=== PATIENT | female | born 1950 | race African-American/Black ===

== ENCOUNTER 2019-01-11 17:30 | Emergency (ER) | payer MEDICARE, OTHER ==
[~2019-01-11] VITALS: Ht 162.6 cm; Wt 136.1 kg
[2019-01-11] MEDS ORDERED: BENZTROPINE 2 MG/2 ML INJ (COGENTIN) AMP IM ONE (18:30)
--- NOTE | 2019-01-11 19:00 | ED General ---
General Chief Complaint: General Problems/Pain Stated Complaint: RT SIDE OF FACE SWOLLEN Nursing Triage Note: Was seen last week for R sided facial swelling and placed on antibiotic. Was changed to clindamycin two days ago. Patient states that she is agitated and anxious. These symptoms have been getting worse for the past couple of days. Patient is unable to sit still on bed and keeps wringing hands. Has xanax at home that she has been taking. Nursing Sepsis Screen: Possible Sepsis Risk Source of Information: Patient History of Present Illness Date Seen by Provider: Jan 11, 2019 Time Seen by Provider: 18:00 Initial Comments 68 yo F presenting with complaints of not being able to sit still. She states this is been going on and getting worse since Saturday when she started a new antibiotic. She has not had problems like this before. She has been having an abscess in her mouth. She was on Bactrim but it was not helping so on Saturday urgent care and switch her to clindamycin. Since change antibiotics she has been having these symptoms. She cannot rest because she cannot sit still. The pain and swelling in her mouth has been getting better. Allergies and Home Medications Allergies Coded Allergies: Penicillins (Verified Allergy, Unknown, 01/11/19) Home Medications Benztropine Mesylate 1 Mg Tablet, 1 MG PO BID Prescribed by: KAUSHAL VANCE on 01/11/192040 Cephalexin 500 Mg Tablet, 500 MG PO QID Prescribed by: KAUSHAL VANCE on 01/11/192040 Patient Home Medication List Home Medication List Reviewed: Yes Review of Systems Review of Systems Constitutional: No chills, No fever EENTM: see HPI Respiratory: cough Cardiovascular: no symptoms reported Gastrointestinal: no symptoms reported Genitourinary: no symptoms reported Musculoskeletal: see HPI Skin: no symptoms reported Psychiatric/Neurological: See HPI, Anxiety Past Mecxdth-Kizhgv-Cndylr Hx Past Med/Social Hx: Reviewed Nursing Past Med/Soc Hx Patient Social History Recent Foreign Travel: No Contact w/Someone Who Travel: No Recent Infectious Disease Expo: No Physical Exam Vital Signs Vital Signs - First Documented 01/11/19 01/11/19 17:40 20:18 Temp 100.0 Pulse 112 Resp 24 B/P (MAP) 141/106 (118) Pulse Ox 94 O2 Delivery Room Air Capillary Refill : Less Than 3 Seconds Height, Weight, BMI Height: 5'4.00" Weight: 300lbs. oz. 136.377528iy; BMI Method:Stated General Appearance: WD/WN, Moderate Distress, Obese HEENT: Moist Mucous Membranes, Other (swelling to the gums along the mandible on the right side. Patient is edentulous) Neck: Full Range of Motion, Non Tender, Supple Respiratory: Chest Non Tender, Lungs Clear, Normal Breath Sounds Cardiovascular: Regular Rate, Rhythm, Normal Peripheral Pulses Extremity: Normal Capillary Refill, Normal Range of Motion, Non Tender Neurologic/Psychiatric: Alert, Oriented x3, No Motor/Sensory Deficits, Normal Mood/Affect, hand glass cutter II-XII Norm as Tested, Other (patient was having repetitive and random movements of her body. Appears to be consistent with a dystonic type reaction) Skin: Normal Color, Warm/Dry Progress/Results/Core Measures Suspected Sepsis Recent Fever Within 48 Hours: Yes Infection Criteria Present: Documented Infection New/Unexplained Altered Menta: No Sepsis Screen: Possible Sepsis Risk SIRS Temperature:100.0 Pulse: 112 Respiratory Rate: 24 Blood Pressure 141 /106 Mean: 118 Results/Orders My Orders Orders - KAUSHAL VANCE MD Benztropine Injection (Cogentin Injectio (01/11/19 18:30) Medications Given in ED Current Medications Medications Dose Ordered Sig/[place] Route Start Time Stop Time Status Last Admin Dose Admin Benztropine Mesylate 2 mg ONCE ONCE IM 01/11/19 18:30 01/11/19 18:31 DC 01/11/19 18:59 2 MG Vital Signs/I&O 01/11/19 01/11/19 17:40 20:18 Temp 100.0 Pulse 112 94 Resp 24 22 B/P (MAP) 141/106 (118) 133/114 (120) Pulse Ox 94 98 O2 Delivery Room Air Capillary Refill : Less Than 3 Seconds Blood Pressure Mean: 118 Progress Note #1: Progress Note Her symptoms fit more with extraparametal symptoms or akathisia. Considering that she is on a couple of antidepressants and older antiseizure to medications she does have potential for this to develop. Especially considering that she was started on clindamycin and that's when the symptoms started this is a possibility. The clindamycin can potentiate the CYP 34A receptors and pathway causing possible buildup of medicine. Citalopram and Gabapentin could result in EPS and akathisia symptoms like pt is experiencing. Will try a dose of Cogentin 2 mg IM and see how she responds to that. Progress Note #2: Progress Note On recheck of the patient she is having improved symptoms after the Cogentin injection. Will have her stop the clindamycin and will prescribe Keflex. She states that she has taken that before and done okay with that. Will have her try Benadryl for tonight to help her sleep and prescribed 2-3 days of Cogentin to help get her over the side effects of the medication. Counseled on follow-up and return precautions. Departure Impression Primary Impression: Acute medication-induced akathisia Disposition: HOME, SELF-CARE Condition: Improved Departure-Patient Inst. Decision time for Depature: 20:38 Referrals: MAHNAZ KAYE DO (PCP/Family) Primary Care Physician Patient Instructions: Adverse Drug Reactions, Adult (DC) Add. Discharge Instructions: Stop the Clindamycin antibiotic and start Cephalexin (Keflex) instead. You may continue Benadryl for side effects of the medicine. You could fill script for Cogentin in the morning to help with the symptoms you are having for the next few days if needed. Check back with your regular provider All discharge instructions reviewed with patient and/or family. Voiced understanding. Scripts Cephalexin (Cephalexin) 500 Mg Tablet 500 MG PO QID for dental infection for 10 Days, #40 TAB 0 Refills Prov: KAUSHAL VANCE MD 01/11/19 Benztropine Mesylate (Benztropine Mesylate) 1 Mg Tablet 1 MG PO BID for 3 Days, #6 TAB 0 Refills Prov: KAUSHAL VANCE MD 01/11/19 KAUSHAL VANCE MD Jan 11, 2019 19:00
[2019-01-11 20:18] VITALS: BP 133/114
[2019-01-11] MEDS ORDERED: CEPH500T PO (20:41)
[2019-01-11] MEDS ORDERED: BENZ1TAB6 PO (20:41)
== END 2019-01-11 20:52 | disposition home or self-care (01) ==
LOC: EDUNIT# 17:30 → ER FS 17:32
DX: G25.71 Drug induced akathisia (principal); T36.8X5A Adverse effect of other systemic antibiotics, initial encounter; Z88.0 Allergy status to penicillin
CPT/HCPCS: 96372; 99284

== ENCOUNTER 2020-03-06 11:31 | Inpatient (IN) | payer MEDICARE, OTHER ==
[~2020-03-06] VITALS: Ht 167.7 cm; Wt 101.0 kg
[~2020-03-06 11:31] MED LIST: BENZ1TAB6 PO; CEPH500T PO
--- NOTE | 2020-03-06 11:36 | ED General ---
General Chief Complaint: Trauma-Non Activation Stated Complaint: FALL Source of Information: Patient, EMS History of Present Illness Date Seen by Provider: Mar 06, 2020 Time Seen by Provider: 11:28 Initial Comments Patient is a 69-year-old female who is brought to the emergency department today by ambulance for evaluation of falls. The patient states she has had multiple falls over the last 24 hours. She reports 3 fall yesterday. Earlier today, she fell again landing on the right hip. She was stuck on the floor for about 15 minutes until a friend of hers came to check on her and called EMS. The patient relates that she has been having severe lightheadedness and dizzy episodes which are solely associated with position changes. These have been only over the last couple of days. No nausea or vomiting. She reports normal by mouth intake. No chest pain, palpitations, shortness of breath. No changes in bowel or bladder patterns. At baseline, the patient lives at home and manages to take care of herself O she has several friends who check on her regularly. On arrival to the ER, the patient is mildly sedated but arouses easily. She answers questions appropriately and she has no immediate focal neuro deficits on exam. She complains only of right sided hip pain. She relates that she did strike her head during one of the falls yesterday. She is on Coumadin secondary to history of recurrent pulmonary emboli. Allergies and Home Medications Allergies Coded Allergies: Penicillins (Verified Allergy, Unknown, 01/11/19) Home Medications Benztropine Mesylate 1 Mg Tablet, 1 MG PO BID Prescribed by: KAUSHAL VANCE on 01/11/192040 Cephalexin 500 Mg Tablet, 500 MG PO QID Prescribed by: KAUSHAL VANCE on 01/11/192040 Patient Home Medication List Home Medication List Reviewed: Yes Review of Systems Review of Systems Constitutional: weakness EENTM: no symptoms reported Respiratory: no symptoms reported Cardiovascular: no symptoms reported Gastrointestinal: no symptoms reported Musculoskeletal: see HPI Skin: no symptoms reported Hematologic/Lymphatic: See HPI All Other Systems Reviewed Negative Unless Noted: Yes Past Lzvatjv-Yrnjdx-Yprjgb Hx Patient Social History 2nd Hand Smoke Exposure: No Recent Hopitalizations: No Seasonal Allergies Seasonal Allergies: No Past Medical History Surgeries: No Respiratory: No Cardiac: No Neurological: Yes (fibromyalgia; ) Headaches /Migraines Genitourinary: No Gastrointestinal: No Musculoskeletal: Yes Arthritis Endocrine: No HEENT: No Psychosocial: Yes Anxiety Integumentary: No Physical Exam Vital Signs Vital Signs - First Documented 03/06/20 11:32 Temp 36.0 Pulse 78 Resp 18 B/P (MAP) 76/50 (59) Pulse Ox 94 O2 Delivery Room Air Capillary Refill : Height, Weight, BMI Height: 5'4.00" Weight: 300lbs. oz. 136.755766pj; BMI Method:Stated General Appearance: No Apparent Distress, WD/WN, Other (sleepy but arouses easily) HEENT: PERRL/EOMI, TMs Normal Neck: Non Tender Respiratory: Chest Non Tender, Lungs Clear Cardiovascular: Regular Rate, Rhythm, No Edema, No Murmur Extremity: Normal Capillary Refill, No Pedal Edema Neurologic/Psychiatric: Alert, Oriented x3, No Motor/Sensory Deficits, Normal Mood/Affect, ring striker II-XII Norm as Tested Skin: Normal Color, Warm/Dry Focused Exam Lactate Level 03/06/20 11:42: Lactic Acid Level 1.83 Lactic Acid Level Laboratory Tests Test 03/06/20 11:42 Lactic Acid Level 1.83 MMOL/L (0.50-2.00) Progress/Results/Core Measures Suspected Sepsis SIRS Temperature: Pulse: Respiratory Rate: Laboratory Tests 03/06/20 11:42: White Blood Count 6.4 Blood Pressure / Mean: 03/06/20 11:42: Lactic Acid Level 1.83 Laboratory Tests 03/06/20 11:42: Creatinine 3.27H, INR Comment 1.8H, Platelet Count 223, Total Bilirubin 0.2 Results/Orders Lab Results Laboratory Tests Test 03/06/20 11:42 03/06/20 12:08 Range/Units White Blood Count 6.4 4.3-11.0 10^3/uL Red Blood Count 4.12 L 4.35-5.85 10^6/uL Hemoglobin 11.2 L 11.5-16.0 G/DL Hematocrit 34 L 35-52 % Mean Corpuscular Volume 83 80-99 FL Mean Corpuscular Hemoglobin 27 25-34 PG Mean Corpuscular Hemoglobin Concent 33 32-36 G/DL Red Cell Distribution Width 15.3 H 10.0-14.5 % Platelet Count 223 130-400 10^3/uL Mean Platelet Volume 10.1 7.4-10.4 FL Neutrophils (%) (Auto) 53 42-75 % Lymphocytes (%) (Auto) 34 12-44 % Monocytes (%) (Auto) 6 0-12 % Eosinophils (%) (Auto) 6 0-10 % Basophils (%) (Auto) 1 0-10 % Neutrophils # (Auto) 3.4 1.8-7.8 X 10^3 Lymphocytes # (Auto) 2.2 1.0-4.0 X 10^3 Monocytes # (Auto) 0.4 0.0-1.0 X 10^3 Eosinophils # (Auto) 0.4 H 0.0-0.3 10^3/uL Basophils # (Auto) 0.0 0.0-0.1 10^3/uL Prothrombin Time 20.7 H 12.2-14.7 SEC INR Comment 1.8 H 0.8-1.4 Activated Partial Thromboplast Time 28 24-35 SEC Sodium Level 140 135-145 MMOL/L Potassium Level 4.5 3.6-5.0 MMOL/L Chloride Level 107 98-107 MMOL/L Carbon Dioxide Level 21 21-32 MMOL/L Anion Gap 12 5-14 MMOL/L Blood Urea Nitrogen 54 H 7-18 MG/DL Creatinine 3.27 H 0.60-1.30 MG/DL Estimat Glomerular Filtration Rate 17 BUN/Creatinine Ratio 17 Glucose Level 132 H 70-105 MG/DL Lactic Acid Level 1.83 0.50-2.00 MMOL/L Calcium Level 9.2 8.5-10.1 MG/DL Corrected Calcium 9.6 8.5-10.1 MG/DL Total Bilirubin 0.2 0.1-1.0 MG/DL Aspartate Amino Transf (AST/SGOT) 23 5-34 U/L Alanine Aminotransferase (ALT/SGPT) 13 0-55 U/L Alkaline Phosphatase 81 40-136 U/L Troponin I < 0.30 <0.30 NG/ML Pro-B-Type Natriuretic Peptide 15.4 <75.0 PG/ML Total Protein 6.7 6.4-8.2 GM/DL Albumin 3.5 3.2-4.5 GM/DL Serum Alcohol < 10 <10 MG/DL Urine Color YELLOW Urine Clarity CLEAR Urine pH 5.5 5-9 Urine Specific [place] 1.020 1.016-1.022 Urine Protein NEGATIVE NEGATIVE Urine Glucose (UA) NEGATIVE NEGATIVE Urine Ketones NEGATIVE NEGATIVE Urine Nitrite NEGATIVE NEGATIVE Urine Bilirubin NEGATIVE NEGATIVE Urine Urobilinogen 0.2 < = 1.0 MG/DL Urine Leukocyte Esterase NEGATIVE NEGATIVE Urine RBC (Auto) NEGATIVE NEGATIVE Urine RBC NONE /HPF Urine WBC 0-2 /HPF Urine Squamous Epithelial Cells 0-2 /HPF Urine Crystals NONE /LPF Urine Bacteria NEGATIVE /HPF Urine Casts PRESENT /LPF Urine Hyaline Casts 2-5 H /LPF Urine Mucus NEGATIVE /LPF Urine Culture Indicated NO Urine Opiates Screen NEGATIVE NEGATIVE Urine Oxycodone Screen NEGATIVE NEGATIVE Urine Methadone Screen NEGATIVE NEGATIVE Urine Propoxyphene Screen NEGATIVE NEGATIVE Urine Barbiturates Screen NEGATIVE NEGATIVE Ur Tricyclic Antidepressants Screen POSITIVE H NEGATIVE Urine Phencyclidine Screen NEGATIVE NEGATIVE Urine Amphetamines Screen NEGATIVE NEGATIVE Urine Methamphetamines Screen NEGATIVE NEGATIVE Urine Benzodiazepines Screen POSITIVE H NEGATIVE Urine Cocaine Screen NEGATIVE NEGATIVE Urine Cannabinoids Screen NEGATIVE NEGATIVE My Orders Orders - ARLENE FERNANDEZ DO Ed Iv/Invasive Line Start (03/06/20 11:36) Ekg Tracing (03/06/20 11:36) Cbc With Automated Diff (03/06/20 11:36) Comprehensive Metabolic Panel (03/06/20 11:36) Probnp Fs (03/06/20 11:36) Creatine Kinase (03/06/20 11:36) Troponin I Fs (03/06/20 11:36) Lactic Acid Analyzer (03/06/20 11:36) Urinalysis (03/06/20 11:36) Drug Screen Stat (Urine) (03/06/20 11:36) Ns Iv 1000 Ml (Sodium Chloride 0.9%) (03/06/20 11:45) Pelvis With Right Hip 2-3 View (03/06/20 11:38) Protime With Inr (03/06/20 11:38) Partial Thromboplastin Time (03/06/20 11:38) Ct Head/Cervical Spine Wo (03/06/20 11:38) Chest 1 View Ap/Pa Only (03/06/20 11:39) Ns Iv 1000 Ml (Sodium Chloride 0.9%) (03/06/20 12:30) Blood Culture (03/06/20 12:22) Blood Culture (03/06/20 12:00) Alcohol (03/06/20 12:53) Vital Signs/I&O 03/06/20 11:32 Temp 36.0 Pulse 78 Resp 18 B/P (MAP) 76/50 (59) Pulse Ox 94 O2 Delivery Room Air Capillary Refill : Progress Note : Time: 11:35 Progress Note Patient is examined on arrival to her room. Overall, she is sleepy and speaking somewhat with mildly slurred speech but she has an nonfocal neurologic exam. Her presentation seems more consistent with intoxication or drug side effect than for acute neurologic incident. The patient does endorse using tramadol. She uses this medication 3 times daily which she has been decreasing under the direction of her physician. She had recently used 5 tablets daily. She is noted to have systolic blood pressure of 78 on arrival and no clear etiology for this. Heart rate is normal. Differential diagnosis included medication side effect, dehydration, electrolyte disturbance, sepsis, intracranial hemorrhage, ACS. Broad workup is ordered and IV fluid hydration. 13:10: Most results are returned although imaging is pending. X-ray right hip does not reveal acute findings. Chest x-ray also does not reveal acute infectio n. Lactate is not elevated and no leukocytosis. No evidence for sepsis. Patient is noted to have elevated creatinine and there is no prior available in the computer system for comparison. She also has uremia with UN of 53. This can explain some of her somnolent symptoms. Also continued concern over medication side effect as her baseline medications include tramadol, mirtazapine, al prazolam, and Elavil. Patient is clinically improving. Blood pressure is now 105 systolic. She continues to arouse easily to verbal stimuli and answers questions appropriately. I explained all of the results to the patient and recommended she be admitted for IV hydration and trending of her creatinine and BUN. Patient is agreeable to the plan of care including admission to [facility]. I spoke to Dr. Miller who is agreeable to accept the patient for admission. 14:00: EMS present to transport patient. SBP currently 90. Liter #3 NS started. Patient awake, alert. Improved from admission. ECG Initial ECG Impression Date: Mar 06, 2020 Initial ECG Impression Time: 11:50 Initial ECG Rate: 74 Departure Communication (Admissions) Time/Spoke to Admitting Phy: 13:10 Dr. Miller Impression Primary Impression: Acute kidney injury Disposition: ADMITTED INPATIENT Condition: Improved Admissions Decision to Admit Reason: Admit from ER (General) Decision to Admit/Date: Mar 06, 2020 Time/Decision to Admit Time: 13:05 Departure-Patient Inst. Referrals: CELIA SEWELL MD (PCP/Family) Primary Care Physician ARLENE FERNANDEZ DO Mar 06, 2020 11:36
[2020-03-06] MEDS ORDERED: NS IV 1000 ML 1,000 ML IV SCH ×2 (11:45→12:30)
[2020-03-06 12:07] LABS: BASOPHILS % (AUTO) 1 % (0-10); EOSINOPHILS # (AUTO) 0.4 10^3/uL (0.0-0.3); EOSINOPHILS % (AUTO) 6 % (0-10); HEMATOCRIT 34 % (35-52); HEMOGLOBIN 11.2 G/DL (11.5-16.0); LYMPHOCYTES # (AUTO) 2.2 X 10^3 (1.0-4.0); LYMPHOCYTES % (AUTO) 34 % (12-44); MEAN CORPUSCULAR HEMOGLOBIN 27 PG (25-34); MEAN CORPUSCULAR HGB CONC 33 G/DL (32-36); MEAN CORPUSCULAR VOLUME 83 FL (80-99); MEAN PLATELET VOLUME 10.1 FL (7.4-10.4); MONOCYTES # (AUTO) 0.4 X 10^3 (0.0-1.0); MONOCYTES % (AUTO) 6 % (0-12); NEUTROPHILS # (AUTO) 3.4 X 10^3 (1.8-7.8); NEUTROPHILS % (AUTO) 53 % (42-75); PLATELET COUNT 223 10^3/uL (130-400); RED CELL DISTRIBUTION WIDTH 15.3 % (10.0-14.5); WHITE BLOOD COUNT 6.4 10^3/uL (4.3-11.0)
[2020-03-06 12:09] LABS: INR 1.8 (0.8-1.4); PROTHROMBIN TIME PATIENT 20.7 SEC (12.2-14.7)
[2020-03-06 12:27] LABS: BACTERIA,URINE NEGATIVE /HPF; BILIRUBIN,URINE NEGATIVE (NEGATIVE); CLARITY,URINE CLEAR; COLOR,URINE YELLOW; GLUCOSE, URINE (UA) NEGATIVE (NEGATIVE); KETONES,URINE NEGATIVE (NEGATIVE); LEUKOCYTE ESTERASE ,URINE NEGATIVE (NEGATIVE); NITRITE,URINE NEGATIVE (NEGATIVE); PH,URINE 5.5 (5-9); PROTEIN,URINE NEGATIVE (NEGATIVE); WBC,URINE 0-2 /HPF
[2020-03-06 12:28] LABS: SQUAMOUS EPITHELIAL CELL,UR 0-2 /HPF
[2020-03-06 12:30] LABS: AMPHETAMINE SCREEN, URINE NEGATIVE (NEGATIVE); BARBITURATE SCREEN URINE NEGATIVE (NEGATIVE); BENZODIAZEPINES SCREEN URINE POSITIVE (NEGATIVE); CANNABINOID SCREEN, URINE NEGATIVE (NEGATIVE); COCAINE SCREEN URINE NEGATIVE (NEGATIVE); METHADONE STAT NEGATIVE (NEGATIVE); METHAMPHETAMINE SCREEN URINE S NEGATIVE (NEGATIVE); OPIATE SCREEN URINE NEGATIVE (NEGATIVE); OXYCODONE STAT NEGATIVE (NEGATIVE); PROPOXYPHENE STAT NEGATIVE (NEGATIVE); TRICYCLIC ANTIDEPRESSANTS SCRE POSITIVE (NEGATIVE)
[2020-03-06 12:42] LABS: CARBON DIOXIDE 21 MMOL/L (21-32); CHLORIDE 107 MMOL/L (98-107); POTASSIUM 4.5 MMOL/L (3.6-5.0); SODIUM 140 MMOL/L (135-145)
[2020-03-06 12:43] LABS: ALANINE AMINOTRANSFERASE 13 U/L (0-55); ALBUMIN 3.5 GM/DL (3.2-4.5); ALKALINE PHOSPHATASE 81 U/L (40-136); BILIRUBIN,TOTAL 0.2 MG/DL (0.1-1.0); BUN/CREATININE RATIO 17; CALCIUM 9.2 MG/DL (8.5-10.1); CREATININE SERUM 3.27 MG/DL (0.60-1.30); GFR ESTIMATED 17; GLUCOSE 132 MG/DL (70-105); TOTAL PROTEIN 6.7 GM/DL (6.4-8.2)
--- NOTE | 2020-03-06 13:08 | Diagnostic Imaging Report ---
INDICATION: Fall, pain COMPARISON: None available TECHNIQUE: 3 radiographs of the pelvis and right hip dated 03/06/2020. FINDINGS: Inferior vena cava filter is partially visualized overlying the abdomen, just to the right of midline. Degenerative changes within the partially visualized lower lumbar spine. Sacroiliac joints are intact. Chondrocalcinosis of the pubic symphysis, though the pubic symphysis appears intact. Small well-corticated ossific density is noted immediately superior to the right greater trochanter. No acute fracture or dislocation. Mild degenerative changes within the bilateral hips. The right femoral head maintains its normal shape and contour. Advanced background vascular calcifications. IMPRESSION: No acute osseous abnormality with low-grade scattered osseous degenerative changes. Minimal chronic fracturing versus enthesophyte formation associated with the right greater trochanter. Advanced vascular calcifications. Chondrocalcinosis of the pubic symphysis. Dictated by: Dictated on workstation # [id number]
--- NOTE | 2020-03-06 13:09 | Diagnostic Imaging Report ---
INDICATION: Patient fell. EXAMINATION: Chest 03/06/2020 FINDINGS: The heart is prominent. Pulmonary vasculature is mildly congested. There is linear atelectasis or scarring in the right midlung. The remaining lung is clear. No effusions. No pneumothorax. IMPRESSION: 1. Right midlung atelectasis. 2. Pulmonary vascular congestion. Dictated by: Dictated on workstation # [id number]
--- OUTSIDE RECORDS SUMMARY | 2020-03-06 13:12 | XMS REPORT ---
Author Author Lexi SEWELL Organization [facility] Address [address] [place] [address] Care Team Providers Care Sap Senior Developer Name Role Phone CELIA SEWELL Unavailable PROBLEMS Type Condition ICD9-CM Code [id number] Code Onset Dates Condition S tatus SNOMED Code Problem Shortness of breath R06.02 17 Jan, 2015 Active 948730756 Problem Transient alteration of awareness R40.4 Jul Active 1375851 Problem Type 2 diabetes, uncontrolled, with renal manifestatio n E11.29 Mar, Active 653693922 Problem Morbid obesity with BMI of 45.0-49.9, adult E66 .01 Mar, Active 569392727 Problem Osteoarthritis of right knee M17.11 02 Oct, 2 Active 231079286 Problem Pulmonary embolism and infarction I26.99 17 Aug Active 5478547673151 Problem Halliday adverse reaction T43.595A Jul, Ac tive 902876789 Problem Osteoarthritis of left knee M17.12 27 Sep, 2011 Active 294743226 Problem History of pulmonary embolism Z86.711 10 Aug, 18 Active 261321973 Problem Tremor R25.1 11 Apr, 2015 Active 4678550 4 Problem correction current use of anticoagulant therapy Z79 .01 Active 513553377 Problem Primary osteoarthritis of right knee M17.11 Active 167554466122567 Problem Syncope R55 11 Apr, 2015 Active 5303528 07 Problem Chronic kidney disease, stage 3 (moderate) N18.3 Active 225547529 Problem Non-pressure chronic ulcer of right thig h, limited to breakdown of skin L97.111 14 Mar, 2017 Active 615984717 Problem Asthma J45.909 10 Aug, 2017 Active 0604987 01 Problem Benign essential hypertension I10 Active 3185782 Problem Flexural eczema L20.82 Active 5709 2006 Problem Primary insomnia F51.01 Active 397 2004 Problem Moderate episode of recurrent major depressive disorder F33.1 Active 783166606 ALLERGIES No Information ENCOUNTERS Encounter Location Date Diagnosis [facility] [address] [id number] [place] [address] Jan, correction current use of ant icoagulant therapy Z79.01 [facility] [address] [id number] [place] [address] December, [address] [id number] [place] [address] December, [address] 340B [id number] [place] [address] December, roasterman current use of ant icoagulant therapy Z79.01 [facility] [place] [address] [id number] [place] [address] December, [address] [id number] [place] [address] December, [address] 340[address] [id number] [place] [address] Nov, Type 2 diabetes, uncontrolle d, with renal manifestation E11.29 and roasterman current use of anticoagulant therapy Z79.01 [facility] [place] [address] 340[address] [id number] [place] [address] Nov, Type 2 diabetes, uncontrolle d, with renal manifestation E11.29 ; Pulmonary embolism and infarction I26.99 ; Chronic kidney disease, stage 3 (moderate) N18.3 and roasterman current use of anticoagulant therapy Z79.[address] [id number] [place] [address] Nov, Moderate episode of recurren t major depressive disorder F33.[address] [id number] [place] [address] Nov, Moderate episode of recurren t major depressive disorder F33.[address] 340[address] [id number] [place] [address] Oct, [facility] [address] [id number] [place] [address] 13 Oct, 2019 correction current use of ant icoagulant therapy Z79.01 [facility] [place] [address] [id number] [place] [address] 12 Oct, 2019 [facility] TAN Sorensen[address] [facility] [id number] [place] [address] Oct, [facility] [address] [id number] [place] [address] Sep, [facility] [address] [id number] [place] [address] Sep, [facility] [address] [id number] [place] [address] Sep, [facility] [place] [address] [id number] [place] [address] Sep, correction current use of ant icoagulant therapy Z79.01 [facility] [place] [address] [id number] [place] [address] Sep, [facility] [place] [address] [id number] [place] [address] Sep, [facility] [address] [id number] [place] [address] Aug, [facility] [place] [address] [id number] [place] [address] Aug, Pain of right lower extremit y M79.604 ; Primary osteoarthritis of right knee M17.11 ; Chronic kidney disease, stage 3 (moderate) N18.3 and correction current use of anticoagulant therapy Z79.01 [facility] [address] [id number] [place] [address] Aug, roasterman current use of ant icoagulant therapy Z79.01 [facility] [place] [address] [id number] [place] [address] Aug, [facility] [place] [address] 340[address] [id number] [place] [address] 14 Aug, 2019 Need for shingles vaccine Z2 3 [facility] [place] [address] 340[address] [id number] [place] [address] 09 Aug, 2019 [facility] [place] [address] 340[address] [id number] [place] [address] 08 Aug, [address] 340B [id number] [place] [address] Jul, [facility] [place] [address] 340B [id number] [place] [address] Jul, [facility] [place] [address] 340B [id number] [place] [address] Jul, Flexural eczema L20.82 ; Mike ign essential hypertension I10 ; Type 2 diabetes, uncontrolled, with renal manifestation E11.29 and Morbid obesity with BMI of 45.0-49.9, adult E66.01 [facility] [place] [address] 340B [id number] [place] [address] Jul, Type 2 diabetes, uncontrolle d, with renal manifestation E11.29 and correction current use of anticoagulant therapy Z79.01 [facility] [place] [address] 340B [id number] [place] [address] Jul, Flexural eczema L20.82 [facility] [place] [address] 340B [id number] [place] [address] Jul, roasterman current use of ant icoagulant therapy Z79.01 ; Type 2 diabetes, uncontrolled, with renal manifestation E11.29 ; Benign essential hypertension I10 and Moderate episode of recurrent major depressive disorder F33.1 [facility] [place] [address] 340B [id number] [place] [address] Jul, [facility] [place] [address] 340B [id number] [place] [address] Jul, Moderate episode of recurren t major depressive disorder F33.1 [facility] [place] [address] 340B [id number] [place] [address] Jul, Moderate episode of recurren t major depressive disorder F33.[address] 340B [id number] [place] [address] Jul, Benign essential hypertensio n I10 ; Flexural eczema L20.82 and Moderate episode of recurrent major depressive disorder F33.1 [facility] [place] [address] 340B [id number] [place] [address] Jul, correction current use of ant icoagulant therapy Z79.01 [facility] [address] [id number] [place] [address] Jun, Headache above the eye regio n R51 [facility] [address] 340B [id number] [place] [address] Jun, [address] 340B [id number] [place] [address] Jun, Type 2 diabetes, uncontrolle d, with renal manifestation E11.29 [facility] [address] [facility] [id number] [address] [place] [address] Jun, Breast cancer screening Z12. 39 ; Encounter for screening for malignant neoplasm of colon Z12.11 and Encounter for screening for malignant neoplasm of rectum Z12.12 [facility] [address] 340B [id number] [place] [address] May, [address] 340B [id number] [place] [address] May, correction current use of ant icoagulant therapy Z79.01 [facility] [place] [address] 340B [id number] [place] [address] May, Moderate episode of recurren t major depressive disorder F33.1 [facility] [place] [address] 340B [id number] [place] [address] May, correction current use of ant icoagulant therapy Z79.01 [facility] [place] [address] [id number] [place] [address] Apr, [facility] [place] [address] [id number] [place] [address] Apr, [facility] [place] [address] [id number] [place] [address] Apr, correction current use of ant icoagulant therapy Z79.01 [facility] [place] [address] [id number] [place] [address] Apr, correction current use of ant icoagulant therapy Z79.01 [facility] [place] [address] [id number] [place] [address] Mar, [facility] [place] [address] [id number] [place] [address] Mar, [facility] [place] [address] [id number] [place] [address] Mar, roasterman current use of ant icoagulant therapy Z79.01 [facility] [place] [address] [id number] [place] [address] Mar, [facility] [place] [address] [id number] [place] [address] Mar, Type 2 diabetes, uncontrolle d, with renal manifestation E11.29 ; correction current use of anticoagulant therapy Z79.01 ; Malaise R53.81 and Morbid obesity E66.01 [facility] [place] [address] [id number] [place] [address] Mar, [facility] [place] [address] [id number] [place] [address] Mar, roasterman current use of ant icoagulant therapy Z79.01 [facility] [address] [id number] [place] [address] Mar, [facility] [address] 340[address] [id number] [place] [address] Mar, [facility] [address] 340B [id number] [place] [address] Mar, Tinea corporis B35.4 [facility] [place] [address] 340B [id number] [place] [address] Feb, Moderate episode of recurren t major depressive disorder F33.1 [facility] [address] [facility] [id number] [address] [place] [address] Feb, Tinea corporis B35.4 [facility] [place] [address] 340B [id number] [place] [address] Feb, Tinea corporis B35.4 [facility] [place] [address] 340B [id number] [place] [address] Feb, roasterman current use of ant icoagulant therapy Z79.01 [facility] [place] [address] 340B [id number] [place] [address] Jan, [facility] [address] [id number] [place] [address] Jan, roasterman current use of ant icoagulant therapy Z79.01 [facility] [place] [address] [id number] [place] [address] Jan, [facility] [place] [address] [id number] [place] [address] Jan, [facility] [place] [address] [id number] [place] [address] Jan, [facility] [place] [address] [id number] [place] [address] Jan, roasterman current use of ant icoagulant therapy Z79.01 [facility] [place] [address] 340B [id number] [place] [address] Jan, roasterman current use of ant icoagulant therapy Z79.01 [facility] [place] [address] 340B [id number] [place] [address] Jan, [facility] [place] [address] 340B [id number] [place] [address] Jan, [facility] [address] [id number] [place] [address] December, Oral pain K13.79 [facility] [place] [address] 340B [id number] [place] [address] December, roasterman current use of ant icoagulant therapy Z79.01 [facility] [place] [address] 340B [id number] [place] [address] December, [facility] [place] [address] 340B [id number] [place] [address] December, [facility] [address] [facility] [id number] [address] [place] [address] December, UTI symptoms R39.9 [facility] [address] 340B [id number] [place] [address] December, correction current use of ant icoagulant therapy Z79.01 and Chronic pulmonary embolism without acute cor pulmonale, unspecified pulmonary embolism type I27.82 [facility] [place] [address] 340B [id number] [place] [address] December, UTI symptoms R39.9 [facility] [place] [address] 340B [id number] [place] [address] December, correction current use of ant icoagulant therapy Z79.01 ; Morbid obesity with BMI of 45.0-49.9, adult E66.01 ; Tinea corporis B35.4 and Increased frequency of urination R35.0 [facility] [place] [address] 340B [id number] [place] [address] December, correction current use of ant icoagulant therapy Z79.01 [facility] [place] [address] [id number] [place] [address] December, [facility] [address] [id number] [place] [address] December, [facility] [address] [id number] [place] [address] Nov, Flexural eczema L20.82 [facility] [place] [address] 340B [id number] [place] [address] Nov, Moderate episode of recurren t major depressive disorder F33.1 [facility] [place] [address] [id number] [place] [address] Nov, roasterman current use of ant icoagulant therapy Z79.01 [facility] [place] [address] [id number] [place] [address] Nov, [facility] [place] [address] [id number] [place] [address] Nov, [facility] [address] [id number] [place] [address] Nov, [facility] [address] [id number] [place] [address] Nov, [facility] [address] [id number] [place] [address] Nov, Type 2 diabetes mellitus wit hout complication, without long-term current use of insulin E11.9 ; Moderate episode of recurrent major depressive disorder F33.1 ; correction current use of anticoagulant therapy Z79.01 and Benign essential hypertension I10 [facility] [place] [address] [id number] [place] [address] Nov, roasterman current use of ant icoagulant therapy Z79.01 and Benign essential hypertension I10 [facility] [place] [address] 340[address] [id number] [place] [address] Oct, Benign essential hypertensio n I10 ; roasterman current use of anticoagulant therapy Z79.01 and Moderate episode of recurrent major depressive disorder F33.1 [facility] [place] [address] 340B [id number] [place] [address] Oct, roasterman current use of ant icoagulant therapy Z79.[address] 340[address] [id number] [place] [address] Oct, roasterman current use of ant icoagulant therapy Z79.[address] 340B [id number] [place] [address] Oct, [facility] [address] [facility] [id number] [address] [address] Oct, correction current use of ant icoagulant therapy Z79.01 [facility] [address] [id number] [address] [place] [address] Oct, correction current use of ant icoagulant therapy Z79.01 [facility] [place] [address] 340B [id number] [place] [address] Oct, correction current use of ant icoagulant therapy Z79.[address] 340B [id number] [place] [address] Oct, [facility] [place] [address] 340B [id number] [place] [address] Oct, roasterman current use of ant icoagulant therapy Z79.01 [facility] [place] [address] 340B [id number] [place] [address] Sep, [address] 340B [id number] [place] [address] Sep, Benign essential hypertensio n I10 ; Moderate episode of recurrent major depressive disorder F33.1 ; Primary insomnia F51.01 ; Chronic pulmonary embolism without acute cor pulmonale, unspecified pulmonary embolism type I27.82 and Flexural eczema L20.[address] 340B [id number] [place] [address] Sep, correction current use of ant icoagulant therapy Z79.01 [facility] [address] [facility] [id number] [address] [place] [address] Sep, correction current use of ant icoagulant therapy Z79.[address] 340B [id number] [place] [address] Sep, [address] 340B [id number] [place] [address] Sep, [address] 340B [id number] [place] [address] Sep, [facility] [address] [facility] [id number] [address] [place] [address] Aug, [facility] [address] [facility] [id number] [address] [place] [address] Jul, [facility] [address] [facility] [id number] [address] [place] [address] Jul, [facility] [address] [facility] [id number] [address] [place] [address] December, [facility] [address] [facility] [id number] [address] [place] [address] Aug, IMMUNIZATIONS No Known Immunizations SOCIAL HISTORY Never Assessed REASON FOR VISIT Lab (walk-in) PLAN OF CARE VITAL SIGNS MEDICATIONS Unknown Medications RESULTS No Results PROCEDURES Procedure Date Ordered Result Body Site VENIPUNCT, ROUTINE* November 12, 2018 Hemoglobin Test Send Out 0 dollar November 12, 2018 ASSAY THYROID STIM HORMONE November 12, 2018 COMPLETE CBC W/AUTO DIFF WBC November 12, 2018 COMPREHEN METABOLIC PANEL November 12, 2018 LIPID PANEL November 12, 2018 PROTHROMBIN TIME November 12, 2018 INSTRUCTIONS MEDICATIONS ADMINISTERED No Known Medications MEDICAL (GENERAL) HISTORY Type Description Date Medical History Pulmonary embolism Medical History Type 2 diabetes mellitus Medical History Osteoarthritis Medical History Chronic kidney disease Medical History Asthma Surgical History Knee Replacement Hospitalization History confusion Hospitalization History Kidney Disease Hospitalization History Pulmonary Embolism
--- OUTSIDE RECORDS SUMMARY | 2020-03-06 13:12 | XMS REPORT ---
Author Author Lexi SEWELL Organization [facility] Address [address] [place] [address] Care Team Providers Care Drosser Name Role Phone CELIA SEWELL Unavailable PROBLEMS Type Condition ICD9-CM Code [id number] Code Onset Dates Condition S tatus SNOMED Code Problem Shortness of breath R06.02 17 Jan, 2015 Active 378506507 Problem Transient alteration of awareness R40.4 Jul Active 4561498 Problem Type 2 diabetes, uncontrolled, with renal manifestatio n E11.29 Mar, Active 362502852 Problem Morbid obesity with BMI of 45.0-49.9, adult E66 .01 Mar, Active 482719885 Problem Osteoarthritis of right knee M17.11 02 Oct, 2 Active 674487075 Problem Pulmonary embolism and infarction I26.99 17 Aug Active 2348966774649 Problem [place] adverse reaction T43.595A Jul, Ac tive 334802301 Problem Osteoarthritis of left knee M17.12 27 Sep, 2011 Active 526705789 Problem History of pulmonary embolism Z86.711 10 Aug, 18 Active 391818886 Problem Tremor R25.1 11 Apr, 2015 Active 9751330 4 Problem 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 Active 652999355 Problem Primary osteoarthritis of right knee M17.11 Active 548094650903003 Problem Syncope R55 11 Apr, 2015 Active 5741999 07 Problem Chronic kidney disease, stage 3 (moderate) N18.3 Active 458148555 Problem Non-pressure chronic ulcer of right thig h, limited to breakdown of skin L97.111 14 Mar, 2017 Active 998128074 Problem Asthma J45.909 10 Aug, 2017 Active 8132500 01 Problem Benign essential hypertension I10 Active 1829579 Problem Flexural eczema L20.82 Active 5709 2006 Problem Primary insomnia F51.01 Active 397 2004 Problem Moderate episode of recurrent major depressive disorder F33.1 Active [id number] ALLERGIES No Information ENCOUNTERS Encounter Location Date Diagnosis [facility] [address] [place] [address] Nov, [address] [place] [address] Sep, [address] [address] [place] [address] Sep, [address] [place] [address] Aug, [address] [address] [place] [address] Aug, Pain of right lower extremit y M79.604 ; Primary osteoarthritis of right knee M17.11 ; Chronic kidney disease, stage 3 (moderate) N18.3 and 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 [facility] [place] [address] [place] [address] Aug, senior care current use of ant icoagulant therapy Z79.01 [facility] [place] [address] [place] [address] Aug, [address] [place] [address] Aug, Need for shingles vaccine Z2 3 [facility] [place] [address] [place] [address] Aug, [address] [place] [address] Aug, [facility] [address] [place] [address] Jul, [address] [place] [address] Jul, [address] [address] [place] [address] Jul, Flexural eczema L20.82 ; Mike ign essential hypertension I10 ; Type 2 diabetes, uncontrolled, with renal manifestation E11.29 and Morbid obesity with BMI of 45.0-49.9, adult E66.01 [address] [place] [address] 24 Jul, 2019 Type 2 diabetes, uncontrolle d, with renal manifestation E11.29 and senior care current use of anticoagulant therapy Z79.01 [address] [place] [address] Jul, Flexural eczema L20.82 [address] [place] [address] Jul, 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 ; Type 2 diabetes, uncontrolled, with renal manifestation E11.29 ; Benign essential hypertension I10 and Moderate episode of recurrent major depressive disorder F33.1 [address] [place] [address] Jul, [address] [place] [address] Jul, Moderate episode of recurren t major depressive disorder F33.1 [address] [place] [address] Jul, Moderate episode of recurren t major depressive disorder F33.1 [address] [place] [address] Jul, Benign essential hypertensio n I10 ; Flexural eczema L20.82 and Moderate episode of recurrent major depressive disorder F33.1 [address] [place] [address] Jul, senior care current use of ant icoagulant therapy Z79.01 [facility] [address] [place] [address] Jun, Headache above the eye regio n R51 [address] [place] [address] Jun, [facility] [place] [address] [place] [address] Jun, Type 2 diabetes, uncontrolle d, with renal manifestation E11.29 [facility] [address] [facility] [place] [address] 07 Jun, 2019 Breast cancer screening Z12.39 ; Encount er for screening for malignant neoplasm of colon Z12.11 and Encounter for screening for malignant neoplasm of rectum Z12.12 [facility] [place] [address] [place] [address] May, [facility] [address] [place] [address] May, 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 [facility] [address] [place] [address] May, Moderate episode of recurren t major depressive disorder F33.1 [facility] [address] [place] [address] May, 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 [facility] [place] [address] [place] [address] Apr, [facility] [address] [place] [address] Apr, [facility] [place] [address] [place] [address] Apr, 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 [facility] [place] [address] [place] [address] Apr, senior care current use of ant icoagulant therapy Z79.01 [facility] [address] [place] [address] Mar, [facility] [place] [address] [place] [address] Mar, [facility] [address] [place] [address] Mar, senior care current use of ant icoagulant therapy Z79.01 [facility] [address] [place] [address] Mar, [address] [place] [address] Mar, Type 2 diabetes, uncontrolle d, with renal manifestation E11.29 ; 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 ; Malaise R53.81 and Morbid obesity E66.01 [facility] [address] [place] [address] Mar, [address] [place] [address] Mar, 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 [facility] [address] [place] [address] Mar, [address] [place] [address] Mar, [address] [place] [address] Mar, Tinea corporis B35.4 [facility] [address] [place] [address] Feb, Moderate episode of recurren t major depressive disorder F33.1 [facility] [address] [facility] [place] [address] Feb, Tinea corporis B35.[address] [place] [address] Feb, Tinea corporis B35.4 [address] [place] [address] Feb, senior care current use of ant icoagulant therapy Z79.01 [facility] [address] [place] [address] Jan, [facility] [address] [place] [address] Jan, senior care current use of ant icoagulant therapy Z79.01 [facility] [address] [place] [address] Jan, [facility] [address] [place] [address] Jan, [facility] [address] [place] [address] Jan, [facility] [address] [place] [address] Jan, senior care current use of ant icoagulant therapy Z79.01 [facility] [address] [place] [address] Jan, senior care current use of ant icoagulant therapy Z79.01 [facility] [address] [place] [address] Jan, [facility] [address] [place] [address] Jan, [facility] [address] [place] [address] December, Oral pain K13.79 [facility] [address] [place] [address] December, senior care current use of ant icoagulant therapy Z79.01 [facility] [address] [place] [address] December, [facility] [address] [place] [address] December, [facility] [address] [facility] [place] [address] December, UTI symptoms R39.9 [address] [place] [address] December, 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 and Chronic pulmonary embolism without acute cor pulmonale, unspecified pulmonary embolism type I27.82 [address] [place] [address] December, UTI symptoms R39.9 [address] [place] [address] December, senior care current use of ant icoagulant therapy Z79.01 ; Morbid obesity with BMI of 45.0-49.9, adult E66.01 ; Tinea corporis B35.4 and Increased frequency of urination R35.0 [address] [place] [address] December, 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 [address] [place] [address] December, [address] [place] [address] December, [address] [place] [address] Nov, Flexural eczema L20.82 [address] [place] [address] Nov, Moderate episode of recurren t major depressive disorder F33.1 [address] [place] [address] Nov, 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 [address] [place] [address] Nov, [address] [place] [address] Nov, [facility] [address] [place] [address] Nov, [facility] [address] [place] [address] Nov, [facility] [place] [address] [place] [address] Nov, Type 2 diabetes mellitus wit hout complication, without long-term current use of insulin E11.9 ; Moderate episode of recurrent major depressive disorder F33.1 ; 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 and Benign essential hypertension I10 [facility] [address] [place] [address] Nov, senior care current use of ant icoagulant therapy Z79.01 and Benign essential hypertension I10 [facility] [address] [place] [address] Oct, Benign essential hypertensio n I10 ; senior care current use of anticoagulant therapy Z79.01 and Moderate episode of recurrent major depressive disorder F33.1 [facility] [address] [place] [address] Oct, senior care current use of ant icoagulant therapy Z79.01 [address] [place] [address] Oct, 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 [place] [address] Oct, [facility] [address] [facility] [place] [address] Oct, senior care current use of anticoagulant t herapy Z79.01 [place] [address] [facility] [place] [address] Oct, senior care current use of anticoagulant t herapy Z79.01 [address] [place] [address] Oct, 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 [facility] [address] [place] [address] Oct, [address] [place] [address] Oct, senior care current use of ant icoagulant therapy Z79.01 [facility] [place] [address] [place] [address] Sep, [facility] [place] [address] [place] [address] Sep, Benign essential hypertensio n I10 ; Moderate episode of recurrent major depressive disorder F33.1 ; Primary insomnia F51.01 ; Chronic pulmonary embolism without acute cor pulmonale, unspecified pulmonary embolism type I27.82 and Flexural eczema L20.82 [facility] [place] [address] [place] [address] Sep, 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 [facility] [address] [facility] [place] [address] Sep, 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 [id number] [place] [address] December, [facility] [address] [facility] [id number] [place] [address] Aug, IMMUNIZATIONS No Known Immunizations SOCIAL HISTORY Never Assessed REASON FOR VISIT Requests return call PLAN OF CARE VITAL SIGNS MEDICATIONS Unknown Medications RESULTS No Results PROCEDURES No Known procedures INSTRUCTIONS MEDICATIONS ADMINISTERED No Known Medications MEDICAL (GENERAL) HISTORY Type Description Date Medical History Pulmonary embolism Medical History Type 2 diabetes mellitus Medical History Osteoarthritis Medical History Chronic kidney disease Medical History Asthma Surgical History Knee Replacement Hospitalization History confusion Hospitalization History Kidney Disease Hospitalization History Pulmonary Embolism
--- OUTSIDE RECORDS SUMMARY | 2020-03-06 13:13 | XMS REPORT ---
Author Author Lexi SEWELL Organization [facility] Address [address] [place] [address] Care Team Providers Care Correspondence Transcriber Name Role Phone CELIA SEWELL Unavailable PROBLEMS Type Condition ICD9-CM Code [id number] Code Onset Dates Condition S tatus SNOMED Code Problem Asthma J45.909 10 Aug, 2017 Active 7492110 01 Problem Tremor R25.1 11 Apr, 2015 Active 2813530 4 Problem Shortness of breath R06.02 Jan, Active 377808231 Problem Transient alteration of awareness R40.4 Jul Active 3123923 Problem Non-pressure chronic ulcer of right thig h, limited to breakdown of skin L97.111 14 Mar, 2017 Active 852981494 Problem Morbid obesity with BMI of 45.0-49.9, adult E66 .01 Mar, Active 904981674 Problem Pulmonary embolism and infarction I26.99 17 Aug Active 2579396503299 Problem Type 2 diabetes mellitus without complication 250.00 May, Active 021070817 Problem Type 2 diabetes, uncontrolled, with renal manifestatio n E11.29 Mar, Active 901871914 Problem CKD (chronic kidney disease) stage 3, GFR 30-59 ml/min N18.3 Mar, Active 945134558 Problem [place] adverse reaction T43.595A Jul, Ac tive 306113614 Problem Subtherapeutic international normalized ratio (INR) R79.1 Jan, Active 493039379 Problem 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 Active 442213118 Problem Primary insomnia F51.01 Active 397 2004 Problem Osteoarthritis of left knee M17.12 27 Sep, 2011 Active 511579267 Problem Type 2 diabetes mellitus without complication E 11.9 03 May, 2011 Active 625123178 Problem Morbid obesity E66.01 Active 07136 6002 Problem Osteoarthritis of right knee M17.11 02 Oct, 201 2 Active 566356265 Problem Syncope R55 11 Apr, 2015 Active 0389855 07 Problem History of pulmonary embolism Z86.711 10 Aug, 18 Active 639476678 Problem Type 2 diabetes mellitus wit hout complication, without long-term current use of insulin E11.9 Active 431843873 Problem Moderate episode of recurrent major depressive disorder F33.1 Active 443821544 Problem Benign essential hypertension I10 Active 9639073 Problem Flexural eczema L20.82 Active 5709 2006 ALLERGIES No Information ENCOUNTERS Encounter Location Date [facility] [address] [address] Feb, prison current use of anticoagulant t herapy Z79.[address] [address] Jan, [address] [address] Jan, 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 [address] Jan, [address] [address] Jan, [address] [address] Jan, [address] [address] Jan, 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 [address] Jan, prison current use of anticoagulant t herapy Z79.[address] [address] Jan, [address] [address] Jan, [facility] [address] [facility] [place] [address] December, Oral pain K13.[address] [address] December, 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 [address] December, [address] [address] December, [facility] [address] [facility] [id number] [place] [address] December, UTI symptoms R39.[address] [address] December, 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 and Chronic pulmonary embolism without acute cor pulmonale, unspecified pulmonary embolism type I27.[address] [address] December, UTI symptoms R39.[address] [address] December, prison current use of anticoagulant t herapy Z79.01 ; Morbid obesity with BMI of 45.0-49.9, adult E66.01 ; Tinea corporis B35.4 and Increased frequency of urination R35.[address] [address] December, 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 [address] December, [address] [address] December, [address] [address] Nov, Flexural eczema L20.[address] [address] Nov, Moderate episode of recurrent major depr essive disorder F33.[address] [address] Nov, 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 [address] Nov, [address] [address] Nov, [address] [address] Nov, [address] [address] Nov, [address] [address] Nov, Type 2 diabetes mellitus without complic ation, without long-term current use of insulin E11.9 ; Moderate episode of recurrent major depressive disorder F33.1 ; 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 and Benign essential hypertension I10 [address] [address] Nov, prison current use of anticoagulant t herapy Z79.01 and Benign essential hypertension I10 [address] [address] Oct, Benign essential hypertension I10 ; 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 and Moderate episode of recurrent major depressive disorder F33.[address] [address] Oct, 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 [address] Oct, prison current use of anticoagulant t herapy Z79.[address] [address] Oct, [place] [address] [facility] [id number] [address] [place] [address] Oct, 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.01 [facility] [address] [id number] [address] [place] [address] Oct, prison current use of ant icoagulant therapy Z79.[address] [address] Oct, prison current use of anticoagulant t herapy Z79.[address] [address] Oct, [address] [address] Oct, 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 [address] Sep, [address] [address] Sep, Benign essential hypertension I10 ; Mode rate episode of recurrent major depressive disorder F33.1 ; Primary insomnia F51.01 ; Chronic pulmonary embolism without acute cor pulmonale, unspecified pulmonary embolism type I27.82 and Flexural eczema L20.[address] [address] Sep, 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 [facility] [address] [id number] [address] [place] [address] Sep, prison current use of ant icoagulant therapy Z79.[address] [address] Sep, [address] [address] Sep, [address] [address] Sep, [facility] [address] [id number] [address] [place] [address] Aug, [facility] [address] [id number] [address] [place] [address] Jul, [facility] [address] [id number] [address] [place] [address] Jul, [facility] [address] [id number] [address] [place] [address] December, [facility] [address] [id number] [address] [place] [address] Aug, IMMUNIZATIONS No Known Immunizations SOCIAL HISTORY Never Assessed REASON FOR VISIT Lab (walk-in) PLAN OF CARE VITAL SIGNS MEDICATIONS Unknown Medications RESULTS Name Result Date Reference Range INR (IN HOUSE) INR 2.1 1.10 - 3.30 PREVIOUS INR 5.1 CURRENT COUMADIN DOSE NEW COUMADIN DOSE Lot # [id number] Exp date 12/2019 PROCEDURES Procedure Date Ordered Result Body Site PROTHROMBIN TIME October 27, 2018 INSTRUCTIONS MEDICATIONS ADMINISTERED No Known Medications MEDICAL (GENERAL) HISTORY Type Description Date Medical History Pulmonary embolism Medical History Type 2 diabetes mellitus Medical History Osteoarthritis Medical History Chronic kidney disease Medical History Asthma Hospitalization History confusion Hospitalization History Kidney Disease Hospitalization History Pulmonary Embolism
--- OUTSIDE RECORDS SUMMARY | 2020-03-06 13:13 | XMS REPORT ---
Author Author Lexi SEWELL Organization [facility] Address [address] [place] [address] Care Team Providers Care Hot Top Liner Helper Name Role Phone CELIA SEWELL Unavailable PROBLEMS Type Condition ICD9-CM Code IEN49-UX Code Onset Dates Condition S tatus SNOMED Code Problem Asthma J45.909 10 Aug, 2017 Active 8700403 01 Problem Tremor R25.1 11 Apr, 2015 Active 4458752 4 Problem Shortness of breath R06.02 Jan, Active 010308458 Problem Transient alteration of awareness R40.4 Jul Active 9591826 Problem Non-pressure chronic ulcer of right thig h, limited to breakdown of skin L97.111 14 Mar, 2017 Active 317407830 Problem Morbid obesity with BMI of 45.0-49.9, adult E66 .01 Mar, Active 478195844 Problem Pulmonary embolism and infarction I26.99 17 Aug Active 7423328167824 Problem Type 2 diabetes mellitus without complication 250.00 May, Active 045431920 Problem Type 2 diabetes, uncontrolled, with renal manifestatio n E11.29 Mar, Active 369584529 Problem CKD (chronic kidney disease) stage 3, GFR 30-59 ml/min N18.3 Mar, Active 979648754 Problem [place] adverse reaction T43.595A Jul, Ac tive 832109111 Problem Subtherapeutic international normalized ratio (INR) R79.1 Jan, Active 537086862 Problem 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 Active 912023110 Problem Primary insomnia F51.01 Active 397 2004 Problem Osteoarthritis of left knee M17.12 27 Sep, 2011 Active 488370999 Problem Type 2 diabetes mellitus without complication E 11.9 03 May, 2011 Active 091260042 Problem Morbid obesity E66.01 Active 52105 6002 Problem Osteoarthritis of right knee M17.11 02 Oct, 201 2 Active 563000005 Problem Syncope R55 11 Apr, 2015 Active 0197711 07 Problem History of pulmonary embolism Z86.711 10 Aug, 18 Active 226154109 Problem Type 2 diabetes mellitus wit hout complication, without long-term current use of insulin E11.9 Active 899513068 Problem Moderate episode of recurrent major depressive disorder F33.1 Active 772895352 Problem Benign essential hypertension I10 Active 9875297 Problem Flexural eczema L20.82 Active 5709 2006 ALLERGIES No Information ENCOUNTERS Encounter Location Date [facility] [address] [address] Feb, retirement current use of anticoagulant t herapy Z79.[address] [address] Jan, [address] [address] Jan, 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 [address] Jan, [address] [address] Jan, [address] [address] Jan, [address] [address] Jan, 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 [address] Jan, retirement current use of anticoagulant t herapy Z79.[address] [address] Jan, [address] [address] Jan, [facility] [address] [place] [facility] [address] December, Oral pain K13.[address] [address] December, 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 [address] December, [address] [address] December, [facility] [address] [facility] [id number] [address] [place] [address] December, UTI symptoms R39.[address] [address] December, 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 and Chronic pulmonary embolism without acute cor pulmonale, unspecified pulmonary embolism type I27.[address] [address] December, UTI symptoms R39.[address] [address] December, retirement current use of anticoagulant t herapy Z79.01 ; Morbid obesity with BMI of 45.0-49.9, adult E66.01 ; Tinea corporis B35.4 and Increased frequency of urination R35.[address] [address] December, 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 [address] December, [address] [address] December, [address] [address] Nov, Flexural eczema L20.[address] [address] Nov, Moderate episode of recurrent major depr essive disorder F33.[address] [address] Nov, 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 [address] Nov, [address] [address] Nov, [address] [address] Nov, [address] [address] Nov, [address] [address] Nov, Type 2 diabetes mellitus without complic ation, without long-term current use of insulin E11.9 ; Moderate episode of recurrent major depressive disorder F33.1 ; 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 and Benign essential hypertension I10 [address] [address] Nov, retirement current use of anticoagulant t herapy Z79.01 and Benign essential hypertension I10 [address] [address] Oct, Benign essential hypertension I10 ; 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 and Moderate episode of recurrent major depressive disorder F33.[address] [address] Oct, 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 [address] Oct, retirement current use of anticoagulant t herapy Z79.[address] [address] Oct, [place] [id number] [facility] [id number] [address] [place] [address] Oct, 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 icoagulant therapy Z79.01 [facility] [address] [id number] [address] [place] [phone] Oct, retirement current use of ant icoagulant therapy Z79.[address] [address] Oct, retirement current use of anticoagulant t herapy Z79.[address] [address] Oct, [facility] [address] [address] Oct, 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 [address] Sep, [address] [address] Sep, Benign essential hypertension I10 ; Mode rate episode of recurrent major depressive disorder F33.1 ; Primary insomnia F51.01 ; Chronic pulmonary embolism without acute cor pulmonale, unspecified pulmonary embolism type I27.82 and Flexural eczema L20.[address] [address] Sep, 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 [place] [address] [id number] [address] [place] [phone] Sep, retirement current use of ant icoagulant therapy Z79.[address] [address] Sep, [address] [address] Sep, [address] [address] Sep, [facility] [address] [id number] [address] [place] [address] Aug, [facility] [address] [id number] [address] [place] [phone] Jul, [facility] [address] [id number] [address] [place] [phone] Jul, [facility] [address] [id number] [address] [place] [address] December, [facility] [address] [id number] [address] [place] [phone] Aug, IMMUNIZATIONS No Known Immunizations SOCIAL HISTORY Never Assessed REASON FOR VISIT lab orders PLAN OF CARE VITAL SIGNS MEDICATIONS Unknown [...]
--- OUTSIDE RECORDS SUMMARY | 2020-03-06 13:13 | XMS REPORT | Continuity of Care Document ---
Author Organization Unknown Address Unknown Phone Unavailable Allergies Active Description Code Type Severity Reaction Onset Reported/Identified Relationship to Patient Clinical Status Yes Penicillins [id number] Drug Aller gy Unknown N/A 01/11/2019 Medications There is no data. Problems Date Dx Coded Attending Type Code Diagnosis Diagnosed By 01/11/2019 KAUSHAL VANCE MD, Ot G25.7 1 DRUG INDUCED AKATHISIA 01/11/2019 KAUSHAL VANCE MD, Ot R22.0 LOCALIZED SWELLING, MASS AND LUMP, HEAD 01/11/2019 KAUSHAL VANCE MD, Ot T36.8X5A ADVERSE EFFECT OF OTHER SYSTEMIC ANTIBIO 01/11/2019 KAUSHAL VANCE MD, Ot Z88.0 ALLERGY STATUS TO PENICILLIN Procedures There is no data. Results Test Result Range TSH - 11/12/18 10:35 TSH 0.62 mIU/L 0.40-4.50 A1C - 11/12/18 10:35 HEMOGLOBIN A1c 6.8 % of total Hgb <5.7 CULTURE, URINE - 01/07/19 09:41 CULTURE, URINE, ROUTINE SEE NOTE NRG PT/INR - 03/30/19 14:50 INR 14.8 NRG PT 130.9 sec 9.0-11.5 PT/INR - 03/31/19 14:47 INR 15.3 NRG PT 135.1 sec 9.0-11.5 TSH - 03/31/19 14:47 TSH 0.94 mIU/L 0.40-4.50 PT/INR - 04/06/19 09:48 INR 1.7 NRG PT 17.3 sec 9.0-11.5 PT/INR - 04/15/19 10:22 INR 1.3 NRG PT 13.5 sec 9.0-11.5 MICROALBUMIN/CREATININE RATIO, URINE - 1 10/05/18 09:37 CREATININE, RANDOM URINE TNP mg/dL NRG MICROALBUMIN TNP mg/dL NRG CMP - 08/04/19 09:37 GLUCOSE 96 mg/dL 65-99 UREA NITROGEN (BUN) 31 mg/dL 7-25 CREATININE 1.53 mg/dL 0.50-0.99 eGFR NON-AFR. [place] 35 mL/min/1.73m2 > OR = 60 eGFR 41 mL/min/1.73m2 > OR = 60 BUN/CREATININE RATIO 20 (calc) 6-22 SODIUM 139 mmol/L 135-146 POTASSIUM 4.4 mmol/L 3.5-5.3 CHLORIDE 104 mmol/L 98-110 CARBON DIOXIDE 27 mmol/L 20-32 CALCIUM 9.2 mg/dL 8.6-10.4 PROTEIN, TOTAL 7.0 g/dL 6.1-8.1 ALBUMIN 3.6 g/dL 3.6-5.1 GLOBULIN 3.4 g/dL (calc) 1.9-3.7 ALBUMIN/GLOBULIN RATIO 1.1 (calc) 1.0-2. 5 BILIRUBIN, TOTAL 0.4 mg/dL 0.2-1.2 ALKALINE PHOSPHATASE 78 U/L 33-130 AST 13 U/L 10-35 ALT 8 U/L 6-29 CBC w/MANUAL DIFF - 08/04/19 09:37 WHITE BLOOD CELL COUNT 6.5 Thousand/uL 3 .8-10.8 RED BLOOD CELL COUNT 4.54 Million/uL 3.8 0-5.10 HEMOGLOBIN 12.2 g/dL 11.7-15.5 HEMATOCRIT 37.6 % 35.0-45.0 MCV 82.8 fL 80.0-100.0 MCH 26.9 pg 27.0-33.0 MCHC 32.4 g/dL 32.0-36.0 RDW 13.9 % 11.0-15.0 PLATELET COUNT 254 Thousand/uL 140-400 MPV 10.8 fL 7.5-12.5 ABSOLUTE NEUTROPHILS 3380 cells/uL 1500- 7800 ABSOLUTE MONOCYTES 260 cells/uL 200-950 ABSOLUTE EOSINOPHILS 455 cells/uL 15-500 ABSOLUTE BASOPHILS 0 cells/uL 0-200 NEUTROPHILS 52.0 % NRG LYMPHOCYTES 37.0 % NRG MONOCYTES 4.0 % NRG EOSINOPHILS 7.0 % NRG BASOPHILS 0 % NRG ABSOLUTE LYMPHOCYTES 2405 cells/uL 850-3 900 PLATELET ESTIMATION ADEQUATE ADEQUATE COMMENT(S) NRG PT/INR - 08/04/19 09:37 INR 1.3 NRG PT 13.2 sec 9.0-11.5 A1C - 08/04/19 09:37 HEMOGLOBIN A1c 6.5 % of total Hgb <5.7 MICROALBUMIN/CREATININE RATIO, URINE - 1 10/05/18 11:04 CREATININE, RANDOM URINE 74 mg/dL 20-27 5 MICROALBUMIN 0.3 mg/dL See Note: MICROALBUMIN/CREATININE RATIO, RANDOM URINE 4 mcg/ mg creat <30 BMP - 09/08/19 15:18 GLUCOSE 82 mg/dL 65-99 UREA NITROGEN (BUN) 32 mg/dL 7-25 CREATININE 1.61 mg/dL 0.50-0.99 eGFR NON-AFR. [place] 33 mL/min/1.73m2 > OR = 60 eGFR 38 mL/min/1.73m2 > OR = 60 BUN/CREATININE RATIO 20 (calc) 6-22 SODIUM 141 mmol/L 135-146 POTASSIUM 4.7 mmol/L 3.5-5.3 CHLORIDE 108 mmol/L 98-110 CARBON DIOXIDE 25 mmol/L 20-32 CALCIUM 9.2 mg/dL 8.6-10.4 PT/INR - 09/08/19 15:18 INR 1.5 NRG PT 14.7 sec 9.0-11.5 MICROALBUMIN/CREATININE RATIO, URINE - 0 12/01/19 11:44 CREATININE, RANDOM URINE 72 mg/dL 20-27 5 MICROALBUMIN 0.2 mg/dL See Note: MICROALBUMIN/CREATININE RATIO, RANDOM URINE 3 mcg/ mg creat <30 Complete blood count (CBC) with automate d white blood cell (WBC) differential - 03/06/20 11:42 Blood leukocytes automated count (number/volume) 6.4 10*3/uL 4.3-11.0 Blood erythrocytes automated count (number/volume) 4.12 10*6/uL 4.35-5.85 Venous blood hemoglobin measurement (mass/volume) 11.2 g/dL 11.5-16.0 Blood hematocrit (volume fraction) 34 % 35-52 Automated erythrocyte mean corpuscular volume 83 [ foz_us] 80-99 Automated erythrocyte mean corpuscular h emoglobin (mass per erythrocyte) 27 pg 25-34 Automated erythrocyte mean corpuscular h emoglobin concentration measurement (mass/volume) 33 g/dL 32-36 Automated erythrocyte distribution width ratio 15. 3 % 10.0- 14.5 Automated blood platelet count (count/volume) 223 10*3/uL 130-400 Automated blood platelet mean volume measurement 10.1 [foz_us] 7.4-10.4 Automated blood neutrophils/100 leukocytes 53 % 42-75 Automated blood lymphocytes/100 leukocytes 34 % 12-44 Blood monocytes/100 leukocytes 6 % 0-12 Automated blood eosinophils/100 leukocytes 6 % 0-10 Automated blood basophils/100 leukocytes 1 % 0-10 Blood neutrophils automated count (number/volume) 3.4 10*3 1.8-7.8 Blood lymphocytes automated count (number/volume) 2.2 10*3 1.0-4.0 Blood monocytes automated count (number/volume) 0. 4 10*3 0.0-1.0 Automated eosinophil count 0.4 10*3/uL 0 .0-0.3 Automated blood basophil count (count/volume) 0.0 10*3/uL 0.0-0.1 PT panel in platelet poor plasma by coag ulation assay - 03/06/20 11:42 Prothrombin time (PT) in platelet poor plasma by coagu lation assay 20.7 s 12.2-14.7 INR in platelet poor plasma or blood by coagulation as say 1.8 0.8-1.4 Activated partial thromboplastin time (a PTT) in platelet poor plasma bycoagulation assay - 03/06/20 11:42 Activated partial thromboplastin time (a PTT) in platelet poor plasma bycoagulation assay 28 s 24-35 Blood lactic acid measurement (moles/vol ume) - 03/06/20 11:42 Blood lactic acid measurement (moles/volume) 1.83 mmol/L 0.50-2.00 Complete urinalysis with reflex to cultu re - 03/06/20 12:08 Urine color determination YELLOW NRG Urine clarity determination CLEAR NR G Urine pH measurement by test strip 5.5 5-9 Specific gravity of urine by test strip 1.020 1.016-1.022 Urine protein assay by test strip, semi-quantitative NEGATIVE NEGATIVE Urine glucose detection by automated test strip NE GATIVE NEGATIVE Erythrocytes detection in urine sediment by light micr oscopy NEGATIVE NEGATIVE Urine ketones detection by automated test strip NE GATIVE NEGATIVE Urine nitrite detection by test strip NEGATIVE NEGATIVE Urine total bilirubin detection by test strip NEGA TIVE NEGATIVE Urine urobilinogen measurement by automated test strip (mass/volume) 0.2 mg/dL < = 1.0 Urine leukocyte esterase detection by dipstick NEG ATIVE NEGATIVE Automated urine sediment erythrocyte cou nt by microscopy (number/high power field) NONE NRG Automated urine sediment leukocyte count by microscopy (number/high power field) [HPF] NRG Bacteria detection in urine sediment by light microsco py NEGATIVE NRG Squamous epithelial cells detection in u rine sediment by light microscopy 0-2 NRG Crystals detection in urine sediment by light microsco py NONE NRG Casts detection in urine sediment by light microscopy PRESENT NRG Mucus detection in urine sediment by light microscopy NEGATIVE NRG Complete urinalysis with reflex to culture NO NRG Hyaline casts detection in urine sediment by light perry roscopy 2-5 NRG Urine drug screening test - 03/06/20 12: 08 Urine phencyclidine detection by screening method NEGATIVE NEGATIVE Urine benzodiazepines detection by screening method POSITIVE NEGATIVE Urine cocaine detection NEGATIVE NEGATI VE Urine amphetamines detection by screening method N EGATIVE NEGATIVE Urine methamphetamine detection by screening method NEGATIVE NEGATIVE Urine cannabinoids detection by screening method N EGATIVE NEGATIVE Urine opiates detection by screening method NEGATI VE NEGATIVE Urine barbiturates detection NEGATIVE N EGATIVE Screening urine tricyclic antidepressants detection POSITIVE NEGATIVE Urine methadone detection by screening method NEGA TIVE NEGATIVE Urine oxycodone detection NEGATIVE NEGA TIVE Urine propoxyphene detection NEGATIVE N EGATIVE Encounters ACCT No. Visit Date/Time Discharge Status Pt. Type Provider Facility Loc./Unit Complaint [id number] 02/18/2020 09:45:00 02/18/2020 23:59:5 9 [facility] Out[facility]WE[facility] [id number] 12/01/2019 10:40:00 Document Registration [id number] 09/08/2019 14:30:00 Document Registration [id number] 08/04/2019 10:15:00 Document Registration [id number] 08/04/2019 09:30:00 Document Registration [id number] 04/15/2019 10:15:00 Document Registration [id number] 04/06/2019 09:45:00 Document Registration [id number] 03/31/2019 14:15:00 Document Registration [id number] 03/30/2019 14:15:00 Document Registration [id number] 01/07/2019 09:15:00 Document Registration [id number] 11/12/2018 11:00:00 Document Registration [id number] 01/11/2019 17:32:00 019 20:52:00 DIS Emergency PINKY BARNEY, KAUSHAL Sparks [facility] ER FS RT SIDE OF FACE SWOLLEN [id number] 03/06/2020 12:07:00 Document Registration
--- OUTSIDE RECORDS SUMMARY | 2020-03-06 13:13 | XMS REPORT ---
Author Author Lexi SEWELL Organization [facility] Address [address] [place] [address] Care Team Providers Care Advertising Clerk Name Role Phone CELIA SEWELL Unavailable PROBLEMS Type Condition ICD9-CM Code AXN31-RS Code Onset Dates Condition S tatus SNOMED Code Problem Pulmonary embolism and infarction I26.99 17 Aug Active [id number] Problem Type 2 diabetes, uncontrolled, with renal manifestatio n E11.29 Mar, Active 825291547 Problem Osteoarthritis of left knee M17.12 27 Sep, 2011 Active 347976580 Problem Osteoarthritis of right knee M17.11 Oct, 2 Active 614192676 Problem Non-pressure chronic ulcer of right thig h, limited to breakdown of skin L97.111 Mar, Active 646837546 Problem [place] adverse reaction T43.595A Jul, Ac tive 599932945 Problem Asthma J45.909 10 Aug, 2017 Active 5166541 01 Problem Morbid obesity with BMI of 45.0-49.9, adult E66 .01 Mar, Active 667167199 Problem CKD (chronic kidney disease) stage 3, GFR 30-59 ml/min N18.3 Mar, Active 424127002 Problem Syncope R55 Apr, Active 8661704 07 Problem History of pulmonary embolism Z86.711 10 Aug, Active 221687264 Problem Flexural eczema L20.82 Active 5709 2006 Problem Shortness of breath R06.02 17 Jan, 2015 Active 204574937 Problem Primary insomnia F51.01 Active 397 2004 Problem Transient alteration of awareness R40.4 Jul Active 5065718 Problem Tremor R25.1 11 Apr, 2015 Active 4175750 4 Problem half-way current use of anticoagulant therapy Z79 .01 Active 553477654 Problem Benign essential hypertension I10 Active 9070996 Problem Moderate episode of recurrent major depressive disorder F33.1 Active 394702703 ALLERGIES No Information ENCOUNTERS Encounter Location Date Diagnosis [address] [address] Apr, [address] [address] Apr, 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 [address] Apr, half-way current use of anticoagulant t herapy Z79.[address] [address] Mar, [address] [address] Mar, [address] [address] Mar, 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 [address] Mar, [address] [address] Mar, Type 2 diabetes, uncontrolled, with hosea l manifestation E11.29 ; half-way current use of anticoagulant therapy Z79.01 ; Malaise R53.81 and Morbid obesity E66.[address] [address] Mar, [address] [address] Mar, half-way current use of anticoagulant t herapy Z79.[address] [address] Mar, [address] [address] Mar, [address] [address] Mar, Tinea corporis B35.[address] [address] Feb, Moderate episode of recurrent major depr essive disorder F33.1 [facility] [address] [place] [address] Feb, Tinea corporis B35.4 [facility] [address] [place] [address] Feb, Tinea corporis B35.4 [facility] [address] [place] [address] Feb, 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 [facility] [address] [place] [address] Jan, [facility] [address] [place] [address] Jan, 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 [facility] [address] [place] [address] Jan, [facility] [address] [address] Jan, [facility] [address] [address] Jan, [facility] [address] [place] [address] Jan, half-way current use of anticoagulant t herapy Z79.01 [facility] [address] [place] [address] Jan, half-way current use of anticoagulant t herapy Z79.01 [facility] [address] [address] Jan, [facility] [address] [place] [address] Jan, [facility] [address] [place] [address] December, Oral pain K13.79 [facility] [address] [place] [address] December, half-way current use of anticoagulant t herapy Z79.01 [facility] [address] [place] [address] December, [facility] [address] [place] [address] December, [facility] [address] [facility] [id number] [address] [place] [address] December, UTI symptoms R39.[address] [address] December, 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 and Chronic pulmonary embolism without acute cor pulmonale, unspecified pulmonary embolism type I27.[address] [address] December, UTI symptoms R39.[address] [address] December, 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 ; Morbid obesity with BMI of 45.0-49.9, adult E66.01 ; Tinea corporis B35.4 and Increased frequency of urination R35.[address] [address] December, half-way current use of anticoagulant t herapy Z79.[address] [address] December, [address] [address] December, [address] [address] Nov, Flexural eczema L20.[address] [address] Nov, Moderate episode of recurrent major depr essive disorder F33.[address] [address] Nov, 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 [address] Nov, [address] [address] Nov, [address] [address] Nov, [address] [place] [address] Nov, [address] [address] Nov, Type 2 diabetes mellitus without complic ation, without long-term current use of insulin E11.9 ; Moderate episode of recurrent major depressive disorder F33.1 ; 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 and Benign essential hypertension I10 [address] [address] Nov, half-way current use of anticoagulant t herapy Z79.01 and Benign essential hypertension I10 [address] [address] Oct, Benign essential hypertension I10 ; 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 and Moderate episode of recurrent major depressive disorder F33.[address] [address] Oct, half-way current use of anticoagulant t herapy Z79.[address] [address] Oct, 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 [address] Oct, [place] [address] [facility] [id number] [address] [place] [address] Oct, half-way current use of ant icoagulant therapy Z79.01 [place] [address] [facility] [id number] [address] [place] [address] Oct, 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 of ant icoagulant therapy Z79.[address] [address] Oct, 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 [address] Oct, [address] [address] Oct, 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 [address] Sep, [address] [address] Sep, Benign essential hypertension I10 ; Mode rate episode of recurrent major depressive disorder F33.1 ; Primary insomnia F51.01 ; Chronic pulmonary embolism without acute cor pulmonale, unspecified pulmonary embolism type I27.82 and Flexural eczema L20.[address] [address] Sep, 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 [facility] [address] [id number] [address] [place] [address] Sep, 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 of ant icoagulant therapy Z79.[address] [address] Sep, [address] [address] Sep, [address] [address] Sep, [facility] [address] [facility] [id number] [address] [place] [address] Aug, [facility] [address] [id number] [address] [place] [address] Jul, [facility] [address] [facility] [id number] [address] [place] [address] Jul, [facility] [address] [id number] [address] [place] [address] December, [facility] [address] [id number] [address] [place] [address] Aug, IMMUNIZATIONS No Known Immunizations SOCIAL HISTORY Never Assessed REASON FOR VISIT labs PLAN OF CARE VITAL SIGNS MEDICATIONS Unknown [...]
--- OUTSIDE RECORDS SUMMARY | 2020-03-06 13:13 | XMS REPORT ---
Author Author Lexi SEWELL Organization [facility] Address [address] [place] [address] Care Team Providers Care Online Community Manager Name Role Phone CELIA SEWELL Unavailable PROBLEMS Type Condition ICD9-CM Code TYH45-CH Code Onset Dates Condition S tatus SNOMED Code Problem Pulmonary embolism and infarction I26.99 17 Aug Active 7665205643988 Problem Type 2 diabetes, uncontrolled, with renal manifestatio n E11.29 Mar, Active 357121778 Problem Osteoarthritis of left knee M17.12 27 Sep, 2011 Active 848452866 Problem Osteoarthritis of right knee M17.11 Oct, 2 Active 967636721 Problem Non-pressure chronic ulcer of right thig h, limited to breakdown of skin L97.111 Mar, Active 910787642 Problem [place] adverse reaction T43.595A Jul, Ac tive 118697405 Problem Asthma J45.909 10 Aug, 2017 Active 6288563 01 Problem Morbid obesity with BMI of 45.0-49.9, adult E66 .01 Mar, Active 013373903 Problem CKD (chronic kidney disease) stage 3, GFR 30-59 ml/min N18.3 Mar, Active 639208054 Problem Syncope R55 Apr, Active 8689011 07 Problem History of pulmonary embolism Z86.711 10 Aug, Active 830318232 Problem Flexural eczema L20.82 Active 5709 2006 Problem Shortness of breath R06.02 17 Jan, 2015 Active 197676403 Problem Primary insomnia F51.01 Active 397 2004 Problem Transient alteration of awareness R40.4 Jul Active 3695076 Problem Tremor R25.1 11 Apr, 2015 Active 6901058 4 Problem senior care current use of anticoagulant therapy Z79 .01 Active 397126609 Problem Benign essential hypertension I10 Active 5141136 Problem Moderate episode of recurrent major depressive disorder F33.1 Active 282054576 ALLERGIES No Information ENCOUNTERS Encounter Location Date Diagnosis [facility] [place] [address] [place] [address] Nov, [facility] [place] [address] [place] [address] 14 Aug, 2019 Need for shingles vaccine Z2 3 [facility] [place] [address] [place] [address] 09 Aug, 2019 [facility] [place] [address] [place] [address] 08 Aug, 2019 [facility] [place] [address] [place] [address] Jul, [facility] [place] [address] [place] [address] Jul, [facility] [place] [address] [place] [address] Jul, Flexural eczema L20.82 ; Mike ign essential hypertension I10 ; Type 2 diabetes, uncontrolled, with renal manifestation E11.29 and Morbid obesity with BMI of 45.0-49.9, adult E66.01 [facility] [address] [place] [address] Jul, Type 2 diabetes, uncontrolle d, with renal manifestation E11.29 and senior care current use of anticoagulant therapy Z79.01 [facility] [address] [place] [address] Jul, Flexural eczema L20.82 [facility] [address] [place] [address] Jul, intermediate card tender current use of ant icoagulant therapy Z79.01 ; Type 2 diabetes, uncontrolled, with renal manifestation E11.29 ; Benign essential hypertension I10 and Moderate episode of recurrent major depressive disorder F33.1 [facility] [address] [place] [address] Jul, [facility] [place] [address] [address] [place] [address] Jul, Moderate episode of recurren t major depressive disorder F33.[address] [place] [address] Jul, Moderate episode of recurren t major depressive disorder F33.[address] [place] [address] Jul, Benign essential hypertensio n I10 ; Flexural eczema L20.82 and Moderate episode of recurrent major depressive disorder F33.[address] [place] [address] Jul, senior care current use of ant icoagulant therapy Z79.01 [facility] [address] [place] [address] Jun, Headache above the eye regio n R51 [address] [place] [address] Jun, [address] [place] [address] Jun, Type 2 diabetes, uncontrolle d, with renal manifestation E11.29 [facility] [address] [facility] [place] [address] Jun, Breast cancer screening Z12.39 ; Encount er for screening for malignant neoplasm of colon Z12.11 and Encounter for screening for malignant neoplasm of rectum Z12.[address] [place] [address] May, [address] [place] [address] May, intermediate card tender current use of ant icoagulant therapy Z79.[address] [place] [address] May, Moderate episode of recurren t major depressive disorder F33.[address] [place] [address] May, intermediate card tender current use of ant icoagulant therapy Z79.01 [facility] [address] [place] [address] Apr, [facility] [address] [place] [address] Apr, [facility] [place] [address] [place] [address] Apr, intermediate card tender current use of ant icoagulant therapy Z79.01 [facility] [address] [place] [address] Apr, senior care current use of ant icoagulant therapy Z79.01 [facility] [address] [place] [address] Mar, [facility] [address] [place] [address] Mar, [facility] [address] [place] [address] Mar, senior care current use of ant icoagulant therapy Z79.01 [facility] [address] [place] [address] Mar, [facility] [address] [place] [address] Mar, Type 2 diabetes, uncontrolle d, with renal manifestation E11.29 ; senior care current use of anticoagulant therapy Z79.01 ; Malaise R53.81 and Morbid obesity E66.01 [facility] [address] [place] [address] Mar, [facility] [address] [place] [address] Mar, senior care current use of ant icoagulant therapy Z79.01 [facility] [address] [place] [address] Mar, [facility] [address] [place] [address] Mar, [facility] A[place] [address] [place] [address] Mar, Tinea corporis B35.4 [facility] S[place] [address] [place] [address] Feb, Moderate episode of recurren t major depressive disorder F33.1 [facility] [address] [facility] [place] [address] Feb, Tinea corporis B35.4 [facility] S[place]IA [address] [place] [address] Feb, Tinea corporis B35.4 [facility] [address] [place] [address] Feb, senior care current use of ant icoagulant therapy Z79.01 [facility] [address] [place] [address] Jan, [facility] [address] [place] [address] Jan, senior care current use of ant icoagulant therapy Z79.01 [facility] [address] [place] [address] Jan, [facility] [address] [place] [address] Jan, [facility] [address] [place] [address] Jan, [facility] [address] [place] [address] Jan, intermediate card tender current use of ant icoagulant therapy Z79.01 [facility] [address] [place] [address] Jan, senior care current use of ant icoagulant therapy Z79.01 [facility] [place] [address] [place] [address] Jan, [facility] S[place]IA [address] [place] [address] Jan, [facility] [address] [place] [address] December, Oral pain K13.79 [facility] S[place] [address] [place] [address] December, senior care current use of ant icoagulant therapy Z79.01 [facility] S[facility] [address] [place] [address] December, [facility] [address] [place] [address] December, [facility] [address] [facility] [place] [address] December, UTI symptoms R39.[address] [place] [address] December, intermediate card tender current use of ant icoagulant therapy Z79.01 and Chronic pulmonary embolism without acute cor pulmonale, unspecified pulmonary embolism type I27.82 [facility] [address] [place] [address] December, UTI symptoms R39.9 [facility] [address] [place] [address] December, intermediate card tender current use of ant icoagulant therapy Z79.01 ; Morbid obesity with BMI of 45.0-49.9, adult E66.01 ; Tinea corporis B35.4 and Increased frequency of urination R35.0 [facility] [address] [place] [address] December, senior care current use of ant icoagulant therapy Z79.01 [facility] [address] [place] [address] December, [facility] [place] [address] [place] [address] December, [facility] [address] [place] [address] Nov, Flexural eczema L20.82 [facility] [address] [place] [address] Nov, Moderate episode of recurren t major depressive disorder F33.1 [facility] [address] [place] [address] Nov, intermediate card tender current use of ant icoagulant therapy Z79.01 [facility] [address] [place] [address] Nov, [facility] [address] [place] [address] Nov, [facility] [address] [place] [address] Nov, [facility] S[place] [address] [place] [address] Nov, [facility] [address] [place] [address] Nov, Type 2 diabetes mellitus wit hout complication, without long-term current use of insulin E11.9 ; Moderate episode of recurrent major depressive disorder F33.1 ; senior care current use of anticoagulant therapy Z79.01 and Benign essential hypertension I10 [facility] [address] [place] [address] Nov, intermediate card tender current use of ant icoagulant therapy Z79.01 and Benign essential hypertension I10 [facility] S[place] [address] [place] [address] Oct, Benign essential hypertensio n I10 ; intermediate card tender current use of anticoagulant therapy Z79.01 and Moderate episode of recurrent major depressive disorder F33.1 [address] [place] [address] Oct, intermediate card tender current use of ant icoagulant therapy Z79.[address] [place] [address] Oct, senior care current use of ant icoagulant therapy Z79.[address] [place] [address] Oct, [place] [address] [facility] [place] [address] Oct, intermediate card tender current use of anticoagulant t herapy Z79.01 [place] [address] [facility] [place] [address] Oct, intermediate card tender current use of anticoagulant t herapy Z79.01 [address] [place] [address] Oct, intermediate card tender current use of ant icoagulant therapy Z79.01 [address] [place] [address] Oct, [address] [place] [address] Oct, intermediate card tender current use of ant icoagulant therapy Z79.01 [address] [place] [address] Sep, [address] [place] [address] Sep, Benign essential hypertensio n I10 ; Moderate episode of recurrent major depressive disorder F33.1 ; Primary insomnia F51.01 ; Chronic pulmonary embolism without acute cor pulmonale, unspecified pulmonary embolism type I27.82 and Flexural eczema L20.[address] [place] [address] Sep, intermediate card tender current use of ant icoagulant therapy Z79.01 [facility] [address] [facility] [place] [address] Sep, intermediate card tender current use of anticoagulant t herapy Z79.01 [facility] [address] [place] [address] Sep, [address] [place] [address] Sep, [address] [place] [address] Sep, [place] [address] [id number] [place] [address] Aug, [place] [address] [facility] [place] [address] Jul, [place] [address] [place] [id number] [place] [address] Jul, [place] [address] [facility] [place] [address] December, [place] [address] [place] [address] [id number] [place] [address] Aug, IMMUNIZATIONS No Known Immunizations SOCIAL HISTORY Never Assessed REASON FOR VISIT Lab (walk-in) PLAN OF CARE VITAL SIGNS MEDICATIONS Unknown Medications RESULTS Name Result Date Reference Range INR (IN HOUSE) INR 1.4 1.10 - 3.30 PREVIOUS INR 2.1 CURRENT COUMADIN DOSE NEW COUMADIN DOSE Lot # [id number] Exp date 12/2019 PROCEDURES Procedure Date Ordered Result Body Site PROTHROMBIN TIME November 05, 2018 INSTRUCTIONS MEDICATIONS ADMINISTERED No Known Medications MEDICAL (GENERAL) HISTORY Type Description Date Medical History Pulmonary embolism Medical History Type 2 diabetes mellitus Medical History Osteoarthritis Medical History Chronic kidney disease Medical History Asthma Surgical History Knee Replacement Hospitalization History confusion Hospitalization History Kidney Disease Hospitalization History Pulmonary Embolism
--- OUTSIDE RECORDS SUMMARY | 2020-03-06 13:13 | XMS REPORT ---
Author Author Lexi SEWELL Organization [facility] Address [address] [place] [address] Care Team Providers Care Newspaper Journalist Name Role Phone CELIA SEWELL Unavailable PROBLEMS Type Condition ICD9-CM Code OIJ42-HP Code Onset Dates Condition S tatus SNOMED Code Problem Pulmonary embolism and infarction I26.99 17 Aug Active 0699734159313 Problem Type 2 diabetes, uncontrolled, with renal manifestatio n E11.29 Mar, Active 202348549 Problem Osteoarthritis of left knee M17.12 27 Sep, 2011 Active 920429222 Problem Osteoarthritis of right knee M17.11 Oct, 2 Active 386724347 Problem Non-pressure chronic ulcer of right thig h, limited to breakdown of skin L97.111 Mar, Active 373829609 Problem [place] adverse reaction T43.595A Jul, Ac tive 011847357 Problem Asthma J45.909 10 Aug, 2017 Active 6189681 01 Problem Morbid obesity with BMI of 45.0-49.9, adult E66 .01 Mar, Active 140331398 Problem CKD (chronic kidney disease) stage 3, GFR 30-59 ml/min N18.3 Mar, Active 983310613 Problem Syncope R55 Apr, Active 7051848 07 Problem History of pulmonary embolism Z86.711 10 Aug, Active 560019672 Problem Flexural eczema L20.82 Active 5709 2006 Problem Shortness of breath R06.02 17 Jan, 2015 Active 915435742 Problem Primary insomnia F51.01 Active 397 2004 Problem Transient alteration of awareness R40.4 Jul Active 7290832 Problem Tremor R25.1 11 Apr, 2015 Active 0685979 4 Problem penitentiary current use of anticoagulant therapy Z79 .01 Active 121438102 Problem Benign essential hypertension I10 Active 2672776 Problem Moderate episode of recurrent major depressive disorder F33.1 Active 337183839 ALLERGIES No Information ENCOUNTERS Encounter Location Date Diagnosis [address] [address] Apr, [address] [address] Apr, long term current use of anticoagulant t herapy Z79.[address] [address] Apr, penitentiary current use of anticoagulant t herapy Z79.[address] [address] Mar, [address] [address] Mar, [address] [address] Mar, long term current use of anticoagulant t herapy Z79.[address] [address] Mar, [address] [address] Mar, Type 2 diabetes, uncontrolled, with hosea l manifestation E11.29 ; penitentiary current use of anticoagulant therapy Z79.01 ; Malaise R53.81 and Morbid obesity E66.[address] [address] Mar, [address] [address] Mar, penitentiary current use of anticoagulant t herapy Z79.[address] [address] Mar, [address] [address] Mar, [address] [address] Mar, Tinea corporis B35.[address] [address] Feb, Moderate episode of recurrent major depr essive disorder F33.1 [facility] [address] [place] [address] Feb, Tinea corporis B35.4 [facility] [address] [place] [address] Feb, Tinea corporis B35.4 [facility] [address] [place] [address] Feb, long term current use of anticoagulant t herapy Z79.01 [facility] [address] [place] [address] Jan, [facility] [address] [place] [address] Jan, long term current use of anticoagulant t herapy Z79.01 [facility] [address] [place] [address] Jan, [facility] [address] [address] Jan, [facility] [address] [address] Jan, [facility] [address] [place] [address] Jan, penitentiary current use of anticoagulant t herapy Z79.01 [facility] [address] [place] [address] Jan, penitentiary current use of anticoagulant t herapy Z79.01 [facility] [address] [address] Jan, [facility] [address] [place] [address] Jan, [facility] [address] [facility] [place] [address] December, Oral pain K13.79 [facility] [address] [place] [address] December, penitentiary current use of anticoagulant t herapy Z79.01 [facility] [address] [place] [address] December, [facility] [address] [place] [address] December, [facility] [address] [facility] [id number] [address] [place] [address] December, UTI symptoms R39.[address] [address] December, long term current use of anticoagulant t herapy Z79.01 and Chronic pulmonary embolism without acute cor pulmonale, unspecified pulmonary embolism type I27.[address] [address] December, UTI symptoms R39.[address] [address] December, long term current use of anticoagulant t herapy Z79.01 ; Morbid obesity with BMI of 45.0-49.9, adult E66.01 ; Tinea corporis B35.4 and Increased frequency of urination R35.[address] [address] December, penitentiary current use of anticoagulant t herapy Z79.[address] [address] December, [address] [address] December, [address] [address] Nov, Flexural eczema L20.[address] [address] Nov, Moderate episode of recurrent major depr essive disorder F33.[address] [address] Nov, long term current use of anticoagulant t herapy Z79.[address] [address] Nov, [address] [address] Nov, [address] [address] Nov, [address] [place] [address] Nov, [address] [address] Nov, Type 2 diabetes mellitus without complic ation, without long-term current use of insulin E11.9 ; Moderate episode of recurrent major depressive disorder F33.1 ; long term current use of anticoagulant therapy Z79.01 and Benign essential hypertension I10 [address] [address] Nov, penitentiary current use of anticoagulant t herapy Z79.01 and Benign essential hypertension I10 [address] [address] Oct, Benign essential hypertension I10 ; long term current use of anticoagulant therapy Z79.01 and Moderate episode of recurrent major depressive disorder F33.[address] [address] Oct, penitentiary current use of anticoagulant t herapy Z79.[address] [address] Oct, long term current use of anticoagulant t herapy Z79.[address] [address] Oct, [place] [address] [facility] [id number] [address] [place] [address] Oct, penitentiary current use of ant icoagulant therapy Z79.01 [place] [address] [facility] [id number] [address] [place] [address] Oct, long term current use of ant icoagulant therapy Z79.[address] [address] Oct, long term current use of anticoagulant t herapy Z79.[address] [address] Oct, [address] [address] Oct, long term current use of anticoagulant t herapy Z79.[address] [address] Sep, [address] [address] Sep, Benign essential hypertension I10 ; Mode rate episode of recurrent major depressive disorder F33.1 ; Primary insomnia F51.01 ; Chronic pulmonary embolism without acute cor pulmonale, unspecified pulmonary embolism type I27.82 and Flexural eczema L20.[address] [address] Sep, long term current use of anticoagulant t herapy Z79.01 [facility] [address] [id number] [address] [place] [address] Sep, long term current use of ant icoagulant therapy Z79.[address] [address] Sep, [address] [address] Sep, [address] [address] Sep, [facility] [address] [id number] [address] [place] [address] Aug, [facility] [address] [id number] [address] [place] [address] Jul, [facility] [address] [facility] [id number] [address] [place] [address] Jul, [facility] [address] [id number] [address] [place] [address] December, [facility] [address] [id number] [address] [place] [address] Aug, IMMUNIZATIONS No Known Immunizations SOCIAL HISTORY [...]
--- OUTSIDE RECORDS SUMMARY | 2020-03-06 13:13 | XMS REPORT ---
Author Author Lexi SEWELL Organization [facility] Address [address] [place] [address] Care Team Providers Care Bilingual Operator Name Role Phone CELIA SEWELL Unavailable PROBLEMS Type Condition ICD9-CM Code [id number] Code Onset Dates Condition S tatus SNOMED Code Problem Asthma J45.909 10 Aug, 2017 Active 5687534 01 Problem Tremor R25.1 11 Apr, 2015 Active 1442330 4 Problem Shortness of breath R06.02 Jan, Active 003323042 Problem Transient alteration of awareness R40.4 Jul Active 0315817 Problem Non-pressure chronic ulcer of right thig h, limited to breakdown of skin L97.111 14 Mar, 2017 Active 491329388 Problem Morbid obesity with BMI of 45.0-49.9, adult E66 .01 Mar, Active 648273680 Problem Pulmonary embolism and infarction I26.99 17 Aug Active 4608122123714 Problem Type 2 diabetes mellitus without complication 250.00 May, Active 891458352 Problem Type 2 diabetes, uncontrolled, with renal manifestatio n E11.29 Mar, Active 604019880 Problem CKD (chronic kidney disease) stage 3, GFR 30-59 ml/min N18.3 Mar, Active 307873967 Problem [place] adverse reaction T43.595A Jul, Ac tive 790908276 Problem Subtherapeutic international normalized ratio (INR) R79.1 Jan, Active 270272028 Problem 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 Z79 .01 Active 294988312 Problem Primary insomnia F51.01 Active 397 2004 Problem Osteoarthritis of left knee M17.12 27 Sep, 2011 Active 911058563 Problem Type 2 diabetes mellitus without complication E 11.9 03 May, 2011 Active 006629951 Problem Morbid obesity E66.01 Active 93079 6002 Problem Osteoarthritis of right knee M17.11 02 Oct, 201 2 Active 287655772 Problem Syncope R55 11 Apr, 2015 Active 7367651 07 Problem History of pulmonary embolism Z86.711 10 Aug, Active 098545943 Problem Type 2 diabetes mellitus wit hout complication, without long-term current use of insulin E11.9 Active 709457293 Problem Moderate episode of recurrent major depressive disorder F33.1 Active 096856570 Problem Benign essential hypertension I10 Active 0311116 Problem Flexural eczema L20.82 Active 5709 2006 ALLERGIES No Information ENCOUNTERS Encounter Location Date [facility] [address] [address] Jan, [address] [address] Jan, moth exterminator current use of anticoagulant t herapy Z79.01 [facility] [address] [address] Jan, [address] [address] Jan, [address] [address] Jan, [address] [address] Jan, moth exterminator current use of anticoagulant t herapy Z79.[address] [address] Jan, moth exterminator current use of anticoagulant t herapy Z79.[address] [address] Jan, [address] [address] Jan, [facility] [address] [facility] [place] [address] December, Oral pain K13.[address] [address] December, moth exterminator current use of anticoagulant t herapy Z79.[address] [address] December, [address] [address] December, [facility] [address] 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 t herapy Z79.01 and Chronic pulmonary embolism without acute cor pulmonale, unspecified pulmonary embolism type I27.[address] [address] December, UTI symptoms R39.[address] [address] December, senior living current use of anticoagulant t herapy Z79.01 ; Morbid obesity with BMI of 45.0-49.9, adult E66.01 ; Tinea corporis B35.4 and Increased frequency of urination R35.[address] [address] December, senior living current use of anticoagulant t herapy Z79.[address] [address] December, [address] [address] December, [address] [address] Nov, Flexural eczema L20.[address] [address] Nov, Moderate episode of recurrent major depr essive disorder F33.[address] [address] Nov, moth exterminator current use of anticoagulant t herapy Z79.[address] [address] Nov, [address] [address] Nov, [address] [address] Nov, [address] [address] Nov, [address] [address] Nov, Type 2 diabetes mellitus without complic ation, without long-term current use of insulin E11.9 ; Moderate episode of recurrent major depressive disorder F33.1 ; senior living current use of anticoagulant therapy Z79.01 and Benign essential hypertension I10 [address] [address] Nov, 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 [id number] [address] [place] [address] Oct, senior living current use of ant icoagulant therapy Z79.01 [place] [address] 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 of anticoagulant t herapy Z79.[address] [address] Sep, [address] [address] Sep, Benign essential hypertension I10 ; Mode rate episode of recurrent major depressive disorder F33.1 ; Primary insomnia F51.01 ; Chronic pulmonary embolism without acute cor pulmonale, unspecified pulmonary embolism type I27.82 and Flexural eczema L20.[address] [address] Sep, senior living current use of anticoagulant t herapy Z79.01 [facility] [address] [id number] [address] [place] [address] Sep, moth exterminator current use of ant icoagulant therapy Z79.[address] [address] Sep, [address] [address] Sep, [address] [address] Sep, [facility] [address] [id number] [address] [place] [phone] Aug, [facility] [address] [id number] [address] [place] [phone] Jul, [facility] [address] [id number] [address] [place] [phone] Jul, [facility] [address] [id number] [address] [place] [phone] December, [facility] [address] [id number] [address] [place] [phone] Aug, IMMUNIZATIONS No Known Immunizations SOCIAL HISTORY Never Assessed REASON FOR VISIT Medication question PLAN OF CARE VITAL SIGNS MEDICATIONS Unknown [...]
--- NOTE | 2020-03-06 13:32 | Diagnostic Imaging Report ---
PROCEDURE: CT head and CT cervical spine without contrast, 03/06/2020. TECHNIQUE: Multiple contiguous axial images were obtained through the brain and cervical spine without the use of intravenous contrast. Sagittal and coronal reformations through the cervical spine were then performed. Auto Exposure Controls were utilized during the CT exam to meet ALARA standards for radiation dose reduction. INDICATION: Status post fall. On anticoagulants. Facial trauma. FINDINGS: CT BRAIN: There are chronic ischemic changes in a periventricular distribution with no acute hemorrhage or infarct appreciated. No mass, mass effect or midline shift is noted. There is no hydrocephalus. The calvarium is intact. The visualized paranasal sinuses clear. Mastoid air cells unremarkable. IMPRESSION: 1. No acute intracranial process. CT CERVICAL SPINE: Alignment of the spine is preserved with no fractures or subluxations appreciated. Multilevel bilateral facet hypertrophy is noted throughout the cervical spine. Spur disc complexes also seen. No acute fractures or subluxations appreciated. The lung apices are clear. The prevertebral soft tissues unremarkable. IMPRESSION: 1. Multilevel diffuse degenerative disease with no acute osseous abnormalities appreciated. Dictated by: Dictated on workstation # [id number]
[2020-03-06] MEDS: NS IV 1000 ML 1,000 ML IV SCH ×4 (13:58→17:19)
--- NOTE | 2020-03-06 14:45 | NUR ---
KIRSTIE CHAUDHRY admitted to room 405-1, with an admitting diagnosis of DEHYDRATION ACUTE KIDNEY INJURY, on 03/06/20 from [facility] via [facility], accompanied by STAFF.KIRSTIE CHAUDHRY introduced to surroundings, call light, bed controls, phone, TV, temperature control, lights, meal times, smoking policy, visitor policy, side rail policy, bathrooms and showers. Patient Rights given to patient in the handbook.KIRSTIE CHAUDHRY verbalizes understanding that [facility] is not responsible for the loss or damage to any personal effects or valuables that are kept in the patients posession during their hospitalization. The following Patient Care Plans were discussed with the PT: Discharge Planning, PAIN CONTROL,IV MEDS, and TESTS AND PROCEDURES. KIRSTIE CHAUDHRY verbalizes understanding of Interdisciplinary Patient Education. Patient and/or family were informed about the Rapid Response Team and its purpose.
[2020-03-06 14:48] LABS: CREATINE KINASE 335 U/L (29-168)
--- OUTSIDE RECORDS SUMMARY | 2020-03-06 15:23 | XMS REPORT | Continuity of Care Document ---
Author Organization Unknown Address Unknown Phone Unavailable Allergies Active Description Code Type Severity Reaction Onset Reported/Identified Relationship to Patient Clinical Status Yes Penicillins [id number] Drug Aller gy Unknown N/A 01/11/2019 Medications [...] 7-25 CREATININE 1.53 mg/dL 0.50-0.99 eGFR NON-AFR. [place] 35 mL/min/1.73m2 > OR = 60 eGFR [...] 7-25 CREATININE 1.61 mg/dL 0.50-0.99 eGFR NON-AFR. [place] 33 mL/min/1.73m2 > OR = 60 eGFR [...] lactic acid measurement (moles/volume) 1.83 mmol/L 0.50-2.00 Comprehensive metabolic panel - 03/06/20 11:42 Serum or plasma sodium measurement (moles/volume) 140 mmol/L 135-145 Serum or plasma potassium measurement (moles/volume) 4.5 mmol/L 3.6-5.0 Serum or plasma chloride measurement (moles/volume) 107 mmol/L 98-107 Carbon dioxide 21 mmol/L 21-32 Serum or plasma anion gap determination (moles/volume) 12 mmol/L 5-14 Serum or plasma urea nitrogen measurement (mass/volume ) 54 mg/dL 7-18 Serum or plasma creatinine measurement (mass/volume) 3.27 mg/dL 0.60-1.30 Serum or plasma urea nitrogen/creatinine mass ratio 17 NRG Serum or plasma creatinine measurement w ith calculation of estimated glomerular filtration rate 17 NRG Serum or plasma glucose measurement (mass/volume) 132 mg/dL 70-105 Serum or plasma calcium measurement (mass/volume) 9.2 mg/dL 8.5-10.1 Serum or plasma total bilirubin measurement (mass/volu me) 0.2 mg/dL 0.1-1.0 Serum or plasma alkaline phosphatase sierra surement (enzymatic activity/volume) 81 U/L 40-136 Serum or plasma aspartate aminotransfera se measurement (enzymatic activity/volume) 23 U/L 5-34 Serum or plasma alanine aminotransferase measurement (enzymatic activity/volume) 13 U/L 0-55 Serum or plasma protein measurement (mass/volume) 6.7 g/dL 6.4-8.2 Serum or plasma albumin measurement (mass/volume) 3.5 g/dL 3.2-4.5 CALCIUM CORRECTED 9.6 mg/dL 8.5-10.1 Serum or plasma creatine kinase measurem ent (enzymatic activity/volume) - 03/06/20 11:42 Serum or plasma creatine kinase measurem ent (enzymatic activity/volume) 335 U/L 29-168 TROPONIN I FS - 03/06/20 11:42 TROPONIN I FS < 0.30 <0.30 Serum or plasma ethanol measurement (mas s/volume) - 03/06/20 11:42 Serum or plasma ethanol measurement (mass/volume) < mg/dL <10 PROBNP FS - 03/06/20 11:42 PROBNP FS 15.4 pg/mL <75.0 Complete urinalysis with reflex to cultu re [...] Status Pt. Type Provider Facility Loc./Unit Complaint [id number] 02/18/2020 09:45:00 02/18/2020 23:59:5 9 [facility] Outpatient CELIA SEWELL [facility] [id number] 12/01/2019 10:40:00 Document Registration [id number] 09/08/2019 14:30:00 Document Registration [id number] 08/04/2019 10:15:00 Document Registration [id number] 08/04/2019 09:30:00 Document Registration [id number] 04/15/2019 10:15:00 Document Registration [id number] 04/06/2019 09:45:00 Document Registration [id number] 03/31/2019 14:15:00 Document Registration [id number] 03/30/2019 14:15:00 Document Registration [id number] 01/07/2019 09:15:00 Document Registration [id number] 11/12/2018 11:00:00 Document Registration [id number] 01/11/2019 17:32:00 019 20:52:00 DIS Emergency PINKY BARNEY, KAUSHAL [facility] ER FS RT SIDE OF FACE SWOLLEN [id number] 03/06/2020 12:07:00 Document Registration
[2020-03-06] MEDS ORDERED: TRAM50TA3 PO (15:41)
[2020-03-06] MEDS ORDERED: ALPR1TAB7 PO (15:41)
[2020-03-06] MEDS ORDERED: GABA-486 PO (15:46)
[2020-03-06] MEDS ORDERED: MELO15TA39 PO (15:47)
[2020-03-06] MEDS ORDERED: WARF6TAB49 PO (15:48)
[2020-03-06] MEDS ORDERED: AMIT100T2 PO (15:49)
[2020-03-06] MEDS ORDERED: CITA20TA9 PO (15:50)
[2020-03-06] MEDS ORDERED: OLME20TA24 PO (15:51)
[2020-03-06 16:00] VITALS: BP 104/50
[2020-03-06] MEDS ORDERED: ALPRAZolam 1 MG (XANAX) TAB PO SCH (16:43)
[2020-03-06] MEDS: ALPRAZolam 0.5 MG (XANAX) TAB PO SCH ×2 (16:59→21:00)
[2020-03-06] MEDS: CEPHALEXIN 250 MG (KEFLEX) CAP PO SCH ×2 (17:00→20:55)
[2020-03-06] MEDS ORDERED: ONDANSETRON 4 MG/2 ML (SDV) Z0FRAN IV PRN (17:15)
[2020-03-06] MEDS ORDERED: ACETAMINOPHEN 325 MG TABLET PO PRN (17:15)
[2020-03-06] MEDS: LACTATED RINGERS 1,000 ML IV SCH (17:20)
[2020-03-06] MEDS ORDERED: warFARin 3 MG (COUMADIN) TAB PO SCH (18:00)
[2020-03-06 19:58] VITALS: BP 101/58
[2020-03-06] MEDS: GABAPENTIN 100 MG (NEURONTIN) CAP PO SCH (20:53)
[2020-03-06] MEDS: AMITRIPTYLINE 50 MG (ELAVIL) TAB PO SCH (20:54)
[2020-03-06] MEDS: BENZTROPINE MESYLATE 1 MG (COGENTIN) TAB PO SCH (21:00)
[2020-03-07] VITALS (7 sets, daily range): BP systolic 93–142; BP diastolic 50–76
[2020-03-07] MEDS: LACTATED RINGERS 1,000 ML IV SCH ×3 (01:18→18:01)
[2020-03-07 05:55] LABS: BASOPHILS % (AUTO) 0 % (0-10); EOSINOPHILS # (AUTO) 0.3 10^3/uL (0.0-0.3); EOSINOPHILS % (AUTO) 6 % (0-10); HEMATOCRIT 29 % (35-52); HEMOGLOBIN 9.4 G/DL (11.5-16.0); LYMPHOCYTES # (AUTO) 1.5 X 10^3 (1.0-4.0); LYMPHOCYTES % (AUTO) 27 % (12-44); MEAN CORPUSCULAR HEMOGLOBIN 27 PG (25-34); MEAN CORPUSCULAR HGB CONC 33 G/DL (32-36); MEAN CORPUSCULAR VOLUME 82 FL (80-99); MEAN PLATELET VOLUME 9.9 FL (7.4-10.4); MONOCYTES # (AUTO) 0.4 X 10^3 (0.0-1.0); MONOCYTES % (AUTO) 8 % (0-12); NEUTROPHILS # (AUTO) 3.3 X 10^3 (1.8-7.8); NEUTROPHILS % (AUTO) 59 % (42-75); PLATELET COUNT 208 10^3/uL (130-400); RED CELL DISTRIBUTION WIDTH 15.4 % (10.0-14.5); WHITE BLOOD COUNT 5.6 10^3/uL (4.3-11.0)
[2020-03-07 06:08] LABS: ALBUMIN 2.8 GM/DL (3.2-4.5); POTASSIUM 4.7 MMOL/L (3.6-5.0)
[2020-03-07 06:10] LABS: CALCIUM 7.9 MG/DL (8.5-10.1)
[2020-03-07 06:11] LABS: TOTAL PROTEIN 5.3 GM/DL (6.4-8.2)
[2020-03-07 06:13] LABS: BILIRUBIN,TOTAL 0.2 MG/DL (0.1-1.0)
[2020-03-07 06:14] LABS: CREATININE SERUM 2.26 MG/DL (0.60-1.30)
[2020-03-07 06:16] LABS: INR 2.7 (0.8-1.4); PROTHROMBIN TIME PATIENT 28.8 SEC (12.2-14.7)
--- NOTE | 2020-03-07 09:05 | History & Physical-Hospitalist ---
JOE RICE MED STUDENT 03/07/20 0905: History of Present Illness HPI/Chief Complaint Lexi Agarwal is a 69 year old female from [place] who arrived in the ER due to dizziness and falls. She describes having increasing dizziness upon standing for the past several weeks, and had four falls yesterday. She reports feeling as if she fell asleep while walking down her hallway, may have hit head on handrail. She has pain in her R hip and back of her R thigh, as well as R ankle pain that she attributes to her fall. Also has pain in her L calf that was not reproduced on palpation. She has a history of PE, CVA, for which she is on warfarin. CT head/c-spine yesterday showed no acute intracranial process, and multilevel diffuse degenerative disease of c-spine with no acute osseous abnormalities appreciated. Hip xray showed no acute osseous abnormality with low-grade scattered osseous degenerative changes, minimal chronic fracturing versus enthesophyte formation associated with the right greater trochanter, advanced vascular calcifications, and chondrocalcinosis of the pubic symphysis. Chest Xray showed right midlung atelectasis, and pulmonary vascular congestion. She reports being immunocompromised, normally catches the flu every year, but not this year, and reports having mono frequently in the past several years. Reports losing over 200 pounds in the past several years, and reports restricting her caloric in take to 1000 calories in recent years for weight loss. She has constipation frequently. Denies any CP, SOB, palpitations, fever, chills, cough, n/v, or diarrhea recently. Source: patient Exam Limitations: physical impairment Date Seen 03/07/20 Time Seen by a Provider: 08:00 Attending Physician Alexus Miller MD PCP Gilberto Francis MD Referring Physician Date of Admission Mar 06, 2020 at 14:45 Home Medications & Allergies Home Medications Reviewed patient Home Medication Reconciliation performed by pharmacy medication reconciliations commercial hvac service technician and/or nursing. Patients Allergies have been reviewed. 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) Alcohol Use: Denies Use Recreational Drug Use: No Smoking Status: Never a Smoker 2nd Hand Smoke Exposure: No Physical Abuse Screen: No Sexual Abuse: No Recent Foreign Travel: No Contact w/other who traveled: No Recent Hopitalizations: No Recent Infectious Disease Expo: No Immunizations Up To Date Date of Pneumonia Vaccine: May 12, 2018 Seasonal Allergies Seasonal Allergies: No Past Medical History Currently Using CPAP: No Currently Using BIPAP: No Cardiac: Hypertension Neurological: Headaches /Migraines, Stroke : No Sexually Transmitted Disease: No HIV/AIDS: No Genitourinary: Neurogenic Bladder, UTI-Chronic Gastrointestinal: Gastroesophageal Reflux, Chronic Constipation, Hemorrhoids, Gall Bladder Disease Musculoskeletal: Arthritis, Fibromyalgia, Chronic Back Pain HEENT: Cataract, Double Vision Loss of Vision: Bilateral Hearing Impairment: Hard of Hearing Psychosocial: Sleep Difficulties, Anxiety, Depression Skin/Integumentary: Eczema History of Blood Disorders: No Adverse Reaction to Blood Waller: No Family History Diabetes mellitus 19 MOTHER CAD Under 55 Years Old, Diabetes Review of Systems Constitutional: No chills; dizziness; No fever EENTM: double vision; No nose congestion, No throat pain Respiratory: No cough, No dyspnea on exertion, No short of breath Cardiovascular: No chest pain, No edema, No palpitations; syncope Gastrointestinal: No abdominal pain; constipation (chronic); No diarrhea, No nausea, No vomiting Genitourinary: No dysuria, No frequency, No hesitancy Skin: dryness (inner L thigh), pruritus (inner L thigh) Psychiatric/Neurological: Denies Numbness, Denies Paresthesia; Weakness Physical Exam Physical Exam Vital Signs Vital Signs - First Documented 03/06/20 11:32 Temp 36.0 Pulse 78 Resp 18 B/P (MAP) 76/50 (59) Pulse Ox 94 O2 Delivery Room Air Capillary Refill : Less Than 3 SecondsLess Than 3 Seconds Height, Weight, BMI Height: 5'4.00" Weight: 300lbs. oz. 136.947438st; 35.91 BMI Method:Stated General Appearance: No Apparent Distress, Anxious, Obese HEENT: PERRL/EOMI; No Pale Conjunctivae (L), No Pale Conjunctivae (R), No Scleral Icterus (L), No Scleral Icterus (R) Neck: Normal Inspection, Non Tender, Supple Respiratory: Lungs Clear, Normal Breath Sounds, No Accessory Muscle Use, No Respiratory Distress Cardiovascular: Regular Rate, Rhythm, No Murmur, Normal Peripheral Pulses Gastrointestinal: Normal Bowel Sounds, No Organomegaly, Non Tender, Soft Extremity: Normal Capillary Refill, Non Tender, No Calf Tenderness Skin: Normal Color, Warm/Dry Results Results/Procedures Labs Laboratory Tests 03/06/20 11:42 03/07/20 05:28 Patient resulted labs reviewed. Assessment/Plan Admission Diagnosis DEHYDRATION ACUTE KIDNEY INJURY Assessment and Plan A/P: Dehydration, CAR - continue IV fluids, monitor kidney function. BUN and Cr improving Fall, R hip and ankle pain - no acute osseous abnormality on hip CXR, monitor for increasing pain, difficulties with movement - PT/OT to evaluate and exercise Syncope - description suggestive of orthostatic syncope, BP was 76/50 in ER, has been low normal or hypotensive since admission. Continue IV fluids, monitor for improvement in symptoms. Hypotension - Hypotensive this morning, continue IV fluids hx PE, CVA - on warfarin, no abnormalities noted on head CT Suspected Cirrhosis/TAY - evaluate w/ RUQ US, prealbumin Clinical Quality Measures DVT/VTE Risk/Contraindication: Risk Factor Score Per Nursin RFS Level Per Nursing on Admit: 4+=Very High SIGRID GUAMAN DO 03/07/20 1245: History of Present Illness HPI/Chief Complaint CC: Dizzy with falls HPI: This is a 69yoWF clinic patient of Dr Francis who presents to [facility] ER with dizziness and a fall. Required admit for gentle IVF. 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) Alcohol Use: Denies Use Smoking Status: Never a Smoker Past Medical History Cardiac: High Cholesterol, Hypertension Genitourinary: Bladder Infection, Renal Failure Musculoskeletal: Arthritis, Chronic Back Pain Family History Diabetes mellitus 19 MOTHER Review of Systems Constitutional: see HPI, malaise, weight loss Musculoskeletal: other (arthritis) Physical Exam Physical Exam General Appearance: No Apparent Distress, Chronically ill, Obese Eyes: Right Eye Normal Inspection, Right Eye PERRL HEENT: PERRL/EOMI, TMs Normal, Normal ENT Inspection, Pharynx Normal, Moist Mucous Membranes Neck: Full Range of Motion, Normal Inspection, Non Tender Respiratory: Chest Non Tender, Lungs Clear, Normal Breath Sounds, No Accessory Muscle Use, No Respiratory Distress Cardiovascular: Regular Rate, Rhythm, No Edema, No Gallop, No JVD, No Murmur, Normal Peripheral Pulses Gastrointestinal: Normal Bowel Sounds, No Organomegaly, No Pulsatile Mass, Non Tender, Soft Back: Normal Inspection, No CVA Tenderness, No Vertebral Tenderness Extremity: Normal Capillary Refill, Normal Inspection, Normal Range of Motion, Non Tender, No Calf Tenderness, No Pedal Edema Neurologic/Psychiatric: Alert, Oriented x3, No Motor/Sensory Deficits, Normal Mood/Affect Skin: Normal Color, Warm/Dry Lymphatic: No Adenopathy Assessment/Plan Admission Diagnosis Assessment: ARF Dehydration Sycope Wt loss 230# in past 1 yr 8 months Plan: IVF Monitor BP USG liver Admission Status: Inpatient Order (span 2 midnights) Reason for Inpatient Admission: arf Diagnosis/Problems Diagnosis/Problems (1) Dehydration Status: Acute (2) Acute kidney injury Status: Acute (3) Uremia Status: Acute (4) Hypotension Status: Acute Supervisory-Addendum Brief Verification & Attestation Participated in pt care: history, MDM, physical Personally performed: exam, history, MDM, supervision of care Care discussed with: Medical Student Procedures: n/a Results interpretation: Verified all documentation Verification and Attestation of Medical Student E/M Service A medical student performed and documented this service in my presence. I reviewed and verified all information documented by the medical student and made modifications to such information, when appropriate. I personally performed the physical exam and medical decision making. Sigrid Guaman, Mar 07, 2020,20:54 JOE RICE MED STUDENT Mar 07, 2020 09:05 SIGRID GUAMAN DO Mar 07, 2020 12:45
--- NOTE | 2020-03-07 09:54 | NUR ---
CM/SS: Visited with pt as to plan for discharge Plan: Undetermined at this time. Pt lives alone and has numerous friends that help her with shopping etc Summary: This pt is known to this worker due to living in the [facility]. Pt reports having some issues with balance and having some falls. She report some pain on the side that she fell on. Pt does share that she has help in the home and that for the most part she had been doing pretty good with her health. Pt reports some issues with her vision and is trying to reschedule an appointment in [place] related to her vision changes, the appt was for tomorrow. Pt is open to home care and physical therapy if needed upon discharge. This worker will follow up.
[2020-03-07] MEDS: LOSARTAN 100 MG (COZAAR) TABLET PO SCH (09:57)
[2020-03-07] MEDS: BENZTROPINE MESYLATE 1 MG (COGENTIN) TAB PO SCH (09:57)
[2020-03-07] MEDS: ALPRAZolam 0.5 MG (XANAX) TAB PO SCH ×3 (09:57→21:49)
[2020-03-07] MEDS: CEPHALEXIN 250 MG (KEFLEX) CAP PO SCH (10:01)
--- NOTE | 2020-03-07 11:56 | Occupational Therapy Eval ---
OT Evaluation-General/PLF Medical Diagnosis Admission Date Mar 06, 2020 at 14:45 Medical Diagnosis: orthostatic hypotension; s/p falls. Onset Date: Mar 06, 2020 Therapy Diagnosis Therapy Diagnosis: Decreased ADL status Height/Weight Height (Feet): 5 Height (Inches): 4.00 Weight (Pounds): 300 Precautions Precautions/Isolations: Fall Prevention, Standard Precautions Referral Physician: Sigrid Umana DO Referral Reason: Activity Tolerance, Self Care, Evaluation/Treatment, Stre ngthening/ROM Medical History Pertinent Medical History: CVA, HTN Additional Medical History PE, CVA, HTN, UTI chronic, GERD, gallbladder disease, CBP, fibromyalgia, double vision, [place], anx/ depression, eczema Current History Pt admits to ED by EMS with c/o dizzy/ falls. Pt states increased in dizziness/ severe lightheadedness past few weeks, pain in R hip, thigh, and ankle reported. Reviewed History: Yes Social History Home: Single Level Current Living Status: Alone Entry Into Home: Ramp Steps Into Home: 0 ADL-Prior Level of Function SCALE: Activities may be completed with or without assistive devices. 9-Ghblllluul-muaqcvw completes the activity by him/herself with no assistance from a helper. 5-Set-up or Clean-up Assistance-helper sets up or cleans up; patient completes activity. [place] assists only prior to or following the activity. 4-Supervision or Touching Assistance-helper provides verbal cues and/or touching/steadying and/or contact guard assistance as patient completes activity. Assistance may be provided throughout the activity or intermittently. 3-Partial/Moderate Assistance-helper does LESS THAN HALF the effort. [place] lifts, holds or supports trunk or limbs, but provides less than half the effort. 2-Substantial/Maximal Assistance-helper does MORE THAN HALF the effort. [place] lifts or holds trunk or limbs and provides more than half the effort. 0-Rwdgqwrcv-osucne does ALL the effort. Patient does none of the effort to complete the activity. Or, the assistance of 2 or more helpers is required for the patient to complete the activity. If activity was not attempted, code reason: 7-Patient Refused. 9-Not Applicable-not attempted and the patient did not perform the activity before the current illness, exacerbation or injury. 10-Not Attempted due to Environmental Limitations-(lack of equipment, weather restraints, etc.). 88-Not Attempted due to Medical Conditions or Safety Concerns. ADL PLOF Comments Pt states IND with ADL tasks, use of walker at times. 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 Drive Self: No OT Current Status Subjective Pt seen in bed. Pt alert/ oriented. Pt agrees to OT eval/ treat. Pt talkative and pleasant, requires redirection for attention to task. pt states 8/10 pain in rest, ~10/10 in stance/ movement in R knee. Mental Status/Objective Patient Orientation: Person, Place, Situation Attachments: IV Current Glasses/Contacts: Yes Dentures/Partials: Yes Hand Dominance: Right Upper Extremity ROM WFL BUE Upper Extremity Coordination WFL BUE Upper Extremity Sensation WFL BUE Upper Extremity Strength Decreased BUE (WFL, though decreased) ADL-Treatment Eating (QC): 6 On/Off Footwear (QC): 6 (completes with IND while in bed. ) Toileting Hygiene (QC): 4 (SBA during geremias hygiene on BSC.) Other Treatments Pt seen in bed. Pt agrees to OT eval/ treat, educated on OT role. Orthostatic BP assessed (attempted): supine: 88/57, and again attempt with 81/??; sitting upright: 97/64, and standing 72/47. Pt verbalizes pain while in movement. pt c/o minimal dizziness while standing for ~1 min. pt returns to sit. Pt completes BSC transfer with safety and CGA, urination/ hygiene, sit to stand CGA and ambulates to recliner with CGA and sits with min control (c/o R knee pain). Pt educated on controlled sit with use of UE's/ LE's to decrease impact on R knee. Pt agrees. pt's LE's elevated with pillow under knees. Pt agrees to decreased pain. Pt left in recliner with all needs met, call light in reach. Pt agrees to continued OT tx sessions. Education OT Patient Education: Correct positioning, Modified ADL techniques, Progress toward Goal/Update tx plan, Purpose of tx/functional activities, Safety issues, Transfer techniques Teaching Recipient: Patient Teaching Methods: Demonstration, Discussion Response to Teaching: Verbalize Understanding, Return Demonstration, Reinforcement Needed OT Debone Supervisor Goals Debone Supervisor Goals Time Frame: Mar 14, 2020 Eating (QC): 6 Oral Hygiene (QC): 6 Toileting Hygiene (QC): 6 Shower/Bathe Self (QC): 6 Upper Body Dressing (QC): 6 Lower Body Dressing (QC): 6 On/Off Footwear (QC): 6 Additional Goals: 1-Demonstrate ADL Tasks, 2-Verbalize Understanding, 3-Imp roveStrength/Dena 1=Demonstrate adherence to instructed precautions during ADL tasks. 2=Patient will verbalize/demonstrate understanding of assistive devices/modifications for ADL. 3=Patient will improve strength/tolerance for activity to enable patient to perform ADL's. OT Education/Plan Problem List/Assessment Assessment: Decreased Activ Tolerance, Decreased UE Strength, Dependent Transfers, Impaired Funct Balance, Impaired I ADL's, Impaired Self-Care Skills Discharge Recommendations Plan/Recommendations: Continue POC Therapy Discharge Recommendati: Scheduled Assistance, Post Acute OT Treatment Plan/Plan of Care Treatment,Training & Education: Yes Patient would benefit from OT for education, treatment and training to promote independence in ADL's, mobility, safety and/or upper extremity function for ADL's. Plan of Care: ADL Retraining, Functional Mobility, UE Funct Exercise/Act Treatment Duration: Mar 14, 2020 Frequency: 5 times per week Estimated Hrs Per Day: .25 hour per day Agreement: Yes Rehab Potential: Fair Time/GCodes Start Time: 10:45 Stop Time: 11:10 Total Time Billed (hr/min): 25 Billed Treatment Time 1, EVM (10), ADL (15)= 25 CRIS WALSH OTR Mar 07, 2020 11:56
[2020-03-07] MEDS ORDERED: NAPR220C11 PO (12:07)
[2020-03-07] MEDS ORDERED: SENN-145 PO (12:07)
[2020-03-07] MEDS ORDERED: DIPH25CA79 PO (12:07)
[2020-03-07] MEDS ORDERED: NAPH30DR5 OU (12:07)
--- NOTE | 2020-03-07 12:20 | NUR ---
SPOKE WITH THE PT AND WENT THRU THE EXT MED HISTORY TO COMPLETE THE MED REC PT WAS ABLE TO NAME HER MEDICATIONS AND WHEN/HOW SHE TAKES EACH- HER INFORMATION MATCHED THE EXT MED HISTORY OTC MEDS: ARYAN ELISE ALENIDHI CLEAR EYES DROPS
--- NOTE | 2020-03-07 13:16 | NUR ---
PHARMACY WANTS TO CONFIRM PER DR. GUAMAN THAT SHE WANTS PT TO HAVE KEFLEX AND BENZTROPINE. PER PT SHE DOESN'T TAKE THESE ANY MORE. DR. GUAMAN WAS CALLED. WAITING FOR A RESPONSE
--- NOTE | 2020-03-07 14:09 | NUR ---
CALLED TO INFORM HIM OF THE CONSULT. HE WILL SEE HER TOMORROW.
--- NOTE | 2020-03-07 14:14 | Physical Therapy Evaluation ---
PT Evaluation-General Medical Diagnosis Admission Date Mar 06, 2020 at 14:45 Medical Diagnosis: orthostatic hypotension; s/p falls. Onset Date: Mar 06, 2020 Therapy Diagnosis Therapy Diagnosis: generalized weakness/debility Height/Weight Height (Feet): 5 Height (Inches): 4.00 Weight (Pounds): 300 Precautions Precautions/Isolations: Fall Prevention, Standard Precautions Referral Physician: Sigrid Umana DO Reason for Referral: Evaluation/Treatment Medical History Pertinent Medical History: CVA, HTN Additional Medical History 230# weight loss Current History EMS secondary to multiple falls secondary to dizziness. Reviewed History: Yes Social History Home: Single Level Current Living Status: Alone Entry Into Home: Ramp PT Steps Into Home: 0 Prior Prior Level of Function SCALE: Activities may be completed with or without assistive devices. 2-Ebgkxeuopv-qniwklq completes the activity by him/herself with no assistance from a helper. 5-Set-up or Clean-up Assistance-helper sets up or cleans up; patient completes activity. [place] assists only prior to or following the activity. 4-Supervision or Touching Assistance-helper provides verbal cues and/or touching/steadying and/or contact guard assistance as patient completes activity. Assistance may be provided throughout the activity or intermittently. 3-Partial/Moderate Assistance-helper does LESS THAN HALF the effort. [place] lifts, holds or supports trunk or limbs, but provides less than half the effort. 2-Substantial/Maximal Assistance-helper does MORE THAN HALF the effort. [place] lifts or holds trunk or limbs and provides more than half the effort. 0-Ntfccjxhj-sltxpp does ALL the effort. Patient does none of the effort to complete the activity. Or, the assistance of 2 or more helpers is required for the patient to complete the activity. If activity was not attempted, code reason: 7-Patient Refused. 9-Not Applicable-not attempted and the patient did not perform the activity before the current illness, exacerbation or injury. 10-Not Attempted due to Environmental Limitations-(lack of equipment, weather restraints, etc.). 88-Not Attempted due to Medical Conditions or Safety Concerns. Bed Mobility: 6 Transfers (B,C,W/C): 6 Gait: 6 Stairs: 9 Indoor Mobility (Ambulation): Independent Stairs: Not Applicalbe Prior Devices Use: Walker, Other-see list below FWW or cane PT Evaluation-Current Subjective Patient reports 8/10 right knee and calf pain. RN notified. Pain Numeric Pain Scale: 8 Location: Right Location Body Site: Knee Pain Description: Acute Objective Patient Orientation: Person, Time, Situation Attachments: IV ROM/Strength ROM Lower Extremities bilateral LE WFL with noted increase c/o pain with right knee flexion Strength Lower Extremities right knee flexion/extension 3-/5 with noted increase c/o pain left LE 3+/5 flexion/extension Integumentary/Posture Integumentary refer to nursing notes Bowel Incontinence: No Bladder Incontinence: No Posture trunk flexed posture in stand Neuromuscular (Tone, Coordination, Reflexes) diminished coordination with ambulation and right LE ROM Sensory Vision: Wears Glasses Hearing: Functional Hand Dominance: Right Sensation Right Lower Extremit: Intact Sensation Left Lower Extremity: Intact Transfers Roll Left to Right (QC): 2 Sit to Lying (QC): 2 Lying to Sitting/Side of Bed(Q: 2 Sit to Stand (QC): 3 Chair/Dpq-zr-Uwmry Xfer(QC): 3 Toilet Transfer (QC): 3 Gait Does the Patient Walk?: Yes Mode of Locomotion: Walk Anticipated Mode of Locomotion: Walk Walk 10 feet (QC): 3 Distance: 30' Gait Assistive Device: FWW Comments/Gait Description antalgic gait sequence (patient ceased ambulation due to right knee pain) Balance Sitting Static: Normal Sitting Dynamic: Normal Standing Static: Fair Standing Dynamic: Fair Treatment Patient is very tender to palpation right knee with patient grabbing PT hand to stop. RN notified of patient increase c/o right knee pain. Assessment/Needs 69 y.o. female, will benefit from skilled PT to address functional strength and mobility to improve current LOF to safely return to home or care facility at maximum LOF. Patient is currently limited due to right LE pain. Rehab Potential: Fair PT Short Term Goals Short Term Goals Time Frame: Mar 17, 2020 Roll Left & Right: 4 Sit to lyin Lying to sitting on side of be: 4 Sit to stand: 4 Chair/lmk-ik-naaxr transfer: 4 Toilet transfer: 4 Walk 10 feet: 4 Walk 50 feet with two turns: 4 PT Mcc Goals Mcc Goals PT Pot Fireman Goals Time Frame: Mar 26, 2020 Roll Left & Right (QC): 5 Sit to Lying (QC): 5 Lying-Sitting on Side/Bed(QC): 5 Sit to Stand (QC): 5 Chair/Ngm-el-Uevfi Xfer(QC): 5 Toilet Transfer (QC): 5 Does the Patient Walk: Yes Walk 10 feet (QC): 5 Walk 50ft with 2 Turns (QC): 5 Walk 150 ft (QC): 5 PT Plan Problem List Problem List: Activity Tolerance, Functional Strength, Balance, Gait, Transfer, Bed Mobility, ROM Treatment/Plan Treatment Plan: Continue Plan of Care Treatment Plan: Bed Mobility, Education, Functional Activity Dena, Functional Strength, Gait, Safety, Therapeutic Exercise, Transfers Treatment Duration: Mar 26, 2020 Frequency: 6 times per week Estimated Hrs Per Day: .25 hour per day Patient and/or Family Agrees t: Yes Safety Risks/Education Patient Education: Gait Training, Safety Issues Teaching Recipient: Patient Teaching Methods: Demonstration, Discussion Response to Teaching: Verbalize Understanding, Return Demonstration Discharge Recommendations Therapy Discharge Recommendati: Other, See Comments (retirement facility) Time/GCodes Time In: 1320 Time Out: 1336 Total Billed Treatment Time: 16 [facility] Mar 07, 2020 14:14
[2020-03-07] MEDS ORDERED: TROUGH ORDER-PHARMACY XX NR (17:00)
--- NOTE | 2020-03-07 17:41 | Diagnostic Imaging Report ---
INDICATION: Right knee pain and swelling. AP and lateral views of the right knee are obtained. There is marked narrowing of the knee joint spaces with subchondral sclerosis and marginal spurring. There is also chondrocalcinosis involving the menisci. Bulky suprapatellar osteophyte is noted. Numerous dystrophic calcifications are seen in the subcutaneous tissues. No definite fracture is seen. There is no significant joint fluid appreciated. IMPRESSION: Marked osteoarthritis of the right knee without definite acute abnormality appreciated. Dictated by: Dictated on workstation # [id number]
[2020-03-07] MEDS: warFARin 3 MG (COUMADIN) TAB PO SCH (18:01)
--- NOTE | 2020-03-07 21:05 | NUR ---
DR GUAMAN CONTACTED REGARDING PT WANTING COLACE AND UNCONTROLLED PAIN. NEW ORDERS RECEIVED FOR COLACE. ORDERED TO KEEP THE TRAMADOL 150MG DAILY PRN ORDER AND ADD 50MG TRAMADOL PO Q6 PRN
[2020-03-07] MEDS: GABAPENTIN 100 MG (NEURONTIN) CAP PO SCH (21:49)
[2020-03-07] MEDS: AMITRIPTYLINE 50 MG (ELAVIL) TAB PO SCH (21:49)
[2020-03-07] MEDS: DOCUSATE SODIUM 100 MG (COLACE) CAP PO SCH (21:49)
[2020-03-08] MEDS: LACTATED RINGERS 1,000 ML IV SCH ×4 (02:53→19:25)
[2020-03-08 04:35] VITALS: BP 149/81
[2020-03-08 05:22] LABS: BASOPHILS % (AUTO) 0 % (0-10); EOSINOPHILS # (AUTO) 0.3 10^3/uL (0.0-0.3); EOSINOPHILS % (AUTO) 4 % (0-10); HEMATOCRIT 28 % (35-52); HEMOGLOBIN 9.3 G/DL (11.5-16.0); LYMPHOCYTES # (AUTO) 1.9 X 10^3 (1.0-4.0); LYMPHOCYTES % (AUTO) 30 % (12-44); MEAN CORPUSCULAR HEMOGLOBIN 27 PG (25-34); MEAN CORPUSCULAR HGB CONC 33 G/DL (32-36); MEAN CORPUSCULAR VOLUME 82 FL (80-99); MEAN PLATELET VOLUME 10.3 FL (7.4-10.4); MONOCYTES # (AUTO) 0.6 X 10^3 (0.0-1.0); MONOCYTES % (AUTO) 10 % (0-12); NEUTROPHILS # (AUTO) 3.5 X 10^3 (1.8-7.8); NEUTROPHILS % (AUTO) 56 % (42-75); PLATELET COUNT 211 10^3/uL (130-400); WHITE BLOOD COUNT 6.2 10^3/uL (4.3-11.0)
[2020-03-08 05:42] LABS: ALBUMIN 2.8 GM/DL (3.2-4.5)
[2020-03-08 05:45] LABS: TOTAL PROTEIN 5.4 GM/DL (6.4-8.2)
[2020-03-08 05:47] LABS: BILIRUBIN,TOTAL 0.3 MG/DL (0.1-1.0)
[2020-03-08 05:49] LABS: CREATININE SERUM 1.47 MG/DL (0.60-1.30)
[2020-03-08 08:00] VITALS: BP 122/60
--- NOTE | 2020-03-08 09:16 | Progress Note - Hospitalist ---
JOE RICE MED STUDENT 03/08/20 0916: Subjective HPI/CC On Admission Date Seen by Provider: Mar 08, 2020 Time Seen by Provider: 08:15 CC: Dizzy with falls HPI: This is a 69yoWF clinic patient of Dr Francis who presents to [facility] ER with dizziness and a fall. Required admit for gentle IVF. Subjective/Events-last exam Since yesterday she reports feeling somewhat better, has stood up to walk without feeling dizzy or light headed. She is concerned about her R leg, as she has pain in her R hip, knee, and ankle. She describes the pain starting in her knee and ending at her ankle. She also has L leg pain that she attributes to her arthritis. Also noted a bump on the R side of her head that is tender, she hadn't noticed it before and does not remember hitting her head. She is concerned about her ability to go home, and reports that she has several friends who have volunteered to stay the night with her the first couple nights back. She feels that she would be unable to wear jeans, has asked for gowns to be brought for her from home. Reports having constipation that makes her feel sick to her stomach and gives her lower abdominal cramps, she has taken colace for it but has not yet had a BM. Reports feeling that her mood was down somewhat last night and had trouble sleeping, causing her to feel fatigued today. She is concerned about gaining back weight she has lost, she has requested to have 1000 calories per day for meals, reports that nutrition will be cutting down on her serving sizes. Denies any fevers, chills, CP, SOB. Review of Systems General: No Chills, No Night Sweats; Fatigue (lack of sleep) HEENT: No Sinus Congestion, No Sore Throat Pulmonary: No Dyspnea, No Cough Cardiovascular: No: Chest Pain, Palpitations, Edema Gastrointestinal: Nausea (attributes to constipation), Abdominal Pain (cramping attributed to constipation), Constipation; No: Vomiting Genitourinary: No Dysuria; Frequency (attributed to IV hydration); No Incontinence Musculoskeletal: leg pain (pain in R hip and b/l knees), foot pain (pain in R ankle) Neurological: No: Weakness, Numbness Focused Exam Lactate Level 03/06/20 11:42: Lactic Acid Level 1.83 Objective Exam Vital Signs Vital Signs Date Time Temp Pulse Resp B/P (MAP) Pulse Ox O2 Delivery O2 Flow Rate FiO2 03/08/20 09:07 Room Air 03/08/20 08:00 36.6 87 20 122/60 (80) 98 Capillary Refill : Less Than 3 SecondsLess Than 3 Seconds General Appearance: No Apparent Distress, Anxious, Obese HEENT: No PERRL/EOMI (R eye amblyopia), No Pale Conjunctivae (L), No Pale Conjunctivae (R), No Scleral Icterus (L), No Scleral Icterus (R) Neck: Normal Inspection, Non Tender, Supple Respiratory: No Accessory Muscle Use, No Respiratory Distress, Crackles (RLL) Cardiovascular: Regular Rate, Rhythm, No Edema, No Murmur, Normal Peripheral Pulses Extremity: No Non Tender; No Pedal Edema, Calf Tenderness (tenderness to calf and can on palpation close to knees bilaterally) Neurologic/Psychiatric: Alert, Oriented x3, Normal Mood/Affect Skin: Normal Color, Warm/Dry, Other (small circular patches on her chest, arms, and legs, that she attributes to eczema, alleviated by isacc butter ) Results/Procedures Lab Laboratory Tests 03/08/20 04:50 Patient resulted labs reviewed. Assessment/Plan Assessment and Plan Assess & Plan/Chief Complaint Dehydration, CAR - BUN and Cr have continued to improve, has not felt dizzy on standing. Continue IV fluids, monitoring kidney function Fall, R hip, knee, and ankle pain - no acute osseous abnormality on hip or knee xray. continue to monitor symptoms, continue pain management - continue PT/OT Syncope - no recurrence. description suggestive of orthostatic syncope, BP was 76/50 in ER, was 149/81 this morning. Continue IV fluids, monitor for recurrence Hypotension - hypertensive today hx PE, CVA - on warfarin Suspected Cirrhosis/TAY - RUQ US pending - prealbumin low at 12.3 - considering low prealbumin and her caloric restriction habits, consider dietary consult Constipation - continue colace, monitor Clinical Quality Measures DVT/VTE Risk/Contraindication: Risk Factor Score Per Nursin RFS Level Per Nursing on Admit: 4+=Very High SIGRID GUAMAN DO 03/08/20 1407: Subjective Subjective/Events-last exam Pt doing much better Appears to be very chronically ill Ultrasound of the abdomen was completed, I did talk to her about that but I do not have results Creatinine much improved at 1.47 Overall feeling a littledepressed No dizziness reported Pre-albuminis 12.3 Overall very poor reserve Review of Systems General: Fatigue (lack of sleep), Malaise Neurological: Weakness Objective Exam General Appearance: No Apparent Distress, WD/WN, Anxious, Chronically ill, Obese HEENT: PERRL/EOMI, TMs Normal, Normal ENT Inspection, Pharynx Normal, Moist Mucous Membranes Neck: Full Range of Motion, Normal Inspection, Non Tender, Supple, Carotid Bruit Respiratory: Chest Non Tender, Lungs Clear, Normal Breath Sounds, No Accessory Muscle Use, No Respiratory Distress Cardiovascular: Regular Rate, Rhythm, No Edema, No Gallop, No JVD, No Murmur, Normal Peripheral Pulses Gastrointestinal: Normal Bowel Sounds, No Organomegaly, No Pulsatile Mass, Non Tender, Soft Back: Normal Inspection, No CVA Tenderness, No Vertebral Tenderness Extremity: Normal Capillary Refill, Normal Inspection, Normal Range of Motion, Non Tender, No Calf Tenderness, No Pedal Edema Neurologic/Psychiatric: Alert, Oriented x3, No Motor/Sensory Deficits, Normal Mood/Affect Skin: Normal Color, Warm/Dry Lymphatic: No Adenopathy Assessment/Plan Assessment and Plan Assess & Plan/Chief Complaint Assessment: ARF Dehydration Syncope Wt loss 230# in past 1 yr 8 months Plan: IVF Monitor BP USG liver Supervisory-Addendum Brief Verification & Attestation Participated in pt care: history, MDM, physical Personally performed: exam, history, MDM, supervision of care Care discussed with: Medical Student Procedures: n/a Results interpretation: Verified all documentation Verification and Attestation of Medical Student E/M Service A medical student performed and documented this service in my presence. I reviewed and verified all information documented by the medical student and made modifications to such information, when appropriate. I personally performed the physical exam and medical decision making. Sigrid Guaman, Mar 08, 2020,14:07 JOE RICE MED STUDENT Mar 08, 2020 09:16 SIGRID GUAMAN DO Mar 08, 2020 14:07
[2020-03-08] MEDS: LOSARTAN 100 MG (COZAAR) TABLET PO SCH (09:30)
[2020-03-08] MEDS: ALPRAZolam 0.5 MG (XANAX) TAB PO SCH ×3 (09:30→20:19)
[2020-03-08] MEDS: DOCUSATE SODIUM 100 MG (COLACE) CAP PO SCH ×2 (09:30→20:18)
--- NOTE | 2020-03-08 11:04 | Physical Therapy Daily Note ---
PT Daily Note-Current Subjective Patient continues to c/o right knee pain. Pain Numeric Pain Scale: 8 Location: Right Location Body Site: Knee Pain Description: Chronic Mental Status Patient Orientation: Normal For Age Attachments: IV Transfers SCALE: Activities may be completed with or without assistive devices. 0-Reffcwfwpu-wlopwnj completes the activity by him/herself with no assistance f rom a helper. 5-Set-up or Clean-up Assistance-helper sets up or cleans up; patient completes activity. [place] assists only prior to or following the activity. 4-Supervision or Touching Assistance-helper provides verbal cues and/or touching/steadying and/or contact guard assistance as patient completes activity. Assistance may be provided throughout the activity or intermittently. 3-Partial/Moderate Assistance-helper does LESS THAN HALF the effort. [place] lifts, holds or supports trunk or limbs, but provides less than half the effort. 2-Substantial/Maximal Assistance-helper does MORE THAN HALF the effort. [place] lifts or holds trunk or limbs and provides more than half the effort. 6-Yjhfvxced-ekbotf does ALL the effort. Patient does none of the effort to complete the activity. Or, the assistance of 2 or more helpers is required for the patient to complete the activity. If activity was not attempted, code reason: 7-Patient Refused. 9-Not Applicable-not attempted and the patient did not perform the activity before the current illness, exacerbation or injury. 10-Not Attempted due to Environmental Limitations-(lack of equipment, weather restraints, etc.). 88-Not Attempted due to Medical Conditions or Safety Concerns. Roll Left & Right (QC): 5 Lying to Sitting/Side of Bed(Q: 5 Sit to Stand (QC): 5 Chair/Wde-nk-Lddrn Xfer(QC): 5 Gait Training Does the Patient Walk?: Yes Distance: 225' Walk 10 feet (QC): 5 Walk 50 ft with 2 Turns(QC): 5 Walk 150 ft (QC): 5 Gait Assistive Device: FWW antalgic gait sequence but improved from yesterday Exercises Supine Ex: Ankle pumps, Quad Set, Heel Slides, Straight leg raise, Hip abd/add Supine Reps: 12 Seated Therapy Exercises: Long arc quads Seated Reps: 15 (x 2 sets) Assessment Patient has improved with gross motor skills, however, continues to c/o increase right knee pain. PT to increase activity as tolerated by patient. PT Short Term Goals Short Term Goals Time Frame: Mar 17, 2020 Roll Left & Right: 4 Sit to lyin Lying to sitting on side of be: 4 Sit to stand: 4 Chair/cvk-tc-kzfqj transfer: 4 Toilet transfer: 4 Walk 10 feet: 4 Walk 50 feet with two turns: 4 PT Cloud Architect Goals Cloud Architect Goals PT Cloud Architect Goals Time Frame: Mar 26, 2020 Roll Left & Right (QC): 5 Sit to Lying (QC): 5 Lying-Sitting on Side/Bed(QC): 5 Sit to Stand (QC): 5 Chair/Nlq-tp-Soudq Xfer(QC): 5 Toilet Transfer (QC): 5 Does the Patient Walk: Yes Walk 10 feet (QC): 5 Walk 50ft with 2 Turns (QC): 5 Walk 150 ft (QC): 5 PT Plan Treatment/Plan Treatment Plan: Continue Plan of Care Treatment Plan: Bed Mobility, Education, Functional Activity Dena, Functional Strength, Gait, Safety, Therapeutic Exercise, Transfers Treatment Duration: Mar 26, 2020 Frequency: 6 times per week Estimated Hrs Per Day: .25 hour per day Patient and/or Family Agrees t: Yes Time/GCodes Time In: 1020 Time Out: 1043 Total Billed Treatment Time: 23 Total Billed Treatment 1 visit EX 13 min GT 10 min RADHA LOREDO PT Mar 08, 2020 11:04
--- NOTE | 2020-03-08 11:19 | NUR ---
CM/SS: Visited with pt as to plan for discharge Plan: Undetermined at this time. Pt was living independently at home prior to hospital stay Summary: Pt reports being a little down today. Her sleep is off, as well as having some leg pain and needing to take a stool softer in order to go. Pt is encouraged to just take things one day at a time. Pt is frustrated about no hospital in [place] and everything needing to be here. She is encouraged that we can do things here and get a good plan for her when returning home. Options are discussed. Inpatient rehab is discussed, as well as home care with physical therapy. Pt reports being unable to walk at all. Note: this worker saw pt walking pt shortly after visits. So pt is able to walk at this time. Pt has a son that has offered to stay with her if needed, as well as pt can have caregivers come and be with her until she is feeling better. Physical therapist is here to see pt. This worker will follow up at a later time.
--- NOTE | 2020-03-08 11:24 | Consultation - Ortho ---
Consult - Ortho Subjective Date of Exam 03/08/20 Chief Complaint Right hip and knee pain HPI/Events since last exam Mrs. Agarwal is a 69-year-old female who has a history of chronic bilateral knee pain. She states she's had arthritis for years. She's been treated in the past with injections by Dr. Murguia in [place]. She has also had injections in the past by Tod Llamas APRN in [place]. Her last injection was last month by Dr. Murguia, both knees. She stated she got very good relief from the last injection. She states as far she knows it was just a cortisone injection. I ask her if she is had any viscose supplementation injections and she stated she did not know the last time she had 1 but it's been some time. She fell several times over the weekend due to dizziness. She did not fall because of her legs giving out. She has had increased right knee pain and hip pain since the falls. She has been up ambulating with a walker putting as much weight as possible on the right leg and in fact she did fairly well today walking in the hallway. She still has quite a bit of pain in the knee. Medical, Surgical History Reviewed and no additions or changes Social History Reviewed and no additions or changes Family History Reviewed and no additions or changes Review of Systems Reviewed and no additions or changes Allergies: Coded Allergies: Penicillins (Verified Allergy, Unknown, 01/11/19) Home Meds Reported Medications Naphazoline HCl/Glycerin (Clear Eyes Max Redness Rlf Drp) 30 Ml Drops, 2 DROPS OU PRN PRN for DRY/RED EYES, DROPS 03/07/20 Naproxen Sodium (Aleve) 220 Mg Capsule, 220 MG PO Q6H PRN for PAIN-MILD (1-4), CAP 03/07/20 Diphenhydramine HCl (Benadryl) 25 Mg Capsule, 50 MG PO HS, CAP 03/07/20 Sennosides/Docusate Sodium (Senna S Tablet) 1 Each Tablet, 1 EACH PO BID, TAB 03/07/20 Olmesartan Medoxomil (Olmesartan Medoxomil) 20 Mg Tablet, 20 MG PO DAILY, TAB 03/06/20 Citalopram Hydrobromide (Citalopram HBr) 20 Mg Tablet, 20 MG PO DAILY, TAB 03/06/20 Amitriptyline HCl (Amitriptyline HCl) 100 Mg Tablet, 100 MG PO HS, TAB 03/06/20 Warfarin Sodium (Warfarin Sodium) 6 Mg Tablet, 6 MG PO DAILY, TAB 03/06/20 Meloxicam (Meloxicam) 15 Mg Tablet, 15 MG PO DAILY 03/06/20 Gabapentin (Gabapentin) 100 Mg Capsule, 200 MG PO HS TAKES 2 (100MG) CAPS 03/06/20 Alprazolam (Alprazolam) 1 Mg Tablet, 1 MG PO TID, TAB 03/06/20 Tramadol HCl (Tramadol HCl) 50 Mg Tablet, 50 MG PO TID PRN for PAIN-MODERATE (5- 7) 03/06/20 Discontinued Scripts Cephalexin (Cephalexin) 500 Mg Tablet, 500 MG PO QID for dental infection for 10 Days, #40 TAB 0 Refills Prov:KAUSHAL VANCE MD 01/11/19 Benztropine Mesylate (Benztropine Mesylate) 1 Mg Tablet, 1 MG PO BID for 3 Days, #6 TAB 0 Refills Prov:KAUSHAL VANCE MD 01/11/19 Objective Exam Constitutional: [] HEENT: [] Neck: [] Cardiovascular: [] Respiratory: [] Gastrointestinal: [] Genitourinary: [] Skin: [] Back/Spine: [] Extremities: [She has pain on palpation over the greater trochanter right hip as well as with range of motion. She has significant pain with range of motion of the right knee lacking 15 of full extension and flexion to about 75-80. She has good tracking the patella and I don't detect any crepitation. She does have pain on compression and loading of the patellofemoral joint as well as joint line pain. I don't palpate any significant effusion. She has no instability on varus or valgus stress and has a negative anterior and posterior drawer. She has no calf tenderness and negative Homans. Good range of motion ankle with minimal pain. No instability.] Neurologic: [] Psychiatric: [] Hematologic/lymphatic/immunologic: [] Vital Signs Vital Signs Date Time Temp Pulse Resp B/P (MAP) Pulse Ox O2 Delivery O2 Flow Rate FiO2 03/08/20 09:07 Room Air 03/08/20 08:00 36.6 87 20 122/60 (80) 98 Room Air 03/08/20 04:35 37.1 92 14 149/81 (103) 98 Room Air 03/07/20 23:35 36.9 92 16 142/76 (98) 95 Room Air 03/07/20 20:50 Room Air 03/07/20 19:28 37.1 77 20 104/60 (75) 94 Room Air 03/07/20 15:57 37.0 83 16 102/58 (73) 94 Room Air 03/07/20 11:55 36.9 65 20 98/62 (74) 95 Room Air I & O 03/08/20 07:00 Intake Total 1450 ml Output Total 2000 ml Balance -550 ml Lab Results Laboratory Tests 03/08/20 04:50: White Blood Count 6.2, Red Blood Count 3.42L, Hemoglobin 9.3L, Hematocrit 28L, Mean Corpuscular Volume 82, Mean Corpuscular Hemoglobin 27, Mean Corpuscular Hemoglobin Concent 33, Red Cell Distribution Width 15.0H, Platelet Count 211, Mean Platelet Volume 10.3, Neutrophils (%) (Auto) 56, Lymphocytes (%) (Auto) 30, Monocytes (%) (Auto) 10, Eosinophils (%) (Auto) 4, Basophils (%) (Auto) 0, Neutrophils # (Auto) 3.5, Lymphocytes # (Auto) 1.9, Monocytes # (Auto) 0.6, Eosinophils # (Auto) 0.3, Basophils # (Auto) 0.0, Sodium Level 140, Potassium Level 5.0, Chloride Level 115H, Carbon Dioxide Level 20L, Anion Gap 5, Blood Urea Nitrogen 32H, Creatinine 1.47H, Estimat Glomerular Filtration Rate 43, BUN/Creatinine Ratio 22, Glucose Level 94, Calcium Level 8.0L, Corrected Calcium 9.0, Total Bilirubin 0.3, Aspartate Amino Transf (AST/SGOT) 17, Alanine Aminotransferase (ALT/SGPT) 10, Alkaline Phosphatase 63, Total Protein 5.4L, Albumin 2.8L Microbiology 03/06/20 Blood Culture - Preliminary, Resulted No growth Imaging X-rays were reviewed of the right hip which showed no evidence of fracture. The right knee x-ray shows significant tricompartment arthritis Assessment and Plan Assessment Severe osteoarthritis right knee pain by recent multiple falls Problem List Unchanged Plan I have discussed the above with Mrs. Agarwal. Since she had an injection a few weeks ago I would not recommend reinjecting the knee at this point. She has taken Aleve in the past but states it really doesn't help. She is now on Coumadin so I would not recommend an anti-inflammatory do the risk involvement. She is a little bit better she states today and has been doing more walking so hopefully is just gradually improve. She may want to check with Dr. Murguia and see if he can reinject her a little bit earlier if she continues with her knee pain. Most injections her every 3 months and sometimes due increased pain after a fall like this we can sometimes shortening time in between injections. But again I would hold off on any injection for now. Again hold off on any anti- inflammatories. Final Diagonsis Severe osteoarthritis right knee Level of the visit: Level 3 DON LONG MD Mar 08, 2020 11:24
--- NOTE | 2020-03-08 11:43 | Occupational Ther Daily Note ---
OT Current Status-Daily Note Subjective Pt agreeable to OT Tx. She reports she doesn't know if staying in the hospital will help with her pain in her legs. Mental Status/Objective Patient Orientation: Normal For Age Attachments: IV ADL-Treatment Therapy Code Descriptions/Definitions Functional [place] Measure: 0=Not Assessed/NA 4=Minimal Assistance 1=Total Assistance 5=Supervision or Setup 2=Maximal Assistance 6=Modified [place] 3=Moderate Assistance 7=Complete IndependenceSCALE: Activities may be completed with or without assistive devices. 7-Jcvzragmur-lcsqwva completes the activity by him/herself with no assistance from a helper. 5-Set-up or Clean-up Assistance-helper sets up or cleans up; patient completes activity. [place] assists only prior to or following the activity. 4-Supervision or Touching Assistance-helper provides verbal cues and/or touching/steadying and/or contact guard assistance as patient completes activ ity. Assistance may be provided throughout the activity or intermittently. 3-Partial/Moderate Assistance-helper does LESS THAN HALF the effort. Plain lifts, holds or supports trunk or limbs, but provides less than half the effort. 2-Substantial/Maximal Assistance-helper does MORE THAN HALF the effort. Plain lifts or holds trunk or limbs and provides more than half the effort. 1-Qhkbbjkku-jkswac does ALL the effort. Patient does none of the effort to complete the activity. Or, the assistance of 2 or more helpers is required for the patient to complete the activity. If activity was not attempted, code reason: 7-Patient Refused. 9-Not Applicable-not attempted and the patient did not perform the activity before the current illness, exacerbation or injury. 10-Not Attempted due to Environmental Limitations-(lack of equipment, weather restraints, etc.). 88-Not Attempted due to Medical Conditions or Safety Concerns. Other Treatment Pt seated in recliner, OT educated pt on purpose and benefits of OT, she verbalized understanding. In order to increase BUE strength and functional endurance with tasks/ADLs, OT educated pt on theraband HEP. OT provided pt with yellow theraband (light resistance) and print out of HEP. OT demo'd exercises, then pt demo'd understanding of HEP by completing x10 reps of each exercise, all planes. Pt took rest breaks as needed. After exercises, OT assisted pt with elevating footrest to comfort. Post OT tx, pt in recliner, call light in reach and all needs met. Education OT Patient Education: Correct positioning, Energy conservation, Exercise program, Home exercise program, Modified ADL techniques, Progress toward Goal/Update tx plan, Purpose of tx/functional activities Teaching Recipient: Patient Teaching Methods: Demonstration, Discussion Response to Teaching: Verbalize Understanding, Return Demonstration OT Synchronous Motor Assembler Goals [facility] Goals Time Frame: Mar 14, 2020 Eating (QC): 6 Oral Hygiene (QC): 6 Toileting Hygiene (QC): 6 Shower/Bathe Self (QC): 6 Upper Body Dressing (QC): 6 Lower Body Dressing (QC): 6 On/Off Footwear (QC): 6 Additional Goals: 1-Demonstrate ADL Tasks, 2-Verbalize Understanding, 3- ImproveStrength/Dena 1=Demonstrate adherence to instructed precautions during ADL tasks. 2=Patient will verbalize/demonstrate understanding of assistive devices/modifications for ADL. 3=Patient will improve strength/tolerance for activity to enable patient to perform ADL's. OT Education/Plan Problem List/Assessment Assessment: Decreased Activ Tolerance, Decreased UE Strength Discharge Recommendations Plan/Recommendations: Continue POC Treatment Plan/Plan of Care Patient would benefit from OT for education, treatment and training to promote independence in ADL's, mobility, safety and/or upper extremity function for ADL's. Plan of Care: ADL Retraining, Functional Mobility, UE Funct Exercise/Act Treatment Duration: Mar 14, 2020 Frequency: 5 times per week Estimated Hrs Per Day: .25 hour per day Agreement: Yes Rehab Potential: Fair Time/GCodes Start Time: 11:12 Stop Time: 11:20 Total Time Billed (hr/min): 8 Billed Treatment Time 1, EX VERONICA ANTHONY OT Mar 08, 2020 11:43
[2020-03-08 12:00] VITALS: BP 168/81
--- NOTE | 2020-03-08 12:27 | Diagnostic Imaging Report ---
EXAMINATION: Abdomen Limited Doppler. INDICATION: Cirrhosis. COMPARISON: There are no prior studies available for comparison. FINDINGS: This study was technically difficult due to the patient's body habitus. The liver is small measuring only 14.6 cm in length. There is no focal mass involving the liver and the biliary tree is not abnormally dilated. Spectral and color-flow imaging of the portal vein was performed. The vein is patent. The velocity within the vein is 16.7 cm/s. The velocity in the right portal vein is 13.8 cm/s and left portal vein 15.8 cm/s. The velocity in the main hepatic pain is 22.9 cm/s. The velocities in the left and right hepatic veins are 29.6 cm/s and 28.2 cm/s, respectively. The velocity in the inferior vena cava is 20.5 cm/s. There is no mass or free fluid collection evident. The gallbladder is not well visualized. IMPRESSION: 1. The small size of the liver may be related to the patient's diagnosis of cirrhosis. There is no hepatic mass identified and the biliary tree does not appear to be dilated. 2. The portal and hepatic veins are patent with velocities as described above. Dictated by: Dictated on workstation # [id number]
--- NOTE | 2020-03-08 13:34 | NUR ---
"RD ASSESSMENT PMHx: HTN; chronic-UTI; GERD; chronic constipation PT INTERACTION: Pt was awake and pleasant during consult for wt loss. Pt states current appetite is fair. Note avg PO intake 50-75% x1d, per chart review. Pt states following a regular diet at home, and has no major issues with chewing/swallowing food. Pt states her current diet consists of consuming no more than 1000 kcal per day, which has lead her to lose 80# in the last 18mon. Note unable to determine recent wt hx, per chart review. Pt states recent issues with nausea, vomiting, and constipation, and she is unsure of her last BM. Note pt currently on bowel regimen of colace BID per chart review. ABNORMAL NUTRITION-RELATED LAB VALUES LOW: Ca 8.0; Pro 5.4; alb 2.8 HIGH: Cl 115; BUN 32; cr 1.47 Est. kcal needs: 1500 kcal | 15 kcal/kg Est. Pro needs: 80 g Pro | 0.8 g Pro/kg PES STATEMENT: Inadequate oral intake (NI-2.1) related to vomiting | constipation | nausea | loss of appetite as evidenced by pt interview | avg PO intake 50-75% x1d INTERVENTION: Continue with current diet order of Regular diet. Discussed with pt appropriate kcal intake and the negative impact consuming 1000 kcal or less per day on weight loss. Pt verbalized understanding of information provided. Encouraged pt to eat when able. Will continue to follow and reassess as pt needs, intake, and status change. MONITOR/EVALUATE: PO Intake; Plan of Care; Hydration Status; Weight Status; Lab Values Esa Strong, MS, RD, LD"
--- NOTE | 2020-03-08 13:35 | NUR ---
IRF Evaluation Determination: Denied Explanation: According to today's PT session, patient is ambulating (225ft, FWW), transferring and completing bed mobility with set-up; therefore, patient does not meet criteria of requiring active and ongoing intervention of multiple (at least two) therapy disciplines, at least one of which being PT or OT. Thank you for this referral.
[2020-03-08 16:23] VITALS: BP 155/80
[2020-03-08] MEDS: warFARin 3 MG (COUMADIN) TAB PO SCH (17:39)
[2020-03-08 19:50] VITALS: BP 162/83
[2020-03-08] MEDS: GABAPENTIN 100 MG (NEURONTIN) CAP PO SCH (20:19)
[2020-03-08] MEDS: AMITRIPTYLINE 50 MG (ELAVIL) TAB PO SCH (20:19)
[2020-03-09 00:12] VITALS: BP 178/97
[2020-03-09] MEDS: LACTATED RINGERS 1,000 ML IV SCH (03:28)
[2020-03-09 04:52] VITALS: BP 155/88
[2020-03-09 05:47] LABS: BASOPHILS % (AUTO) 0 % (0-10); EOSINOPHILS # (AUTO) 0.3 10^3/uL (0.0-0.3); EOSINOPHILS % (AUTO) 5 % (0-10); HEMATOCRIT 29 % (35-52); HEMOGLOBIN 9.6 G/DL (11.5-16.0); LYMPHOCYTES # (AUTO) 2.3 X 10^3 (1.0-4.0); LYMPHOCYTES % (AUTO) 36 % (12-44); MEAN CORPUSCULAR HEMOGLOBIN 27 PG (25-34); MEAN CORPUSCULAR HGB CONC 34 G/DL (32-36); MEAN CORPUSCULAR VOLUME 81 FL (80-99); MEAN PLATELET VOLUME 9.6 FL (7.4-10.4); MONOCYTES # (AUTO) 0.6 X 10^3 (0.0-1.0); MONOCYTES % (AUTO) 9 % (0-12); NEUTROPHILS # (AUTO) 3.2 X 10^3 (1.8-7.8); NEUTROPHILS % (AUTO) 49 % (42-75); PLATELET COUNT 209 10^3/uL (130-400); RED CELL DISTRIBUTION WIDTH 15.1 % (10.0-14.5); WHITE BLOOD COUNT 6.4 10^3/uL (4.3-11.0)
[2020-03-09 05:51] LABS: ALBUMIN 2.9 GM/DL (3.2-4.5)
[2020-03-09 05:52] LABS: POTASSIUM 4.7 MMOL/L (3.6-5.0)
[2020-03-09 05:53] LABS: CALCIUM 8.3 MG/DL (8.5-10.1)
[2020-03-09 05:54] LABS: TOTAL PROTEIN 5.6 GM/DL (6.4-8.2)
[2020-03-09 05:56] LABS: BILIRUBIN,TOTAL 0.4 MG/DL (0.1-1.0)
[2020-03-09 05:58] LABS: CREATININE SERUM 1.15 MG/DL (0.60-1.30)
[2020-03-09 08:00] VITALS: BP 138/73
[2020-03-09] MEDS: LOSARTAN 100 MG (COZAAR) TABLET PO SCH (08:37)
[2020-03-09] MEDS: DOCUSATE SODIUM 100 MG (COLACE) CAP PO SCH (08:37)
[2020-03-09] MEDS: ALPRAZolam 0.5 MG (XANAX) TAB PO SCH (08:37)
--- NOTE | 2020-03-09 08:55 | Physical Therapy Daily Note ---
PT Daily Note-Current Subjective Pt. up in recliner, states she expects to go home today. Agrees to gait and exercise. Says she has FWW at home and her sone will be there to help her for a week or so after DC Pain Numeric Pain Scale: 4 Location: Left Location Body Site: Back Pain Description: Ache Mental Status Patient Orientation: Normal For Age Attachments: IV Transfers SCALE: Activities may be completed with or without assistive devices. 5-Jvjibbtgmg-mgfaxnp completes the activity by him/herself with no assistance from a helper. 5-Set-up or Clean-up Assistance-helper sets up or cleans up; patient completes activity. [place] assists only prior to or following the activity. 4-Supervision or Touching Assistance-helper provides verbal cues and/or touching/steadying and/or contact guard assistance as patient completes activity. Assistance may be provided throughout the activity or intermittently. 3-Partial/Moderate Assistance-helper does LESS THAN HALF the effort. [place] lifts, holds or supports trunk or limbs, but provides less than half the effort. 2-Substantial/Maximal Assistance-helper does MORE THAN HALF the effort. [place] lifts or holds trunk or limbs and provides more than half the effort. 8-Csztkpqnu-bagzay does ALL the effort. Patient does none of the effort to complete the activity. Or, the assistance of 2 or more helpers is required for the patient to complete the activity. If activity was not attempted, code reason: 7-Patient Refused. 9-Not Applicable-not attempted and the patient did not perform the activity before the current illness, exacerbation or injury. 10-Not Attempted due to Environmental Limitations-(lack of equipment, weather restraints, etc.). 88-Not Attempted due to Medical Conditions or Safety Concerns. Sit to Stand (QC): 5 pt. exerted much effort for sit to stand and pushed hard on arms of chair but did stand indep x 2 SBA Gait Training Does the Patient Walk?: Yes Gait Assistive Device: FWW 125ft slow, guarded, antalgic CGA no LOB Exercises Seated Therapy Exercises: Ankle pumps, Long arc quads, Hip flexion, Hip abd/add Seated Reps: 8 Assessment Current Status: Good Progress PT Short Term Goals Short Term Goals Time Frame: Mar 17, 2020 Roll Left & Right: 4 Sit to lyin Lying to sitting on side of be: 4 Sit to stand: 4 Chair/yss-js-rxnrl transfer: 4 Toilet transfer: 4 Walk 10 feet: 4 Walk 50 feet with two turns: 4 PT Long-Term Goals Warehouse Delivery Manager Goals PT Long-Term Goals Time Frame: Mar 26, 2020 Roll Left & Right (QC): 5 Sit to Lying (QC): 5 Lying-Sitting on Side/Bed(QC): 5 Sit to Stand (QC): 5 Chair/Ulv-tv-Mgcwl Xfer(QC): 5 Toilet Transfer (QC): 5 Does the Patient Walk: Yes Walk 10 feet (QC): 5 Walk 50ft with 2 Turns (QC): 5 Walk 150 ft (QC): 5 PT Plan Treatment/Plan Treatment Plan: Continue Plan of Care Treatment Plan: Bed Mobility, Education, Functional Activity Dena, Functional Strength, Gait, Safety, Therapeutic Exercise, Transfers Treatment Duration: Mar 26, 2020 Frequency: 6 times per week Estimated Hrs Per Day: .25 hour per day Patient and/or Family Agrees t: Yes Safety Risks/Education Patient Education: Gait Training, Correct Positioning Teaching Recipient: Patient Teaching Methods: Demonstration, Discussion Response to Teaching: Verbalize Understanding, Return Demonstration, Reinforcement Needed Time/GCodes Time In: 815 Time Out: 830 Total Billed Treatment Time: 15 Total Billed Treatment 1,GT15m BRODIE CYR PROCESS CAMERA OPERATOR Mar 09, 2020 08:55
--- NOTE | 2020-03-09 09:21 | Progress Note - Hospitalist ---
JOE RICE MED STUDENT 03/09/20 0921: Subjective HPI/CC On Admission Date Seen by Provider: Mar 09, 2020 CC: Dizzy with falls HPI: This is a 69yoWF clinic patient of Dr Francis who presents to [facility] ER with dizziness and a fall. Required admit for gentle IVF. Subjective/Events-last exam Lexi Agarwal reports feeling improved today. She has had no dizziness or light headedness and has been able to ambulate with a walker, albeit with pain in her R hip, knee, and ankle. Because of this she feels she will need assistance when she is at home, and has friends and family she knows will help her. She has had several BMs since starting Colace, is interested in continuing this medication at home. She still feels some mild cramping and nausea she attributes to constipation. She saw a dietitian who has told her she ought to eat 1500 calories per day rather than 1000, and she plans on doing so. RUQ ultrasound yesterday showed a small size of the liver which may be related to the patient's diagnosis of cirrhosis. Denies any fevers, chills, CP, SOB. Hospital Course: Lexi Agarwal is a 69 year old female from [place] who arrived in the ER 03/06 due to dizziness and falls. She describes having increasing dizziness upon standing for the past several weeks, and had four falls 03/06. She reports feeli ng as if she fell asleep while walking down her hallway, may have hit head on handrail. She was diagnosed with dehydration and acute renal failure. She reported having R hip, knee, and ankle pain. CT head/c-spine yesterday showed no acute intracranial process, and multilevel diffuse degenerative disease of c- spine with no acute osseous abnormalities appreciated. Hip xray showed no acute osseous abnormality with low-grade scattered osseous degenerative changes, minimal chronic fracturing versus enthesophyte formation associated with the right greater trochanter, advanced vascular calcifications, and chondrocalcinosis of the pubic symphysis. Chest Xray showed right midlung atelectasis, and pulmonary vascular congestion. Her knee xray marked osteoarthritis of the right knee without definite acute abnormality appreciated. She was treated with IV fluids, and during her stay her BP genia back to normal ranges, she reported no recurrence of dizziness with standing or exertion, and her BUN and Cr improved. She reported losing over 200 pounds in the past 20 months, and reports restricting her caloric in take to 1000 calories in for weight loss. Her prealbumin was found to be low at 12.3, and a RUQ US found her liver to be small, suspected due to cirrhosis. Dietitian advised increasing her caloric intake to 1500 calories per day, and she agreed. She will be discharged today with home health, and she reported having multiple friends and family members volunteer to stay with her and help her get adjusted. Review of Systems General: No Chills; Appetite (unused to increased intake) HEENT: No Head Aches, No Sinus Congestion, No Sore Throat Pulmonary: No Dyspnea, No Cough Cardiovascular: No: Chest Pain, Palpitations, Edema, Lt Headedness Gastrointestinal: Nausea (mild, improving, attributes to constipation), Abdominal Pain (mild lower abdominal cramping, improving, attributes to constipation), Diarrhea (since taking laxative), Constipation (still feels constipated, improving); No: Vomiting Genitourinary: No Dysuria; Frequency (while on IV); No Hematuria Focused Exam Lactate Level Objective Exam Vital Signs Vital Signs Date Time Temp Pulse Resp B/P (MAP) Pulse Ox O2 Delivery O2 Flow Rate FiO2 03/09/20 13:00 36.4 81 16 153/83 96 Room Air Capillary Refill : Less Than 3 SecondsLess Than 3 Seconds General Appearance: No Apparent Distress, WD/WN, Obese HEENT: PERRL/EOMI (R amblyopia); No Pale Conjunctivae (L), No Pale Conjunctivae (R), No Scleral Icterus (L), No Scleral Icterus (R) Neck: Normal Inspection, Non Tender, Supple Respiratory: Lungs Clear, Normal Breath Sounds, No Accessory Muscle Use, No Respiratory Distress Cardiovascular: Regular Rate, Rhythm, No Edema, No Murmur, Normal Peripheral Pulses Extremity: Normal Inspection, Non Tender, No Calf Tenderness, No Pedal Edema Neurologic/Psychiatric: Alert, Oriented x3, Normal Mood/Affect Skin: Normal Color, Warm/Dry, Other (small circular patches on her chest, arms, and legs, that she attributes to eczema, alleviated by isacc butter) Results/Procedures Lab Laboratory Tests 03/09/20 05:27 Patient resulted labs reviewed. Assessment/Plan Assessment and Plan Assess & Plan/Chief Complaint Fall, R hip, knee, and ankle pain - no acute osseous abnormality on hip or knee xray. continue pain management with recommendation by ortho - discharge today with home health Dehydration, CAR - BUN and Cr have continued to improve, Cr normal at 1.17 and BUN high as 22. has not felt dizzy on standing. Syncope - no recurrence, denies dizziness with standing Hypotension - resolved hx PE, CVA - on warfarin Suspected Cirrhosis/TAY - RUQ US showed small liver, indicative of cirrhosis, prealbumin low at 12.3 - now planning to eat 1500 calories per day rather than 1000 after dietary consult Constipation - continue colace outpatient prn Clinical Quality Measures DVT/VTE Risk/Contraindication: Risk Factor Score Per Nursin RFS Level Per Nursing on Admit: 4+=Very High SIGRID GUAMAN DO 03/09/20 2011: Subjective HPI/CC On Admission Time Seen by Provider: 10:00 Objective Exam General Appearance: No Apparent Distress, WD/WN, Chronically ill Assessment/Plan Assessment and Plan Assess & Plan/Chief Complaint DC home Supervisory-Addendum Brief Verification & Attestation Participated in pt care: history, MDM, physical Personally performed: exam, history, MDM, supervision of care Care discussed with: Medical Student Procedures: n/a Results interpretation: Verified all documentation Verification and Attestation of Medical Student E/M Service A medical student performed and documented this service in my presence. I reviewed and verified all information documented by the medical student and made modifications to such information, when appropriate. I personally performed the physical exam and medical decision making. Sigrid Guaman Mar 09, 2020,20:11 JOE RICE MED STUDENT Mar 09, 2020 09:21 SIGRID GUAMAN DO Mar 09, 2020 20:11
--- NOTE | 2020-03-09 11:12 | D/C HH Face to Face Order ---
D/C Face to Face Orders Reconcile Patient Problems Problems Reviewed?: Yes Instructions for Patient Integrity Home Health Patient Instructions/FollowUp: Dr Francis in 1 week Physician to follow Patient: Audianastasia Discharge Diet for Home: No Restrictions Patient Problems: Weakness ARF Goals for Patient: [place] Patient Data-Allergies,Ht & Wt Patient Allergies: Coded Allergies: Penicillins (Verified Allergy, Unknown, 01/11/19) Height (Feet): 5 Height (Inches): 4.00 Weight (Pounds): 300 Home Health Need/Face to Face Date of Face to Face: Mar 09, 2020 Clinical Findings: Generalized weakness and fatigue, Instability, Muscle weakness, Unsteady gait I have seen Pt [id number]: Yes Discharged To: Home Diagnosis/Conditions: Weakness ARF Patient is Homebound due to: Justine fall risk due to instabilty, Muscle weakness Homebound Status Due to the above stated illness, injury or surgical procedure (medical condition or diagnosis) and associated clinical findings, the patient is homebound because of his/her inability to leave home except with aid of a supportive device and/or person AND leaving the home requires a considerable and taxing effort or is medically contraindicated. Pt req the following assistanc: Walker Home Health Nursing Orders Home Health Services Order: Nursing Services, Bag Making Machine Operator-Evaluate & Treat, Physical Therapy-Evaluate & Treat Home Health Infusion Therapy Line Start Date: Mar 06, 2020 Certify Stmt I certify that this patient is under my care and that I, a nurse practitioner or a physician; a cafeteria assistant working with me, had a face to face encounter that - meets the physician face to face encounter requirements with this patient as dated. PARISH GUAMAN DO Mar 09, 2020 11:12
--- NOTE | 2020-03-09 11:14 | Discharge Summary ---
Discharge Summary Hospital Course Was the Problem List Reviewed?: Yes Problems/Dx: (1) Dehydration Status: Acute (2) Acute kidney injury Status: Acute (3) Uremia Status: Acute (4) Hypotension Status: Acute Hospital Course Date of Admission: Mar 07, 2020 at 12:45 Admission Diagnosis : Family Physician/Provider: Gilberto Francis MD Date of Discharge: 03/09/20 Discharge Diagnosis: [ ] Hospital Course: Hospital courses: Pt had an uneventful hospital course for three days, she was admitted for acute renal failure, Meloxicam and Naproxen were discontinued and Pt was given aggressive IV fluids, Overall she remains stable although losing 230lbs in the last year and eight months has caused quite a reserve loss and prealbumin is low at 12. Ultrasound showed evidence of a small liver with cirrhosis likely from TAY so she will have follow-up with Dr. Francis, check INR along with BMP to check kidney function in one week, home health was set up. Verification and Attestation of Medical Student E/M Service A medical student performed and documented this service in my presence. I revi ewed and verified all information documented by the medical student and made modifications to such information, when appropriate. I personally performed the physical exam and medical decision making. Sigrid Kaur Dong, Mar 09, 2020,20:12 Labs and Pending Lab Test: Laboratory Tests 03/09/20 05:27: White Blood Count 6.4, Red Blood Count 3.52L, Hemoglobin 9.6L, Hematocrit 29L, Mean Corpuscular Volume 81, Mean Corpuscular Hemoglobin 27, Mean Corpuscular Hemoglobin Concent 34, Red Cell Distribution Width 15.1H, Platelet Count 209, Mean Platelet Volume 9.6, Neutrophils (%) (Auto) 49, Lymphocytes (%) (Auto) 36, Monocytes (%) (Auto) 9, Eosinophils (%) (Auto) 5, Basophils (%) (Auto) 0, Neutrophils # (Auto) 3.2, Lymphocytes # (Auto) 2.3, Monocytes # (Auto) 0.6, Eosinophils # (Auto) 0.3, Basophils # (Auto) 0.0, Sodium Level 140, Potassium Level 4.7, Chloride Level 113H, Carbon Dioxide Level 22, Anion Gap 5, Blood Urea Nitrogen 22H, Creatinine 1.15, Estimat Glomerular Filtration Rate 57, BUN/Creatinine Ratio 19, Glucose Level 84, Calcium Level 8.3L, Corrected Calcium 9.2, Total Bilirubin 0.4, Aspartate Amino Transf (AST/SGOT) 16, Alanine Aminotransferase (ALT/SGPT) 10, Alkaline Phosphatase 58, Total Protein 5.6L, Albumin 2.9L Microbiology 03/06/20 Blood Culture - Preliminary, Resulted No growth Home Meds Active Reported Clear Eyes Max Redness Rlf Drp (Naphazoline HCl/Glycerin) 30 Ml Drops 2 Drops OU PRN PRN Aleve (Naproxen Sodium) 220 Mg Capsule 220 Mg PO Q6H PRN Benadryl (Diphenhydramine HCl) 25 Mg Capsule 50 Mg PO HS Senna S Tablet (Sennosides/Docusate Sodium) 1 Each Tablet 1 Each PO BID Olmesartan Medoxomil 20 Mg Tablet 20 Mg PO DAILY Citalopram HBr (Citalopram Hydrobromide) 20 Mg Tablet 20 Mg PO DAILY Amitriptyline HCl 100 Mg Tablet 100 Mg PO HS Warfarin Sodium 6 Mg Tablet 6 Mg PO DAILY Meloxicam 15 Mg Tablet 15 Mg PO DAILY Gabapentin 100 Mg Capsule 200 Mg PO HS TAKES 2 (100MG) CAPS Alprazolam 1 Mg Tablet 1 Mg PO TID Tramadol HCl 50 Mg Tablet 50 Mg PO TID PRN Assessment/Pt Instructions [facility] 1 week Discharge Planning: <30 minutes discharge planning Discharge Instructions Discharge Diet: No Restrictions Activity as Tolerated: Yes Discharge Physical Examination Vital Signs Vital Signs Date Time Temp Pulse Resp B/P (MAP) Pulse Ox O2 Delivery O2 Flow Rate FiO2 03/09/20 09:00 97 Room Air 03/09/20 08:00 36.4 89 16 138/73 (94) General Appearance: No Apparent Distress, WD/WN, Chronically ill Respiratory: Normal Breath Sounds Neurologic/Psychiatric: Alert, Oriented x3 Allergies: Coded Allergies: Penicillins (Verified Allergy, Unknown, 01/11/19) Discharge Summary Date of Admission Mar 07, 2020 at 12:45 Date of Discharge Discharge Date: Mar 09, 2020 Admission Diagnosis Assessment: ARF Dehydration Sycope Wt loss 230# in past 1 yr 8 months Plan: IVF Monitor BP USG liver Discharge Diagnosis Assessment: ARF Dehydration Syncope Wt loss 230# in past 1 yr 8 months Plan: IVF Monitor BP USG liver (1) Dehydration Status: Acute (2) Acute kidney injury Status: Acute (3) Uremia Status: Acute (4) Hypotension Status: Acute Clinical Quality Measures DVT/VTE Risk/Contraindication: Risk Factor Score Per Nursin RFS Level Per Nursing on Admit: 4+=Very High SIGRID GUAMAN DO Mar 09, 2020 11:14
[2020-03-09 11:55] VITALS: BP 153/83
--- NOTE | 2020-03-09 12:32 | NUR ---
CM/SS: Visited with pt as to plan for discharge Plan: Pt will discharge to home with [facility] Summary: Pt is eager to return home and does have a ride to pick her up when dismissed. She is reminded that [facility] will get in touch with her as to setting up a time to come out and admit her. They plan to see her on 03/10. Pt is fine with that at this time. Pt is wished well. Discharge information is faxed to [facility] [phone].
[2020-03-09 13:00] VITALS: BP 153/83
--- NOTE | 2020-03-09 13:12 | Occupational Ther Daily Note ---
OT Current Status-Daily Note Subjective Pt alert, sitting in recliner. Pt stated that she is going home today. Mental Status/Objective Patient Orientation: Person, Place, Time, Situation ADL-Treatment Therapy Code Descriptions/Definitions Functional [place] Measure: 0=Not Assessed/NA 4=Minimal Assistance 1=Total Assistance 5=Supervision or Setup 2=Maximal Assistance 6=Modified [place] 3=Moderate Assistance 7=Complete IndependenceSCALE: Activities may be completed with or without assistive devices. 0-Rnvlmkmjml-bgsokii completes the activity by him/herself with no assistance from a helper. 5-Set-up or Clean-up Assistance-helper sets up or cleans up; patient completes activity. Rudyard assists only prior to or following the activity. 4-Supervision or Touching Assistance-helper provides verbal cues and/or touching/steadying and/or contact guard assistance as patient completes activity. Assistance may be provided throughout the activity or intermittently. 3-Partial/Moderate Assistance-helper does LESS THAN HALF the effort. Rudyard lifts, holds or supports trunk or limbs, but provides less than half the effort. 2-Substantial/Maximal Assistance-helper does MORE THAN HALF the effort. Rudyard lifts or holds trunk or limbs and provides more than half the effort. 8-Ceeljdhsm-oilbye does ALL the effort. Patient does none of the effort to complete the activity. Or, the assistance of 2 or more helpers is required for the patient to complete the activity. If activity was not attempted, code reason: 7-Patient Refused. 9-Not Applicable-not attempted and the patient did not perform the activity before the current illness, exacerbation or injury. 10-Not Attempted due to Environmental Limitations-(lack of equipment, weather restraints, etc.). 88-Not Attempted due to Medical Conditions or Safety Concerns. Other Treatment Attempted to get pt to complete any ADLs, pt stated that she had everything always packed up. Pt stated that she felt comfortable going home and has AD for safe ambulation. After therapy, pt sitting in recliner with call light/phone in reach. All needs met in room. OT Longterm Goals Tailing Hand Goals Time Frame: Mar 14, 2020 Eating (QC): 6 Oral Hygiene (QC): 6 Toileting Hygiene (QC): 6 Shower/Bathe Self (QC): 6 Upper Body Dressing (QC): 6 Lower Body Dressing (QC): 6 On/Off Footwear (QC): 6 Additional Goals: 1-Demonstrate ADL Tasks, 2-Verbalize Understanding, 3- ImproveStrength/Dena 1=Demonstrate adherence to instructed precautions during ADL tasks. 2=Patient will verbalize/demonstrate understanding of assistive devices/modifications for ADL. 3=Patient will improve strength/tolerance for activity to enable patient to perform ADL's. OT Education/Plan Discharge Recommendations Plan/Recommendations: Discharge/Goals Met (to home 03/09/2020) Treatment Plan/Plan of Care Patient would benefit from OT for education, treatment and training to promote independence in ADL's, mobility, safety and/or upper extremity function for ADL's. Plan of Care: ADL Retraining, Functional Mobility, UE Funct Exercise/Act Treatment Duration: Mar 14, 2020 Frequency: 5 times per week Estimated Hrs Per Day: .25 hour per day Agreement: Yes Rehab Potential: Fair Time/GCodes Start Time: 11:00 Stop Time: 11:10 Total Time Billed (hr/min): 10 Billed Treatment Time 1 visit-FA 1 (10 min) RADHA SOLANO Mar 09, 2020 13:12
== END 2020-03-09 13:00 | disposition home health service (06) | DRG 684 ==
LOC: EDUNIT# 11:31 → ER FS 11:32 → 4TH 14:45 → OBSVTOIN 03-07 12:45
PROVIDERS: ADMIT Internal Medicine; ATTEND Internal Medicine
DX: N17.9 Acute kidney failure, unspecified (principal); E86.0 Dehydration; R55 Syncope and collapse; R63.4 Abnormal weight loss; K59.00 Constipation, unspecified; I95.9 Hypotension, unspecified; M25.551 Pain in right hip; M25.561 Pain in right knee; M25.571 Pain in right ankle and joints of right foot; K74.60 Unspecified cirrhosis of liver; K75.81 Nonalcoholic steatohepatitis (NASH); Z86.73 Personal history of transient ischemic attack (TIA), and cerebral infarction without residual deficits; Z86.711 Personal history of pulmonary embolism; Z68.35 Body mass index [BMI] 35.0-35.9, adult
CPT/HCPCS: 36415; 51702; 70450; 71045; 72125; 73502; 73560; 80053; 80306; 80320; 81000; 82550; 83605; 83880; 84134; 84484; 85025; 85610; 85730; 87040; 93005; 93976; G0378

== ENCOUNTER → 2020-03-14 | Outpatient (CLI) | payer MEDICARE ==
[~2020-03-14] MED LIST changes: +ALPR1TAB7 PO; +AMIT100T2 PO; +CITA20TA9 PO; +DIPH25CA79 PO; +GABA-486 PO; +MELO15TA39 PO; +NAPH30DR5 OU; +NAPR220C11 PO; +OLME20TA24 PO; +SENN-145 PO; +TRAM50TA3 PO; +WARF6TAB49 PO
[2020-03-14 17:25] LABS: CALCIUM 9.2 MG/DL (8.5-10.1); CREATININE SERUM 1.29 MG/DL (0.60-1.30); POTASSIUM 4.7 MMOL/L (3.6-5.0)
== END ==
LOC: LAB FS 16:38
PROVIDERS: ATTEND Internal Medicine
DX: I10 Essential (primary) hypertension (principal)
CPT/HCPCS: 36415; 80048

== ENCOUNTER → 2020-04-01 | Outpatient (CLI) | payer MEDICARE ==
[2020-04-01 12:16] LABS: INR 1.5 (0.8-1.4); PROTHROMBIN TIME PATIENT 18.4 SEC (12.2-14.7)
[2020-04-01 12:17] LABS: BASOPHILS % (AUTO) 0 % (0-10); EOSINOPHILS % (AUTO) 5 % (0-10); HEMATOCRIT 33 % (35-52); HEMOGLOBIN 10.5 G/DL (11.5-16.0); LYMPHOCYTES # (AUTO) 1.8 X 10^3 (1.0-4.0); LYMPHOCYTES % (AUTO) 30 % (12-44); MEAN CORPUSCULAR HEMOGLOBIN 27 PG (25-34); MEAN CORPUSCULAR HGB CONC 32 G/DL (32-36); MEAN CORPUSCULAR VOLUME 84 FL (80-99); MEAN PLATELET VOLUME 9.8 FL (7.4-10.4); MONOCYTES # (AUTO) 0.4 X 10^3 (0.0-1.0); MONOCYTES % (AUTO) 7 % (0-12); NEUTROPHILS # (AUTO) 3.4 X 10^3 (1.8-7.8); NEUTROPHILS % (AUTO) 57 % (42-75); PLATELET COUNT 252 10^3/uL (130-400); RED CELL DISTRIBUTION WIDTH 14.9 % (10.0-14.5)
[2020-04-01 12:18] LABS: EOSINOPHILS # (AUTO) 0.3 10^3/uL (0.0-0.3)
[2020-04-01 13:20] LABS: ALBUMIN 3.6 GM/DL (3.2-4.5); BILIRUBIN,TOTAL 0.2 MG/DL (0.1-1.0); CALCIUM 9.1 MG/DL (8.5-10.1); CREATININE SERUM 1.35 MG/DL (0.60-1.30); POTASSIUM 4.3 MMOL/L (3.6-5.0); TOTAL PROTEIN 6.4 GM/DL (6.4-8.2)
== END ==
LOC: LAB FS 11:54
PROVIDERS: ATTEND Family Medicine
DX: R53.1 Weakness (principal); R53.83 Other fatigue; R42 Dizziness and giddiness; Z79.01 Long term (current) use of anticoagulants
CPT/HCPCS: 36415; 80053; 85025; 85610; 85730

== ENCOUNTER → 2020-10-10 | Outpatient (CLI) | payer MEDICARE ==
[~2020-10-10] MED LIST changes: +AMLO5TAB4 PO; +IBUP-2473 PO; +MELA5TAB14 PO; +SULF1TAB35 PO
== END ==
LOC: IHC 16:27
PROVIDERS: ATTEND Family Medicine
DX: N17.9 Acute kidney failure, unspecified (principal)

== ENCOUNTER → 2020-10-11 | Outpatient (CLI) | payer MEDICARE ==
[2020-10-11 11:50] LABS: INR 4.1 (0.8-1.4); PROTHROMBIN TIME PATIENT 39.9 SEC (12.2-14.7)
== END ==
LOC: LAB FS 11:28
PROVIDERS: ATTEND Family Medicine
DX: Z79.01 Long term (current) use of anticoagulants (principal)
CPT/HCPCS: 36415; 85610

== ENCOUNTER → 2020-11-04 | Outpatient (CLI) | payer MEDICARE ==
[2020-11-04 12:55] LABS: INR 3.4 (0.8-1.4); PROTHROMBIN TIME PATIENT 33.9 SEC (12.2-14.7)
== END ==
LOC: LAB FS 12:03
PROVIDERS: ATTEND Family Medicine
DX: Z79.01 Long term (current) use of anticoagulants (principal)
CPT/HCPCS: 85610

== ENCOUNTER → 2020-11-25 | Outpatient (CLI) | payer MEDICARE | LOC: IHC 09:31 | PROVIDERS: ATTEND Family Medicine | DX: Z01.89 Encounter for other specified special examinations (principal); Z79.01 Long term (current) use of anticoagulants | CPT/HCPCS: 85610 ==

== ENCOUNTER → 2020-12-02 | Outpatient (CLI) | payer MEDICARE ==
[2020-12-02 15:02] LABS: INR 1.4 (0.8-1.4)
== END ==
LOC: IHC 14:08
PROVIDERS: ATTEND Family Medicine
DX: Z79.01 Long term (current) use of anticoagulants (principal)
CPT/HCPCS: 85610

== ENCOUNTER → 2020-12-16 | Outpatient (CLI) | payer MEDICARE ==
[2020-12-16 13:17] LABS: INR 2.7 (0.8-1.4); PROTHROMBIN TIME PATIENT 28.9 SEC (12.2-14.7)
== END ==
LOC: IHC 12:16
PROVIDERS: ATTEND Family Medicine
DX: Z79.01 Long term (current) use of anticoagulants (principal)
CPT/HCPCS: 85610

== ENCOUNTER → 2020-12-27 | Outpatient (CLI) | payer MEDICARE ==
[2020-12-27 12:16] LABS: PROTHROMBIN TIME PATIENT 33.2 SEC (12.2-14.7)
[2020-12-27 12:17] LABS: INR 3.3 (0.8-1.4)
== END ==
LOC: IHC 11:38
PROVIDERS: ATTEND Family Medicine
DX: Z79.01 Long term (current) use of anticoagulants (principal)
CPT/HCPCS: 85610

== ENCOUNTER → 2021-01-11 | Outpatient (CLI) | payer MEDICARE ==
[2021-01-11 09:23] LABS: PROTHROMBIN TIME PATIENT 31.5 SEC (12.2-14.7)
== END ==
LOC: IHC 09:02
PROVIDERS: ATTEND Family Medicine
DX: Z79.01 Long term (current) use of anticoagulants (principal)
CPT/HCPCS: 85610

== ENCOUNTER 2021-03-24 18:30 | Emergency (ER) | payer MEDICARE ==
[~2021-03-24 18:30] MED LIST changes: -SULF1TAB35 PO; +SULF1TAB38 PO
--- NOTE | 2021-03-24 19:08 | Diagnostic Imaging Report ---
Clinical indication: Patient with shortness of breath. Exam: Portable chest x-ray upright view. Comparisons: Chest x-ray dated 09/26/2020. Findings: Stable discoid scarring in right midlung field. Slight low lung volumes are noted. There is minimal left lung base atelectasis or scarring. There is no interval lung infiltrate. There is no pneumothorax or pleural effusion. There is interval development of a slightly rounded opacity overlying the right heart border and upper lung field region. This may be outside of patient. Pulmonary vasculature and cardiac silhouette are within normal limits. Impression: 1: There is no lung infiltrate seen. There is stable right midlung field scarring and mild left basilar atelectasis versus scarring. 2: There is a slightly rounded opacity involving the right medial lower lung field and right upper lung field region which may be outside of patient. Clinical correlation is suggested. Chest x-ray PA and lateral views would also help better evaluate. Dictated by: Dictated on workstation # [id number]
[2021-03-24 19:23] LABS: BASOPHILS % (AUTO) 0 % (0-10); EOSINOPHILS # (AUTO) 0.2 10^3/uL (0.0-0.3); EOSINOPHILS % (AUTO) 2 % (0-10); HEMATOCRIT 36 % (35-52); HEMOGLOBIN 11.9 G/DL (11.5-16.0); LYMPHOCYTES # (AUTO) 2.8 X 10^3 (1.0-4.0); LYMPHOCYTES % (AUTO) 37 % (12-44); MEAN CORPUSCULAR HEMOGLOBIN 27 PG (25-34); MEAN CORPUSCULAR HGB CONC 33 G/DL (32-36); MEAN CORPUSCULAR VOLUME 82 FL (80-99); MEAN PLATELET VOLUME 9.6 FL (7.4-10.4); MONOCYTES # (AUTO) 0.7 X 10^3 (0.0-1.0); MONOCYTES % (AUTO) 9 % (0-12); NEUTROPHILS % (AUTO) 52 % (42-75); PLATELET COUNT 242 10^3/uL (130-400); WHITE BLOOD COUNT 7.6 10^3/uL (4.3-11.0)
[2021-03-24 19:27] LABS: INR 4.8 (0.8-1.4); PROTHROMBIN TIME PATIENT 44.6 SEC (12.2-14.7)
[2021-03-24 19:46] LABS: ALBUMIN 3.5 GM/DL (3.2-4.5); BILIRUBIN,TOTAL 0.2 MG/DL (0.1-1.0); CALCIUM 9.1 MG/DL (8.5-10.1); CREATININE SERUM 1.43 MG/DL (0.60-1.30); POTASSIUM 4.6 MMOL/L (3.6-5.0)
--- NOTE | 2021-03-24 19:55 | ED Respiratory ---
General Chief Complaint: Respiratory Problems Stated Complaint: SOB Nursing Triage Note: Pt complaining of shortness of breath. Pt was diagnosed with pneumonia last week and has been on two different antibiotics. Pt was tested for covid at urgent care and it was negative this week. Source: patient Exam Limitations: no limitations History of Present Illness Date Seen by Provider: Mar 24, 2021 Time Seen by Provider: 18:20 Initial Comments Patient is a 70-year-old female with history of PE who is anticoagulated on Coumadin with currently on antibiotics week #2 for community-acquired pneumonia presents increased fatigue. Patient states she finished steroids 2 days ago while on the steroids patient was up all night and was unable to sleep. She reports fatigue for the past 2 days. She denies worsening shortness of air. She denies fever chills, nausea vomiting sweats. She reports coarse cough with some dyspnea with exertion. This is mild. She was evaluated at [facility] earlier today and had a negative Covid test. There was some discussion her concern about possible PE given the patient's history. Patient denies chest pain palpitations, increased leg pain or swelling. No other acute symptoms or complaints. She is compliant with Coumadin. Timing/Duration: week Severity: mild Prior Episodes/Possible Cause: other Modifying Factors: Improves With Other Associated Symptoms: other Allergies and Home Medications Allergies Coded Allergies: Penicillins (Verified Allergy, Unknown, 01/11/19) Home Medications Alprazolam 1 Mg Tablet, 1 MG PO 0800,1600,2200, (Reported) Amitriptyline HCl 100 Mg Tablet, 100 MG PO HS, (Reported) Amlodipine Besylate 5 Mg Tablet, 5 MG PO DAILY Prescribed by: ADELSO ZIMMERMAN on 09/28/20 1303 Citalopram Hydrobromide 20 Mg Tablet, 20 MG PO DAILY, (Reported) Gabapentin 100 Mg Capsule, 200 MG PO HS, (Reported) TAKES 2 (100MG) CAPS Melatonin 5 Mg Tablet, 5 MG PO HS, (Reported) Tramadol HCl 50 Mg Tablet, 100 MG PO BID PRN for PAIN-MODERATE (5-7), (Reported) TAKES 2 (50MG) TABS Tramadol HCl 50 Mg Tablet, 50 MG PO 1600, (Reported) Warfarin Sodium 6 Mg Tablet, 6 MG PO SUN,TUE,CAR,SAT, (Reported) Warfarin Sodium 6 Mg Tablet, 9 MG PO MON,WE,FR, (Reported) TAKES 1 & (6MG) TABS Patient Home Medication List Home Medication List Reviewed: Yes Review of Systems Review of Systems Constitutional: see HPI EENTM: see HPI Respiratory: see HPI Gastrointestinal: see HPI Genitourinary: see HPI Musculoskeletal: see HPI Skin: see HPI Psychiatric/Neurological: See HPI Hematologic/Lymphatic: See HPI Immunological/Allergic: see HPI Past Xkoifrb-Tqfnxd-Wdrhbj Hx Patient Social History Tobacco Use?: No Use of E-Cig and/or Vaping dev: No Substance use?: No Alcohol Use?: No Pt feels they are or have been: No Immunizations Up To Date First/Initial COVID19 Vaccinat: Pt has had the first shot of Pfizer vaccine and is due for her second 03/27 Seasonal Allergies Seasonal Allergies: No Past Medical History Surgeries: No Respiratory: Yes Pneumonia, Pulmonary Embolism Currently Using CPAP: No Currently Using BIPAP: No Cardiac: Yes High Cholesterol, Hypertension Neurological: Yes (fibromyalgia. CHRONIC FATQUE SYNDRONE) Headaches /Migraines, Stroke Sexually Transmitted Disease: No HIV/AIDS: No Genitourinary: No Bladder Infection, Renal Failure Gastrointestinal: Yes Gastroesophageal Reflux, Chronic Constipation, Hemorrhoids, Gall Bladder Disease Musculoskeletal: Yes Arthritis, Chronic Back Pain Endocrine: No HEENT: Yes (BOTH EARS HURT INSIDE, COCKEYED FROM ) Cataract, Double Vision Loss of Vision: Bilateral Hearing Impairment: Hard of Hearing Cancer: No Psychosocial: Yes Sleep Difficulties, Anxiety, Depression Integumentary: Yes Eczema Blood Disorders: No Adverse Reaction/Blood Tranf: No Family Medical History Diabetes mellitus 19 MOTHER CAD Under 55 Years Old, Diabetes Physical Exam Vital Signs - First Documented 03/24/21 18:33 Temp 36.8 Pulse 92 Resp 20 B/P (MAP) 120/65 (83) Pulse Ox 100 O2 Delivery Room Air Capillary Refill : Less Than 3 Seconds Height: 5'4.00" Weight: 300lbs. oz. 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, alert, oriented x 3 Skin: normal color Lymphatic: no adenopathy Focused Exam Sepsis Stage: Ruled Out Progress/Results/Core Measures Suspected Sepsis SIRS Temperature: Pulse: 92 Respiratory Rate: 20 Laboratory Tests 03/24/21 18:59: White Blood Count 7.6 Blood Pressure 120 /65 Mean: 83 Laboratory Tests 03/24/21 18:59: Creatinine 1.43H, INR Comment 4.8H, Platelet Count 242, Total Bilirubin 0.2 Results/Orders Lab Results Laboratory Tests Test 03/24/21 18:59 Range/Units White Blood Count 7.6 4.3-11.0 10^3/uL Red Blood Count 4.41 4.35-5.85 10^6/uL Hemoglobin 11.9 11.5-16.0 G/DL Hematocrit 36 35-52 % Mean Corpuscular Volume 82 80-99 FL Mean Corpuscular Hemoglobin 27 25-34 PG Mean Corpuscular Hemoglobin Concent 33 32-36 G/DL Red Cell Distribution Width 14.7 H 10.0-14.5 % Platelet Count 242 130-400 10^3/uL Mean Platelet Volume 9.6 7.4-10.4 FL Immature Granulocyte % (Auto) 0 % Neutrophils (%) (Auto) 52 42-75 % Lymphocytes (%) (Auto) 37 12-44 % Monocytes (%) (Auto) 9 0-12 % Eosinophils (%) (Auto) 2 0-10 % Basophils (%) (Auto) 0 0-10 % Neutrophils # (Auto) 4.0 1.8-7.8 X 10^3 Lymphocytes # (Auto) 2.8 1.0-4.0 X 10^3 Monocytes # (Auto) 0.7 0.0-1.0 X 10^3 Eosinophils # (Auto) 0.2 0.0-0.3 10^3/uL Basophils # (Auto) 0.0 0.0-0.1 10^3/uL Immature Granulocyte # (Auto) 0.0 0.0-0.1 10^3/uL Prothrombin Time 44.6 H 12.2-14.7 SEC INR Comment 4.8 H 0.8-1.4 Sodium Level 135 135-145 MMOL/L Potassium Level 4.6 3.6-5.0 MMOL/L Chloride Level 101 98-107 MMOL/L Carbon Dioxide Level 25 21-32 MMOL/L Anion Gap 9 5-14 MMOL/L Blood Urea Nitrogen 34 H 7-18 MG/DL Creatinine 1.43 H 0.60-1.30 MG/DL Estimat Glomerular Filtration Rate 44 BUN/Creatinine Ratio 24 Glucose Level 138 H 70-105 MG/DL Calcium Level 9.1 8.5-10.1 MG/DL Corrected Calcium 9.5 8.5-10.1 MG/DL Total Bilirubin 0.2 0.1-1.0 MG/DL Aspartate Amino Transf (AST/SGOT) 15 5-34 U/L Alanine Aminotransferase (ALT/SGPT) 9 0-55 U/L Alkaline Phosphatase 91 40-136 U/L Troponin I 0.30 <0.30 NG/ML Pro-B-Type Natriuretic Peptide 42.6 <75.0 PG/ML Total Protein 7.0 6.4-8.2 GM/DL Albumin 3.5 3.2-4.5 GM/DL My Orders Orders - MONE KELLEY DO Cbc With Automated Diff (03/24/21 18:49) Comprehensive Metabolic Panel (03/24/21 18:49) Troponin I Fs (03/24/21 18:49) Chest 1 View Ap/Pa Only (03/24/21 18:49) Probnp Fs (03/24/21 18:49) Protime With Inr (03/24/21 18:49) Ed Iv/Invasive Line Start (03/24/21 18:58) Ekg Tracing (03/24/21 19:14) Vital Signs/I&O 03/24/21 18:33 Temp 36.8 Pulse 92 Resp 20 B/P (MAP) 120/65 (83) Pulse Ox 100 O2 Delivery Room Air Capillary Refill : Less Than 3 Seconds Blood Pressure Mean: 83 Departure Communication (Admissions) Chest x-ray: Small infiltrate. Patient with fatigue and headache likely secondary to sleep deprivation after completing course of steroids. She is not in respiratory distress. Respiratory rate is 12-14 and oxygen saturations are 99 to 100%. She denies chest pain palpitations leg pain or swelling or worsening shortness of breath suggestive of pulmonary emboli. She is anticoagulated on Coumadin. INR is 4.8. Patient will be instructed to hold tomorrow's dose of Coumadin to follow-up with her PCP next week in the office. Return precautions reviewed. Patient verbalizes understanding and agreement with discharge instructions prior to departure. Impression Primary Impression: Pneumonia Additional Impression: Elevated INR Disposition: 01 HOME, SELF-CARE Condition: Stable Departure-Patient Inst. Decision time for Depature: 19:57 Referrals: CELIA SEWELL MD (PCP/Family) Primary Care Physician Patient Instructions: Pneumonia, Adult ED Add. Discharge Instructions: You were evaluated in the emergency department for fatigue. Chest x-ray labs and EKG are performed. Your exam is consistent with recovery from pneumonia. An INR was checked and was 4.8. Please hold the next dose of Coumadin and eat increased leg leafy greens. Follow-up with your PCP next week to recheck INR. Return to the ED if new or worsening symptoms. All discharge instructions reviewed with patient and/or family. Voiced understanding. MONE KELLEY DO Mar 24, 2021 19:55
[2021-03-24 20:25] VITALS: BP 144/60
--- OUTSIDE RECORDS SUMMARY | 2021-03-25 04:30 | XMS REPORT | Clinical Summary ---
Author Author [facility] Organization [facility] Address Unknown Phone Unavailable Care Team Providers Care Horologist Apprentice Name Role Phone Bakari Guillory MD Unavailable No Pcp, Na PCP Unavailable Source Comments Some departments are not documenting in the electronic medical record. If you d o not see the information that you expected, contact Release of Information in [facility] [employer] Information Management department at [phone] for further assistan ce in locating additional records.[facility] Allergies Comments Active Allergy Reactions Severity Noted Date Hydrocodone HALLUCINATION High 03/02/2015 S "all medications with -cillins: Unclassified Drug RASH Medium 02/08/2015 Penicillins RASH Medium 02/08/2015 Medications End Date Status Medication Sig Dispensed Refills Start Date Active valsartan (DIOVAN) 80 mg Take 80 mg by 0 tablet mouth daily. Active lithium carbonate 300 mg Take 300 mg 0 capsule by mouth daily. Active ALPRAZolam (XANAX) 1 mg Take 1 mg by 0 tablet mouth three times daily. Active warfarin (COUMADIN) 5 mg Take 5 mg by 0 tablet mouth daily. Active traMADol (ULTRAM) 50 mg Take 50 mg by 0 tablet mouth three times daily. Active amitriptyline (ELAVIL) Take 100 mg 0 100 mg tablet by mouth daily. Active celecoxib (CELEBREX) 200 Take 1 Cap by 90 Cap 0 03/02/201 mg capsule mouth daily. 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) Hypertension 03/02/2015 Tachycardia 03/02/2015 Drug allergy (Penicillin) 03/02/2015 Depression 03/02/2015 Obesity 02/08/2015 DVT, lower extremity, recurrent 02/08/2015 Pulmonary emboli, recurrent 02/08/2015 Fibromyalgia 02/08/2015 Penicillin allergy 02/08/2015 Osteoarthritis 02/08/2015 Surgical History Surgery Date Site/Laterality Comments KNEE SURGERY left orthroscopic Medical History Medical History Date Comments Fibromyalgia Arthritis Hx of blood clots Social History Date Tobacco Use Types Packs/Day Years Used Never Smoker Smokeless Tobacco: Never Used Comments Alcohol Use Standard Drinks/Week No 0 (1 standard drink = 0.6 o z pure alcohol) Sex Assigned at Date Recorded Not on file Last Filed Vital Signs Reading Time Taken Comments Vital Sign 162/96 03/02/2015 3:07 PM CDT Blood Pressure 107 03/02/2015 3:07 PM CDT Pulse 36.5 C (97.7 F) 03/02/2015 3:07 PM CDT Temperature 20 03/02/2015 3:07 PM CDT Respiratory Rate - - Oxygen Saturation - - Inhaled Oxygen Concentration 132.5 kg (292 lb) 03/02/2015 3:07 PM CDT Weight 162.6 cm (5' 4") 03/02/2015 3:07 PM CDT Height 50.12 03/02/2015 3:07 PM CDT Body Mass Index Plan of Treatment Health Maintenance Due Date Last Done Comments DTAP/TDAP VACCINES (1 - 1970 Tdap) HEPATITIS C SCREENING 1970 PHYSICAL (COMPREHENSIVE) 1970 EXAM BREAST CANCER SCREENING 1992 COLORECTAL CANCER 2002 SCREENING SHINGLES RECOMBINANT 2002 VACCINE (1 of 2) OSTEOPOROSIS 2017 SCREENING/MONITORING PNEUMONIA (PPSV23) 2017 VACCINE (1 of 1 - PPSV23) INFLUENZA VACCINE 05/12/2021 Results Not on filefrom Last 3 Months Advance Directives Patient Astrochemist Explanation Type Date Recorded Advance 02/08/2015 3:14 PM Directive/DPOA
== END 2021-03-24 20:25 | disposition home or self-care (01) ==
LOC: EDUNIT# 18:30 → ER FS 18:32
DX: J18.9 Pneumonia, unspecified organism (principal); R79.1 Abnormal coagulation profile; I10 Essential (primary) hypertension; F41.9 Anxiety disorder, unspecified; F32.9 Major depressive disorder, single episode, unspecified; Z86.73 Personal history of transient ischemic attack (TIA), and cerebral infarction without residual deficits; Z73.0 Burn-out; Z86.711 Personal history of pulmonary embolism; Z79.01 Long term (current) use of anticoagulants; Z79.899 Other long term (current) drug therapy
CPT/HCPCS: 36415; 71045; 80053; 83880; 84484; 85025; 85610; 93005

== ENCOUNTER → 2021-06-01 | Outpatient (CLI) | payer MEDICARE ==
[2021-06-01 10:07] LABS: INR 1.4 (0.8-1.4); PROTHROMBIN TIME PATIENT 17.9 SEC (12.2-14.7)
== END ==
LOC: IHC 09:34
PROVIDERS: ATTEND Family Medicine
DX: Z79.01 Long term (current) use of anticoagulants (principal)
CPT/HCPCS: 85610

== ENCOUNTER → 2021-06-15 | Outpatient (CLI) | payer MEDICARE ==
[2021-06-15 12:08] LABS: INR 1.4 (0.8-1.4); PROTHROMBIN TIME PATIENT 17.6 SEC (12.2-14.7)
== END ==
LOC: IHC 11:41
PROVIDERS: ATTEND Family Medicine
DX: Z01.89 Encounter for other specified special examinations (principal); Z79.01 Long term (current) use of anticoagulants
CPT/HCPCS: 85610

== ENCOUNTER → 2021-06-29 | Outpatient (CLI) | payer MEDICARE ==
[2021-06-29 15:48] LABS: PROTHROMBIN TIME PATIENT 22.9 SEC (12.2-14.7)
== END ==
LOC: IHC 14:53
PROVIDERS: ATTEND Family Medicine
DX: Z79.01 Long term (current) use of anticoagulants (principal)
CPT/HCPCS: 85610

== ENCOUNTER → 2021-07-13 | Outpatient (CLI) | payer MEDICARE ==
[2021-07-13 12:09] LABS: INR 1.6 (0.8-1.4); PROTHROMBIN TIME PATIENT 19.9 SEC (12.2-14.7)
== END ==
LOC: IHC 11:17
PROVIDERS: ATTEND Family Medicine
DX: Z79.01 Long term (current) use of anticoagulants (principal)
CPT/HCPCS: 85610

== ENCOUNTER → 2021-07-29 | Outpatient (CLI) | payer MEDICARE ==
[2021-07-29 13:24] LABS: BACTERIA,URINE TRACE /HPF; BILIRUBIN,URINE NEGATIVE (NEGATIVE); CLARITY,URINE CLEAR; COLOR,URINE YELLOW; GLUCOSE, URINE (UA) NEGATIVE (NEGATIVE); KETONES,URINE NEGATIVE (NEGATIVE); LEUKOCYTE ESTERASE ,URINE NEGATIVE (NEGATIVE); NITRITE,URINE NEGATIVE (NEGATIVE); PROTEIN,URINE NEGATIVE (NEGATIVE); RBC,URINE 0-2 /HPF; WBC,URINE 0-2 /HPF
== END ==
LOC: LAB FS 13:17
PROVIDERS: ATTEND Family Medicine
DX: N18.30 Chronic kidney disease, stage 3 unspecified (principal)
CPT/HCPCS: 81000; 87088

== ENCOUNTER → 2021-08-03 | Outpatient (CLI) | payer MEDICARE ==
[2021-08-03 12:35] LABS: INR 2.2 (0.8-1.4); PROTHROMBIN TIME PATIENT 25.2 SEC (12.2-14.7)
== END ==
LOC: IHC 11:53
PROVIDERS: ATTEND Family Medicine
DX: Z79.01 Long term (current) use of anticoagulants (principal)
CPT/HCPCS: 85610

== ENCOUNTER → 2021-08-15 | Outpatient (CLI) | payer MEDICARE ==
[2021-08-15 11:33] LABS: INR 2.3 (0.8-1.4); PROTHROMBIN TIME PATIENT 25.5 SEC (12.2-14.7)
== END ==
LOC: IHC 10:37
PROVIDERS: ATTEND Family Medicine
DX: Z79.01 Long term (current) use of anticoagulants (principal)
CPT/HCPCS: 85610

== ENCOUNTER → 2021-08-31 | Outpatient (CLI) | payer MEDICARE ==
[2021-08-31 17:42] LABS: INR 1.5 (0.8-1.4); PROTHROMBIN TIME PATIENT 18.3 SEC (12.2-14.7)
== END ==
LOC: IHC 17:18
PROVIDERS: ATTEND Family Medicine
DX: U07.1 COVID-19 (principal); Z79.01 Long term (current) use of anticoagulants
CPT/HCPCS: 85610; 87635

== ENCOUNTER → 2021-09-14 | Outpatient (CLI) | payer MEDICARE ==
[2021-09-14 13:04] LABS: INR 2.7 (0.8-1.4)
== END ==
LOC: IHC 11:47
PROVIDERS: ATTEND Family Medicine
DX: Z79.01 Long term (current) use of anticoagulants (principal)
CPT/HCPCS: 85610

== ENCOUNTER → 2021-09-25 | Outpatient (CLI) | payer MEDICARE ==
[2021-09-25 16:22] LABS: INR 3.6 (0.8-1.4); PROTHROMBIN TIME PATIENT 36.3 SEC (12.2-14.7)
== END ==
LOC: IHC 14:53
PROVIDERS: ATTEND Internal Medicine Hematology & Oncology
DX: Z79.01 Long term (current) use of anticoagulants (principal)
CPT/HCPCS: 85610

== ENCOUNTER → 2021-10-18 | Outpatient (CLI) | payer MEDICARE ==
[2021-10-18 09:11] LABS: PROTHROMBIN TIME PATIENT 39.8 SEC (12.2-14.7)
== END ==
LOC: IHC 08:49
PROVIDERS: ATTEND Family Medicine
DX: Z79.01 Long term (current) use of anticoagulants (principal)
CPT/HCPCS: 85610

== ENCOUNTER 2021-12-06 07:38 | Emergency (ER) | payer MEDICARE ==
[~2021-12-06] VITALS: Ht 162 cm; Wt 120.0 kg
[2021-12-06 07:55] LABS: BASOPHILS % (AUTO) 0 % (0-10); EOSINOPHILS # (AUTO) 0.2 10^3/uL (0.0-0.3); EOSINOPHILS % (AUTO) 3 % (0-10); HEMATOCRIT 34 % (35-52); HEMOGLOBIN 11.2 g/dL (11.5-16.0); LYMPHOCYTES # (AUTO) 1.5 10^3/uL (1.0-4.0); LYMPHOCYTES % (AUTO) 22 % (12-44); MEAN CORPUSCULAR HEMOGLOBIN 27 pg (25-34); MEAN CORPUSCULAR HGB CONC 33 g/dL (32-36); MEAN CORPUSCULAR VOLUME 80 fL (80-99); MEAN PLATELET VOLUME 9.1 fL (9.0-12.2); MONOCYTES # (AUTO) 0.5 10^3/uL (0.0-1.0); MONOCYTES % (AUTO) 7 % (0-12); NEUTROPHILS # (AUTO) 4.7 10^3/uL (1.8-7.8); NEUTROPHILS % (AUTO) 68 % (42-75); PLATELET COUNT 223 10^3/uL (130-400)
--- NOTE | 2021-12-06 07:59 | ED Cough/URI ---
General Chief Complaint: Cough/Cold/Flu Symptoms Stated Complaint: SOB Source: patient, EMS, old records Exam Limitations: no limitations History of Present Illness Date Seen by Provider: Dec 06, 2021 Time Seen by Provider: 07:38 Initial Comments 71-year-old female presenting from home by EMS with complaints of having a cough for several days and concerned that she may have pneumonia. She states that she is prone to developing pneumonia very easily and was concerned about it. She lives at home by herself and was having home health until just the end of last week. She does have some people that come in to clean her house for and they recently had fever and cough. She has not been able to cough up any phlegm or congestion as she states he gets to her throat and then gets stuck. She denies fever or chills. She has chronic body pain and arthritis and feels that it has been worse in the last 4 or 5 days. She follows with Dr. Sewell but states she was having too much pain to get into her car to drive to see him so she called EMS to bring her here to the ED. Timing/Duration: constant (for 4 or 5 days) Severity/Quality: dry cough Prior Episodes/Possible Cause: occasional episodes Modifying Factors: Worse With Activity Associated Symptoms: cough, muscle aches, shortness of breath Allergies and Home Medications Allergies Coded Allergies: Penicillins (Verified Allergy, Unknown, 01/11/19) Patient Home Medication List Home Medication List Reviewed: Yes Alprazolam (Alprazolam) 1 Mg Tablet, 1 MG PO 0800,1600,2200, (Reported) Entered as Reported by: SOLANGE MARQUES on 03/06/20 1541 Amitriptyline HCl (Amitriptyline HCl) 100 Mg Tablet, 100 MG PO HS, (Reported) Entered as Reported by: SOLANGE MARQUES on 03/06/20 1549 Amlodipine Besylate (Norvasc) 5 Mg Tablet, 5 MG PO DAILY Prescribed by: ADELSO ZIMMERMAN on 09/28/20 1303 Citalopram Hydrobromide (Citalopram HBr) 20 Mg Tablet, 20 MG PO DAILY, (Reported) Entered as Reported by: SOLANGE MARQUES on 03/06/20 1550 Gabapentin (Gabapentin) 100 Mg Capsule, 200 MG PO HS, (Reported) Entered as Reported by: SOLANGE MARQUES on 03/06/20 1546 Guaifenesin (Mucinex) 600 Mg Tab.er.12h, 600 MG PO Q12H Prescribed by: KAUSHAL VANCE on 12/06/21 0934 Melatonin (Melatonin) 5 Mg Tablet, 5 MG PO HS, (Reported) Entered as Reported by: LACHO CRUZ on 09/27/20 1222 Prednisone (Prednisone) 20 Mg Tab, 40 MG PO DAILY Prescribed by: KAUSHAL VANCE on 12/06/21 0934 Tramadol HCl (Tramadol HCl) 50 Mg Tablet, 100 MG PO BID PRN for PAIN-MODERATE (5-7), (Reported) Entered as Reported by: SOLANGE MARQUES on 03/06/20 1541 Tramadol HCl (Tramadol HCl) 50 Mg Tablet, 50 MG PO 1600, (Reported) Entered as Reported by: LACHO CRUZ on 09/27/20 1220 Warfarin Sodium (Warfarin Sodium) 6 Mg Tablet, 6 MG PO SUN,TUE,CAR,SAT, (Reported) Entered as Reported by: SOLANGE MARQUES on 03/06/20 1548 Warfarin Sodium (Warfarin Sodium) 6 Mg Tablet, 9 MG PO MON,WE,FR, (Reported) Entered as Reported by: LACHO CRUZ on 09/27/20 1220 Review of Systems Review of Systems Constitutional: No chills, No fever EENTM: No ear pain, No nose congestion Respiratory: cough, short of breath; No stridor, No wheezing Cardiovascular: No chest pain Gastrointestinal: No nausea, No vomiting Genitourinary: No dysuria Musculoskeletal: see HPI Skin: No rash Psychiatric/Neurological: Weakness (general weakness) Hematologic/Lymphatic: Easy Bleeding (taking warfarin), Easy Bruising (taking warfarin) Past Btdapfs-Wplpoz-Qupgyg Hx Patient Social History Tobacco Use?: No Use of E-Cig and/or Vaping dev: No Alcohol Use?: No Seasonal Allergies Seasonal Allergies: No Past Medical History Surgery/Hospitalization HX: Fibromyalgia, Pulmonary Embolus, Hypertension, Chronic Kidney Disease, Migraines, Hypercholesterolemia, GERD, Anxiety, Depression, Insomnia Surgeries: No Respiratory: Yes Pneumonia, Pulmonary Embolism Currently Using CPAP: No Currently Using BIPAP: No Cardiac: Yes High Cholesterol, Hypertension Neurological: Yes (fibromyalgia. CHRONIC FATQUE SYNDRONE) Headaches /Migraines, Stroke Sexually Transmitted Disease: No HIV/AIDS: No Genitourinary: No Bladder Infection, Renal Failure Gastrointestinal: Yes Gastroesophageal Reflux, Chronic Constipation, Hemorrhoids, Gall Bladder Disease Musculoskeletal: Yes Arthritis, Chronic Back Pain Endocrine: No HEENT: Yes (BOTH EARS HURT INSIDE, COCKEYED FROM ) Cataract, Double Vision Loss of Vision: Bilateral Hearing Impairment: Hard of Hearing Cancer: No Psychosocial: Yes Sleep Difficulties, Anxiety, Depression Integumentary: Yes Eczema Blood Disorders: No Adverse Reaction/Blood Tranf: No Family Medical History Diabetes mellitus 19 MOTHER CAD Under 55 Years Old, Diabetes Physical Exam Vital Signs - First Documented 12/06/21 07:50 Temp 36.8 Pulse 96 Resp 20 B/P (MAP) 150/79 (102) Pulse Ox 98 O2 Delivery Room Air Capillary Refill : Height: 5'4.00" Weight: 300lbs. oz. 136.113177kh; 41.41 BMI Method:Stated General Appearance: no apparent distress, obese HEENT: pharynx normal Neck: non-tender, full range of motion, supple, normal inspection Respiratory: chest non-tender, lungs clear, normal breath sounds, no respir atory distress, no accessory muscle use Cardiovascular: normal peripheral pulses, regular rate, rhythm Gastrointestinal: normal bowel sounds, non tender, soft, no pulsatile mass Extremities: normal range of motion; No non-tender (diffuse muscle and joint tenderness); normal capillary refill Neurologic/Psychiatric: alert, oriented x 3 Skin: warm/dry Progress/Results/Core Measures Suspected Sepsis SIRS Temperature: Pulse: Respiratory Rate: Laboratory Tests 12/06/21 07:44: White Blood Count 7.0 Blood Pressure / Mean: Laboratory Tests 12/06/21 07:44: Creatinine 1.14, INR Comment 3.8H, Platelet Count 223, Total Bilirubin 0.2 Results/Orders Lab Results Laboratory Tests Test 12/06/21 07:44 12/06/21 08:47 Range/Units White Blood Count 7.0 4.3-11.0 10^3/uL Red Blood Count 4.21 3.80-5.11 10^6/uL Hemoglobin 11.2 L 11.5-16.0 g/dL Hematocrit 34 L 35-52 % Mean Corpuscular Volume 80 80-99 fL Mean Corpuscular Hemoglobin 27 25-34 pg Mean Corpuscular Hemoglobin Concent 33 32-36 g/dL Red Cell Distribution Width 13.8 10.0-14.5 % Platelet Count 223 130-400 10^3/uL Mean Platelet Volume 9.1 9.0-12.2 fL Immature Granulocyte % (Auto) 0 % Neutrophils (%) (Auto) 68 42-75 % Lymphocytes (%) (Auto) 22 12-44 % Monocytes (%) (Auto) 7 0-12 % Eosinophils (%) (Auto) 3 0-10 % Basophils (%) (Auto) 0 0-10 % Neutrophils # (Auto) 4.7 1.8-7.8 10^3/uL Lymphocytes # (Auto) 1.5 1.0-4.0 10^3/uL Monocytes # (Auto) 0.5 0.0-1.0 10^3/uL Eosinophils # (Auto) 0.2 0.0-0.3 10^3/uL Basophils # (Auto) 0.0 0.0-0.1 10^3/uL Immature Granulocyte # (Auto) 0.0 0.0-0.1 10^3/uL Prothrombin Time 38.2 H 12.2-14.7 SEC INR Comment 3.8 H 0.8-1.4 Activated Partial Thromboplast Time 40 H 24-35 SEC Sodium Level 139 135-145 MMOL/L Potassium Level 4.4 3.6-5.0 MMOL/L Chloride Level 105 98-107 MMOL/L Carbon Dioxide Level 25 21-32 MMOL/L Anion Gap 9 5-14 MMOL/L Blood Urea Nitrogen 23 H 7-18 MG/DL Creatinine 1.14 0.60-1.30 MG/DL Estimat Glomerular Filtration Rate 52 BUN/Creatinine Ratio 20 Glucose Level 147 H 70-105 MG/DL Calcium Level 9.4 8.5-10.1 MG/DL Corrected Calcium 9.7 8.5-10.1 MG/DL Total Bilirubin 0.2 0.1-1.0 MG/DL Aspartate Amino Transf (AST/SGOT) 15 5-34 U/L Alanine Aminotransferase (ALT/SGPT) 11 0-55 U/L Alkaline Phosphatase 101 40-136 U/L C-Reactive Protein 1.85 H <0.50 MG/DL Total Protein 7.2 6.4-8.2 GM/DL Albumin 3.6 3.2-4.5 GM/DL Influenza Type A Antigen NEGATIVE NEGATIVE Influenza Type B Antigen NEGATIVE NEGATIVE My Orders Orders - KAUSHAL VANCE MD Ed Iv/Invasive Line Start (12/06/21 07:46) Cbc With Automated Diff (12/06/21 07:46) Comprehensive Metabolic Panel (12/06/21 07:46) Crp Fs (12/06/21 07:46) Protime With Inr (12/06/21 07:46) Partial Thromboplastin Time (12/06/21 07:46) Chest 1 View Ap/Pa Only (12/06/21 07:46) Influenza A & B Antigens (12/06/21 07:46) Covid 19 Inhouse Test (12/06/21 07:46) Oxycodone/Apap 5/325mg Tablet (Percocet (12/06/21 08:55) Guaifenesin Sf Syrup (Robitussin Sf Syru (12/06/21 08:55) Incentive Spirometry (Nursing) Q2H (12/06/21 08:55) Methylprednisolone Sod Succ (Solu-Medrol (12/06/21 09:25) Vital Signs/I&O 12/06/21 12/06/21 07:50 10:07 Temp 36.8 Pulse 96 79 Resp 20 18 B/P (MAP) 150/79 (102) 130/73 Pulse Ox 98 100 O2 Delivery Room Air Room Air Capillary Refill : Progress Note #1: Progress Note Lungs are clear and she has oxygen saturation 98-100% on room air without any distress or increased work of breathing. Reassured pt that exam appears benign. Will check basic labs and order CXR as well as nasal swab for Influenza and Covid. Can order an extra dose of her chronic pain medicine she takes for her Fibromyalgia and chronic arthritis pain, Percocet 5/325. Progress Note #2: Progress Note Labs are stable without elevation of WBC count. Chemistry stable with improved renal function since last testing with AVC. CRP is slightly elevated to go with inflammation. INR elevated to 3.8. Pt reports it was 4 recently and she was to stay on 5 mg a day per Dr. Sewell. She has rotation on CXR and it shows atelectasis but based on her clinical presentation and labs and vitals she does not have an infiltrate or pneumonia. Will treat symptomatically for possible viral infection vs allergies causing her cough. Use incentive spirometer to help with the atelectasis and lung expansion. Steroids to help with inflammation and pain. Use Mucinex to help with loosening a congestion and cough. Encouraged to check back with the clinic if having continued concerns. Influenza was negative and COVID swab should be back later today or early tomorrow. Diagnostic Imaging Diagonstic Imaging: Xray Plain Films/CT/US/NM/MRI: chest Comments NAME: KIRSTIE [facility]AUDHRY [facility] REC#: [id number] PT STATUS: REG ER : 1950 PHYSICIAN: KAUSHAL VANCE MD ADMIT DATE: 12/06/21/ER FS Draft Date of Exam:12/06/21 CHEST 1 VIEW AP/PA ONLY Indication: Cough and chest heaviness. Time of Exam: 7:56 AM Correlation is made with prior chest from 03/24/2021. Heart is enlarged. There is some atelectasis right midlung field. There appears to be some infiltrate or atelectasis in the left base. There is no effusion or pneumothorax identified. IMPRESSION: Cardiomegaly with left basal infiltrate or atelectasis in right perihilar atelectasis. Dictated on workstation # [id number] Dict: 12/06/21 0807 Trans: 12/06/21 0810 [facility] [id number] Interpreted by: JOSE MOORE MD Electronically signed by: Reviewed: Reviewed by Me Departure Impression Primary Impression: Cough in adult Additional Impression: Shortness of breath Disposition: 01 HOME, SELF-CARE Condition: Stable Departure-Patient Inst. Decision time for Depature: 09:27 Referrals: CELIA SEWELL MD (PCP/Family) Primary Care Physician Patient Instructions: Cough, Adult ED, How to Use an Incentive Spirometer, Shortness of Breath, Adult ED Add. Discharge Instructions: Use the incentive spirometer to help make sure you are getting deep breaths and fully expanding your lungs. Use this 10 times in an hour and use it at least 4 hours out of the day or at least 40 times throughout the day. You may use it more often as well. Take the Mucinex (Guaifenesin) to help loosen any congestion in your cough. The Prednisone will help with inflammation and pain as well as calm your breathing. Check back with the clinic for continued concerns. At this point your test for Influenza was negative and the chest xray does not show pneumonia. You will get a call once the results of the Covid test are back. All discharge instructions reviewed with patient and/or family. Voiced understanding. Scripts Guaifenesin (Mucinex) 600 Mg Tab.er.12h 600 MG PO Q12H for cough/congestion for 7 Days, #14 TAB 0 Refills Prov: KAUSHAL VANCE MD 12/06/21 Prednisone (Prednisone) 20 Mg Tab 40 MG PO DAILY for cough/congestion for 5 Days, #10 TAB 0 Refills Prov: KAUSHAL VANCE MD 12/06/21 KAUSHAL VANCE MD Dec 06, 2021 07:59
--- NOTE | 2021-12-06 08:10 | Diagnostic Imaging Report ---
Indication: Cough and chest heaviness. Time of Exam: 7:56 AM Correlation is made with prior chest from 03/24/2021. Heart is enlarged. There is some atelectasis right midlung field. There appears to be some infiltrate or atelectasis in the left base. There is no effusion or pneumothorax identified. IMPRESSION: Cardiomegaly with left basal infiltrate or atelectasis in right perihilar atelectasis. Dictated by: Dictated on workstation # [id number]
[2021-12-06 08:14] LABS: INR 3.8 (0.8-1.4); PROTHROMBIN TIME PATIENT 38.2 SEC (12.2-14.7)
[2021-12-06 08:23] LABS: BILIRUBIN,TOTAL 0.2 MG/DL (0.1-1.0); CALCIUM 9.4 MG/DL (8.5-10.1); CREATININE SERUM 1.14 MG/DL (0.60-1.30); POTASSIUM 4.4 MMOL/L (3.6-5.0); TOTAL PROTEIN 7.2 GM/DL (6.4-8.2)
[2021-12-06 08:24] LABS: ALBUMIN 3.6 GM/DL (3.2-4.5)
[2021-12-06] MEDS ORDERED: guaiFENesin SYRUP 100 MG/5 ML 10 ML (ROBITUSSIN SF) PO STA (08:55)
[2021-12-06] MEDS ORDERED: oxyCODONE/APAP 5/325MG (PERCOCET 5) TABLET PO STA (08:55)
[2021-12-06] MEDS ORDERED: methylPREDNISolone 125 MG (Solu-MEDROL) VIAL IVP STA (09:25)
[2021-12-06] MEDS ORDERED: PRD20T PO (09:34)
[2021-12-06] MEDS ORDERED: GUAI600T43 PO (09:34)
[2021-12-06 10:07] VITALS: BP 130/73
== END 2021-12-06 09:54 | disposition home or self-care (01) ==
LOC: EDUNIT# 07:38 → ER FS 07:40
DX: R06.02 Shortness of breath (principal); R05.9 Cough, unspecified; E66.9 Obesity, unspecified; Z68.41 Body mass index [BMI] 40.0-44.9, adult; Z20.822 Contact with and (suspected) exposure to COVID-19
CPT/HCPCS: 36415; 71045; 80053; 85025; 85610; 85730; 86141; 87636; 87804

== ENCOUNTER 2021-12-13 09:15 | Inpatient (IN) | payer MEDICARE ==
[~2021-12-13] VITALS: Ht 162.6 cm; Wt 136.1 kg
[~2021-12-13 09:15] MED LIST changes: +GUAI600T43 PO; +PRD20T PO
[2021-12-13] MEDS ORDERED: NS IV 1000 ML 1,000 ML IV STA ×2 (09:30→11:12)
--- NOTE | 2021-12-13 09:32 | ED General ---
General Stated Complaint: LOW O2; LOW BP Source of Information: Patient, Old Records History of Present Illness Date Seen by Provider: December 13, 2021 Time Seen by Provider: 09:19 Initial Comments 71-year-old female brought from the [facility] clinic. Patient was being seen for continued cough and shortness of breath in the clinic. They were Planning to start her on Levaquin for her cough. She had been seen here last week on December 06 and chest x-ray did not show any infiltrate but some atelectasis. She was given a course of steroids and advised to use incentive spirometer to help with expanding her lungs. She continues to have upper respiratory drainage and loose cough. After her appointment and before she left in the [facility] she had a near syncopal episode with hypotension and hypoxia. They got her into a wheelchair and brought her over to the emergency department for evaluation. Associated Systoms: Cough; No Diaphoresis, No Fever/Chills; Malaise; No Nausea/Vomiting, No Seizure; Shortness of Air; No Syncope (Near syncopal episode); Weakness (Generalized) Allergies and Home Medications Allergies Coded Allergies: Penicillins (Verified Allergy, Unknown, 01/11/19) Patient Home Medication List Home Medication List Reviewed: Yes Alprazolam (Alprazolam) 1 Mg Tablet, 1 MG PO 0800,1600,2200, (Reported) Entered as Reported by: SOLANGE MARQUES on 03/06/20 1541 Amitriptyline HCl (Amitriptyline HCl) 100 Mg Tablet, 100 MG PO HS, (Reported) Entered as Reported by: SOLANGE MAQRUES on 03/06/20 1549 Amlodipine Besylate (Norvasc) 5 Mg Tablet, 5 MG PO DAILY Prescribed by: ADELSO ZIMMERMAN on 09/28/20 1303 Citalopram Hydrobromide (Citalopram HBr) 20 Mg Tablet, 20 MG PO DAILY, (Reported) Entered as Reported by: SOLANGE MARQUES on 03/06/20 1550 Gabapentin (Gabapentin) 100 Mg Capsule, 200 MG PO HS, (Reported) Entered as Reported by: SOLANGE MARQUES on 03/06/20 1546 Guaifenesin (Mucinex) 600 Mg Tab.er.12h, 600 MG PO Q12H Prescribed by: KAUSHAL VANCE on 12/06/21 0934 Melatonin (Melatonin) 5 Mg Tablet, 5 MG PO HS, (Reported) Entered as Reported by: LACHO CRUZ on 09/27/20 1222 Prednisone (Prednisone) 20 Mg Tab, 40 MG PO DAILY Prescribed by: KAUSHAL VANCE on 12/06/21 0934 Tramadol HCl (Tramadol HCl) 50 Mg Tablet, 100 MG PO BID PRN for PAIN-MODERATE (5-7), (Reported) Entered as Reported by: SOLANGE MARQUES on 03/06/20 1541 Tramadol HCl (Tramadol HCl) 50 Mg Tablet, 50 MG PO 1600, (Reported) Entered as Reported by: LACHO CRUZ on 09/27/20 1220 Warfarin Sodium (Warfarin Sodium) 6 Mg Tablet, 6 MG PO SUN,TUE,CAR,SAT, (Reported) Entered as Reported by: SOLANGE MARQUES on 03/06/20 1548 Warfarin Sodium (Warfarin Sodium) 6 Mg Tablet, 9 MG PO MON,WE,FR, (Reported) Entered as Reported by: LACHO CRUZ on 09/27/20 1220 Review of Systems Review of Systems Constitutional: No chills, No fever; malaise, weakness EENTM: nose congestion Respiratory: cough (Loose nonproductive cough), short of breath Cardiovascular: chest pain (Pain to the chest wall from coughing) Gastrointestinal: No nausea, No vomiting Genitourinary: No dysuria Musculoskeletal: no symptoms reported Skin: No rash Psychiatric/Neurological: Denies Headache Past Rxhjwyu-Jogplc-Kgcqrt Hx Patient Social History Tobacco Use?: No Seasonal Allergies Seasonal Allergies: No Past Medical History Surgery/Hospitalization HX: Fibromyalgia, Pulmonary Embolus, Hypertension, Chronic Kidney Disease, Migraines, Hypercholesterolemia, GERD, Anxiety, Depression, Insomnia Surgeries: No Respiratory: Yes Pneumonia, Pulmonary Embolism Currently Using CPAP: No Currently Using BIPAP: No Cardiac: Yes High Cholesterol, Hypertension Neurological: Yes (fibromyalgia. CHRONIC FATQUE SYNDRONE) Headaches /Migraines, Stroke Sexually Transmitted Disease: No HIV/AIDS: No Genitourinary: No Bladder Infection, Renal Failure Gastrointestinal: Yes Gastroesophageal Reflux, Chronic Constipation, Hemorrhoids, Gall Bladder Disease Musculoskeletal: Yes Arthritis, Chronic Back Pain Endocrine: No HEENT: Yes (BOTH EARS HURT INSIDE, COCKEYED FROM ) Cataract, Double Vision Loss of Vision: Bilateral Hearing Impairment: Hard of Hearing Cancer: No Psychosocial: Yes Sleep Difficulties, Anxiety, Depression Integumentary: Yes Eczema Blood Disorders: No Adverse Reaction/Blood Tranf: No Family Medical History Diabetes mellitus 19 MOTHER CAD Under 55 Years Old, Diabetes Physical Exam Vital Signs Vital Signs - First Documented 12/13/21 12/13/21 10:05 10:06 Temp 36.6 Pulse 98 Resp 28 B/P (MAP) 94/63 (73) Pulse Ox 100 O2 Delivery OxyMask O2 Flow Rate 4.00 FiO2 100 Capillary Refill : Height, Weight, BMI Height: 5'4.00" Weight: 300lbs. oz. [id number]; 45.00 BMI Method:Stated General Appearance: Chronically ill, Obese, Other (Initially patient was slow to answer questions but was awake) Eyes: Bilateral Eye PERRL, Bilateral Eye EOMI HEENT: No Moist Mucous Membranes (Slightly dry mucous membranes) Neck: Full Range of Motion, Normal Inspection, Non Tender, Supple Respiratory: Chest Non Tender, Lungs Clear, No Accessory Muscle Use, No Respiratory Distress, Decreased Breath Sounds Cardiovascular: Regular Rate, Rhythm, Normal Peripheral Pulses Gastrointestinal: Normal Bowel Sounds, No Pulsatile Mass, Non Tender, Soft Rectal: Deferred Extremity: Normal Capillary Refill, Normal Inspection, No Pedal Edema Neurologic/Psychiatric: Alert (Alert but slow to answer questions), Oriented x3, business partner II-XII Norm as Tested Skin: Normal Color, Warm/Dry Focused Exam Lactate Level 12/13/21 09:25: Lactic Acid Level 2.17*H 12/13/21 11:39: Lactic Acid Level 1.40 Lactic Acid Level Laboratory Tests Test 12/13/21 09:25 12/13/21 11:39 Lactic Acid Level 2.17 MMOL/L (0.50-2.00) *H 1.40 MMOL/L (0.50-2.00) Progress/Results/Core Measures Suspected Sepsis SIRS Temperature: Pulse: Respiratory Rate: Laboratory Tests 12/13/21 09:25: White Blood Count 17.7H Blood Pressure / Mean: 12/13/21 09:25: Lactic Acid Level 2.17*H 12/13/21 11:39: Lactic Acid Level 1.40 Laboratory Tests 12/13/21 09:25: Creatinine 1.77H, INR Comment 3.6H, Platelet Count 287, Total Bilirubin 0.5 Results/Orders Lab Results Laboratory Tests Test 12/13/21 09:25 12/13/21 10:30 12/13/21 11:23 12/13/21 11:39 Range/Units White Blood Count 17.7 H 4.3-11.0 10^3/uL Red Blood Count 5.04 3.80-5.11 10^6/uL Hemoglobin 13.2 11.5-16.0 g/dL Hematocrit 40 35-52 % Mean Corpuscular Volume 80 80-99 fL Mean Corpuscular Hemoglobin 26 25-34 pg Mean Corpuscular Hemoglobin Concent 33 32-36 g/dL Red Cell Distribution Width 14.3 10.0-14.5 % Platelet Count 287 130-400 10^3/uL Mean Platelet Volume 9.2 9.0-12.2 fL Immature Granulocyte % (Auto) 1 % Neutrophils (%) (Auto) 73 42-75 % Lymphocytes (%) (Auto) 19 12-44 % Monocytes (%) (Auto) 6 0-12 % Eosinophils (%) (Auto) 1 0-10 % Basophils (%) (Auto) 0 0-10 % Neutrophils # (Auto) 12.9 H 1.8-7.8 10^3/uL Lymphocytes # (Auto) 3.4 1.0-4.0 10^3/uL Monocytes # (Auto) 1.0 0.0-1.0 10^3/uL Eosinophils # (Auto) 0.2 0.0-0.3 10^3/uL Basophils # (Auto) 0.0 0.0-0.1 10^3/uL Immature Granulocyte # (Auto) 0.1 0.0-0.1 10^3/uL Neutrophils % (Manual) 60 % Lymphocytes % (Manual) 21 % Monocytes % (Manual) 5 % Eosinophils % (Manual) 1 % Basophils % (Manual) 0 % Band Neutrophils 11 % Reactive Lymphocytes 2 % Platelet Estimate NORMAL Hypochromasia 1+ Prothrombin Time 36.4 H 12.2-14.7 SEC INR Comment 3.6 H 0.8-1.4 Activated Partial Thromboplast Time 33 24-35 SEC Sodium Level 136 135-145 MMOL/L Potassium Level 5.0 3.6-5.0 MMOL/L Chloride Level 99 98-107 MMOL/L Carbon Dioxide Level 26 21-32 MMOL/L Anion Gap 11 5-14 MMOL/L Blood Urea Nitrogen 34 H 7-18 MG/DL Creatinine 1.77 H 0.60-1.30 MG/DL Estimat Glomerular Filtration Rate 31 BUN/Creatinine Ratio 19 Glucose Level 155 H 70-105 MG/DL Lactic Acid Level 2.17 *H 1.40 0.50-2.00 MMOL/L Calcium Level 9.6 8.5-10.1 MG/DL Corrected Calcium 9.8 8.5-10.1 MG/DL Magnesium Level 2.0 1.6-2.4 MG/DL Total Bilirubin 0.5 0.1-1.0 MG/DL Aspartate Amino Transf (AST/SGOT) 31 5-34 U/L Alanine Aminotransferase (ALT/SGPT) 27 0-55 U/L Alkaline Phosphatase 91 40-136 U/L Troponin I < 0.30 <0.30 NG/ML C-Reactive Protein 2.31 H <0.50 MG/DL Pro-B-Type Natriuretic Peptide 76.8 H <75.0 PG/ML Total Protein 7.9 6.4-8.2 GM/DL Albumin 3.8 3.2-4.5 GM/DL Urine Color YELLOW Urine Clarity CLEAR Urine pH 6.0 5-9 Urine Specific [place] 1.010 L 1.016-1.022 Urine Protein NEGATIVE NEGATIVE Urine Glucose (UA) NEGATIVE NEGATIVE Urine Ketones NEGATIVE NEGATIVE Urine Nitrite NEGATIVE NEGATIVE Urine Bilirubin NEGATIVE NEGATIVE Urine Urobilinogen 0.2 < = 1.0 MG/DL Urine Leukocyte Esterase NEGATIVE NEGATIVE Urine RBC (Auto) NEGATIVE NEGATIVE Urine RBC 0-2 /HPF Urine WBC 0-2 /HPF Urine Squamous Epithelial Cells RARE /HPF Urine Crystals NONE /LPF Urine Bacteria NEGATIVE /HPF Urine Casts PRESENT /LPF Urine Hyaline Casts 10-25 H /LPF Urine Mucus SMALL H /LPF Urine Culture Indicated NO Influenza Type A Antigen NEGATIVE NEGATIVE Influenza Type B Antigen NEGATIVE NEGATIVE SARS-CoV-2 RNA (RT-PCR) Not Detected Not Detecte My Orders Orders - KAUSHAL VANCE MD Cbc With Automated Diff (12/13/21:) Comprehensive Metabolic Panel (12/13/21:) Blood Culture (12/13/21:) Chest 1 View Ap/Pa Only (12/13/21:) Magnesium (12/13/21:) Ekg Tracing (5/4/22 09:27) O2 (12/13/21:27) Ed Iv/Invasive Line Start (12/13/21:) Sputum Culture (12/13/21:) Monitor-Rhythm Ecg Trace Only (12/13/21:) Crp Fs (12/13/21:) Lactic Acid Analyzer (12/13/21:) Ua Culture If Indicated (12/13/21:) Matias Cath (12/13/21) Troponin I Fs (12/13/21:) Probnp Fs (12/13/21:) Ns Iv 1000 Ml (Sodium Chloride 0.9%) (12/13/21 09:30) Manual Differential (12/13/21:25) Ct Head Wo (12/13/21 10:35) Ct Chest Wo (12/13/21 10:35) Protime With Inr (12/13/21 10:35) Partial Thromboplastin Time (12/13/21 10:35) Influenza A & B Antigens (12/13/21 10:38) Covid 19 Inhouse Test (12/13/21 10:38) Isolation Central Supply Req (12/13/21 10:38) Ns Iv 1000 Ml (Sodium Chloride 0.9%) (12/13/21 11:12) Levofloxacin 750 Mg/150 Ml Iv (Levaquin (12/13/21 11:20) Ed Admission (Communication) (12/13/21 11:50) Ns Iv 1000 Ml (Sodium Chloride 0.9%) (12/13/21 12:45) Ekg Tracing (12/13/21 14:08) Ekg Tracing (12/13/21 14:41) Vital Signs/I&O 12/13/21 12/13/21 12/13/21 10:05 10:06 14:51 Temp 36.6 Pulse 98 81 Resp 28 21 B/P (MAP) 94/63 (73) 130/88 Pulse Ox 100 100 100 O2 Delivery OxyMask OxyMask OxyMask O2 Flow Rate 4.00 4.00 4.00 FiO2 100 Capillary Refill : Progress Note #1: Progress Note Ordered electrocardiogram as well as labs, chest x-ray, urinalysis, blood cultures and lactic acid. Give IV fluids for hydration. Oxygen to help with her breathing. Differential diagnosis includes pneumonia, sepsis, stroke, heart attack, heart failure, UTI, hypotension, dehydration Progress Note #2: Progress Note Electrocardiogram does not show any acute ST elevation or ischemia. Her chest x-ray continues to show no acute infiltrate but her body habitus makes it difficult to see the entire lung. CBC shows elevated white blood cell count of 17.7 with a left shift. Chemistry panel does show an elevated lactic acid of 2.17. She has acute kidney injury with creatinine up to 1.7. Cardiac enzymes are negative. Patient's mentation, blood pressure, oxygen levels are all improving as she is getting treatment in the ED. That she continues to have a loose nonproductive cough and does have a white blood cell count and slight elevation of her lactic acid we will order a CT scan of her head and evaluate for stroke as well as CT scan of the chest to evaluate her lungs in finer detail for possible pneumonia that is not showing up with the plain films as her lungs are not fully visualized on the plain film. Progress Note #3: Progress Note CT scan of the head shows no acute process. Her CT scan of the chest does show patchy infiltrate in the right lower lung base. Will start her on Levaquin for antibiotic and continue with IV fluids for hydration. Discussed with Dr. Umana the on-call physician for [facility] about admission for her acute kidney injury, dehydration, pneumonia, sepsis. ECG Initial ECG Impression Date: December 13, 2021 Initial ECG Impression Time: 09:58 Initial ECG Rate: 87 Initial ECG Rhythm: Normal Sinus Initial ECG Comparisson: Unchanged Comment Sinus rhythm with a heart rate of 87 bpm. TN interval [address] elevation. There is borderline T wave flattening throughout. QT interval 302 ms with a QTc interval 347 ms. Overall appears similar to prior tracings in the system. Diagnostic Imaging Diagonstic Imaging: Xray Plain Films/CT/US/NM/MRI: chest Comments [facility] [place], [place] NAME: KIRSTIE CHAUDHRY [facility] REC#: [id number] PT STATUS: REG ER : 1950 PHYSICIAN: KAUSHAL VANCE MD ADMIT DATE: 12/13/21/ER FS Draft Date of Exam:12/13/21 CHEST 1 VIEW AP/PA ONLY Indication: Cough and shortness of breath Portable chest 9:35 AM Heart size and pulmonary vascularity are normal. There is some volume loss at the lung bases. There are no definite infiltrate, effusion or pneumothorax. IMPRESSION: Suboptimal inspiration. No acute abnormality seen in the chest. Dictated on workstation # [id number] Dict: 12/13/21 0939 Trans: 12/13/21 0946 AMANDA [id number] Interpreted by: ROHINI MACARIO MD Electronically signed by: Reviewed: Reviewed by Me Diagonstic Imaging: CT Plain Films/CT/US/NM/MRI: head Comments [facility] [place] [place] NAME: KIRSTIE CHAUDHRY [facility] REC#: [id number] PT STATUS: REG ER : 1950 PHYSICIAN: KAUSHAL VANCE MD ADMIT DATE: 12/13/21/ER FS Signed Date of Exam:12/13/21 CT HEAD WO EXAMINATION: CT head without contrast. TECHNIQUE: Multiple contiguous axial images were obtained through the brain without the use of intravenous contrast. All CT scans use one or more of the following dose optimizing techniques: automated exposure control, MA and/or KvP adjustment based on patient size and exam type or iterative reconstruction. HISTORY: Altered mental status. Syncopal episode. Shortness of breath. Cough. COMPARISON: 03/06/2020. FINDINGS: No large acute territorial ischemia, mass, or hemorrhage. No midline shift or mass effect. Old infarct is seen in the left basal ganglia. Decreased attenuation is seen in the periventricular and subcortical white matter. The ventricles and cortical sulci are prominent. The basilar cisterns are patent and unremarkable. The orbits are normal. Paranasal sinuses are normal. Mastoid air cells are clear. No soft tissue abnormality is seen. No osseus lesions or fractures are seen. IMPRESSION: 1. No large acute territorial ischemia, mass, or hemorrhage. 2. Chronic microvascular disease. 3. Generalized parenchymal volume loss. 4. Old infarct in the left basal ganglia. Dictated by: Dictated on workstation # [id number] Dict: 12/13/21 1108 Trans: 12/13/21 1113 [facility] [id number] Interpreted by: ALEXUS BRUMFIELD DO Electronically signed by: ALEXUS BRUMFIELD DO 12/13/211112 Reviewed: Reviewed by Me Diagonstic Imaging: CT Plain Films/CT/US/NM/MRI: chest Comments [facility] [place] [place] NAME: KIRSTIE CHAUDHRY [facility] REC#: [id number] PT STATUS: REG ER : 1950 PHYSICIAN: KAUSHAL VANCE MD ADMIT DATE: 12/13/21/ER FS Signed Date of Exam:12/13/21 CT CHEST WO EXAMINATION: CT chest without contrast. TECHNIQUE: Multiple contiguous axial images were obtained through the chest without the use of intravenous contrast. All CT scans use one or more of the following dose optimizing techniques: automated exposure control, MA and/or KvP adjustment based on patient size and exam type or iterative reconstruction. HISTORY: Cough. Shortness of breath. Near syncopal episode. COMPARISON: Chest radiograph performed earlier the same date. FINDINGS: The heart size is within normal limits. No pericardial effusion is present. There is calcified aortic and coronary atherosclerotic plaque without aneurysm. There is no mediastinal, hilar, or axillary lymphadenopathy. Scattered areas of subsegmental atelectasis are seen in the lung bases. There are areas of groundglass and nodular opacities in the mid and lower right lung. No central endobronchial obstructing lesions are identified. There is no pleural effusion or pneumothorax. The osseous structures demonstrate no acute abnormalities. Limited views of the upper abdominal structures demonstrate no acute abnormalities. Both adrenal glands are unremarkable. IMPRESSION: 1. Scattered areas of groundglass nodular opacities in the right mid and lower lung, suggestive of inflammatory or infectious process. Additional bibasilar subsegmental atelectasis is present. Dictated by: Dictated on workstation # [id number] Dict: 12/13/211109 Trans: 12/13/211119 [facility] [id number] Interpreted by: ALEXUS BRUMFIELD DO Electronically signed by: ALEXUS BRUMFIELD DO 12/13/211119 Reviewed: Reviewed by Me Departure Communication (Admissions) Time/Spoke to Admitting Phy: 11:[address] Umana and will admit to the ICU for pneumonia and dehydration with acute kidney injury. She had hypotensive episode earlier today and near syncope. She is currently improved but still has an elevated white blood cell count with borderline lactic acid. Will admit for close monitoring and started on antibiotics as well as hydration Impression Primary Impression: Pneumonia of right lung due to infectious organism Qualified Codes: J18.9 - Pneumonia, unspecified organism Additional Impressions: Sepsis Qualified Codes: A41.9 - Sepsis, unspecified organism Dehydration Acute kidney injury Hypotension Qualified Codes: I95.89 - Other hypotension; E86.1 - Hypovolemia Disposition: 30 STILL A PATIENT Condition: Critical Admissions Decision to Admit Reason: Admit from ER (General) Decision to Admit/Date: December 13, 2021 Time/Decision to Admit Time: 11:46 Departure-Patient Inst. Referrals: CELIA SEWELL MD (PCP) Primary Care Physician KAUSHAL VANCE MD December 13, 2021 09:32
[2021-12-13 09:41] LABS: BASOPHILS % (AUTO) 0 % (0-10); EOSINOPHILS # (AUTO) 0.2 10^3/uL (0.0-0.3); EOSINOPHILS % (AUTO) 1 % (0-10); HEMATOCRIT 40 % (35-52); HEMOGLOBIN 13.2 g/dL (11.5-16.0); LYMPHOCYTES # (AUTO) 3.4 10^3/uL (1.0-4.0); LYMPHOCYTES % (AUTO) 19 % (12-44); MEAN CORPUSCULAR HEMOGLOBIN 26 pg (25-34); MEAN CORPUSCULAR HGB CONC 33 g/dL (32-36); MEAN CORPUSCULAR VOLUME 80 fL (80-99); MEAN PLATELET VOLUME 9.2 fL (9.0-12.2); MONOCYTES % (AUTO) 6 % (0-12); NEUTROPHILS # (AUTO) 12.9 10^3/uL (1.8-7.8); NEUTROPHILS % (AUTO) 73 % (42-75); PLATELET COUNT 287 10^3/uL (130-400); WHITE BLOOD COUNT 17.7 10^3/uL (4.3-11.0)
--- NOTE | 2021-12-13 09:46 | Diagnostic Imaging Report ---
Indication: Cough and shortness of breath Portable chest 9:35 AM Heart size and pulmonary vascularity are normal. There is some volume loss at the lung bases. There are no definite infiltrate, effusion or pneumothorax. IMPRESSION: Suboptimal inspiration. No acute abnormality seen in the chest. Dictated by: Dictated on workstation # [id number]
[2021-12-13 10:01] LABS: ALBUMIN 3.8 GM/DL (3.2-4.5); BILIRUBIN,TOTAL 0.5 MG/DL (0.1-1.0); CALCIUM 9.6 MG/DL (8.5-10.1); CREATININE SERUM 1.77 MG/DL (0.60-1.30); TOTAL PROTEIN 7.9 GM/DL (6.4-8.2)
[2021-12-13 10:12] LABS: BAND NEUTROPHILS 11 %; BASOPHILS % (MANUAL) 0 %; EOSINOPHILS % (MANUAL) 1 %; HYPOCHROMASIA 1+; LYMPHOCYTES % (MANUAL) 21 %; MONOCYTES % (MANUAL) 5 %; NEUTROPHILS % (MANUAL) 60 %; PLATELET ESTIMATE NORMAL; REACTIVE LYMPHOCYTES 2 %
[2021-12-13 10:43] LABS: BILIRUBIN,URINE NEGATIVE (NEGATIVE); COLOR,URINE YELLOW; GLUCOSE, URINE (UA) NEGATIVE (NEGATIVE); KETONES,URINE NEGATIVE (NEGATIVE); LEUKOCYTE ESTERASE ,URINE NEGATIVE (NEGATIVE); NITRITE,URINE NEGATIVE (NEGATIVE); PROTEIN,URINE NEGATIVE (NEGATIVE)
[2021-12-13 10:47] LABS: INR 3.6 (0.8-1.4); PROTHROMBIN TIME PATIENT 36.4 SEC (12.2-14.7)
[2021-12-13 10:50] LABS: BACTERIA,URINE NEGATIVE /HPF; CLARITY,URINE CLEAR; RBC,URINE 0-2 /HPF; WBC,URINE 0-2 /HPF
[2021-12-13 10:51] LABS: SQUAMOUS EPITHELIAL CELL,UR RARE /HPF
--- NOTE | 2021-12-13 11:11 | Diagnostic Imaging Report ---
EXAMINATION: CT head without contrast. TECHNIQUE: Multiple contiguous axial images were obtained through the brain without the use of intravenous contrast. All CT scans use one or more of the following dose optimizing techniques: automated exposure control, MA and/or KvP adjustment based on patient size and exam type or iterative reconstruction. HISTORY: Altered mental status. Syncopal episode. Shortness of breath. Cough. COMPARISON: 03/06/2020. FINDINGS: No large acute territorial ischemia, mass, or hemorrhage. No midline shift or mass effect. Old infarct is seen in the left basal ganglia. Decreased attenuation is seen in the periventricular and subcortical white matter. The ventricles and cortical sulci are prominent. The basilar cisterns are patent and unremarkable. The orbits are normal. Paranasal sinuses are normal. Mastoid air cells are clear. No soft tissue abnormality is seen. No osseus lesions or fractures are seen. IMPRESSION: 1. No large acute territorial ischemia, mass, or hemorrhage. 2. Chronic microvascular disease. 3. Generalized parenchymal volume loss. 4. Old infarct in the left basal ganglia. Dictated by: Dictated on workstation # [id number]
--- NOTE | 2021-12-13 11:16 | Diagnostic Imaging Report ---
EXAMINATION: CT chest without contrast. TECHNIQUE: Multiple contiguous axial images were obtained through the chest without the use of intravenous contrast. All CT scans use one or more of the following dose optimizing techniques: automated exposure control, MA and/or KvP adjustment based on patient size and exam type or iterative reconstruction. HISTORY: Cough. Shortness of breath. Near syncopal episode. COMPARISON: Chest radiograph performed earlier the same date. FINDINGS: The heart size is within normal limits. No pericardial effusion is present. There is calcified aortic and coronary atherosclerotic plaque without aneurysm. There is no mediastinal, hilar, or axillary lymphadenopathy. Scattered areas of subsegmental atelectasis are seen in the lung bases. There are areas of groundglass and nodular opacities in the mid and lower right lung. No central endobronchial obstructing lesions are identified. There is no pleural effusion or pneumothorax. The osseous structures demonstrate no acute abnormalities. Limited views of the upper abdominal structures demonstrate no acute abnormalities. Both adrenal glands are unremarkable. IMPRESSION: 1. Scattered areas of groundglass nodular opacities in the right mid and lower lung, suggestive of inflammatory or infectious process. Additional bibasilar subsegmental atelectasis is present. Dictated by: Dictated on workstation # [id number]
[2021-12-13] MEDS ORDERED: NS IV 1000 ML 1,000 ML IV SCH (12:45)
[2021-12-13] MEDS ORDERED: morphine INJ 4 MG/ML 1 ML (VIAL/SYRINGE) IV PRN (16:45)
[2021-12-13] MEDS ORDERED: diphenhydrAMINE 25 MG TAB (BENADRYL) PO PRN (16:45)
[2021-12-13] MEDS ORDERED: BISACODYL 10 MG SUPP (DULCOLAX) PR PRN (16:45)
[2021-12-13] MEDS ORDERED: ONDANSETRON 4 MG (ZOFRAN) ORAL DISSOLVE TAB PO PRN (16:45)
[2021-12-13] MEDS ORDERED: ONDANSETRON 4 MG/2 ML (SDV) Z0FRAN IV PRN (16:45)
[2021-12-13] MEDS ORDERED: PATIENT MAY USE OWN MEDS, ALL PO SCH (16:45)
[2021-12-13] MEDS ORDERED: ANTACID SUSP 30 ML UDC (MYLANTA) PO PRN (16:45)
[2021-12-13] MEDS ORDERED: MELATONIN 3 MG TABLET PO PRN (16:45)
[2021-12-13] MEDS ORDERED: diphenhydrAMINE 50 MG/ML INJ (BENADRYL) IVP PRN (16:45)
[2021-12-13] MEDS ORDERED: polyethylene glycoL POWDER 17 GM (MIRALAX) PACK PO PRN (16:45)
[2021-12-13] MEDS: NS IV 1000 ML 1,000 ML IV SCH (17:09)
[2021-12-13] MEDS: CEFEPIME 1,000 MG/NS 50 ML IVPB IV SCH ×2 (17:21)
[2021-12-13 17:26] LABS: ABG BASE EXCESS 0.2 MMOL/L (-2.5-2.5); ABG OXYGEN SATURATION 97 % (94-100); ABG PCO2 45 MMHG (35-45); ABG PH 7.36 (7.37-7.43); ABG PO2 84 MMHG (79-93); ABG TCO2 26.5 MMOL/L (21.0-31.0); PATIENT TEMP 36.6; VENTILATOR NO
[2021-12-13] MEDS: AZITHROMYCIN INJECTION 500 MG in NS (IVPB) 250 ML IV SCH (18:07)
[2021-12-13 18:23] VITALS: BP 94/63
[2021-12-13] MEDS ORDERED: RT-ALBUTEROL SULF 2.5 MG/3 ML PRE-MIX VIAL INH PRN (18:30)
[2021-12-13] MEDS ORDERED: CEFEPIME INJECTION 2,000 MG in NS (IVPB) 50 ML IV SCH (21:00)
[2021-12-13] MEDS: RT-ALBUTEROL SULF 2.5 MG/3 ML PRE-MIX VIAL INH SCH (21:30)
[2021-12-13] MEDS: inSUlin ASPART (NovoLOG) 1 UNIT/0.01 ML (CHARGE PER UNIT) SC SCH (21:58)
[2021-12-13] MEDS: DOCUSATE SODIUM 100 MG (COLACE) CAP PO SCH (21:58)
[2021-12-13] MEDS: ACETAMINOPHEN 325 MG TABLET PO PRN (22:55)
[2021-12-14] MEDS: NS IV 1000 ML 1,000 ML IV SCH ×2 (00:28→09:16)
[2021-12-14] MEDS: CEFEPIME 1,000 MG/NS 50 ML IVPB IV SCH ×6 (01:08→17:21)
[2021-12-14 04:47] LABS: BASOPHILS % (AUTO) 0 % (0-10); EOSINOPHILS # (AUTO) 0.2 10^3/uL (0.0-0.3); EOSINOPHILS % (AUTO) 3 % (0-10); HEMATOCRIT 31 % (35-52); HEMOGLOBIN 10.1 g/dL (11.5-16.0); LYMPHOCYTES # (AUTO) 2.4 10^3/uL (1.0-4.0); LYMPHOCYTES % (AUTO) 30 % (12-44); MEAN CORPUSCULAR HEMOGLOBIN 27 pg (25-34); MEAN CORPUSCULAR HGB CONC 33 g/dL (32-36); MEAN CORPUSCULAR VOLUME 82 fL (80-99); MEAN PLATELET VOLUME 8.7 fL (9.0-12.2); MONOCYTES # (AUTO) 0.6 10^3/uL (0.0-1.0); MONOCYTES % (AUTO) 8 % (0-12); NEUTROPHILS # (AUTO) 4.7 10^3/uL (1.8-7.8); NEUTROPHILS % (AUTO) 59 % (42-75); PLATELET COUNT 152 10^3/uL (130-400)
[2021-12-14 05:02] LABS: INR 3.6 (0.8-1.4); PROTHROMBIN TIME PATIENT 36.1 SEC (12.2-14.7)
[2021-12-14 05:07] LABS: ALBUMIN 2.8 GM/DL (3.2-4.5); POTASSIUM 4.2 MMOL/L (3.6-5.0)
[2021-12-14 05:09] LABS: CALCIUM 8.3 MG/DL (8.5-10.1)
[2021-12-14 05:10] LABS: TOTAL PROTEIN 5.8 GM/DL (6.4-8.2)
[2021-12-14 05:11] LABS: BILIRUBIN,TOTAL 0.5 MG/DL (0.1-1.0)
[2021-12-14 05:13] LABS: PHOSPHORUS 3.3 MG/DL (2.3-4.7)
[2021-12-14 05:14] LABS: CREATININE SERUM 1.17 MG/DL (0.60-1.30)
[2021-12-14 05:16] LABS: MAGNESIUM 1.9 MG/DL (1.6-2.4)
[2021-12-14] MEDS: inSUlin ASPART (NovoLOG) 1 UNIT/0.01 ML (CHARGE PER UNIT) SC SCH ×4 (05:21→21:00)
--- NOTE | 2021-12-14 05:53 | History & Physical-Hospitalist ---
History of Present Illness HPI/Chief Complaint CC: Severe weakness with pneumonia HPI: This is a [facility] pt who has a past medical history of hypertension and hyperlipidemia. She presented to the [facility] ER with generalized weakness. She was found to have pneumonia and white count of 17,000. She had been placed on conservative management when seen in the ER last week, but continued to worsen and chest x-ray revealed pneumonia. She did have significant orthostatic hypotension and elevated lactic acid. She will be following the sepsis protocol, given IV fluid of 30cc/kg in the [facility]. Cefepime and Azithromycin will be maintained. Source: patient Exam Limitations: no limitations Date Seen 12/14/21 Time Seen by a Provider: 10:30 Attending Physician Sigrid Umana Pankaj K MD Referring Physician Date of Admission December 13, 2021 at 15:39 Home Medications & Allergies Home Medications Reviewed patient Home Medication Reconciliation performed by pharmacy medication reconciliations x ray electronics wiring technician and/or nursing. Patients Allergies have been reviewed. Allergies Allergies Coded Allergies Penicillins (Verified Allergy, Unknown, 01/11/19) Past Gkjpzsg-Ubsgxl-Hzhbdv Hx Patient Social History Marrital Status: single Employed/Student: unemployed Tobacco Use?: No Smoking Status: Never a Smoker Smokeless Tobacco Frequency: Never a User Use of E-Cig and/or Vaping dev: No Use of E-Cig and/or Vaping Vinh: Never a User Substance use?: Unable to obtain Alcohol Use?: Unable to obtain Pt feels they are or have been: No Immunizations Up To Date Hepatitis A: No Hepatitis B: No Date of Pneumonia Vaccine: May 12, 2018 Seasonal Allergies Seasonal Allergies: No Current Status status: No status: No Advance Directives: No Communicates: Verbally Primary Language: Tajik Preferred Spoken Language: Tajik Is interpretation needed?: No Sensory deficits: Vision impairment Implanted or Applied Medical D: None Past Medical History Pneumonia, Pulmonary Embolism Currently Using CPAP: No Currently Using BIPAP: No High Cholesterol, Hypertension Headaches /Migraines, Stroke Sexually Transmitted Disease: No HIV/AIDS: No Bladder Infection, Renal Failure Gastroesophageal Reflux, Chronic Constipation, Hemorrhoids, Gall Bladder Disease Arthritis, Chronic Back Pain Cataract, Double Vision Loss of Vision: Bilateral Hearing Impairment: Hard of Hearing Sleep Difficulties, Anxiety, Depression Eczema Blood Disorders: No Adverse Reaction/Blood Tranf: No Chronic Pain Pulmonary Embolism x3 CKD Anxiety Depression HTN Family Medical History Diabetes mellitus 19 MOTHER CAD Under 55 Years Old, Diabetes Review of Systems Constitutional: see HPI, malaise, weakness EENTM: no symptoms reported Respiratory: cough, dyspnea on exertion, wheezing Cardiovascular: no symptoms reported Gastrointestinal: no symptoms reported Genitourinary: no symptoms reported Musculoskeletal: back pain Skin: no symptoms reported Psychiatric/Neurological: Anxiety, Depressed All Other Systems Reviewed Negative Unless Noted: Yes Physical Exam Physical Exam Vital Signs Vital Signs - First Documented 12/13/21 12/13/21 10:05 10:06 Temp 36.6 Pulse 98 Resp 28 B/P (MAP) 94/63 (73) Pulse Ox 100 O2 Delivery OxyMask O2 Flow Rate 4.00 FiO2 100 Capillary Refill : Height, Weight, BMI Height: 5'4.00" Weight: 300lbs. oz. 136.573292el; 42.96 BMI Method:Stated General Appearance: No Apparent Distress, Chronically ill Eyes: Right Eye Normal Inspection, Right Eye PERRL HEENT: PERRL/EOMI, Normal ENT Inspection, Pharynx Normal, Moist Mucous Membranes Neck: Full Range of Motion, Normal Inspection, Non Tender Respiratory: Chest Non Tender, No Accessory Muscle Use, No Respiratory Distress, Decreased Breath Sounds, Rales, Wheezing Cardiovascular: Regular Rate, Rhythm, No Edema, No Gallop, No JVD, No Murmur, Normal Peripheral Pulses Gastrointestinal: Normal Bowel Sounds, No Organomegaly, No Pulsatile Mass, Non Tender, Soft Back: Normal Inspection, No CVA Tenderness, No Vertebral Tenderness Extremity: Normal Capillary Refill, Normal Inspection, Normal Range of Motion, Non Tender, No Calf Tenderness, No Pedal Edema Neurologic/Psychiatric: Alert, Oriented x3, No Motor/Sensory Deficits, Normal Mood/Affect Skin: Normal Color, Warm/Dry Lymphatic: No Adenopathy Results Results/Procedures Labs Laboratory Tests 12/13/21 09:25 12/14/21 04:20 Patient resulted labs reviewed. Assessment/Plan Admission Diagnosis Assessment: Pneumonia Dehydration Hypotension Prior stroke Chronic debility Hypertension Hyperlipidemia Plan: IV antibiotics Transfer to floor Oxygen PT OT Admission Status: Inpatient Order (span 2 midnights) Reason for Inpatient Admission: Pneumonia with dehydration and hypotension Diagnosis/Problems Diagnosis/Problems (1) Pneumonia Status: Acute (2) Sepsis Status: Acute Qualifiers: Sepsis type: sepsis due to unspecified organism Sepsis acute organ dysfunction status: without acute organ dysfunction Qualified Codes: A41.9 - Sepsis, unspecified organism (3) Acute kidney injury Status: Acute (4) Pneumonia of right lung due to infectious organism Status: Acute Qualifiers: Lung location: lower lobe of lung Qualified Codes: J18.9 - Pneumonia, unspecified organism (5) Dehydration Status: Acute (6) Hypotension Status: Acute Qualifiers: Hypotension type: hypotension due to hypovolemia Qualified Codes: I95.89 - Other hypotension; E86.1 - Hypovolemia SIGRID UMANA DO December 14, 2021 05:53
[2021-12-14] MEDS ORDERED: KCL 20 MEQ TAB (K-DUR) PO SCH (06:00)
[2021-12-14] MEDS ORDERED: MAGNESIUM 1 GM/100 ML IVPB 100 ML IV SCH (06:00)
[2021-12-14] MEDS ORDERED: POTASSIUM CL 10MEQ/50ML IVPB 50 ML IV SCH (06:00)
[2021-12-14] MEDS: RT-ALBUTEROL SULF 2.5 MG/3 ML PRE-MIX VIAL INH SCH ×3 (07:48→22:22)
[2021-12-14] MEDS: DOCUSATE SODIUM 100 MG (COLACE) CAP PO SCH ×2 (09:20→21:00)
[2021-12-14] MEDS ORDERED: BENZ-36 PO (09:53)
[2021-12-14] MEDS ORDERED: AMLO-250 PO (09:53)
[2021-12-14] MEDS ORDERED: GUAI600T43 PO (09:53)
[2021-12-14] MEDS ORDERED: GABA300C PO (09:53)
[2021-12-14] MEDS ORDERED: WARF-48 PO (09:53)
[2021-12-14] MEDS ORDERED: OXYC1TAB11 PO (09:53)
[2021-12-14] MEDS ORDERED: CHOL20002 PO (09:53)
[2021-12-14] MEDS ORDERED: oxyCODONE/APAP 5/325MG (PERCOCET 5) TABLET PO PRN (10:15)
[2021-12-14] MEDS ORDERED: BENZONATATE 100 MG (TESSALON) CAPSULE PO PRN (10:15)
[2021-12-14] MEDS ORDERED: guaiFENesin (MUCINEX) 600 MG TAB PO PRN (10:15)
[2021-12-14] MEDS: VITAMIN D3 25 MCG (1,000 UNITS) TABLET PO SCH (10:53)
--- NOTE | 2021-12-14 11:49 | Tele-ICU Progress Note ---
Subjective Date Seen by a Provider: December 14, 2021 Time Seen by a Provider: 09:02 Subjective/Events-last exam (Tele-ICU Physician , Progress Note ) Available chart/ vitals / labs / Images reviewed Video assessment done using teleICU camera, rest of exam as per RN Discussed with RN , EXAM PER RN Events overnight : Afebrile FiO2 - I/O = Drips: Pressors: , hemodynamically stable Consultants: Hospital course: (12/13) 71 y/o female admitted in ED from [facility] with syncopal episode with hypotension & hypoxia. Patient had been c/o of continued cough & sob . DX: PNA, CAR, Sepsis A/P Sepsis PNA, very minimal infltrates on CT chest 12/13 ( neg flu , neg covid - z max , cefepime 12/13 CAR - improved with hydration Syncope -CTH 12/13 - neg for acute findings Anemia - delutiona;l presumed Lines : (Central Line Necessity Reviewed) Matias: OG: Nutrition: Analgesia: Anxiety/ delirium VTE Prophylaxis: Stress Ulcer Prophylaxis: Plans in collaboration with bedside consultants and IM MDs. Discussed with RN to reach out if any questions or concerns A total of 15 minutes of critical care time was devoted to this patient today, required to treat and/or prevent further deterioration of critical care condition ( as above) Sepsis Event Evaluation Height, Weight, BMI Height: 5'4.00" Weight: 300lbs. oz. 136.649862oe; 42.96 BMI Method:Stated Focused Exam Lactate Level 12/13/21 09:25: Lactic Acid Level 2.17*H 12/13/21 11:39: Lactic Acid Level 1.40 Exam Exam Patient acknowledged, consented, and participated in this virtual visit which was conducted using real time audio/video Vital Signs Date Time Temp Pulse Resp B/P (MAP) Pulse Ox O2 Delivery O2 Flow Rate FiO2 12/14/21 09:00 87 12 132/77 98 Nasal Cannula 4.00 12/14/21 08:00 87 12 183/145 99 Nasal Cannula 4.00 12/14/21 08:00 98 Nasal Cannula 4.00 12/14/21 07:48 98 Nasal Cannula 0.50 12/14/21 07:33 36.0 12/14/21 07:18 93 12/14/21 07:00 87 12 178/83 100 Nasal Cannula 4.00 12/14/21 06:00 81 14 166/88 99 Nasal Cannula 4.00 12/14/21 05:00 82 14 152/76 98 Nasal Cannula 4.00 12/14/21 04:00 79 12 125/69 98 Nasal Cannula 4.00 12/14/21 04:00 96 Nasal Cannula 4.00 12/14/21 04:00 36.2 12/14/21 03:00 82 12 124/68 97 Nasal Cannula 4.00 12/14/21 02:00 90 13 126/63 97 Nasal Cannula 4.00 12/14/21 01:00 90 12/14/21 01:00 90 16 126/64 96 Nasal Cannula 4.00 12/14/21 00:00 90 20 132/72 98 Nasal Cannula 4.00 12/14/21 00:00 96 Nasal Cannula 4.00 12/13/21 23:00 96 15 126/69 98 Nasal Cannula 4.00 12/13/21 22:39 35.8 12/13/21 22:00 91 12 134/64 99 Nasal Cannula 4.00 12/13/21 21:31 99 Nasal Cannula 1.00 12/13/21 21:00 85 21 129/98 100 Nasal Cannula 4.00 12/13/21 20:00 85 13 139/68 100 Nasal Cannula 4.00 12/13/21 20:00 96 Nasal Cannula 4.00 12/13/21 19:35 36.0 12/13/21 19:00 90 14 136/73 100 Nasal Cannula 4.00 12/13/21 19:00 90 12/13/21 18:23 36.6 98 100 12/13/21 18:00 85 20 130/67 100 Nasal Cannula 4.00 12/13/21 17:00 82 19 133/64 99 12/13/21 16:58 100 OxyMask 4.00 12/13/21 16:00 86 10 139/67 95 12/13/21 14:51 81 21 130/88 100 OxyMask 4.00 I & O 12/14/21 07:00 Intake Total 4000 ml Output Total 2725 ml Balance 1275 ml Height & Weight Height: 5'4.00" Weight: 300lbs. oz. 136.791166vi; 42.96 BMI Method:Stated General Appearance: Chronically ill, Obese, Other (Initially patient was slow to answer questions but was awake) HEENT: No Moist Mucous Membranes (Slightly dry mucous membranes) Neck: Full Range of Motion, Normal Inspection, Non Tender, Supple Respiratory: Chest Non Tender, Lungs Clear, No Accessory Muscle Use, No Respiratory Distress, Decreased Breath Sounds Cardiovascular: Regular Rate, Rhythm, Normal Peripheral Pulses Extremity: Normal Capillary Refill, Normal Inspection, No Pedal Edema Neurologic/Psychiatric: Alert (Alert but slow to answer questions), Oriented x3, wool carder II-XII Norm as Tested Skin: Normal Color, Warm/Dry Results Lab Laboratory Tests 12/13/21 09:25 12/14/21 04:20 Assessment/Plan Assessment/Plan ` DEISY SEGUNDO MD December 14, 2021 11:49
--- NOTE | 2021-12-14 11:52 | Physical Therapy Evaluation ---
PT Evaluation-General Medical Diagnosis Admission Date December 13, 2021 at 15:39 Medical Diagnosis: dehydration/hypotension/pneumonia/sepsis Onset Date: December 13, 2021 Therapy Diagnosis Therapy Diagnosis: generalized weakness/debility Height/Weight Height (Feet): 5 Height (Inches): 4.00 Weight (Pounds): 300 Precautions Precautions/Isolations: Standard Precautions Referral Physician: Dong Reason for Referral: Evaluation/Treatment Medical History Pertinent Medical History: CVA, HTN, Renal Insufficiency Current History ER secondary to SOA Reviewed History: Yes Social History Home: Single Level Current Living Status: Alone Entry Into Home: Level Entry Prior Prior Level of Function SCALE: Activities may be completed with or without assistive devices. 7-Qzkgxgcedr-foovyeg completes the activity by him/herself with no assistance from a helper. 5-Set-up or Clean-up Assistance-helper sets up or cleans up; patient completes activity. [place] assists only prior to or following the activity. 4-Supervision or Touching Assistance-helper provides verbal cues and/or touching/steadying and/or contact guard assistance as patient completes activity. Assistance may be provided throughout the activity or intermittently. 3-Partial/Moderate Assistance-helper does LESS THAN HALF the effort. [place] lifts, holds or supports trunk or limbs, but provides less than half the effort. 2-Substantial/Maximal Assistance-helper does MORE THAN HALF the effort. [place] lifts or holds trunk or limbs and provides more than half the effort. 1-Mursqhsxi-njrjkl does ALL the effort. Patient does none of the effort to complete the activity. Or, the assistance of 2 or more helpers is required for the patient to complete the activity. If activity was not attempted, code reason: 7-Patient Refused. 9-Not Applicable-not attempted and the patient did not perform the activity before the current illness, exacerbation or injury. 10-Not Attempted due to Environmental Limitations-(lack of equipment, weather restraints, etc.). 88-Not Attempted due to Medical Conditions or Safety Concerns. Bed Mobility: 6 Transfers (B,C,W/C): 6 (lift chair) Gait: 6 Prior Devices Use: Other-see list below Prior Device Use: 4WW PT Evaluation-Current Subjective Patient agrees to PT. Objective Patient Orientation: Normal For Age Attachments: Oxygen, Matias Catheter ROM/Strength ROM Lower Extremities bilateral LE WFL Strength Lower Extremities 3+/5 grossly bilateral LE Integumentary/Posture Bladder Incontinence: Matias Cath Posture WFL Neuromuscular (Tone, Coordination, Reflexes) grossly intact Sensory Vision: Wears Glasses Hearing: Functional Transfers Lying to Sitting/Side of Bed(Q: 4 Sit to Stand (QC): 4 Chair/Brk-qq-Nzjzy Xfer(QC): 4 Gait Mode of Locomotion: Walk Anticipated Mode of Locomotion: Walk Walk 10 feet (QC): 4 Walk 50 ft with 2 Turns(QC): 4 Walk 150 ft (QC): 88 Distance: 50' Gait Assistive Device: FWW Comments/Gait Description safe and functional with FWW use Balance Sitting Static: Normal Sitting Dynamic: Normal Standing Static: Normal Standing Dynamic: Normal Assessment/Needs 71 y.o. female, will benefit from skilled PT to address functional strength and mobility to improve to ensure safe return to home at maximum LOF. Rehab Potential: Fair PT Arts Education Teacher Goals Arts Education Teacher Goals PT Arts Education Teacher Goals Time Frame: December 23, 2021 Roll Left & Right (QC): 6 Sit to Lying (QC): 6 Lying-Sitting on Side/Bed(QC): 6 Sit to Stand (QC): 6 Chair/Pfv-if-Mkfzj Xfer(QC): 6 Toilet Transfer (QC): 6 Walk 10 feet (QC): 6 Walk 50ft with 2 Turns (QC): 6 Walk 150 ft (QC): 6 PT Plan Problem List Problem List: Activity Tolerance, Functional Strength, Safety, Balance, Gait, Transfer, Bed Mobility Treatment/Plan Treatment Plan: Continue Plan of Care Treatment Plan: Bed Mobility, Education, Functional Activity Dena, Functional Strength, Gait, Safety, Therapeutic Exercise, Transfers Treatment Duration: December 23, 2021 Frequency: 6 times per week Estimated Hrs Per Day: .25 hour per day Time/GCodes Time In: 1130 Time Out: 1141 Total Billed Treatment Time: 11 Total Billed Treatment 1 visit EVMod 11 min RADHA LOREDO PT December 14, 2021 11:52
[2021-12-14] MEDS: GABAPENTIN 300 MG (NEURONTIN) CAP PO SCH ×3 (13:00→21:00)
--- NOTE | 2021-12-14 14:53 | Occupational Therapy Eval ---
OT Evaluation-General/PLF Medical Diagnosis Admission Date December 13, 2021 at 15:39 Medical Diagnosis: dehydration/hypotension/pneumonia/sepsis Onset Date: December 13, 2021 Therapy Diagnosis Therapy Diagnosis: decreased ADL status Height/Weight Height (Feet): 5 Height (Inches): 4.00 Weight (Pounds): 300 Precautions Precautions/Isolations: Standard Precautions Referral Physician: Dong Referral Reason: Evaluation/Treatment Medical History Pertinent Medical History: CVA, HTN, Renal Insufficiency Additional Medical History Pneumonia, Pulmonary Embolism Currently Using CPAP: No Currently Using BIPAP: No High Cholesterol, Hypertension Headaches /Migraines, Stroke Sexually Transmitted Disease: No HIV/AIDS: No Bladder Infection, Renal Failure Gastroesophageal Reflux, Chronic Constipation, Hemorrhoids, Gall Bladder Disease Arthritis, Chronic Back Pain Cataract, Double Vision Loss of Vision: Bilateral Hearing Impairment: Hard of Hearing Sleep Difficulties, Anxiety, Depression Eczema Blood Disorders: No Adverse Reaction/Blood Tranf: No Chronic Pain Pulmonary Embolism x3 CKD Anxiety Depression HTN Current History Presents to [facility] ED with generalized weakness, found to have PNA. Social History Home: Single Level Current Living Status: Alone Entry Into Home: Level Entry ADL-Prior Level of Function SCALE: Activities may be completed with or without assistive devices. 5-Pkekqeatnf-aoqhtpj completes the activity by him/herself with no assistance from a helper. 5-Set-up or Clean-up Assistance-helper sets up or cleans up; patient completes activity. [place] assists only prior to or following the activity. 4-Supervision or Touching Assistance-helper provides verbal cues and/or touching/steadying and/or contact guard assistance as patient completes activity. Assistance may be provided throughout the activity or intermittently. 3-Partial/Moderate Assistance-helper does LESS THAN HALF the effort. [place] lifts, holds or supports trunk or limbs, but provides less than half the effort. 2-Substantial/Maximal Assistance-helper does MORE THAN HALF the effort. [place] lifts or holds trunk or limbs and provides more than half the effort. 6-Ktcoovkpx-hikedz does ALL the effort. Patient does none of the effort to complete the activity. Or, the assistance of 2 or more helpers is required for the patient to complete the activity. If activity was not attempted, code reason: 7-Patient Refused. 9-Not Applicable-not attempted and the patient did not perform the activity before the current illness, exacerbation or injury. 10-Not Attempted due to Environmental Limitations-(lack of equipment, weather restraints, etc.). 88-Not Attempted due to Medical Conditions or Safety Concerns. ADL PLOF Comments Pt reports IND with ADLs, assistance with IADLs,. She uses a 4WW for mobility, and has lift chairs in her home. she has a walk in shower with a SC, but has had increased difficulty with getting up from SC. Self Care: Independent Functional Cognition: Independent DME/Equipment: Bath Chair, Grab Bars, Shower OT Current Status Subjective Pt in recliner, agreeable to OT Tx. Mental Status/Objective Patient Orientation: Person, Place, Situation Attachments: IV, Oxygen Current Upper Extremity ROM WFL, BUE shoulder flexion to approx 150 degrees Upper Extremity Coordination WFL Upper Extremity Strength grossly 3+/5 ADL-Treatment Eating (QC): 6 Toileting Hygiene (QC): 1 (catheter) Other Treatments Pt up in recliner, agreeable to OT Tx. Pt provided information about PLOF and home set up and participated in UE screen. Pt declined completing ADLs or out of chair activities at this time. OT tx focused on increasing BUE Strength and activity tolerance. PT completed x10 reps BUE shoulder flexion, elbow flexion/extension and finger flexion/extension. Per PT evaluation, pt able to use FWW, 50' (QC 4). Post tx, pt up in recliner, call light in reach and all ne eds met. Education OT Patient Education: Correct positioning, Modified ADL techniques, Progress toward Goal/Update tx plan, Purpose of tx/functional activities Teaching Recipient: Patient Teaching Methods: Discussion Response to Teaching: Verbalize Understanding OT District Service Manager Goals Penitentiary Goals Time Frame: December 22, 2021 Eating (QC): 6 Oral Hygiene (QC): 6 Toileting Hygiene (QC): 6 Shower/Bathe Self (QC): 4 Upper Body Dressing (QC): 6 Lower Body Dressing (QC): 4 On/Off Footwear (QC): 4 Additional Goals: 1-Demonstrate ADL Tasks, 2-Verbalize Understanding, 3-ImproveStrength/Dena 1=Demonstrate adherence to instructed precautions during ADL tasks. 2=Patient will verbalize/demonstrate understanding of assistive devices/modifications for ADL. 3=Patient will improve strength/tolerance for activity to enable patient to perform ADL's. OT Education/Plan Problem List/Assessment Assessment: Decreased Activ Tolerance, Decreased UE Strength, Impaired Funct Balance, Impaired I ADL's, Impaired Self-Care Skills Discharge Recommendations Plan/Recommendations: Continue POC Treatment Plan/Plan of Care Patient would benefit from OT for education, treatment and training to promote independence in ADL's, mobility, safety and/or upper extremity function for ADL's. Plan of Care: ADL Retraining, Functional Mobility, UE Funct Exercise/Act Treatment Duration: December 22, 2021 Frequency: 3 times per week (3-5 times per week) Estimated Hrs Per Day: .5 hour per day Agreement: Yes Rehab Potential: Fair Time/GCodes Start Time: 14:20 Stop Time: 14:34 Billed Treatment Time 1ELIZABETH ADDISON OT December 14, 2021 14:53
[2021-12-14 15:33] VITALS: BP 125/78
[2021-12-14] MEDS ORDERED: ALPRAZolam 1 MG (XANAX) TAB PO SCH (16:00)
[2021-12-14] MEDS: AZITHROMYCIN INJECTION 500 MG in NS (IVPB) 250 ML IV SCH (17:21)
[2021-12-14 19:08] VITALS: BP 144/71
[2021-12-14] MEDS ORDERED: AMITRIPTYLINE 25 MG (ELAVIL) TAB PO SCH (21:00)
[2021-12-14] MEDS: MELATONIN 10 MG TABLET PO SCH (21:00)
[2021-12-15] VITALS: BP 138/77
[2021-12-15] MEDS: CEFEPIME 1,000 MG/NS 50 ML IVPB IV SCH ×6 (00:56→17:11)
[2021-12-15 04:00] VITALS: BP 138/80
[2021-12-15 05:46] LABS: BASOPHILS % (AUTO) 0 % (0-10); EOSINOPHILS # (AUTO) 0.2 10^3/uL (0.0-0.3); EOSINOPHILS % (AUTO) 3 % (0-10); HEMATOCRIT 34 % (35-52); LYMPHOCYTES # (AUTO) 2.5 10^3/uL (1.0-4.0); LYMPHOCYTES % (AUTO) 34 % (12-44); MEAN CORPUSCULAR HEMOGLOBIN 27 pg (25-34); MEAN CORPUSCULAR HGB CONC 33 g/dL (32-36); MEAN CORPUSCULAR VOLUME 83 fL (80-99); MEAN PLATELET VOLUME 9.6 fL (9.0-12.2); MONOCYTES # (AUTO) 0.8 10^3/uL (0.0-1.0); MONOCYTES % (AUTO) 11 % (0-12); NEUTROPHILS # (AUTO) 3.8 10^3/uL (1.8-7.8); NEUTROPHILS % (AUTO) 51 % (42-75); PLATELET COUNT 206 10^3/uL (130-400); WHITE BLOOD COUNT 7.5 10^3/uL (4.3-11.0)
[2021-12-15 05:49] LABS: ALBUMIN 2.9 GM/DL (3.2-4.5); POTASSIUM 4.5 MMOL/L (3.6-5.0)
[2021-12-15 05:51] LABS: CALCIUM 8.6 MG/DL (8.5-10.1); INR 2.6 (0.8-1.4); PROTHROMBIN TIME PATIENT 28.1 SEC (12.2-14.7)
[2021-12-15 05:52] LABS: TOTAL PROTEIN 6.3 GM/DL (6.4-8.2)
[2021-12-15 05:53] LABS: BILIRUBIN,TOTAL 0.3 MG/DL (0.1-1.0)
[2021-12-15 05:55] LABS: CREATININE SERUM 1.21 MG/DL (0.60-1.30)
--- NOTE | 2021-12-15 07:04 | Progress Note - Hospitalist ---
Subjective HPI/CC On Admission Date Seen by Provider: December 15, 2021 Time Seen by Provider: 11:00 CC: Severe weakness with pneumonia HPI: This is a [facility] pt who has a past medical history of hypertension and hyperlipidemia. She presented to the [facility] ER with generalized weakness. She was found to have pneumonia and white count of 17,000. She had been placed on conservative management when seen in the ER last week, but continued to worsen and chest x-ray revealed pneumonia. She did have significant orthostatic hypotension and elevated lactic acid. She will be following the sepsis protocol, given IV fluid of 30cc/kg in the [facility] ER. Cefepime and Azithromycin will be maintained. Subjective/Events-last exam Pt is doing a lot better Very chronic debility noted Having a lot of coughing so will initiate steroids, Advair, Singulair, and Claritin Overall doing very well Review of Systems General: Fatigue, Malaise Pulmonary: Dyspnea, Cough Neurological: Weakness Focused Exam Lactate Level 12/13/21 09:25: Lactic Acid Level 2.17*H 12/13/21 11:39: Lactic Acid Level 1.40 Objective Exam Vital Signs Vital Signs Date Time Temp Pulse Resp B/P (MAP) Pulse Ox O2 Delivery O2 Flow Rate FiO2 12/16/21 00:00 36.4 99 16 136/70 (92) 96 Room Air 12/14/21 19:55 12/13/21 10:05 100 Capillary Refill : General Appearance: No Apparent Distress, WD/WN, Chronically ill Respiratory: Normal Breath Sounds, No Accessory Muscle Use, No Respiratory Distress, Crackles, Decreased Breath Sounds, Rales, Wheezing Cardiovascular: Regular Rate, Rhythm Neurologic/Psychiatric: Alert, Oriented x3, Depressed Affect Results/Procedures Lab Patient resulted labs reviewed. Assessment/Plan Assessment and Plan Assess & Plan/Chief Complaint Assessment: Pneumonia Dehydration Hypotension Prior stroke Chronic debility Hypertension Hyperlipidemia Plan: IV antibiotics Transfer to floor Oxygen PT OT 12/15/2021: Steroids Singulair Claritin Advair Diagnosis/Problems Diagnosis/Problems (1) Pneumonia Status: Acute (2) Sepsis Status: Acute Qualifiers: Sepsis type: sepsis due to unspecified organism Sepsis acute organ dysf unction status: without acute organ dysfunction Qualified Codes: A41.9 - Sepsis, unspecified organism (3) Acute kidney injury Status: Acute (4) Pneumonia of right lung due to infectious organism Status: Acute Qualifiers: Lung location: lower lobe of lung Qualified Codes: J18.9 - Pneumonia, unspecified organism (5) Dehydration Status: Acute (6) Hypotension Status: Acute Qualifiers: Hypotension type: hypotension due to hypovolemia Qualified Codes: I95.89 - Other hypotension; E86.1 - Hypovolemia PARISH GUAMAN DO December 15, 2021 07:04
[2021-12-15 07:29] VITALS: BP 136/67
[2021-12-15] MEDS: inSUlin ASPART (NovoLOG) 1 UNIT/0.01 ML (CHARGE PER UNIT) SC SCH ×4 (07:30→21:19)
[2021-12-15] MEDS: RT-ALBUTEROL SULF 2.5 MG/3 ML PRE-MIX VIAL INH SCH ×3 (07:30→20:37)
[2021-12-15] MEDS: DOCUSATE SODIUM 100 MG (COLACE) CAP PO SCH ×2 (09:00→21:00)
[2021-12-15] MEDS ORDERED: amLODIPine 5 MG (NORVASC) TAB PO SCH (09:00)
[2021-12-15] MEDS: ACETAMINOPHEN 325 MG TABLET PO PRN (09:45)
[2021-12-15] MEDS: VITAMIN D3 25 MCG (1,000 UNITS) TABLET PO SCH (09:45)
[2021-12-15] MEDS: amLODIPine 5 MG (NORVASC) TAB PO SCH (10:00)
--- NOTE | 2021-12-15 11:05 | Occupational Ther Daily Note ---
OT Current Status-Daily Note Subjective Pt in bed, agreeable to OT tx. Pt states she feels better today, no longer on supplemental O2. Mental Status/Objective Patient Orientation: Person, Place, Time, Situation Attachments: Matias Catheter ADL-Treatment Therapy Code Descriptions/Definitions Functional [place] Measure: 0=Not Assessed/NA 4=Minimal Assistance 1=Total Assistance 5=Supervision or Setup 2=Maximal Assistance 6=Modified [place] 3=Moderate Assistance 7=Complete IndependenceSCALE: Activities may be completed with or without assistive devices. 9-Wdxyrsebqz-wjmtvqc completes the activity by him/herself with no assistance from a helper. 5-Set-up or Clean-up Assistance-helper sets up or cleans up; patient completes activity. [place] assists only prior to or following the activity. 4-Supervision or Touching Assistance-helper provides verbal cues and/or touching/steadying and/or contact guard assistance as patient completes activity. Assistance may be provided throughout the activity or intermittently. 3-Partial/Moderate Assistance-helper does LESS THAN HALF the effort. [place] lifts, holds or supports trunk or limbs, but provides less than half the effort. 2-Substantial/Maximal Assistance-helper does MORE THAN HALF the effort. [place] lifts or holds trunk or limbs and provides more than half the effort. 0-Ojagqixyw-dacbdg does ALL the effort. Patient does none of the effort to complete the activity. Or, the assistance of 2 or more helpers is required for the patient to complete the activity. If activity was not attempted, code reason: 7-Patient Refused. 9-Not Applicable-not attempted and the patient did not perform the activity before the current illness, exacerbation or injury. 10-Not Attempted due to Environmental Limitations-(lack of equipment, weather restraints, etc.). 88-Not Attempted due to Medical Conditions or Safety Concerns. Oral Hygiene (QC): 5 Toileting Hygiene (QC): 1 (catheter) Other Treatment Pt in bed, agreeable to OT tx. Pt transferred supine to sit EOB, SBA, then used FWW to perform functional mobility in [facility], A. O2 saturation at 95% RA during mobility. Pt returned to her room, transferring to recliner. Pt declines brushing teeth due to soaking dentures, but able to use oral swab with set up. Pt completed x10 reps BUE exercises in order to increase strength and activity tolerance, including shoulder flexion, front punch, and finger flexion/extension. Pt reports arthritis pain in hands, OT informed pt about benefits of heat, pt verbalized understanding. Post tx, pt in recliner, call light in reach and all needs met. Education OT Patient Education: Correct positioning, Energy conservation, Exercise program, Modified ADL techniques, Progress toward Goal/Update tx plan, Purpose of tx/functional activities Teaching Recipient: Patient Teaching Methods: Discussion Response to Teaching: Verbalize Understanding OT Chinese Instructor Goals Chinese Instructor Goals Time Frame: December 22, 2021 Eating (QC): 6 Oral Hygiene (QC): 6 Toileting Hygiene (QC): 6 Shower/Bathe Self (QC): 4 Upper Body Dressing (QC): 6 Lower Body Dressing (QC): 4 On/Off Footwear (QC): 4 Additional Goals: 1-Demonstrate ADL Tasks, 2-Verbalize Understanding, 3- ImproveStrength/Dena 1=Demonstrate adherence to instructed precautions during ADL tasks. 2=Patient will verbalize/demonstrate understanding of assistive devices/modifications for ADL. 3=Patient will improve strength/tolerance for activity to enable patient to perform ADL's. OT Education/Plan Problem List/Assessment Assessment: Decreased Activ Tolerance, Decreased UE Strength, Impaired Funct Balance, Impaired I ADL's, Impaired Self-Care Skills Discharge Recommendations Plan/Recommendations: Continue POC Treatment Plan/Plan of Care Patient would benefit from OT for education, treatment and training to promote independence in ADL's, mobility, safety and/or upper extremity function for ADL's. Plan of Care: ADL Retraining, Functional Mobility, UE Funct Exercise/Act Treatment Duration: December 22, 2021 Frequency: 3 times per week (3-5 times per week) Estimated Hrs Per Day: .5 hour per day Agreement: Yes Rehab Potential: Fair Time/GCodes Start Time: 10:35 Stop Time: 10:50 Total Time Billed (hr/min): 15 Billed Treatment Time KATHERINE Bruce ADDISON OT December 15, 2021 11:05
[2021-12-15] MEDS ORDERED: MONTELUKAST 10 MG (SINGULAIR) TAB PO NR (11:15)
[2021-12-15 11:16] VITALS: BP 116/49
--- NOTE | 2021-12-15 11:25 | Physical Therapy Daily Note ---
PT Daily Note-Current Subjective Patient working with OT. Agrees to PT Mental Status Patient Orientation: Normal For Age Attachments: Matias Catheter Transfers SCALE: Activities may be completed with or without assistive devices. 1-Dyhthajlqk-jzitghm completes the activity by him/herself with no assistance from a helper. 5-Set-up or Clean-up Assistance-helper sets up or cleans up; patient completes activity. [place] assists only prior to or following the activity. 4-Supervision or Touching Assistance-helper provides verbal cues and/or touching/steadying and/or contact guard assistance as patient completes activity. Assistance may be provided throughout the activity or intermittently. 3-Partial/Moderate Assistance-helper does LESS THAN HALF the effort. [place] lifts, holds or supports trunk or limbs, but provides less than half the effort. 2-Substantial/Maximal Assistance-helper does MORE THAN HALF the effort. [place] lifts or holds trunk or limbs and provides more than half the effort. 6-Vyjxcdlym-qujtoi does ALL the effort. Patient does none of the effort to complete the activity. Or, the assistance of 2 or more helpers is required for the patient to complete the activity. If activity was not attempted, code reason: 7-Patient Refused. 9-Not Applicable-not attempted and the patient did not perform the activity before the current illness, exacerbation or injury. 10-Not Attempted due to Environmental Limitations-(lack of equipment, weather restraints, etc.). 88-Not Attempted due to Medical Conditions or Safety Concerns. Lying to Sitting/Side of Bed(Q: 4 Sit to Stand (QC): 4 Chair/Emy-ab-Yauzq Xfer(QC): 4 SBA with all mobility Gait Training Distance: 275' Walk 10 feet (QC): 4 Walk 50 ft with 2 Turns(QC): 4 Walk 150 ft (QC): 4 Gait Assistive Device: FWW safe and functional with no deviation Assessment Improved distance and functional endurance with gross motor skills. Patient is up in recliner with needs met. PT [facility]pc Goals Wire Annealer Goals PT Wire Annealer Goals Time Frame: December 23, 2021 Roll Left & Right (QC): 6 Sit to Lying (QC): 6 Lying-Sitting on Side/Bed(QC): 6 Sit to Stand (QC): 6 Chair/Vxb-rx-Obvnl Xfer(QC): 6 Toilet Transfer (QC): 6 Walk 10 feet (QC): 6 Walk 50ft with 2 Turns (QC): 6 Walk 150 ft (QC): 6 PT Plan Treatment/Plan Treatment Plan: Continue Plan of Care Treatment Plan: Bed Mobility, Education, Functional Activity Dena, Functional Strength, Gait, Safety, Therapeutic Exercise, Transfers Treatment Duration: December 23, 2021 Frequency: 6 times per week Estimated Hrs Per Day: .25 hour per day Time/GCodes Time In: 1035 Time Out: 1045 Total Billed Treatment Time: 10 Total Billed Treatment 1 visit FA 10min RADHA LOREDO PT December 15, 2021 11:25
[2021-12-15] MEDS: methylPREDNISolone 40 MG/ML (Solu-MEDROL) VIAL IV SCH ×3 (11:34→17:11)
[2021-12-15] MEDS: LORATADINE (CLARITIN) 10 MG TAB PO SCH (11:34)
[2021-12-15] MEDS: GABAPENTIN 300 MG (NEURONTIN) CAP PO SCH ×3 (14:41→21:18)
[2021-12-15] MEDS: RT--FLUTICASONE/SALMETEROL 113-14 (AIRDUO RespiCLICK) IH SCH ×2 (15:09→20:42)
[2021-12-15 15:54] VITALS: BP 134/66
[2021-12-15] MEDS: ALPRAZolam 1 MG (XANAX) TAB PO SCH (16:00)
[2021-12-15] MEDS: AZITHROMYCIN INJECTION 500 MG in NS (IVPB) 250 ML IV SCH (17:11)
[2021-12-15 20:05] VITALS: BP 124/68
[2021-12-15] MEDS ORDERED: ADVAIR HFA 115/21 MCG INHALER 8 GM IH SCH (21:00)
[2021-12-15] MEDS: MELATONIN 10 MG TABLET PO SCH (21:17)
[2021-12-15] MEDS: AMITRIPTYLINE 100 MG PO SCH (21:18)
[2021-12-16] VITALS: BP 136/70
[2021-12-16] MEDS: CEFEPIME 1,000 MG/NS 50 ML IVPB IV SCH ×6 (00:50→16:49)
[2021-12-16] MEDS: methylPREDNISolone 40 MG/ML (Solu-MEDROL) VIAL IV SCH ×3 (00:51→20:41)
[2021-12-16] MEDS: inSUlin ASPART (NovoLOG) 1 UNIT/0.01 ML (CHARGE PER UNIT) SC SCH ×4 (05:29→20:41)
[2021-12-16 05:51] LABS: BASOPHILS % (AUTO) 0 % (0-10); EOSINOPHILS % (AUTO) 0 % (0-10); HEMATOCRIT 35 % (35-52); HEMOGLOBIN 11.4 g/dL (11.5-16.0); LYMPHOCYTES # (AUTO) 1.3 10^3/uL (1.0-4.0); LYMPHOCYTES % (AUTO) 12 % (12-44); MEAN CORPUSCULAR HEMOGLOBIN 27 pg (25-34); MEAN CORPUSCULAR HGB CONC 33 g/dL (32-36); MEAN CORPUSCULAR VOLUME 82 fL (80-99); MEAN PLATELET VOLUME 9.6 fL (9.0-12.2); MONOCYTES # (AUTO) 0.4 10^3/uL (0.0-1.0); MONOCYTES % (AUTO) 4 % (0-12); NEUTROPHILS # (AUTO) 8.9 10^3/uL (1.8-7.8); NEUTROPHILS % (AUTO) 83 % (42-75); PLATELET COUNT 226 10^3/uL (130-400); WHITE BLOOD COUNT 10.7 10^3/uL (4.3-11.0)
[2021-12-16 05:57] LABS: ALBUMIN 3.3 GM/DL (3.2-4.5); POTASSIUM 5.1 MMOL/L (3.6-5.0)
[2021-12-16 05:58] LABS: CALCIUM 9.3 MG/DL (8.5-10.1); INR 3.1 (0.8-1.4); PROTHROMBIN TIME PATIENT 32.6 SEC (12.2-14.7)
[2021-12-16 05:59] LABS: TOTAL PROTEIN 7.2 GM/DL (6.4-8.2)
[2021-12-16 06:01] LABS: BILIRUBIN,TOTAL 0.2 MG/DL (0.1-1.0)
[2021-12-16 06:03] LABS: CREATININE SERUM 1.25 MG/DL (0.60-1.30)
[2021-12-16 06:06] LABS: MAGNESIUM 2.2 MG/DL (1.6-2.4)
--- NOTE | 2021-12-16 06:37 | Progress Note - Hospitalist ---
Subjective HPI/CC On Admission Date Seen by Provider: December 16, 2021 Time Seen by Provider: 09:30 CC: Severe weakness with pneumonia HPI: This is a [facility] pt who has a past medical history of hypertension and hyperlipidemia. She presented to the [place] ER with generalized weakness. She was found to have pneumonia and white count of 17,000. She had been placed on conservative management when seen in the ER last week, but continued to worsen and chest x-ray revealed pneumonia. She did have significant orthostatic hypotension and elevated lactic acid. She will be following the sepsis protocol, given IV fluid of 30cc/kg in the [place] ER. Cefepime and Azithromycin will be maintained. Subjective/Events-last exam Patient doing a lot better Less cough Blood sugars are elevated due to steroids Lungs are clear Nebulizers ordered Reviewed meds and labs Review of Systems Pulmonary: Cough Focused Exam Lactate Level Objective Exam Vital Signs Vital Signs Date Time Temp Pulse Resp B/P (MAP) Pulse Ox O2 Delivery O2 Flow Rate FiO2 12/16/21 11:16 158/57 (90) 12/16/21 10:50 Nasal Cannula 2.00 12/16/21 09:00 96 12/16/21 07:45 36.5 97 20 12/13/21 10:05 100 Capillary Refill : General Appearance: No Apparent Distress, WD/WN Respiratory: Lungs Clear Cardiovascular: Regular Rate, Rhythm Results/Procedures Lab Laboratory Tests 12/16/21 05:20 Patient resulted labs reviewed. Assessment/Plan Assessment and Plan Assess & Plan/Chief Complaint Assessment: Pneumonia Dehydration Hypotension Prior stroke Chronic debility Hypertension Hyperlipidemia Plan: IV antibiotics Transfer to floor Oxygen PT OT 12/15/2021: Steroids Singulair Claritin Advair 12/16/2021: Increase insulin Decrease steroids Much improved lung status Diagnosis/Problems Diagnosis/Problems (1) Pneumonia Status: Acute (2) Sepsis Status: Acute Qualifiers: Sepsis type: sepsis due to unspecified organism Sepsis acute organ dysfunction status: without acute organ dysfunction Qualified Codes: A41.9 - Sepsis, unspecified organism (3) Acute kidney injury Status: Acute (4) Pneumonia of right lung due to infectious organism Status: Acute Qualifiers: Lung location: lower lobe of lung Qualified Codes: J18.9 - Pneumonia, unspecified organism (5) Dehydration Status: Acute (6) Hypotension Status: Acute Qualifiers: Hypotension type: hypotension due to hypovolemia Qualified Codes: I95.89 - Other hypotension; E86.1 - Hypovolemia PARISH GUAMAN DO December 16, 2021 06:37
[2021-12-16] MEDS: RT-ALBUTEROL SULF 2.5 MG/3 ML PRE-MIX VIAL INH SCH ×3 (07:36→21:21)
[2021-12-16] MEDS: RT--FLUTICASONE/SALMETEROL 113-14 (AIRDUO RespiCLICK) IH SCH ×2 (07:37→21:21)
[2021-12-16 07:45] VITALS: BP 177/73
[2021-12-16] MEDS: MONTELUKAST 10 MG (SINGULAIR) TAB PO SCH (08:27)
[2021-12-16] MEDS: LORATADINE (CLARITIN) 10 MG TAB PO SCH (08:27)
[2021-12-16] MEDS: amLODIPine 5 MG (NORVASC) TAB PO SCH (08:28)
[2021-12-16] MEDS: GABAPENTIN 300 MG (NEURONTIN) CAP PO SCH ×4 (08:30→20:44)
[2021-12-16] MEDS: VITAMIN D3 25 MCG (1,000 UNITS) TABLET PO SCH (08:34)
[2021-12-16] MEDS: ALPRAZolam 1 MG (XANAX) TAB PO SCH ×2 (08:34→16:51)
[2021-12-16] MEDS: DOCUSATE SODIUM 100 MG (COLACE) CAP PO SCH ×2 (09:42→20:47)
[2021-12-16 11:16] VITALS: BP 158/57
[2021-12-16] MEDS ORDERED: inSUlin (REGULAR) HUMAN 1 UNIT/0.01 ML (CHARGE PER UNIT) SC NR (12:00)
--- NOTE | 2021-12-16 13:04 | Physical Therapy Daily Note ---
PT Daily Note-Current Subjective Patient sitting in chair upon PT arrival, agreeable to treatment. Reports 0/10 pain currently. Mental Status Patient Orientation: Person, Place, Time, Situation Transfers SCALE: Activities may be completed with or without assistive devices. 0-Ssngrwczcj-sznungf completes the activity by him/herself with no assistance from a helper. 5-Set-up or Clean-up Assistance-helper sets up or cleans up; patient completes activity. [place] assists only prior to or following the activity. 4-Supervision or Touching Assistance-helper provides verbal cues and/or touching/steadying and/or contact guard assistance as patient completes acti vity. Assistance may be provided throughout the activity or intermittently. 3-Partial/Moderate Assistance-helper does LESS THAN HALF the effort. [place] lifts, holds or supports trunk or limbs, but provides less than half the effort. 2-Substantial/Maximal Assistance-helper does MORE THAN HALF the effort. [place] lifts or holds trunk or limbs and provides more than half the effort. 5-Hlmklfvoa-vtjalw does ALL the effort. Patient does none of the effort to complete the activity. Or, the assistance of 2 or more helpers is required for the patient to complete the activity. If activity was not attempted, code reason: 7-Patient Refused. 9-Not Applicable-not attempted and the patient did not perform the activity before the current illness, exacerbation or injury. 10-Not Attempted due to Environmental Limitations-(lack of equipment, weather restraints, etc.). 88-Not Attempted due to Medical Conditions or Safety Concerns. Sit to Stand (QC): 4 Chair/Ffn-mt-Pjzyf Xfer(QC): 4 Gait Training Does the Patient Walk?: Yes Distance: 200 ft Walk 10 feet (QC): 4 Walk 50 ft with 2 Turns(QC): 4 Walk 150 ft (QC): 4 Gait Persons Needed: 1 Gait Assistive Device: FWW Assessment Current Status: Fair Progress Patient tolerated treatment well. Requires SBA for all observed transfers. Pat ient ambulates 200 feet with FWW, with SBA and verbal cues for progression, posture, safety. Patient in chair post treatment with all needs met, nursing notified, call light in reach. PT Custodial Goals Custodial Goals PT Physician Assistant Surgery Goals Time Frame: December 23, 2021 Roll Left & Right (QC): 6 Sit to Lying (QC): 6 Lying-Sitting on Side/Bed(QC): 6 Sit to Stand (QC): 6 Chair/Nja-zm-Djxmx Xfer(QC): 6 Toilet Transfer (QC): 6 Walk 10 feet (QC): 6 Walk 50ft with 2 Turns (QC): 6 Walk 150 ft (QC): 6 PT Plan Treatment/Plan Treatment Plan: Continue Plan of Care Treatment Plan: Bed Mobility, Education, Functional Activity Dena, Functional Strength, Gait, Safety, Therapeutic Exercise, Transfers Treatment Duration: December 23, 2021 Frequency: 6 times per week Estimated Hrs Per Day: .25 hour per day Safety Risks/Education Patient Education: Gait Training Teaching Recipient: Patient Teaching Methods: Demonstration, Discussion Response to Teaching: Verbalize Understanding, Return Demonstration Time/GCodes Time In: 956 Time Out: 1006 Total Billed Treatment Time: 10 Total Billed Treatment Visit, ILEANA Viramontes PT December 16, 2021 13:04
[2021-12-16 16:26] VITALS: BP 177/79
[2021-12-16] MEDS: AZITHROMYCIN INJECTION 500 MG in NS (IVPB) 250 ML IV SCH (16:50)
[2021-12-16 19:45] VITALS: BP 128/62
[2021-12-16] MEDS: AMITRIPTYLINE 100 MG PO SCH (20:45)
[2021-12-16] MEDS: oxyCODONE/APAP 5/325MG (PERCOCET 5) TABLET PO PRN (20:46)
[2021-12-16] MEDS: MELATONIN 10 MG TABLET PO SCH (20:46)
[2021-12-16 23:04] VITALS: BP 131/66
[2021-12-17] MEDS: CEFEPIME 1,000 MG/NS 50 ML IVPB IV SCH ×6 (00:55→16:48)
[2021-12-17] MEDS: inSUlin ASPART (NovoLOG) 1 UNIT/0.01 ML (CHARGE PER UNIT) SC SCH ×4 (05:35→20:32)
[2021-12-17 06:47] LABS: BASOPHILS % (AUTO) 0 % (0-10); EOSINOPHILS % (AUTO) 0 % (0-10); HEMATOCRIT 34 % (35-52); HEMOGLOBIN 11.2 g/dL (11.5-16.0); LYMPHOCYTES # (AUTO) 1.4 10^3/uL (1.0-4.0); LYMPHOCYTES % (AUTO) 11 % (12-44); MEAN CORPUSCULAR HEMOGLOBIN 27 pg (25-34); MEAN CORPUSCULAR HGB CONC 33 g/dL (32-36); MEAN CORPUSCULAR VOLUME 81 fL (80-99); MEAN PLATELET VOLUME 9.4 fL (9.0-12.2); MONOCYTES # (AUTO) 0.4 10^3/uL (0.0-1.0); MONOCYTES % (AUTO) 3 % (0-12); NEUTROPHILS # (AUTO) 10.3 10^3/uL (1.8-7.8); NEUTROPHILS % (AUTO) 84 % (42-75); PLATELET COUNT 239 10^3/uL (130-400); WHITE BLOOD COUNT 12.2 10^3/uL (4.3-11.0)
--- NOTE | 2021-12-17 06:58 | Progress Note - Hospitalist ---
Subjective HPI/CC On Admission Date Seen by Provider: December 17, 2021 Time Seen by Provider: 10:00 CC: Severe weakness with pneumonia HPI: This is a [facility] pt who has a past medical history of hypertension and hyperlipidemia. She presented to the [place] ER with generalized weakness. She was found to have pneumonia and white count of 17,000. She had been placed on conservative management when seen in the ER last week, but continued to worsen and chest x-ray revealed pneumonia. She did have significant orthostatic hypotension and elevated lactic acid. She will be following the sepsis protocol, given IV fluid of 30cc/kg in the [place] ER. Cefepime and Azithromycin will be maintained. Subjective/Events-last exam Patient doing a lot better Cough is much better Lowered steroids yesterday and transition to p.o. starting tomorrow High sugars due to steroids Overall has no concerns Review of Systems General: Fatigue, Malaise Pulmonary: Dyspnea Objective Exam Vital Signs Vital Signs Date Time Temp Pulse Resp B/P (MAP) Pulse Ox O2 Delivery O2 Flow Rate FiO2 12/18/21 00:00 37.0 99 18 155/64 (94) 94 Room Air 12/17/21 14:57 0.00 12/13/21 10:05 100 Capillary Refill : General Appearance: No Apparent Distress, WD/WN, Chronically ill Respiratory: Lungs Clear, Normal Breath Sounds Cardiovascular: Regular Rate, Rhythm Neurologic/Psychiatric: Alert, Oriented x3 Results/Procedures Lab Laboratory Tests 12/17/21 06:40 Patient resulted labs reviewed. Assessment/Plan Assessment and Plan Assess & Plan/Chief Complaint Assessment: Pneumonia Dehydration Hypotension Prior stroke Chronic debility Hypertension Hyperlipidemia Plan: IV antibiotics Transfer to floor Oxygen PT OT 12/15/2021: Steroids Singulair Claritin Advair 12/16/2021: Increase insulin Decrease steroids Much improved lung status 12/17/2021: Transition steroids to p.o. Treat high sugars from steroid effect Diagnosis/Problems Diagnosis/Problems (1) Pneumonia Status: Acute (2) Sepsis Status: Acute Qualifiers: Sepsis type: sepsis due to unspecified organism Sepsis acute organ dysfunction status: without acute organ dysfunction Qualified Codes: A41.9 - Sepsis, unspecified organism (3) Acute kidney injury Status: Acute (4) Pneumonia of right lung due to infectious organism Status: Acute Qualifiers: Lung location: lower lobe of lung Qualified Codes: J18.9 - Pneumonia, unspecified organism (5) Dehydration Status: Acute (6) Hypotension Status: Acute Qualifiers: Hypotension type: hypotension due to hypovolemia Qualified Codes: I95.89 - Other hypotension; E86.1 - Hypovolemia PARISH GUAMAN DO December 17, 2021 06:58
[2021-12-17 07:02] LABS: ALBUMIN 3.2 GM/DL (3.2-4.5); POTASSIUM 4.7 MMOL/L (3.6-5.0)
[2021-12-17 07:03] LABS: INR 3.4 (0.8-1.4); PROTHROMBIN TIME PATIENT 34.6 SEC (12.2-14.7)
[2021-12-17 07:04] LABS: CALCIUM 9.4 MG/DL (8.5-10.1)
[2021-12-17 07:07] LABS: BILIRUBIN,TOTAL 0.2 MG/DL (0.1-1.0)
[2021-12-17 07:08] LABS: CREATININE SERUM 1.21 MG/DL (0.60-1.30)
[2021-12-17 07:11] LABS: MAGNESIUM 2.1 MG/DL (1.6-2.4)
[2021-12-17 07:37] VITALS: BP 173/98
[2021-12-17] MEDS: methylPREDNISolone 40 MG/ML (Solu-MEDROL) VIAL IV SCH (07:54)
[2021-12-17] MEDS: LORATADINE (CLARITIN) 10 MG TAB PO SCH (07:55)
[2021-12-17] MEDS: MONTELUKAST 10 MG (SINGULAIR) TAB PO SCH (07:55)
[2021-12-17] MEDS: VITAMIN D3 25 MCG (1,000 UNITS) TABLET PO SCH (07:55)
[2021-12-17] MEDS: GABAPENTIN 300 MG (NEURONTIN) CAP PO SCH ×4 (07:56→20:33)
[2021-12-17] MEDS: amLODIPine 5 MG (NORVASC) TAB PO SCH (07:57)
[2021-12-17] MEDS: ALPRAZolam 1 MG (XANAX) TAB PO SCH ×2 (08:03→16:49)
[2021-12-17] MEDS: RT--FLUTICASONE/SALMETEROL 113-14 (AIRDUO RespiCLICK) IH SCH ×2 (08:35→20:56)
[2021-12-17] MEDS: RT-ALBUTEROL SULF 2.5 MG/3 ML PRE-MIX VIAL INH SCH ×3 (08:35→20:55)
[2021-12-17] MEDS: DOCUSATE SODIUM 100 MG (COLACE) CAP PO SCH ×2 (09:00→20:58)
[2021-12-17 16:33] VITALS: BP 169/79
[2021-12-17] MEDS: AZITHROMYCIN INJECTION 500 MG in NS (IVPB) 250 ML IV SCH (16:48)
[2021-12-17] MEDS: AMITRIPTYLINE 100 MG PO SCH (20:41)
[2021-12-17] MEDS: MELATONIN 10 MG TABLET PO SCH (20:44)
[2021-12-18] VITALS: BP 155/64
[2021-12-18] MEDS: CEFEPIME 1,000 MG/NS 50 ML IVPB IV SCH ×4 (00:29→09:04)
[2021-12-18] MEDS: inSUlin ASPART (NovoLOG) 1 UNIT/0.01 ML (CHARGE PER UNIT) SC SCH ×4 (04:57→23:11)
[2021-12-18] MEDS: predniSONE 20 MG TAB PO SCH (05:41)
[2021-12-18 05:44] LABS: BASOPHILS % (AUTO) 0 % (0-10); EOSINOPHILS # (AUTO) 0.1 10^3/uL (0.0-0.3); EOSINOPHILS % (AUTO) 0 % (0-10); HEMATOCRIT 34 % (35-52); LYMPHOCYTES % (AUTO) 22 % (12-44); MEAN CORPUSCULAR HEMOGLOBIN 26 pg (25-34); MEAN CORPUSCULAR HGB CONC 33 g/dL (32-36); MEAN CORPUSCULAR VOLUME 80 fL (80-99); MEAN PLATELET VOLUME 9.7 fL (9.0-12.2); MONOCYTES # (AUTO) 1.1 10^3/uL (0.0-1.0); MONOCYTES % (AUTO) 8 % (0-12); NEUTROPHILS % (AUTO) 68 % (42-75); PLATELET COUNT 232 10^3/uL (130-400); WHITE BLOOD COUNT 13.2 10^3/uL (4.3-11.0)
[2021-12-18 05:56] LABS: INR 2.5 (0.8-1.4); PROTHROMBIN TIME PATIENT 27.2 SEC (12.2-14.7)
[2021-12-18 06:02] LABS: ALBUMIN 3.1 GM/DL (3.2-4.5); BILIRUBIN,TOTAL 0.2 MG/DL (0.1-1.0); CALCIUM 9.2 MG/DL (8.5-10.1); CREATININE SERUM 1.18 MG/DL (0.60-1.30); POTASSIUM 4.2 MMOL/L (3.6-5.0); TOTAL PROTEIN 6.5 GM/DL (6.4-8.2)
[2021-12-18] MEDS: DOCUSATE SODIUM 100 MG (COLACE) CAP PO SCH ×2 (07:40→20:37)
[2021-12-18] MEDS: RT-ALBUTEROL SULF 2.5 MG/3 ML PRE-MIX VIAL INH SCH ×3 (07:41→20:06)
[2021-12-18] MEDS: RT--FLUTICASONE/SALMETEROL 113-14 (AIRDUO RespiCLICK) IH SCH ×2 (07:41→20:06)
[2021-12-18 07:53] VITALS: BP 169/94
[2021-12-18] MEDS: ALPRAZolam 1 MG (XANAX) TAB PO SCH ×2 (09:02→16:42)
[2021-12-18] MEDS: LORATADINE (CLARITIN) 10 MG TAB PO SCH (09:03)
[2021-12-18] MEDS: MONTELUKAST 10 MG (SINGULAIR) TAB PO SCH (09:03)
[2021-12-18] MEDS: VITAMIN D3 25 MCG (1,000 UNITS) TABLET PO SCH (09:03)
[2021-12-18] MEDS: amLODIPine 5 MG (NORVASC) TAB PO SCH (09:10)
[2021-12-18] MEDS: GABAPENTIN 300 MG (NEURONTIN) CAP PO SCH ×4 (09:10→19:37)
--- NOTE | 2021-12-18 10:21 | Physical Therapy Daily Note ---
PT Daily Note-Current Subjective Patient agrees to PT. She dons socks independently Mental Status Patient Orientation: Normal For Age Transfers SCALE: Activities may be completed with or without assistive devices. 7-Muiecjwlrt-rogctne completes the activity by him/herself with no assistance from a helper. 5-Set-up or Clean-up Assistance-helper sets up or cleans up; patient completes activity. [place] assists only prior to or following the activity. 4-Supervision or Touching Assistance-helper provides verbal cues and/or touching /steadying and/or contact guard assistance as patient completes activity. Assistance may be provided throughout the activity or intermittently. 3-Partial/Moderate Assistance-helper does LESS THAN HALF the effort. [place] lifts, holds or supports trunk or limbs, but provides less than half the effort. 2-Substantial/Maximal Assistance-helper does MORE THAN HALF the effort. [place] lifts or holds trunk or limbs and provides more than half the effort. 7-Mvpbatitg-eiphuw does ALL the effort. Patient does none of the effort to complete the activity. Or, the assistance of 2 or more helpers is required for the patient to complete the activity. If activity was not attempted, code reason: 7-Patient Refused. 9-Not Applicable-not attempted and the patient did not perform the activity before the current illness, exacerbation or injury. 10-Not Attempted due to Environmental Limitations-(lack of equipment, weather restraints, etc.). 88-Not Attempted due to Medical Conditions or Safety Concerns. Lying to Sitting/Side of Bed(Q: 6 Sit to Stand (QC): 6 Gait Training Distance: 350' Walk 10 feet (QC): 6 Walk 50 ft with 2 Turns(QC): 6 Walk 150 ft (QC): 6 Gait Assistive Device: FWW safe and functional with no deviation Assessment Patient is currently at independent PLOF with all gross motor skills. PT to dismiss patient from services at this time. PT Longterm Goals Education Spec Goals PT Longterm Goals Time Frame: December 23, 2021 Roll Left & Right (QC): 6 Sit to Lying (QC): 6 Lying-Sitting on Side/Bed(QC): 6 Sit to Stand (QC): 6 Chair/Rxl-qp-Mqalz Xfer(QC): 6 Toilet Transfer (QC): 6 Walk 10 feet (QC): 6 Walk 50ft with 2 Turns (QC): 6 Walk 150 ft (QC): 6 PT Plan Treatment/Plan Treatment Plan: Discontinue PT, goals met Treatment Plan: Bed Mobility, Education, Functional Activity Dena, Functional Strength, Gait, Safety, Therapeutic Exercise, Transfers Treatment Duration: December 23, 2021 Frequency: 6 times per week Estimated Hrs Per Day: .25 hour per day Time/GCodes Time In: 946 Time Out: 956 Total Billed Treatment Time: 10 Total Billed Treatment 1 visit FA 10 min RADHA LOREDO PT December 18, 2021 10:21
--- NOTE | 2021-12-18 12:19 | Progress Note ---
Subjective Subjective/Events-last exam Patient states that she is feeling better. She is concerned about her blood sugars. States that she was told by her PCP many years ago that she did not have DM. She is requiring quite a bit of insulin. A1c pending. Tolerating PO diet and ambulation. Review of Systems General: Fatigue Pulmonary: Cough Neurological: Weakness Objective Exam Last Set of Vital Signs Vital Signs Date Time Temp Pulse Resp B/P (MAP) Pulse Ox O2 Delivery O2 Flow Rate FiO2 12/18/21 08:00 Room Air 12/18/21 07:53 36.5 93 20 169/94 (119) 98 12/17/21 14:57 0.00 12/13/21 10:05 100 Capillary Refill : I&O Intake and Output 12/18/21 00:00 Intake Total 2550 ml Output Total 3625 ml Balance -1075 ml Intake Oral 2550 ml Output Urine Total 3625 ml # Bowel Movements 1 General: Alert, Oriented X3, No Acute Distress Lungs: Clear to Auscultation, Normal Air Movement Heart: Regular Rate, No Murmurs Abdomen: Normal Bowel Sounds, Soft, No Tenderness, No Masses Extremities: No Edema, No Tenderness/Swelling Neuro: Normal Speech, Sensation Intact, Cranial Nerves 3-12 NL Results/Procedures Lab Laboratory Tests 12/17/21 15:31: Glucometer 322H 12/17/21 19:50: Glucometer 345H 12/18/21 04:56: Glucometer 169H 12/18/21 05:35: White Blood Count 13.2H, Red Blood Count 4.19, Hemoglobin 11.0L, Hematocrit 34L, Mean Corpuscular Volume 80, Mean Corpuscular Hemoglobin 26, Mean Corpuscular Hemoglobin Concent 33, Red Cell Distribution Width 14.8H, Platelet Count 232, Mean Platelet Volume 9.7, Immature Granulocyte % (Auto) 1, Neutrophils (%) (Auto) 68, Lymphocytes (%) (Auto) 22, Monocytes (%) (Auto) 8, Eosinophils (%) (Auto) 0, Basophils (%) (Auto) 0, Neutrophils # (Auto) 9.0H, Lymphocytes # (Auto) 3.0, Monocytes # (Auto) 1.1H, Eosinophils # (Auto) 0.1, Basophils # (Auto ) 0.0, Immature Granulocyte # (Auto) 0.2H, Prothrombin Time 27.2H, INR Comment 2.5H, Sodium Level 139, Potassium Level 4.2, Chloride Level 106, Carbon Dioxide Level 20L, Anion Gap 13, Blood Urea Nitrogen 29H, Creatinine 1.18, Estimat Glomerular Filtration Rate 50, BUN/Creatinine Ratio 25, Glucose Level 156H, Calcium Level 9.2, Corrected Calcium 9.9, Magnesium Level 2.0, Total Bilirubin 0.2, Aspartate Amino Transf (AST/SGOT) 15, Alanine Aminotransferase (ALT/SGPT) 19, Alkaline Phosphatase 73, Total Protein 6.5, Albumin 3.1L 12/18/21 10:57: Glucometer 474*H Microbiology 12/13/21 MRSA Screen - Final, Complete MRSA not isolated 12/13/21 Blood Culture - Preliminary, Resulted No growth Assessment/Plan Assessment/Plan (1) Sepsis Status: Resolved Qualifiers: Qualified Codes: A41.9 - Sepsis, unspecified organism (2) Pneumonia of right lung due to infectious organism Status: Acute Assessment & Plan: 12/18: Continue antibiotics, will transition to PO Qualifiers: Qualified Codes: J18.9 - Pneumonia, unspecified organism (3) Acute kidney injury Status: Resolved (4) HTN (hypertension) Status: Chronic Assessment & Plan: 12/18: Increased Norvasc to 10 mg daily, will continue to monitor Qualifiers: Qualified Codes: I10 - Essential (primary) hypertension (5) HLD (hyperlipidemia) Status: Chronic (6) Elevated blood sugar Status: Chronic Assessment & Plan: 12/18: Suspect IDDM given insulin requirements, A1c pending, Levemir increased, SSI (7) DVT prophylaxis Status: Acute Assessment & Plan: 12/18: INR 2.5, restart coumadin 2/2 h/o ADELSO PAIGE MD December 18, 2021 12:19
--- NOTE | 2021-12-18 14:40 | Occupational Ther Daily Note ---
OT Current Status-Daily Note Subjective Pt alert, sitting in recliner. Pt agrees to therapy. No c/o pain. Mental Status/Objective Patient Orientation: Person, Place, Time, Situation Attachments: IV ADL-Treatment Therapy Code Descriptions/Definitions Functional Nora Measure: 0=Not Assessed/NA 4=Minimal Assistance 1=Total Assistance 5=Supervision or Setup 2=Maximal Assistance 6=Modified Nora 3=Moderate Assistance 7=Complete IndependenceSCALE: Activities may be completed with or without assistive devices. 5-Qqqdopdpdf-jnfyrro completes the activity by him/herself with no assistance from a helper. 5-Set-up or Clean-up Assistance-helper sets up or cleans up; patient completes activity. [place] assists only prior to or following the activity. 4-Supervision or Touching Assistance-helper provides verbal cues and/or touching/steadying and/or contact guard assistance as patient completes activity. Assistance may be provided throughout the activity or intermittently. 3-Partial/Moderate Assistance-helper does LESS THAN HALF the effort. [place] li fts, holds or supports trunk or limbs, but provides less than half the effort. 2-Substantial/Maximal Assistance-helper does MORE THAN HALF the effort. [place] lifts or holds trunk or limbs and provides more than half the effort. 0-Bssotfdxi-uaxpvz does ALL the effort. Patient does none of the effort to complete the activity. Or, the assistance of 2 or more helpers is required for the patient to complete the activity. If activity was not attempted, code reason: 7-Patient Refused. 9-Not Applicable-not attempted and the patient did not perform the activity before the current illness, exacerbation or injury. 10-Not Attempted due to Environmental Limitations-(lack of equipment, weather restraints, etc.). 88-Not Attempted due to Medical Conditions or Safety Concerns. Other Treatment Pt declines any ADLs or ther ex and states that she does not need OT services. QUINN had pt describe B UE exercises that pt completes, good technique and completes against gravity. Per nrsg, pt able to complete shower by self, assist to thoroughly dry only. Nrsg states that pt only takes sponge bathes at home. Pt and nrsg state that pt is able to don/doff socks by self. Pt would not demonstrate for QUINN. Pt states that she is discharging to home tomorrow. OT to dismiss pt from OT services at this time. After therapy, pt sitting in recliner with call light/phone in reach. All needs met in room. OT Usp Goals Child Adolescent Psychiatrist Goals Time Frame: December 22, 2021 Eating (QC): 6 Oral Hygiene (QC): 6 Toileting Hygiene (QC): 6 Shower/Bathe Self (QC): 4 Upper Body Dressing (QC): 6 Lower Body Dressing (QC): 4 On/Off Footwear (QC): 4 Additional Goals: 1-Demonstrate ADL Tasks, 2-Verbalize Understanding, 3- ImproveStrength/Dena 1=Demonstrate adherence to instructed precautions during ADL tasks. 2=Patient will verbalize/demonstrate understanding of assistive devices/modifications for ADL. 3=Patient will improve strength/tolerance for activity to enable patient to perform ADL's. OT Education/Plan Problem List/Assessment Assessment: Decreased Activ Tolerance, Decreased UE Strength, Impaired Self- Care Skills Discharge Recommendations Plan/Recommendations: Discontinue OT (per pt request) Treatment Plan/Plan of Care Patient would benefit from OT for education, treatment and training to promote independence in ADL's, mobility, safety and/or upper extremity function for ADL's. Plan of Care: ADL Retraining, Functional Mobility, UE Funct Exercise/Act Treatment Duration: December 22, 2021 Frequency: 3 times per week (3-5 times per week) Estimated Hrs Per Day: .5 hour per day Agreement: Yes Rehab Potential: Fair Time/GCodes Start Time: 14:13 Stop Time: 14:23 Total Time Billed (hr/min): 10 Billed Treatment Time 1 visit-FA 1 (10 min) RADHA SOLANO December 18, 2021 14:40
[2021-12-18] MEDS ORDERED: warFARin 5 MG (COUMADIN) TAB PO SCH (16:00)
[2021-12-18 16:34] VITALS: BP 179/73
[2021-12-18] MEDS: AMITRIPTYLINE 100 MG PO SCH (19:38)
[2021-12-18] MEDS: MELATONIN 10 MG TABLET PO SCH (19:38)
[2021-12-18 20:12] VITALS: BP 169/74
[2021-12-19 00:04] VITALS: BP 158/75
[2021-12-19] MEDS: predniSONE 20 MG TAB PO SCH (05:37)
[2021-12-19] MEDS: inSUlin ASPART (NovoLOG) 1 UNIT/0.01 ML (CHARGE PER UNIT) SC SCH ×2 (05:39→11:42)
[2021-12-19 05:42] LABS: BASOPHILS % (AUTO) 0 % (0-10); EOSINOPHILS # (AUTO) 0.2 10^3/uL (0.0-0.3); EOSINOPHILS % (AUTO) 2 % (0-10); HEMATOCRIT 34 % (35-52); HEMOGLOBIN 11.1 g/dL (11.5-16.0); LYMPHOCYTES # (AUTO) 3.9 10^3/uL (1.0-4.0); LYMPHOCYTES % (AUTO) 29 % (12-44); MEAN CORPUSCULAR HEMOGLOBIN 26 pg (25-34); MEAN CORPUSCULAR HGB CONC 33 g/dL (32-36); MEAN CORPUSCULAR VOLUME 81 fL (80-99); MEAN PLATELET VOLUME 9.5 fL (9.0-12.2); MONOCYTES # (AUTO) 1.1 10^3/uL (0.0-1.0); MONOCYTES % (AUTO) 8 % (0-12); NEUTROPHILS % (AUTO) 60 % (42-75); PLATELET COUNT 263 10^3/uL (130-400); WHITE BLOOD COUNT 13.4 10^3/uL (4.3-11.0)
[2021-12-19 05:54] LABS: ALBUMIN 3.1 GM/DL (3.2-4.5)
[2021-12-19 05:55] LABS: INR 1.9 (0.8-1.4); PROTHROMBIN TIME PATIENT 21.9 SEC (12.2-14.7)
[2021-12-19 05:56] LABS: CALCIUM 9.2 MG/DL (8.5-10.1)
[2021-12-19 05:57] LABS: TOTAL PROTEIN 6.6 GM/DL (6.4-8.2)
[2021-12-19 05:59] LABS: BILIRUBIN,TOTAL 0.3 MG/DL (0.1-1.0)
[2021-12-19 06:01] LABS: CREATININE SERUM 1.2 MG/DL (0.60-1.30)
[2021-12-19 06:03] LABS: MAGNESIUM 1.8 MG/DL (1.6-2.4)
[2021-12-19 07:45] VITALS: BP 151/71
[2021-12-19] MEDS: VITAMIN D3 25 MCG (1,000 UNITS) TABLET PO SCH (08:18)
[2021-12-19] MEDS: ALPRAZolam 1 MG (XANAX) TAB PO SCH (08:18)
[2021-12-19] MEDS: MONTELUKAST 10 MG (SINGULAIR) TAB PO SCH (08:18)
[2021-12-19] MEDS: LORATADINE (CLARITIN) 10 MG TAB PO SCH (08:18)
[2021-12-19] MEDS: GABAPENTIN 300 MG (NEURONTIN) CAP PO SCH ×2 (08:20→13:17)
[2021-12-19] MEDS: DOCUSATE SODIUM 100 MG (COLACE) CAP PO SCH (08:21)
[2021-12-19] MEDS: oxyCODONE/APAP 5/325MG (PERCOCET 5) TABLET PO PRN (08:28)
[2021-12-19] MEDS: RT-ALBUTEROL SULF 2.5 MG/3 ML PRE-MIX VIAL INH SCH (08:37)
[2021-12-19] MEDS: RT--FLUTICASONE/SALMETEROL 113-14 (AIRDUO RespiCLICK) IH SCH (08:40)
[2021-12-19] MEDS ORDERED: amLODIPine 5 MG (NORVASC) TAB PO SCH (09:00)
--- NOTE | 2021-12-19 12:53 | Discharge Summary ---
Diagnosis/Chief Complaint Date of Admission December 13, 2021 at 15:39 Date of Discharge Discharge Diagnosis Problems/Diagnosis: (1) Sepsis Qualifiers: Qualified Codes: A41.9 - Sepsis, unspecified organism Status: Resolved Resolution Date/Time: 12/18/21 @ 14:55 (2) Pneumonia of right lung due to infectious organism Assessment & Plan: 12/18: Continue antibiotics, will transition to PO Qualifiers: Qualified Codes: J18.9 - Pneumonia, unspecified organism Status: Acute (3) Acute kidney injury Status: Resolved Resolution Date/Time: 12/18/21 @ 14:57 (4) HTN (hypertension) Assessment & Plan: 12/18: Increased Norvasc to 10 mg daily, will continue to monitor Qualifiers: Qualified Codes: I10 - Essential (primary) hypertension Status: Chronic (5) HLD (hyperlipidemia) Status: Chronic (6) Elevated blood sugar Assessment & Plan: 12/18: Suspect IDDM given insulin requirements, A1c pending, Levemir increased, SSI Status: Chronic (7) DVT prophylaxis Assessment & Plan: 12/18: INR 2.5, restart coumadin 2/2 h/o PE Status: Acute Discharge Summary-Simple/Stand Consultations Discharge Physical Examination Allergies: Coded Allergies: Penicillins (Verified Allergy, Unknown, 01/11/19) Vitals & I&Os Vital Sign - Last 12Hours Date Time Temp Pulse Resp B/P (MAP) Pulse Ox O2 Delivery O2 Flow Rate FiO2 12/19/21 08:47 Room Air 12/19/21 08:42 98 12/19/21 07:45 36.6 100 18 151/71 (97) 12/17/21 14:57 0.00 12/13/21 10:05 100 Intake and Output 12/19/21 00:00 Intake Total 1700 ml Output Total 1300 ml Balance 400 ml Hospital Course See final discharge diagnosis. Discharge Instructions to patient/family Please see electronic discharge instructions given to patient. Discharge Medications Reviewed and agree with Discharge Medication list on patient's Discharge Instruction sheet ADELSO ZIMMERMAN MD December 19, 2021 12:53
--- NOTE | 2021-12-19 13:06 | Discharge Summary ---
Discharge Summary Reconcile Patient Problems Problems Reviewed?: Yes Instructions for Patient Via [employer], Assessment/Instructions CAP Asthma Exacerbation BMI 47 IDDM Physician to follow Patient: Ricardoquiana Discharge Diet for Home: ADA Diet Hospital Course Date of Admission: December 13, 2021 at 15:39 Admission Diagnosis : Family Physician/Provider: Date of Discharge: 12/19/21 Discharge Diagnosis: CAP Asthma Exacerbation IDDM BMI 47 Labs and Pending Lab Test: Laboratory Tests 12/18/21 16:38: Glucometer 310H 12/18/21 20:50: Glucometer 308H 12/19/21 05:28: White Blood Count 13.4H, Red Blood Count 4.22, Hemoglobin 11.1L, Hematocrit 34L, Mean Corpuscular Volume 81, Mean Corpuscular Hemoglobin 26, Mean Corpuscular Hemoglobin Concent 33, Red Cell Distribution Width 14.6H, Platelet Count 263, M galileo Platelet Volume 9.5, Immature Granulocyte % (Auto) 1, Neutrophils (%) (Auto) 60, Lymphocytes (%) (Auto) 29, Monocytes (%) (Auto) 8, Eosinophils (%) (Auto) 2, Basophils (%) (Auto) 0, Neutrophils # (Auto) 8.0H, Lymphocytes # (Auto) 3.9, Monocytes # (Auto) 1.1H, Eosinophils # (Auto) 0.2, Basophils # (Auto) 0.0, Immature Granulocyte # (Auto) 0.2H, Prothrombin Time 21.9H, INR Comment 1.9H, Sodium Level 140, Potassium Level 4.0, Chloride Level 105, Carbon Dioxide Level 25, Anion Gap 10, Blood Urea Nitrogen 32H, Creatinine 1.20, Estimat Glomerular Filtration Rate 49, BUN/Creatinine Ratio 27, Glucose Level 95, Calcium Level 9.2, Corrected Calcium 9.9, Magnesium Level 1.8, Total Bilirubin 0.3, Aspartate Amino Transf (AST/SGOT) 16, Alanine Aminotransferase (ALT/SGPT) 27, Alkaline Phosphatase 74, Total Protein 6.6, Albumin 3.1L 12/19/21 05:39: Glucometer 86 12/19/21 10:58: Glucometer 306H Microbiology 12/13/21 MRSA Screen - Final, Complete MRSA not isolated 12/13/21 Blood Culture - Final, Complete No growth Home Meds Active Reported Vitamin D3 (Cholecalciferol (Vitamin D3)) 50 Mcg (2000 Unit) Capsule 50 Mcg PO DAILY Amlodipine Besylate 5 Mg Tablet 5 Mg PO DAILY Oxycodone-Acetaminophen 5-325 (Oxycodone HCl/Acetaminophen) 5 Mg-325 Mg Tablet 1 Ea PO QID PRN Neurontin (Gabapentin) 300 Mg Capsule 300 Mg PO QID Warfarin Sodium 5 Mg Tablet 5 Mg PO 1600 Mucinex (Guaifenesin) 600 Mg Tab.er.12h 600 Mg PO Q12H PRN Benzonatate 100 Mg Capsule 100 Mg PO TID PRN Melatonin 5 Mg Tablet 5 Mg PO HS Citalopram HBr (Citalopram Hydrobromide) 20 Mg Tablet 20 Mg PO HS Amitriptyline HCl 100 Mg Tablet 100 Mg PO HS Alprazolam 1 Mg Tablet 1 Mg PO 0800,1600 Patient Allergies: Coded Allergies: Penicillins (Verified Allergy, Unknown, 01/11/19) Height (Feet): 5 Height (Inches): 4.00 Weight (Pounds): 300 New Medications: Insulin Detemir (Levemir Flextouch) 100 Unit/Ml (3 Ml) Insuln.pen 30 UNIT SQ HS, #30 EA Insulin Lispro (Humalog Kwikpen) 100 Unit/Ml Insuln.pen 10 UNIT SQ TID, #1 EA Prednisone (Prednisone) 20 Mg Tab 20 MG PO DAILY, #11 TAB 1 tab daily x3 and then 1/2 tab daily x 4 days Montelukast Sodium (Montelukast Sodium) 10 Mg Tablet 10 MG PO DAILY@0900 for 30 Days, #30 TAB Continued Medications: Alprazolam (Alprazolam) 1 Mg Tablet 1 MG PO 0800,1600, TAB Amitriptyline HCl (Amitriptyline HCl) 100 Mg Tablet 100 MG PO HS, TAB Amlodipine Besylate (Amlodipine Besylate) 5 Mg Tablet 5 MG PO DAILY, TAB Benzonatate (Benzonatate) 100 Mg Capsule 100 MG PO TID PRN for COUGH, CAP Cholecalciferol (Vitamin D3) (Vitamin D3) 50 Mcg (2000 Unit) Capsule 50 MCG PO DAILY, CAP Citalopram Hydrobromide (Citalopram HBr) 20 Mg Tablet 20 MG PO HS, TAB Gabapentin (Neurontin) 300 Mg Capsule 300 MG PO QID, CAP Guaifenesin (Mucinex) 600 Mg Tab.er.12h 600 MG PO Q12H PRN for COUGH/CONGESTION, TAB Melatonin (Melatonin) 5 Mg Tablet 5 MG PO HS, TAB Oxycodone HCl/Acetaminophen (Oxycodone-Acetaminophen 5-325) 5 Mg-325 Mg Tablet 1 EA PO QID PRN for PAIN-MODERATE (5-7), TAB Warfarin Sodium (Warfarin Sodium) 5 Mg Tablet 5 MG PO 1600, TAB Home Health Need/Face to Face Date of Face to Face: December 19, 2021 Clinical Findings: Shortness of breath, Unsteady gait I have seen Pt [id number]: Yes Discharged To: Home Diagnosis/Conditions: See Above Patient is Homebound due to: Justine fall risk due to instabilty Homebound Status Due to the above stated illness, injury or surgical procedure (medical cond ition or diagnosis) and associated clinical findings, the patient is homebound because of his/her inability to leave home except with aid of a supportive device and/or person AND leaving the home requires a considerable and taxing effort or is medically contraindicated. Pt req the following assistanc: Walker Home Health Nursing Orders Home Health Services Order: Nursing Services, Physical Therapy-Evaluate & Treat Home Health Infusion Therapy Line Start Date: December 13, 2021 Therapy Orders Therapy Orders: PT to assess for OT Therapy Specific Orders: Eval assistive deivces, Increase strength/endurance Certify Stmt I certify that this patient is under my care and that I, a nurse practitioner or a physician; a social work assistant working with me, had a face to face encounter that - meets the physician face to face encounter requirements with this patient as dated. Discharge Physical Exam General: Alert, Oriented X3, Cooperative HEENT: Mucous Memb Moist/[place] Lungs: Clear to Auscultation, Normal Air Movement Heart: Regular Rate, No Murmurs Abdomen: Normal Bowel Sounds, Soft, No Tenderness, No Masses Extremities: No Edema, No Tenderness/Swelling Neuro: Normal Speech, Cranial Nerves 3-12 NL Psych/Mental Status: Mental Status NL, Mood NL ADELSO ZIMMERMAN MD December 19, 2021 13:04
[2021-12-19] MEDS ORDERED: INSU100I23 SQ (13:17)
[2021-12-19] MEDS ORDERED: INSU100I29 SQ (13:17)
[2021-12-19] MEDS ORDERED: PRD20T PO (13:17)
[2021-12-19] MEDS ORDERED: MONT-40 PO (13:17)
== END 2021-12-19 14:18 | disposition home health service (06) | DRG 871 ==
LOC: EDUNIT# 09:15 → ER FS 09:16 → ICU 15:39 → 4TH 12-14 10:58
PROVIDERS: ADMIT Internal Medicine; ATTEND Family Medicine
DX: A41.9 Sepsis, unspecified organism (principal); J18.9 Pneumonia, unspecified organism; N17.9 Acute kidney failure, unspecified; Z68.42 Body mass index [BMI] 45.0-49.9, adult; E86.0 Dehydration; I95.1 Orthostatic hypotension; D64.9 Anemia, unspecified; I12.9 Hypertensive chronic kidney disease with stage 1 through stage 4 chronic kidney disease, or unspecified chronic kidney disease; Z20.822 Contact with and (suspected) exposure to COVID-19; E11.22 Type 2 diabetes mellitus with diabetic chronic kidney disease; N18.9 Chronic kidney disease, unspecified; Z79.4 Long term (current) use of insulin; E66.9 Obesity, unspecified; M79.7 Fibromyalgia; E78.00 Pure hypercholesterolemia, unspecified; E78.5 Hyperlipidemia, unspecified; K21.9 Gastro-esophageal reflux disease without esophagitis; F41.9 Anxiety disorder, unspecified; F32.A Depression, unspecified; G47.00 Insomnia, unspecified; H54.3 Unqualified visual loss, both eyes; H91.90 Unspecified hearing loss, unspecified ear; Z83.3 Family history of diabetes mellitus; Z82.49 Family history of ischemic heart disease and other diseases of the circulatory system; Z86.711 Personal history of pulmonary embolism; Z87.01 Personal history of pneumonia (recurrent); Z79.01 Long term (current) use of anticoagulants; Z79.52 Long term (current) use of systemic steroids; Z88.0 Allergy status to penicillin
CPT/HCPCS: 36415; 51702; 70450; 71045; 71250; 80053; 81000; 82805; 82947; 83036; 83605; 83735; 83880; 84100; 84484; 85007; 85025; 85027; 85610; 85730; 86141; 87040; 87070; 87081; 87205; 87636; 87804; 93041; 94640; 94760

== ENCOUNTER → 2022-02-07 | Outpatient (CLI) | payer MEDICARE ==
[~2022-02-07] MED LIST changes: +AMLO-250 PO; +BENZ-36 PO; +CHOL20002 PO; +GABA300C PO; +INSU100I23 SQ; +INSU100I29 SQ; +MONT-40 PO; +OXYC1TAB11 PO; +WARF-48 PO
[2022-02-07 17:03] LABS: INR 2.8 (0.8-1.4)
== END ==
LOC: IHC 16:09
PROVIDERS: ATTEND Family Medicine
DX: Z79.01 Long term (current) use of anticoagulants (principal)
CPT/HCPCS: 85610

== ENCOUNTER 2022-04-21 14:26 | Emergency (ER) | payer MEDICARE ==
[~2022-04-21] VITALS: Ht 162 cm; Wt 159.0 kg
--- NOTE | 2022-04-21 14:42 | ED Lower Extremity ---
General Chief Complaint: Lower Extremity Stated Complaint: RT ANKLE INJ Nursing Triage Note: PT REPORTS SHE SLIPPED ON SOME WATER ON THE FLOOR AND FELL AND TWSITED HER RIGHT ANKLE. RIGHT ANTERIOR ANKLE HAS SWELLING NOTED. Source: patient History of Present Illness Date Seen by Provider: Apr 21, 2022 Time Seen by Provider: 14:28 Initial Comments 71-year-old female presenting with right ankle pain and swelling after falling at home. She states that she was taking her medication and some water fell on the floor. She slipped in the water and twisted her ankle. She was unable to get up on her own due to pain. She denies hitting her head or losing consciousness. She denies having chest pain, nausea, vomiting, headache, change in vision, pain with urination. Location Injury Occurred: Home Onset: just prior to arrival Severity: severe Pain/Injury Location: right ankle Method of Injury: fell Modifying Factors: Worse With Movement Allergies and Home Medications Allergies Coded Allergies: Penicillins (Verified Allergy, Unknown, 01/11/19) Patient Home Medication List Home Medication List Reviewed: Yes Alprazolam (Alprazolam) 1 Mg Tablet, 1 MG PO 0800,1600, (Reported) Entered as Reported by: SOLANGE MARQUES on 03/06/20 1541 Amitriptyline HCl (Amitriptyline HCl) 100 Mg Tablet, 100 MG PO HS, (Reported) Entered as Reported by: SOLANGE MARQUES on 03/06/20 1549 Amlodipine Besylate (Amlodipine Besylate) 5 Mg Tablet, 5 MG PO DAILY, (Reported) Entered as Reported by: LACHO CRUZ on 12/14/21 0953 Benzonatate (Benzonatate) 100 Mg Capsule, 100 MG PO TID PRN for COUGH, (Reported) Entered as Reported by: LACHO CRUZ on 12/14/21 09 Cholecalciferol (Vitamin D3) (Vitamin D3) 50 Mcg (2000 Unit) Capsule, 50 MCG PO DAILY, (Reported) Entered as Reported by: LACHO CRUZ on 12/14/21 09 Citalopram Hydrobromide (Citalopram HBr) 20 Mg Tablet, 20 MG PO HS, (Reported) Entered as Reported by: SOLANGE MARQUES on 03/06/20 1550 Gabapentin (Neurontin) 300 Mg Capsule, 300 MG PO QID, (Reported) Entered as Reported by: LACHO CRUZ on 12/14/21 09 Guaifenesin (Mucinex) 600 Mg Tab.er.12h, 600 MG PO Q12H PRN for COUGH/CONGESTION, (Reported) Entered as Reported by: LACHO CRUZ on 12/14/21952 Insulin Detemir (Levemir Flextouch) 100 Unit/Ml (3 Ml) Insuln.pen, 30 UNIT SQ HS Prescribed by: ADELSO ZIMMERMAN on 12/19/21 131 Insulin Lispro (Humalog Kwikpen) 100 Unit/Ml Insuln.pen, 10 UNIT SQ TID Prescribed by: ADELSO ZIMMERMAN on 12/19/21 131 Melatonin (Melatonin) 5 Mg Tablet, 5 MG PO HS, (Reported) Entered as Reported by: LACHO CRUZ on 09/27/20 1222 Montelukast Sodium (Montelukast Sodium) 10 Mg Tablet, 10 MG PO DAILY@0900 Prescribed by: ADELSO ZIMMERMAN on 12/19/21 131 Oxycodone HCl/Acetaminophen (Oxycodone-Acetaminophen 5-325) 5 Mg-325 Mg Tablet, 1 EA PO QID PRN for PAIN-MODERATE (5-7), (Reported) Entered as Reported by: LACHO CRUZ on 12/14/21952 Prednisone (Prednisone) 20 Mg Tab, 20 MG PO DAILY Prescribed by: ADELSO ZIMMERMAN on 12/19/211316 Warfarin Sodium (Warfarin Sodium) 5 Mg Tablet, 5 MG PO 1600, (Reported) Entered as Reported by: LACHO CRUZ on 12/14/21 09 Review of Systems Constitutional: No chills, No dizziness, No fever EENTM: no symptoms reported Respiratory: no symptoms reported Cardiovascular: no symptoms reported Gastrointestinal: no symptoms reported Genitourinary: no symptoms reported Musculoskeletal: see HPI Skin: No change in color Psychiatric/Neurological: Denies Numbness Past Hxojlpa-Msphca-Frcery Hx Patient Social History Tobacco Use?: No Use of E-Cig and/or Vaping dev: No Substance use?: No Alcohol Use?: No Physical Exam Vital Signs Vital Signs - First Documented 04/21/22 14:27 Temp 36.1 Pulse 90 Resp 18 B/P (MAP) 157/92 (113) Pulse Ox 97 O2 Delivery Room Air Capillary Refill : Less Than 3 Seconds Height, Weight, BMI Height: '" Weight: lbs. oz. kg; 60.00 BMI Method: General Appearance: no apparent distress, obese HEENT: PERRL/EOMI Cardiovascular: normal peripheral pulses, regular rate, rhythm Knees: bilateral knee pain (Chronic knee pain. Patient states no new pain to either knee) Ankles: right ankle limited range of motion, right ankle pain, right ankle soft tissue tenderness, right ankle swelling Neurologic/Tendon: normal sensation, normal motor functions Neurologic/Psychiatric: alert, oriented x 3 Skin: normal color, warm/dry Progress/Results/Core Measures Results/Orders My Orders Orders - KAUSHAL VANCE MD Ice: Apply To Affected Area (04/21/22 14:36) Elevate Affected Extremity (04/21/22 14:36) Ankle 3 View Right (04/21/22 ) Ed Ortho/Other Supplies Order (04/21/22 15:31) Orthopedic Equiment (04/21/22 15:31) Vital Signs/I&O 04/21/22 14:27 Temp 36.1 Pulse 90 Resp 18 B/P (MAP) 157/92 (113) Pulse Ox 97 O2 Delivery Room Air Blood Pressure Mean: 113 Progress Progress Note #1: Progress Note Obtain x-rays of the right ankle. Ice and elevate the ankle. Patient refused pain medicine until the x-rays were obtained Progress Note #2: Progress Note On my review of the three-view films of her right ankle shows a bimalleolar ankle fracture. The mortise appears intact and stable. Counseled patient on management and follow-up and return precautions. Will place in a boot to help stabilize her ankle and advised to check with orthopedics this week. She needs to be nonweightbearing on that leg. She states that she has a walker and people that can help her at home. She already is taking oxycodone for chronic pain and did not feel like she needed any new prescriptions. Progress Note #3: Progress Note After placing patient in boot to help stabilize her right ankle she was unable to get into the vehicle of her friend that came to pick her up. She decided that she would not have enough help at home and made calls to some local nursing homes. [facility] that [facility] able to [facility] her and would provide respite care and help with her ankle fracture. Diagnostic Imaging Diagonstic Imaging: Xray Plain Films/CT/US/NM/MRI: ankle Comments On my review of the three-view films of her right ankle shows a bimalleolar ankle fracture. The mortise appears intact and stable. Reviewed: Reviewed by Me Departure Impression Primary Impression: Closed bimalleolar fracture of right ankle Qualified Codes: S82.841A - Displaced bimalleolar fracture of right lower leg, initial encounter for closed fracture Additional Impressions: Pain and swelling of right ankle Fall at home Qualified Codes: W19.XXXA - Unspecified fall, initial encounter; Y92.009 - Unspecified place in unspecified non-institutional (private) residence as the place of occurrence of the external cause Disposition: HOME, SELF-CARE Condition: Stable Departure-Patient Inst. Decision time for Depature: 15:33 Referrals: NORA GRANGER MICHAEL P MD Patient Instructions: Ankle Fracture ED, How to Use a Walker, Preventing Falls ED Add. Discharge Instructions: Use the boot to stabilize your ankle fracture. Do not bear weight on your right leg. Keep the splint on and in place at all times. Follow up with Orthopedics about the ankle fracture. Call Saturday morning to set up an appointment for this next week. Try to keep your ankle elevated to help with swelling and pain. May take Acetaminophen in addition to your chronic pain medicine to help with ankle pain. May apply ice 15 to 20 minutes every 3-4 hours as needed for pain and swelling. All discharge instructions reviewed with patient and/or family. Voiced understanding. KAUSHAL VANCE MD Apr 21, 2022 14:42
[2022-04-21 15:36] VITALS: BP 157/92
--- NOTE | 2022-04-23 07:58 | Diagnostic Imaging Report ---
Indication: Pain. Findings: Subacute-appearing fractures obliquely at the distal fibula and horizontally at the medial malleolus with some overlying soft tissue swelling. These may be subacute as there is a suggestion of some new bone formation. Impression: Lateral and medial malleolar fractures without significant displacement may be subacute. Dictated by: Dictated on workstation # [id number]
== END 2022-04-21 15:49 | disposition home or self-care (01) ==
LOC: EDUNIT# 14:26 → ER FS 15:01
DX: S82.841A Displaced bimalleolar fracture of right lower leg, initial encounter for closed fracture (principal); E66.9 Obesity, unspecified; Z68.44 Body mass index [BMI] 60.0-69.9, adult; W01.0XXA Fall on same level from slipping, tripping and stumbling without subsequent striking against object, initial encounter; X50.1XXA Overexertion from prolonged static or awkward postures, initial encounter; Y92.009 Unspecified place in unspecified non-institutional (private) residence as the place of occurrence of the external cause
CPT/HCPCS: 73610; 99283; L2114

== ENCOUNTER 2022-05-08 10:45 | Emergency (ER) | payer MEDICARE ==
[~2022-05-08] VITALS: Ht 162.5 cm; Wt 136.1 kg
--- NOTE | 2022-05-08 11:23 | Diagnostic Imaging Report ---
EXAMINATION: Right ankle radiographs, 3 views. COMPARISON: May 08, 2022 at 0927 hours. HISTORY: 71-year-old female, right ankle pain. FINDINGS: There is a redemonstrated displaced trimalleolar fracture. The distal tibia is anteriorly dislocated relative to the talus. There is substantial displacement of the posterior malleolar fracture fragment by up to approximately 1.5 cm. The distal fibular fracture is also displaced with substantial displacement of the medial malleolar fracture as well by approximately 1.2 cm medially. There are vascular related calcifications. There is extensive soft tissue swelling. IMPRESSION: 1. The distal tibia is anteriorly dislocated relative to the talus similar to the prior study. 2. Significantly displaced trimalleolar fracture of the ankle with largely unchanged fracture alignment since earlier same day study. Dictated by: Dictated on workstation # [id number]
[2022-05-08] MEDS ORDERED: morphine INJ 10 MG/ML 1ML (SYR OR VIAL) IVP STA ×3 (11:31→16:33)
[2022-05-08 11:58] LABS: INR 3.4 (0.8-1.4); PROTHROMBIN TIME PATIENT 35.1 SEC (12.2-14.7)
[2022-05-08] MEDS ORDERED: ETOMIDATE IV SOLN 20 MG/10 ML VIAL IV ONE (12:00)
[2022-05-08] MEDS ORDERED: fentaNYL INJ 100 MCG/2 ML AMP IVP ONE (12:00)
[2022-05-08 12:01] LABS: BASOPHILS % (AUTO) 0 % (0-10); EOSINOPHILS # (AUTO) 0.2 10^3/uL (0.0-0.3); EOSINOPHILS % (AUTO) 1 % (0-10); HEMATOCRIT 38 % (35-52); LYMPHOCYTES % (AUTO) 35 % (12-44); MEAN CORPUSCULAR HEMOGLOBIN 26 pg (25-34); MEAN CORPUSCULAR HGB CONC 32 g/dL (32-36); MEAN CORPUSCULAR VOLUME 83 fL (80-99); MEAN PLATELET VOLUME 9.8 fL (9.0-12.2); MONOCYTES # (AUTO) 0.6 10^3/uL (0.0-1.0); MONOCYTES % (AUTO) 6 % (0-12); NEUTROPHILS # (AUTO) 6.5 10^3/uL (1.8-7.8); NEUTROPHILS % (AUTO) 57 % (42-75); PLATELET COUNT 365 10^3/uL (130-400); WHITE BLOOD COUNT 11.4 10^3/uL (4.3-11.0)
[2022-05-08 12:05] LABS: POTASSIUM 3.8 MMOL/L (3.6-5.0)
[2022-05-08 12:06] LABS: CALCIUM 9.9 MG/DL (8.5-10.1)
[2022-05-08 12:10] LABS: CREATININE SERUM 1.12 MG/DL (0.60-1.30)
[2022-05-08] MEDS ORDERED: ETOMIDATE IV SOLN 20 MG/10 ML VIAL ONE (14:08)
[2022-05-08] MEDS ORDERED: fentaNYL INJ 100 MCG/2 ML AMP ONE (14:08)
--- NOTE | 2022-05-08 15:06 | ED Lower Extremity ---
General Chief Complaint: Conscious Sedation Stated Complaint: ANKLE DISLOCATION Nursing Triage Note: PT BROGUHT IN BY [facility] FOR ANKLE DISLOCATION. PT WAS TAKEN TO ORTHO APPOINTMENT TODAY, HAD XRAY, AND HAS RIGHT ANKLE DISLOCATION. PT HAD PREVIOUSLY BROKEN ANKLE ON 04/21/22. PT WAS IN WALKING BOOT PRIOR TO ORTHO APPT. PT WAS INSTRUCTED TO COME HERE BY TOD LLAMAS. Source: patient Exam Limitations: no limitations History of Present Illness Date Seen by Provider: May 08, 2022 Time Seen by Provider: 11:03 Initial Comments This is 71-year-old woman presents to the emergency room as directed from the clinic by Tod Llamas. She has been in assisted living with a right ankle fracture previously diagnosed at the [place] emergency room on April 21. The fracture was not dislocated at that time and she has been in a boot. She states she has not come out of the boot since it was placed. She reports that she was bumped during a transfer with a lift. My original understanding from the history was that that bump occurred today and that the dislocation occurred with a reinjury. However, after further interview, the reinjury may actually have occurred days ago or at an unknown time. Patient was evaluated by Tod Llamas in the clinic and was found to have a dislocation. It is unclear to me exactly when the dislocation occurred as it was not present on April 21. Patient has retained sensation and pedal pulse by Doppler. Dr. Soto was not performing clinical duties today, and Tod Llamas therefore sent the patient to the emergency room for further evaluation. 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 Allergies and Home Medications Allergies Coded Allergies: Penicillins (Verified Allergy, Unknown, 01/11/19) Patient Home Medication List Home Medication List Reviewed: Yes Alprazolam (Alprazolam) 1 Mg Tablet, 1 MG PO 0800,1600, (Reported) Entered as Reported by: SOLANGE MARQUES on 03/06/20 1541 Amitriptyline HCl (Amitriptyline HCl) 100 Mg Tablet, 100 MG PO HS, (Reported) Entered as Reported by: SOLANGE MARQUES on 03/06/20 1549 Amlodipine Besylate (Amlodipine Besylate) 5 Mg Tablet, 5 MG PO DAILY, (Reported) Entered as Reported by: LACHO CRUZ on 12/14/21 0953 Benzonatate (Benzonatate) 100 Mg Capsule, 100 MG PO TID PRN for COUGH, (Reported) Entered as Reported by: LACHO CRUZ on 12/14/21 09 Cholecalciferol (Vitamin D3) (Vitamin D3) 50 Mcg (2000 Unit) Capsule, 50 MCG PO DAILY, (Reported) Entered as Reported by: LACHO CRUZ on 12/14/21 09 Citalopram Hydrobromide (Citalopram HBr) 20 Mg Tablet, 20 MG PO HS, (Reported) Entered as Reported by: SOLANGE MARQUES on 03/06/20 1550 Gabapentin (Neurontin) 300 Mg Capsule, 300 MG PO QID, (Reported) Entered as Reported by: LACHO CRUZ on 12/14/21952 Guaifenesin (Mucinex) 600 Mg Tab.er.12h, 600 MG PO Q12H PRN for COUGH/CONGESTION, (Reported) Entered as Reported by: LACHO CRUZ on 12/14/21952 Insulin Detemir (Levemir Flextouch) 100 Unit/Ml (3 Ml) Insuln.pen, 30 UNIT SQ HS Prescribed by: ADELSO ZIMMERMAN on 12/19/21 131 Insulin Lispro (Humalog Kwikpen) 100 Unit/Ml Insuln.pen, 10 UNIT SQ TID Prescribed by: ADELSO ZIMMERMAN on 12/19/21 131 Melatonin (Melatonin) 5 Mg Tablet, 5 MG PO HS, (Reported) Entered as Reported by: LACHO CRUZ on 09/27/20 1222 Montelukast Sodium (Montelukast Sodium) 10 Mg Tablet, 10 MG PO DAILY@0900 Prescribed by: ADELSO ZIMMERMAN on 12/19/21 131 Oxycodone HCl/Acetaminophen (Oxycodone-Acetaminophen 5-325) 5 Mg-325 Mg Tablet, 1 EA PO QID PRN for PAIN-MODERATE (5-7), (Reported) Entered as Reported by: LACHO CRUZ on 12/14/21 09 Prednisone (Prednisone) 20 Mg Tab, 20 MG PO DAILY Prescribed by: ADELSO ZIMMERMAN on 12/19/21 131 Warfarin Sodium (Warfarin Sodium) 5 Mg Tablet, 5 MG PO 1600, (Reported) Entered as Reported by: LACHO CRUZ on 12/14/21952 Review of Systems Constitutional: no symptoms reported EENTM: no symptoms reported Respiratory: no symptoms reported Cardiovascular: no symptoms reported Gastrointestinal: no symptoms reported Genitourinary: no symptoms reported : No Musculoskeletal: see HPI Skin: no symptoms reported Psychiatric/Neurological: No Symptoms Reported Past Niyfrps-Kwlrdq-Bgclsw Hx Patient Social History Tobacco Use?: No Use of E-Cig and/or Vaping dev: No Substance use?: No Alcohol Use?: No Pt feels they are or have been: No Immunizations Up To Date First/Initial COVID19 Vaccinat: Pt has had the first shot of Pfizer vaccine and is due for her second 03/27 Second COVID19 Vaccination Jonas: Pt has had the first shot of Pfizer vaccine and is due for her second 03/27 Third COVID19 Vaccination Date: Pt has had the first shot of Pfizer vaccine and is due for her second 03/27 Seasonal Allergies Seasonal Allergies: No Past Medical History Surgery/Hospitalization HX: Fibromyalgia, Pulmonary Embolus, Hypertension, Chronic Kidney Disease, Migraines, Hypercholesterolemia, GERD, Anxiety, Depression, Insomnia Surgeries: No Respiratory: Yes Pneumonia, Pulmonary Embolism Currently Using CPAP: No Currently Using BIPAP: No Cardiac: Yes Deep Vein Thrombosis, High Cholesterol, Hypertension Neurological: Yes (fibromyalgia. CHRONIC FATQUE SYNDRONE) Headaches /Migraines, Stroke Sexually Transmitted Disease: No HIV/AIDS: No Genitourinary: Yes Bladder Infection, Renal Failure Gastrointestinal: Yes Gastroesophageal Reflux, Chronic Constipation, Hemorrhoids, Gall Bladder Disease Musculoskeletal: Yes Arthritis, Chronic Back Pain Endocrine: No HEENT: Yes (BOTH EARS HURT INSIDE, COCKEYED FROM ) Cataract, Double Vision Loss of Vision: Bilateral Hearing Impairment: Hard of Hearing Cancer: No Psychosocial: Yes Sleep Difficulties, Anxiety, Depression Integumentary: Yes Eczema Blood Disorders: No Adverse Reaction/Blood Tranf: No Family Medical History Diabetes mellitus 19 MOTHER CAD Under 55 Years Old, Diabetes Physical Exam Vital Signs Vital Signs - First Documented 05/08/22 10:47 B/P (MAP) 164/112 (129) O2 Delivery Room Air Capillary Refill : Less Than 3 Seconds Height, Weight, BMI Height: 5'4.00" Weight: 300lbs. oz. [id number]; 51.00 BMI Method:Stated General Appearance: WD/WN, no apparent distress HEENT: normal ENT inspection Neck: normal inspection Cardiovascular: regular rate, rhythm, no murmur Respiratory: lungs clear, normal breath sounds, no respiratory distress Gastrointestinal: non tender, soft Ankles: right ankle other (Right ankle and foot are swollen. Foot appears displaced posteriorly suggesting ankle dislocation. Pedal pulses detectable by Doppler.) Feet: right foot swelling Neurologic/Tendon: normal sensation Neurologic/Psychiatric: alert, normal mood/affect, oriented x 3, abnormal clerical office II-XII (Strabismus) Skin: normal color, warm/dry Procedures/Interventions Procedure: CLOSED REDUCTION OF R ANKLE DISLOCATION Progress/Results/Core Measures Results/Orders Lab Results Laboratory Tests Test 05/08/22 10:54 Range/Units White Blood Count 11.4 H 4.3-11.0 10^3/uL Red Blood Count 4.54 3.80-5.11 10^6/uL Hemoglobin 12.0 11.5-16.0 g/dL Hematocrit 38 35-52 % Mean Corpuscular Volume 83 80-99 fL Mean Corpuscular Hemoglobin 26 25-34 pg Mean Corpuscular Hemoglobin Concent 32 32-36 g/dL Red Cell Distribution Width 14.7 H 10.0-14.5 % Platelet Count 365 130-400 10^3/uL Mean Platelet Volume 9.8 9.0-12.2 fL Immature Granulocyte % (Auto) 1 % Neutrophils (%) (Auto) 57 42-75 % Lymphocytes (%) (Auto) 35 12-44 % Monocytes (%) (Auto) 6 0-12 % Eosinophils (%) (Auto) 1 0-10 % Basophils (%) (Auto) 0 0-10 % Neutrophils # (Auto) 6.5 1.8-7.8 10^3/uL Lymphocytes # (Auto) 4.0 1.0-4.0 10^3/uL Monocytes # (Auto) 0.6 0.0-1.0 10^3/uL Eosinophils # (Auto) 0.2 0.0-0.3 10^3/uL Basophils # (Auto) 0.0 0.0-0.1 10^3/uL Immature Granulocyte # (Auto) 0.1 0.0-0.1 10^3/uL Prothrombin Time 35.1 H 12.2-14.7 SEC INR Comment 3.4 H 0.8-1.4 Sodium Level 143 135-145 MMOL/L Potassium Level 3.8 3.6-5.0 MMOL/L Chloride Level 103 98-107 MMOL/L Carbon Dioxide Level 27 21-32 MMOL/L Anion Gap 13 5-14 MMOL/L Blood Urea Nitrogen 28 H 7-18 MG/DL Creatinine 1.12 0.60-1.30 MG/DL Estimat Glomerular Filtration Rate 53 BUN/Creatinine Ratio 25 Glucose Level 103 70-105 MG/DL Calcium Level 9.9 8.5-10.1 MG/DL My Orders Orders - CHULA FLORES MD Ankle, Right, 3 Views (05/08/22 11:03) Ed Iv/Invasive Line Start (05/08/22 11:28) Morphine Injection (Morphine Injection (05/08/22 11:31) Basic Metabolic Panel (05/08/22 11:46) Cbc With Automated Diff (05/08/22 11:46) Protime With Inr (05/08/22 11:46) Etomidate Injection (Amidate Injection) (05/08/22 12:00) Fentanyl Inj (Sublimaze Injection) (05/08/22 12:00) Etomidate Injection (Amidate Injection) (05/08/22 14:08) Fentanyl Inj (Sublimaze Injection) (05/08/22 14:08) Morphine Injection (Morphine Injection (05/08/22 14:44) Ankle, Right, 2 Views (05/08/22 14:53) Morphine Injection (Morphine Injection (05/08/22 16:33) Medications Given in ED Current Medications Medications Dose Ordered Sig/[place] Route Start Time Stop Time Status Last Admin Dose Admin Etomidate 10 mg ONCE ONCE IV 05/08/22 12:00 05/08/22 12:01 DC 05/08/22 14:27 10 MG Fentanyl Citrate 50 mcg ONCE ONCE IVP 05/08/22 12:00 05/08/22 12:01 DC 05/08/22 14:23 50 MCG Vital Signs/I&O 05/08/22 05/08/22 05/08/22 05/08/22 10:47 14:23 14:23 16:29 Pulse 103 101 Resp 14 23 B/P (MAP) 164/112 (129) 122/39 117/105 Pulse Ox 99 94 O2 Delivery Room Air Room Air Room Air Room Air Blood Pressure Mean: 129 Progress Progress Note #1: Time: 15:07 Progress Note X-rays were obtained. Dislocation was confirmed. This was a new finding from April 21. I discussed risks and benefits of conscious sedation for reduction of the dislocation. With informed consent conscious sedation was performed with etomidate and fentanyl. Unfortunately, I was unable to reduce the dislocation. I have contacted Dr. Garibay who is in surgery, and I am awaiting a return call. Pedal pulse remains detectable by Doppler after reduction attempt. Progress Note #2: Time: 15:45 Progress Note Reduction attempt was unsuccessful and Dr. Garibay was consulted. He reviewed images and is concerned that the nature of the injury is beyond his scope of practice as there may be some talar involvement. He recommended transfer to a traumatologist. I have discussed the case with Dr. Zhang, orthopedist on-call at [place], and he accepts transfer. Diagnostic Imaging Diagonstic Imaging: Xray Plain Films/CT/US/NM/MRI: ankle Comments Ankle x-rays viewed by me and report reviewed. See report below: NAME: KIRSTIE CHAUDHRY [facility] REC#: [id number] PT STATUS: REG ER : 1950 PHYSICIAN: CHULA FLORES MD ADMIT DATE: 05/08/22/ER Draft Date of Exam:05/08/22 ANKLE, RIGHT, 3 VIEWS EXAMINATION: Right ankle radiographs, 3 views. COMPARISON: May 08, 2022 at 0927 hours. HISTORY: 71-year-old female, right ankle pain. FINDINGS: There is a redemonstrated displaced trimalleolar fracture. The distal tibia is anteriorly dislocated relative to the talus. There is substantial displacement of the posterior malleolar fracture fragment by up to approximately 1.5 cm. The distal fibular fracture is also displaced with substantial displacement of the medial malleolar fracture as well by approximately 1.2 cm medially. There are vascular related calcifications. There is extensive soft tissue swelling. IMPRESSION: 1. The distal tibia is anteriorly dislocated relative to the talus similar to the prior study. 2. Significantly displaced trimalleolar fracture of the ankle with largely unchanged fracture alignment since earlier same day study. Dictated on workstation # [id number] Dict: 05/08/22 1116 Trans: 05/08/22 1122 AMANDA [id number] Interpreted by: LEONOR FRIEND MD Diagonstic Imaging: Xray Plain Films/CT/US/NM/MRI: ankle Comments Lateral ankle x-ray taken after reduction attempt reviewed by me and report reviewed. See report below: NAME: KIRSTIE CHAUDHRY [facility] REC#: [id number] PT STATUS: REG ER : 1950 PHYSICIAN: CHULA FLORES MD ADMIT DATE: 05/08/22/ER Draft Date of Exam:05/08/22 ANKLE, RIGHT, 2 VIEWS EXAMINATION: Right ankle radiograph, single view. COMPARISON: May 08, 2022 same day right ankle radiographs. HISTORY: 71-year-old female, postreduction. FINDINGS: The distal tibia is anteriorly dislocated relative to the talus. There is a redemonstrated trimalleolar fracture with persistent significant displacement of the posterior malleolar fracture fragment. IMPRESSION: 1. Redemonstrated anterior dislocation of the distal tibia relative to the talus which is essentially unchanged. 2. Redemonstrated trimalleolar fracture with similar appearance in the lateral view compared to the prior studies. Dictated on workstation # [id number] Dict: 05/08/22 1458 Trans: 05/08/22 1529 [facility] [id number] Interpreted by: LEONOR FRIEND MD Departure Impression Primary Impression: Closed dislocation of right ankle Qualified Codes: S93.04XA - Dislocation of right ankle joint, initial encounter Additional Impression: Closed right trimalleolar fracture Qualified Codes: S82.851G - Displaced trimalleolar fracture of right lower leg, subsequent encounter for closed fracture with delayed healing Disposition: XFER SHT-TRM HOSP Condition: Stable Transfer Transfer Reason: Exceeds level of care Time Spoke to Accepting Phy: 15:48 Transfer Progress Notes Transfer accepted by Dr. Zhang (orthopedics) at [facility]. Case additionally discussed with Dr. Farrar, ER provider. Transfer accepted. Transfer Time: 16:59 Transfer Facility: [facility] [place] Departure-Patient Inst. Referrals: CELIA SEWELL MD (PCP/Family) Primary Care Physician Patient Instructions: Moderate Sedation in Adults (DC), Moderate Sedation in Children (DC) Copy Copies To 1: CELIA SEWELL MD, JOSHUA T MD May 08, 2022 15:06
--- NOTE | 2022-05-08 15:29 | Diagnostic Imaging Report ---
EXAMINATION: Right ankle radiograph, single view. COMPARISON: May 08, 2022 same day right ankle radiographs. HISTORY: 71-year-old female, postreduction. FINDINGS: The distal tibia is anteriorly dislocated relative to the talus. There is a redemonstrated trimalleolar fracture with persistent significant displacement of the posterior malleolar fracture fragment. IMPRESSION: 1. Redemonstrated anterior dislocation of the distal tibia relative to the talus which is essentially unchanged. 2. Redemonstrated trimalleolar fracture with similar appearance in the lateral view compared to the prior studies. Dictated by: Dictated on workstation # [id number]
[2022-05-08 16:29] VITALS: BP 117/105
== END 2022-05-08 16:59 | disposition short-term general hospital (02) ==
LOC: EDUNIT# 10:45 → ER 10:47
DX: S93.04XA Dislocation of right ankle joint, initial encounter (principal); Z86.718 Personal history of other venous thrombosis and embolism; Z28.310 Unvaccinated for COVID-19; Z79.01 Long term (current) use of anticoagulants; X58.XXXA Exposure to other specified factors, initial encounter
CPT/HCPCS: 29515; 36415; 73600; 73610; 80048; 85025; 85610; 93041; 96374; 96375; 96376; 99291

== ENCOUNTER → 2022-05-08 | Outpatient (CLI) | payer MEDICARE ==
--- NOTE | 2022-05-08 14:59 | Diagnostic Imaging Report ---
INDICATION: Fracture, pain. COMPARISON: 04/21/2022. TECHNIQUE: Four radiographs of the right ankle dated 06/07/2022 at 0927 hours. FINDINGS: A trimalleolar fracture/dislocation is identified. This includes a posterior malleolar fracture which is slightly posteriorly displaced and retracted. Fracturing of the distal fibula is identified demonstrating slightly overriding with 5 mm of lateral displacement. Fracturing of the medial malleolus with medial displacement is noted. The tibial plafond is anteriorly positioned in relationship to the talus. The talar dome appears grossly intact. No additional fracture. Small plantar calcaneal enthesophytes. Advanced background vascular calcifications. IMPRESSION: Recent tri-malleolar fracture/dislocation as described above with alignment and displacement appearing significantly worsened since the prior examination. Severe background vascular calcifications. Dictated by: Dictated on workstation # [id number]
== END ==
LOC: RAD FS 09:14
PROVIDERS: ATTEND Nurse Practitioner
DX: S82.844A Nondisplaced bimalleolar fracture of right lower leg, initial encounter for closed fracture (principal); X58.XXXA Exposure to other specified factors, initial encounter; I25.84 Coronary atherosclerosis due to calcified coronary lesion
CPT/HCPCS: 73610

== ENCOUNTER 2022-07-09 00:47 | Inpatient (IN) | payer MEDICARE ==
[2022-07-09] VITALS (15 sets, daily range): BP systolic 102–155; BP diastolic 62–95
[~2022-07-09] VITALS: Ht 162.6 cm; Wt 137.1 kg
--- NOTE | 2022-07-09 00:51 | ED Cough/URI ---
General Chief Complaint: Cough/Cold/Flu Symptoms Stated Complaint: COUGH History of Present Illness Date Seen by Provider: Jul 09, 2022 Time Seen by Provider: 00:51 Initial Comments 71-year-old female with PMH of diabetes mellitus 2/HTN/DVT with IVC filter/Right lower extremity fracture recent, is brought in by EMS with complaints of waking up in the middle of the night with cough with severe congestion and shortness of breath. Pt is in rehab for a right lower extremity surgery. Pt was fine all day yesterday and even had dinner and went to sleep. Denies chest pain, palpitations, fever, abdominal pain, nausea, vomiting. Patient states that she oxygen long time ago but has not needed it for a while. Patient denies COPD or asthma however her med recon shows that she is on montelukast. Allergies and Home Medications Allergies Coded Allergies: Penicillins (Verified Allergy, Unknown, 01/11/19) Patient Home Medication List Home Medication List Reviewed: Yes Alprazolam (Alprazolam) 1 Mg Tablet, 1 MG PO 0800,1600, (Reported) Entered as Reported by: SOLANGE MARQUES on 03/06/20 1541 Amitriptyline HCl (Amitriptyline HCl) 100 Mg Tablet, 100 MG PO HS, (Reported) Entered as Reported by: SOLANGE MARQUES on 03/06/20 1549 Amlodipine Besylate (Amlodipine Besylate) 5 Mg Tablet, 5 MG PO DAILY, (Reported) Entered as Reported by: LACHO CRUZ on 12/14/21 0953 Benzonatate (Benzonatate) 100 Mg Capsule, 100 MG PO TID PRN for COUGH, (Reported) Entered as Reported by: LACHO CRUZ on 12/14/21 0953 Cholecalciferol (Vitamin D3) (Vitamin D3) 50 Mcg (2000 Unit) Capsule, 50 MCG PO DAILY, (Reported) Entered as Reported by: LACHO CRUZ on 12/14/21 0953 Citalopram Hydrobromide (Citalopram HBr) 20 Mg Tablet, 20 MG PO HS, (Reported) Entered as Reported by: SOLANGE MARQUES on 03/06/20 1550 Gabapentin (Neurontin) 300 Mg Capsule, 300 MG PO QID, (Reported) Entered as Reported by: LACHO CRUZ on 12/14/21 0953 Guaifenesin (Mucinex) 600 Mg Tab.er.12h, 600 MG PO Q12H PRN for COUGH/CONGESTION, (Reported) Entered as Reported by: LACHO CRUZ on 12/14/21 09 Insulin Detemir (Levemir Flextouch) 100 Unit/Ml (3 Ml) Insuln.pen, 30 UNIT SQ HS Prescribed by: ADELSO ZIMMERMAN on 12/19/21 131 Insulin Lispro (Humalog Kwikpen) 100 Unit/Ml Insuln.pen, 10 UNIT SQ TID Prescribed by: ADELSO ZIMMERMAN on 12/19/21 131 Melatonin (Melatonin) 5 Mg Tablet, 5 MG PO HS, (Reported) Entered as Reported by: LACHO CRUZ on 09/27/20 1222 Montelukast Sodium (Montelukast Sodium) 10 Mg Tablet, 10 MG PO DAILY@0900 Prescribed by: ADELSO ZIMMERMAN on 12/19/21 131 Oxycodone HCl/Acetaminophen (Oxycodone-Acetaminophen 5-325) 5 Mg-325 Mg Tablet, 1 EA PO QID PRN for PAIN-MODERATE (5-7), (Reported) Entered as Reported by: LACHO CRUZ on 12/14/21 09 Prednisone (Prednisone) 20 Mg Tab, 20 MG PO DAILY Prescribed by: ADELSO ZIMMERMAN on 12/19/211316 Warfarin Sodium (Warfarin Sodium) 5 Mg Tablet, 5 MG PO 1600, (Reported) Entered as Reported by: LACHO CRUZ on 12/14/21 09 Review of Systems Review of Systems Constitutional: no symptoms reported EENTM: no symptoms reported Respiratory: cough, short of breath, wheezing Cardiovascular: no symptoms reported Gastrointestinal: no symptoms reported Genitourinary: no symptoms reported Musculoskeletal: no symptoms reported Skin: no symptoms reported Psychiatric/Neurological: No Symptoms Reported Hematologic/Lymphatic: No Symptoms Reported Immunological/Allergic: no symptoms reported Past Baukhfg-Vcptzq-Evzqai Hx Immunizations Up To Date First/Initial COVID19 Vaccinat: Pt has had the first shot of Pfizer vaccine and is due for her second 03/27 Second COVID19 Vaccination Jonas: Pt has had the first shot of Pfizer vaccine and is due for her second 03/27 Third COVID19 Vaccination Date: Pt has had the first shot of Pfizer vaccine and is due for her second 03/27 Seasonal Allergies Seasonal Allergies: No Past Medical History Surgery/Hospitalization HX: Fibromyalgia, Pulmonary Embolus, Hypertension, Chronic Kidney Disease, Migraines, Hypercholesterolemia, GERD, Anxiety, Depression, Insomnia Surgeries: No Respiratory: Yes Pneumonia, Pulmonary Embolism Currently Using CPAP: No Currently Using BIPAP: No Cardiac: Yes Deep Vein Thrombosis, High Cholesterol, Hypertension Neurological: Yes (fibromyalgia. CHRONIC FATQUE SYNDRONE) Headaches /Migraines, Stroke Sexually Transmitted Disease: No HIV/AIDS: No Genitourinary: Yes Bladder Infection, Renal Failure Gastrointestinal: Yes Gastroesophageal Reflux, Chronic Constipation, Hemorrhoids, Gall Bladder Disease Musculoskeletal: Yes Arthritis, Chronic Back Pain Endocrine: No HEENT: Yes (BOTH EARS HURT INSIDE, COCKEYED FROM ) Cataract, Double Vision Loss of Vision: Bilateral Hearing Impairment: Hard of Hearing Cancer: No Psychosocial: Yes Sleep Difficulties, Anxiety, Depression Integumentary: Yes Eczema Blood Disorders: No Adverse Reaction/Blood Tranf: No Family Medical History Diabetes mellitus 19 MOTHER CAD Under 55 Years Old, Diabetes Physical Exam Vital Signs - First Documented 07/09/22 00:50 Temp 35.9 Pulse 98 Resp 16 B/P (MAP) 120/83 (95) Pulse Ox 96 O2 Delivery Room Air Capillary Refill : Height: 5'4.00" Weight: 300lbs. oz. 136.650420gx; 51.00 BMI Method:Stated General Appearance: mild distress HEENT: PERRL/EOMI, normal ENT inspection Neck: full range of motion Respiratory: no respiratory distress, no accessory muscle use, rhonchi, wheezing (Expiratory) Cardiovascular: regular rate, rhythm, no edema Gastrointestinal: normal bowel sounds, non tender, soft Neurologic/Psychiatric: alert, oriented x 3 Skin: normal color Progress/Results/Core Measures Suspected Sepsis SIRS Temperature: Pulse: Respiratory Rate: Laboratory Tests 07/09/22 01:30: White Blood Count 7.4 Blood Pressure / Mean: Laboratory Tests 07/09/22 01:30: Creatinine 1.25, INR Comment 4.8H, Platelet Count 285, Total Bilirubin 0.1 Results/Orders Lab Results Laboratory Tests Test 07/09/22 01:00 07/09/22 01:30 Range/Units Influenza Type A (RT-PCR) Not Detected Not Detecte Influenza Type B (RT-PCR) Not Detected Not Detecte SARS-CoV-2 RNA (RT-PCR) Not Detected Not Detecte Group A Streptococcus Screen NEGATIVE NEGATIVE White Blood Count 7.4 4.3-11.0 10^3/uL Red Blood Count 3.99 3.80-5.11 10^6/uL Hemoglobin 10.2 L 11.5-16.0 g/dL Hematocrit 32 L 35-52 % Mean Corpuscular Volume 81 80-99 fL Mean Corpuscular Hemoglobin 26 25-34 pg Mean Corpuscular Hemoglobin Concent 32 32-36 g/dL Red Cell Distribution Width 14.7 H 10.0-14.5 % Platelet Count 285 130-400 10^3/uL Mean Platelet Volume 9.1 9.0-12.2 fL Immature Granulocyte % (Auto) 0 % Neutrophils (%) (Auto) 51 42-75 % Lymphocytes (%) (Auto) 38 12-44 % Monocytes (%) (Auto) 6 0-12 % Eosinophils (%) (Auto) 4 0-10 % Basophils (%) (Auto) 0 0-10 % Neutrophils # (Auto) 3.8 1.8-7.8 10^3/uL Lymphocytes # (Auto) 2.8 1.0-4.0 10^3/uL Monocytes # (Auto) 0.4 0.0-1.0 10^3/uL Eosinophils # (Auto) 0.3 0.0-0.3 10^3/uL Basophils # (Auto) 0.0 0.0-0.1 10^3/uL Immature Granulocyte # (Auto) 0.0 0.0-0.1 10^3/uL Prothrombin Time 45.1 *H 12.2-14.7 SEC INR Comment 4.8 H 0.8-1.4 Activated Partial Thromboplast Time 56 H 24-35 SEC D-Dimer 0.94 H 0.00-0.49 UG/ML Sodium Level 140 135-145 MMOL/L Potassium Level 3.8 3.6-5.0 MMOL/L Chloride Level 103 98-107 MMOL/L Carbon Dioxide Level 25 21-32 MMOL/L Anion Gap 12 5-14 MMOL/L Blood Urea Nitrogen 25 H 7-18 MG/DL Creatinine 1.25 0.60-1.30 MG/DL Estimat Glomerular Filtration Rate 47 BUN/Creatinine Ratio 20 Glucose Level 136 H 70-105 MG/DL Calcium Level 9.3 8.5-10.1 MG/DL Corrected Calcium 9.9 8.5-10.1 MG/DL Magnesium Level 1.7 1.6-2.4 MG/DL Total Bilirubin 0.1 0.1-1.0 MG/DL Aspartate Amino Transf (AST/SGOT) 15 5-34 U/L Alanine Aminotransferase (ALT/SGPT) 14 0-55 U/L Alkaline Phosphatase 94 40-136 U/L B-Type Natriuretic Peptide 10.8 <100.0 PG/ML Total Protein 7.6 6.4-8.2 GM/DL Albumin 3.2 3.2-4.5 GM/DL Procalcitonin 0.03 <0.10 NG/ML My Orders Orders - SERGE GARCIA MD Covid 19 Inhouse Test (07/09/22 00:52) Influenza A And B By Pcr (07/09/22 00:52) Rapid Strep A Screen (07/09/22 00:52) Chest 1 View, Ap/Pa Only (07/09/22 01:01) Bnp Suri (07/09/22 01:02) Cbc With Automated Diff (07/09/22 01:02) Comprehensive Metabolic Panel (07/09/22 01:02) Fibrin Degradation Products (07/09/22 01:02) Lactic Acid Analyzer (07/09/22 01:02) Magnesium (07/09/22 01:02) Procalcitonin (Pct) (07/09/22 01:02) Protime With Inr (07/09/22 01:02) Partial Thromboplastin Time (07/09/22 01:02) Ua Culture If Indicated (07/09/22 01:02) Methylprednisolone Sod Succ (Solu-Medrol (07/09/22 01:04) Albuterol/Ipra Inhalation Soln (Duoneb I (07/09/22 01:15) Svn Small Volume Nebulizer (07/09/22 01:04) Albuterol/Ipra Inhalation Soln (Duoneb I (07/09/22 01:45) Svn Small Volume Nebulizer (07/09/22 01:42) Ct Angio Chest W (07/09/22 02:40) Iohexol Injection (Omnipaque 350 Mg/Ml 1 (07/09/22 04:15) Received Contrast (Hold Metformin- Contr (07/09/22 04:15) Ns (Ivpb) (Sodium Chloride 0.9% Ivpb Bag (07/09/22 04:15) Azithromycin Injection (Zithromax Inject (07/09/22 05:45) Medications Given in ED Current Medications Medications Dose Ordered Sig/[place] Route Start Time Stop Time Status Last Admin Dose Admin Albuterol/ Ipratropium 3 ml ONCE ONCE INH 07/09/22 01:15 07/09/22 01:16 DC 07/09/22 01:31 3 ML Albuterol/ Ipratropium 3 ml ONCE ONCE INH 07/09/22 01:45 07/09/22 01:46 DC 07/09/22 02:53 3 ML Iohexol 100 ml ONCE ONCE IV 07/09/22 04:15 07/09/22 04:21 DC 07/09/22 04:14 95 ML Sodium Chloride 100 ml ONCE ONCE IV 07/09/22 04:15 07/09/22 04:21 DC 07/09/22 04:14 70 ML Vital Signs/I&O 07/09/22 07/09/22 07/09/22 07/09/22 00:50 01:05 01:32 02:54 Temp 35.9 Pulse 98 Resp 16 B/P (MAP) 120/83 (95) Pulse Ox 96 94 92 O2 Delivery Room Air Room Air Room Air Room Air Capillary Refill : Progress Note : Progress Note 1. ACUTE RESPIRATORY FAILURE/ ASTHMA EXACERBATION/ ELEVATED D-DIMER: - CXR: - Elevated d-dimer , PT , and INR of 4.8 ( Pt on Coumadin) - CTA CHEST: see report: Negative for PE - CBC:normal - BNP and Procal normal - CMP unremarkable - Duo neb x 2 with improvement but lungs still not clear - Solumedrol 125mg iv - Azithromycin 500mg iv STAT - Discussed with hospitalist and will admit to observation -Patient is requiring 1 to 2 L of oxygen -Hold warfarin Departure Communication (Admissions) Time/Spoke to Admitting Phy: 05:[address] Fang, will admit to obs Impression Primary Impression: Acute respiratory failure Additional Impressions: Asthma Elevated d-dimer Disposition: 30 STILL A PATIENT Condition: Stable Admissions Decision to Admit Reason: Admit from ER (General) Decision to Admit/Date: Jul 09, 2022 Time/Decision to Admit Time: 05:47 Departure-Patient Inst. Referrals: CELIA SEWELL MD (PCP/Family) Primary Care Physician SERGE GARCIA MD Jul 09, 2022 00:51
[2022-07-09] MEDS ORDERED: methylPREDNISolone 125 MG (Solu-MEDROL) VIAL IV STA (01:04)
[2022-07-09] MEDS ORDERED: RT-ALBUTEROL/IPRATROPIUM 3 ML (DUONEB) VIAL INH ONE ×2 (01:15→01:45)
[2022-07-09 01:42] LABS: BASOPHILS % (AUTO) 0 % (0-10); EOSINOPHILS # (AUTO) 0.3 10^3/uL (0.0-0.3); EOSINOPHILS % (AUTO) 4 % (0-10); HEMATOCRIT 32 % (35-52); HEMOGLOBIN 10.2 g/dL (11.5-16.0); LYMPHOCYTES # (AUTO) 2.8 10^3/uL (1.0-4.0); LYMPHOCYTES % (AUTO) 38 % (12-44); MEAN CORPUSCULAR HEMOGLOBIN 26 pg (25-34); MEAN CORPUSCULAR HGB CONC 32 g/dL (32-36); MEAN CORPUSCULAR VOLUME 81 fL (80-99); MEAN PLATELET VOLUME 9.1 fL (9.0-12.2); MONOCYTES # (AUTO) 0.4 10^3/uL (0.0-1.0); MONOCYTES % (AUTO) 6 % (0-12); NEUTROPHILS # (AUTO) 3.8 10^3/uL (1.8-7.8); NEUTROPHILS % (AUTO) 51 % (42-75); PLATELET COUNT 285 10^3/uL (130-400); WHITE BLOOD COUNT 7.4 10^3/uL (4.3-11.0)
[2022-07-09 02:00] LABS: ALBUMIN 3.2 GM/DL (3.2-4.5); BILIRUBIN,TOTAL 0.1 MG/DL (0.1-1.0); CALCIUM 9.3 MG/DL (8.5-10.1); CREATININE SERUM 1.25 MG/DL (0.60-1.30); MAGNESIUM 1.7 MG/DL (1.6-2.4); POTASSIUM 3.8 MMOL/L (3.6-5.0); TOTAL PROTEIN 7.6 GM/DL (6.4-8.2)
[2022-07-09 02:19] LABS: INR 4.8 (0.8-1.4)
[2022-07-09 02:21] LABS: FIBRIN DEGRADATION PRODUCTS 0.94 UG/ML (0.00-0.49)
[2022-07-09 02:27] LABS: PROTHROMBIN TIME PATIENT 45.1 SEC (12.2-14.7)
[2022-07-09] MEDS ORDERED: IOHEXOL 350 MG/ML 100 ML (OMNIPAQUE 350) VIAL IV ONE (04:15)
[2022-07-09] MEDS ORDERED: NS 100 ML (IVPB) BAG IV ONE (04:15)
[2022-07-09] MEDS ORDERED: HOLD METFORMIN - RECEIVED CONTRAST 20 ML VIAL IV SCH (04:15)
[2022-07-09] MEDS ORDERED: AZITHROMYCIN INJECTION 500 MG in NS (IVPB) 250 ML IV ONE (05:45)
--- NOTE | 2022-07-09 07:04 | Diagnostic Imaging Report ---
PROCEDURE: CT angiography of the chest with contrast. TECHNIQUE: Multiple contiguous axial images were obtained through the chest after uneventful bolus administration of intravenous contrast. 3D reconstructed CTA MIP acquisitions were also performed. Auto Exposure Controls were utilized during the CT exam to meet ALARA standards for radiation dose reduction. DATE: July 09, 2022. COMPARISON: CT chest December 13, 2021. INDICATION: 71-year-old female, cough, shortness of breath. FINDINGS: There are predominantly linear opacities in the left lower lobe and right lower lobe most consistent with atelectasis. There also are mild linear opacities in the right upper lobe likely relating to atelectasis as well. There is respiratory motion artifact present. There is no identified pulmonary nodule or lung mass. There is no pneumothorax. There is no pleural effusion. The central airways are patent. There is no identified pulmonary embolus. The heart is not enlarged. There is no pericardial effusion. There is no identified abnormally enlarged mediastinal, hilar, or axillary lymph node which meets CT size criteria for adenopathy. There is mild distention of the upper esophagus with fluid in the upper esophagus. There is no CT apparent wall thickening of the esophagus. There is a partially imaged inferior vena cava filter. Additional evaluation of the imaged portions of the upper abdomen is unremarkable. There are multilevel degenerative changes of the spine. There is no identified acute bony abnormality. IMPRESSION: CT CHEST. 1. No identified pulmonary embolus or other acute cardiopulmonary abnormality. 2. Predominantly linear opacities in the right upper lobe and lower lobes bilaterally most consistent with atelectasis. 3. Small amount of fluid and mild distention of the upper esophagus without CT apparent wall thickening of the esophagus. Agree with the provided preliminary report. Dictated by: Dictated on workstation # [id number]
--- NOTE | 2022-07-09 08:35 | History & Physical-Hospitalist ---
History of Present Illness HPI/Chief Complaint Patient 71-year-old female past medical history of insulin-dependent diabetes, hypertension, hyperlipidemia, DVT with IVC filter, and recent ankle fracture who presented to the emergency department due to shortness of breath. She denies any history of COPD or asthma but does report recurrent pneumonia around 5 times with multiple admissions. She woke up last night at around 1130 and called her nurse. She was wheezing and very short of breath and was sent to the emergency department for evaluation. She was given DuoNebs and IV steroids with improvement in her breathing. She does not normally wear oxygen but was requiring 2 L to maintain her oxygen saturation. Given her history of VTE a CTA was done and was negative for PE. She was admitted for further management. Source: patient Date Seen 07/09/22 Time Seen by a Provider: 08:29 Attending Physician Gilberto Francis MD PCP Admitting Physician: Mary Fang MD Attending Physician: Mary Fang MD Referring Physician Date of Admission Jul 09, 2022 at 06:00 Home Medications & Allergies Home Medications Reviewed patient Home Medication Reconciliation performed by pharmacy medication reconciliations ip/mosaic technician and/or nursing. Patients Allergies have been reviewed. Allergies Allergies Coded Allergies Penicillins (Verified Allergy, Unknown, 01/11/19) Past Dpgdhsf-Pijwud-Anyycg Hx Patient Social History Employed/Student: retired Tobacco Use?: No Use of E-Cig and/or Vaping dev: No Substance use?: No Alcohol Use?: No Pt feels they are or have been: No Immunizations Up To Date First/Initial COVID19 Vaccinat: 2020 Second COVID19 Vaccination Jonas: 2020 Tetanus Booster (TDap): Unknown Hepatitis A: No Hepatitis B: No Date of Pneumonia Vaccine: May 12, 2018 Seasonal Allergies Seasonal Allergies: No Current Status Advance Directives: No Communicates: Verbally Primary Language: Polish Preferred Spoken Language: Polish Sensory deficits: Vision impairment Past Medical History Pneumonia, Pulmonary Embolism Currently Using CPAP: No Currently Using BIPAP: No Deep Vein Thrombosis, High Cholesterol, Hypertension Headaches /Migraines, Stroke Sexually Transmitted Disease: No HIV/AIDS: No Bladder Infection, Renal Failure Gastroesophageal Reflux, Chronic Constipation, Hemorrhoids, Gall Bladder Disease Arthritis, Chronic Back Pain Cataract, Double Vision Loss of Vision: Bilateral Hearing Impairment: Hard of Hearing Sleep Difficulties, Anxiety, Depression Eczema Blood Disorders: No Adverse Reaction/Blood Tranf: No Chronic Pain Pulmonary Embolism x3 CKD Anxiety Depression HTN Family Medical History Diabetes mellitus 19 MOTHER CAD Under 55 Years Old, Diabetes Review of Systems Constitutional: No chills, No fever EENTM: no symptoms reported Respiratory: see HPI Cardiovascular: no symptoms reported Gastrointestinal: no symptoms reported Genitourinary: no symptoms reported Musculoskeletal: see HPI Skin: no symptoms reported Psychiatric/Neurological: No Symptoms Reported Physical Exam Physical Exam Vital Signs Vital Signs - First Documented 07/09/22 07/09/22 00:50 08:42 Temp 35.9 Pulse 98 Resp 16 B/P (MAP) 120/83 (95) Pulse Ox 96 O2 Delivery Room Air FiO2 28 Capillary Refill : Height, Weight, BMI Height: 5'4.00" Weight: 300lbs. oz. 136.107291qn; 46.00 BMI Method:Stated General Appearance: No Apparent Distress, Chronically ill, Obese HEENT: PERRL/EOMI, Moist Mucous Membranes; No Scleral Icterus (L), No Scleral Icterus (R) Neck: Normal Inspection, Supple Respiratory: No Accessory Muscle Use, No Respiratory Distress; No Crackles; Wheezing Cardiovascular: Regular Rate, Rhythm, No Murmur Gastrointestinal: Normal Bowel Sounds, Non Tender, Soft Neurologic/Psychiatric: Alert, Oriented x3 Results Results/Procedures Labs Laboratory Tests 07/10/22 05:35 07/11/22 05:57 Patient resulted labs reviewed. Imaging: Reviewed Imaging Report Imaging [facility], [place] NAME: KIRSTIE CHAUDHRY [facility] REC#: [id number] PT STATUS: ADM Alysha : 1950 PHYSICIAN: SERGE GARCIA MD ADMIT DATE: 07/09/22/ICU Signed Date of Exam:07/09/22 CT ANGIO CHEST W PROCEDURE: CT angiography of the chest with contrast. TECHNIQUE: Multiple contiguous axial images were obtained through the chest after uneventful bolus administration of intravenous contrast. 3D reconstructed CTA MIP acquisitions were also performed. Auto Exposure Controls were utilized during the CT exam to meet ALARA standards for radiation dose reduction. DATE: July 09, 2022. COMPARISON: CT chest December 13, 2021. INDICATION: 71-year-old female, cough, shortness of breath. FINDINGS: There are predominantly linear opacities in the left lower lobe and right lower lobe most consistent with atelectasis. There also are mild linear opacities in the right upper lobe likely relating to atelectasis as well. There is respiratory motion artifact present. There is no identified pulmonary nodule or lung mass. There is no pneumothorax. There is no pleural effusion. The central airways are patent. There is no identified pulmonary embolus. The heart is not enlarged. There is no pericardial effusion. There is no identified abnormally enlarged mediastinal, hilar, or axillary lymph node which meets CT size criteria for adenopathy. There is mild distention of the upper esophagus with fluid in the upper esophagus. There is no CT apparent wall thickening of the esophagus. There is a partially imaged inferior vena cava filter. Additional evaluation of the imaged portions of the upper abdomen is unremarkable. There are multilevel degenerative changes of the spine. There is no identified acute bony abnormality. IMPRESSION: CT CHEST. 1. No identified pulmonary embolus or other acute cardiopulmonary abnormality. 2. Predominantly linear opacities in the right upper lobe and lower lobes bilaterally most consistent with atelectasis. 3. Small amount of fluid and mild distention of the upper esophagus without CT apparent wall thickening of the esophagus. Agree with the provided preliminary report. Dictated by: Dictated on workstation # [id number] Dict: 07/09/22654 Trans: 07/09/22802 [facility] [id number] Interpreted by: LEONOR FRIEND MD Electronically signed by: LEONOR FRIEND MD 07/09/22802 Assessment/Plan Admission Diagnosis Acute on Chronic respiratory failure Admission Status: Observation Assessment and Plan Acute on Chronic respiratory failure No known history of COPD/Asthma but chronic hypoxia from recurrent pneumonias Wheezing significantly on exam Received solumedrol at 0200- continue MAT protocol Pulm/TeleICU consult Wean oxygen as able Recent ankle fracture Follows with Ortho at [place] Has appointment with them on 07/12 PT/OT History of DVT Chronic anticoagulation Supratherapeutic INR- hold warfarin CTA negative for PE Trend INR IDDMII Fasting BS 136 on arrival Anticipate higher levels with steroids SSI Home regimen as able HTN HLD Continue home meds as able DVT ppx: Already on warfarin and subtherapeutic SCOT ESCOBAR MD Jul 09, 2022 8:35 am
[2022-07-09] MEDS ORDERED: CATHETER FLUSH 10 ML SYR IV PRN (08:45)
[2022-07-09] MEDS ORDERED: RT-ALBUTEROL/IPRATROPIUM 3 ML (DUONEB) VIAL INH PRN ×2 (08:45→13:15)
--- NOTE | 2022-07-09 08:48 | Diagnostic Imaging Report ---
INDICATION: Cough and congestion. Comparison with 12/13/2021. FINDINGS: There is again noted bibasilar atelectasis. There is a hazy appearance with some obscuration left hemidiaphragm on today's exam raising concern of early developing infiltrate. No pneumothorax. Thickening of the major fissure on the right is again noted unchanged. The heart is not enlarged. No evidence of pulmonary edema. IMPRESSION: 1. There is a Pickwickian appearance with chronic basilar atelectasis. 2. Hazy appearance left lung base with some obscuration left hemidiaphragm raising concern of early developing infiltrate. Dictated by: Dictated on workstation # [id number]
[2022-07-09] MEDS ORDERED: DOCU100C37 PO (10:29)
[2022-07-09] MEDS ORDERED: POLY17PO6 PO (10:29)
[2022-07-09] MEDS ORDERED: MELA3TAB39 PO (10:29)
[2022-07-09] MEDS ORDERED: CALC500T7 PO (10:29)
[2022-07-09] MEDS ORDERED: GABA300C PO (10:29)
[2022-07-09] MEDS ORDERED: TOLT2TAB19 PO (10:29)
[2022-07-09] MEDS ORDERED: WARF7.5T3 PO (10:29)
[2022-07-09] MEDS ORDERED: ERGO1250 PO (10:29)
[2022-07-09] MEDS ORDERED: NALO4SPR NS (10:29)
[2022-07-09] MEDS ORDERED: INSU100I14 SC (10:29)
[2022-07-09] MEDS ORDERED: INSU100I29 SQ (10:29)
[2022-07-09] MEDS ORDERED: ACET325T38 PO (10:29)
[2022-07-09] MEDS ORDERED: MAGN400O7 PO (10:29)
[2022-07-09] MEDS ORDERED: CALCIUM CARBONATE 500 MG (TUMS) TAB.CHEW PO PRN (12:30)
[2022-07-09] MEDS ORDERED: polyethylene glycoL POWDER 17 GM (MIRALAX) PACK PO PRN (12:30)
[2022-07-09] MEDS ORDERED: ACETAMINOPHEN 325 MG TABLET PO PRN (12:30)
[2022-07-09] MEDS ORDERED: oxyCODONE/APAP 5/325MG (PERCOCET 5) TABLET PO PRN (12:30)
[2022-07-09] MEDS: RT-ALBUTEROL/IPRATROPIUM 3 ML (DUONEB) VIAL IH SCH ×4 (13:12→22:02)
[2022-07-09] MEDS: methylPREDNISolone 125 MG (Solu-MEDROL) VIAL IV SCH (14:02)
[2022-07-09] MEDS: GABAPENTIN 300 MG (NEURONTIN) CAP PO SCH ×3 (14:02→20:50)
[2022-07-09] MEDS: CATHETER FLUSH 10 ML SYR IV SCH ×2 (14:02→22:07)
[2022-07-09] MEDS: inSUlin ASPART (NovoLOG) 1 UNIT/0.01 ML (CHARGE PER UNIT) SC SCH ×2 (16:10→23:02)
[2022-07-09] MEDS: DOCUSATE SODIUM 100 MG (COLACE) CAP PO SCH (20:42)
[2022-07-09] MEDS: ALPRAZolam 1 MG (XANAX) TAB PO PRN (20:49)
[2022-07-09] MEDS: AMITRIPTYLINE 25 MG (ELAVIL) TAB PO SCH (20:52)
[2022-07-09] MEDS ORDERED: NON-FORMULARY MEDICATION 1 EA EA (Insulin Detemir (Levemir Flextouch) 15 UNIT) SQ SCH (21:00)
[2022-07-09] MEDS ORDERED: NON-FORMULARY MEDICATION 1 EA EA (Amitriptyline HCl 100 MG) PO SCH (21:00)
[2022-07-09] MEDS ORDERED: RT-ALBUTEROL/IPRATROPIUM 3 ML (DUONEB) VIAL INH SCH (21:00)
[2022-07-09] MEDS ORDERED: NON-FORMULARY MEDICATION 1 EA EA (Tolterodine Tartrate 2 MG) PO SCH (21:00)
[2022-07-10] MEDS: methylPREDNISolone 125 MG (Solu-MEDROL) VIAL IV SCH (01:21)
[2022-07-10] MEDS: RT-ALBUTEROL/IPRATROPIUM 3 ML (DUONEB) VIAL IH SCH ×6 (04:03→22:17)
[2022-07-10 04:20] VITALS: BP 137/78
[2022-07-10 05:59] LABS: HEMATOCRIT 32 % (35-52); HEMOGLOBIN 10.5 g/dL (11.5-16.0); MEAN CORPUSCULAR HEMOGLOBIN 26 pg (25-34); MEAN CORPUSCULAR HGB CONC 32 g/dL (32-36); MEAN CORPUSCULAR VOLUME 79 fL (80-99); MEAN PLATELET VOLUME 10.3 fL (9.0-12.2); PLATELET COUNT 314 10^3/uL (130-400); WHITE BLOOD COUNT 12.9 10^3/uL (4.3-11.0)
[2022-07-10 06:17] LABS: CALCIUM 9.5 MG/DL (8.5-10.1); CREATININE SERUM 1.18 MG/DL (0.60-1.30); POTASSIUM 4.6 MMOL/L (3.6-5.0)
[2022-07-10] MEDS: inSUlin ASPART (NovoLOG) 1 UNIT/0.01 ML (CHARGE PER UNIT) SC SCH ×5 (06:20→21:22)
[2022-07-10] MEDS: CATHETER FLUSH 10 ML SYR IV SCH ×3 (06:21→23:00)
[2022-07-10 07:37] VITALS: BP 156/76
[2022-07-10] MEDS: AZITHROMYCIN 500 MG/NS 250 ML IVPB IV SCH ×2 (08:47)
[2022-07-10] MEDS: DOCUSATE SODIUM 100 MG (COLACE) CAP PO SCH ×2 (08:47→21:02)
[2022-07-10] MEDS: GABAPENTIN 300 MG (NEURONTIN) CAP PO SCH ×4 (08:47→21:00)
[2022-07-10] MEDS: TOLTERODINE LA 2 MG (DETROL LA) CAP PO SCH (08:47)
[2022-07-10] MEDS: ALPRAZolam 1 MG (XANAX) TAB PO PRN ×2 (08:57→21:05)
--- NOTE | 2022-07-10 10:35 | Progress Note - Hospitalist ---
Subjective HPI/CC On Admission Date Seen by Provider: Jul 10, 2022 Patient 71-year-old female past medical history of insulin-dependent diabetes, hypertension, hyperlipidemia, DVT with IVC filter, and recent ankle fracture who presented to the emergency department due to shortness of breath. She denies any history of COPD or asthma but does report recurrent pneumonia around 5 times with multiple admissions. She woke up last night at around 1130 and called her nurse. She was wheezing and very short of breath and was sent to the emergency department for evaluation. She was given DuoNebs and IV steroids with improvement in her breathing. She does not normally wear oxygen but was requiring 2 L to maintain her oxygen saturation. Given her history of VTE a CTA was done and was negative for PE. She was admitted for further management. Subjective/Events-last exam Pt reports feeling better today but still not back to normal. About 50% of normal per her assessment. Focused Exam Lactate Level 07/09/22 10:50: Lactic Acid Level 4.20*H 07/09/22 13:01: Lactic Acid Level 4.16*H 07/09/22 15:15: Lactic Acid Level 3.65*H Objective Exam Vital Signs Vital Signs Date Time Temp Pulse Resp B/P (MAP) Pulse Ox O2 Delivery O2 Flow Rate FiO2 07/11/22 10:40 98 Room Air 07/11/22 08:42 36.4 62 18 157/83 (107) 07/10/22 22:17 1.00 07/09/22 08:42 28 Capillary Refill : General Appearance: No Apparent Distress Respiratory: No Accessory Muscle Use, Rhonci, Wheezing Cardiovascular: Regular Rate, Rhythm, No Murmur Neurologic/Psychiatric: Alert, Oriented x3 Results/Procedures Lab Laboratory Tests 07/11/22 05:57 Patient resulted labs reviewed. Imaging: Reviewed Imaging Report Assessment/Plan Assessment and Plan Assess & Plan/Chief Complaint Acute on Chronic respiratory failure No known history of COPD/Asthma but chronic hypoxia from recurrent pneumonias Wheezing significantly on exam Lower dose of solumedrol MAT protocol Pulm/TeleICU consult Wean oxygen as able Recent ankle fracture Follows with Ortho at [place] Has appointment with them on 07/12 PT/OT History of DVT Chronic anticoagulation Supratherapeutic INR- hold warfarin CTA negative for PE IDDMII Fasting BS 136 on arrival Anticipate higher levels with steroids SSI Home regimen as able HTN HLD Continue home meds as able DVT ppx: Already on warfarin and subtherapeutic SCOT ESCOBAR MD Jul 10, 2022 10:35 am
[2022-07-10 11:33] VITALS: BP 128/57
--- NOTE | 2022-07-10 12:01 | Tele-ICU Progress Note ---
Subjective Date Seen by a Provider: Jul 10, 2022 Subjective/Events-last exam This virtual visit was conducted using real time audio/video. Thank you for asking us to see this patient for respiratory insufficiency due to evolving pneumonia and acute bronchospasm with negative viral serologies. Feeling better since admission. PMH: HTN, recurrent pna, HL, DVT/PE/Filter, DM2, GERD, CKD, anx., dep. SH: smoking history: never FH: Non-contributory ROS: as in HPI PE: Appears chronically ill and mildly anxious. VSS. O2 sat 97% on 1 LPM HEENT: No obvious masses, adenopathy or JVD. Chest: Diffuse coarse wheezing on auscultation. CV: RRR S1 S2 No murmur or added sounds. Abd: Non-tender. Bowel sounds Y. : Unremarkable. Matias N. Has Purewick. MACHINE I TRIMMER/psychiatric: Grossly intact. No obvious focal findings. Extremities: Trace edema. Capillary refill < 3 seconds. Skin: unremarkable. Results: Elevated WCC 12.9 on Medrol, BUN 30, BG 355, Lactate 3.65 decreased. Decreased Hb 10.5. CXR: Poor qulaity, bibasal atelectasis, LLL infilt. Available chart/ vitals / labs / images reviewed. Video assessment done using teleICU camera, rest of exam as per RN. A/P: Respiratory insufficiency: Continue present management with Medrol, O2, Duonebs. Have requested Speech Path eval to R/O aspiration in view of recurrent pneumonias, Monitor for increasing oxygenation needs and/or need for intubation. Critical Care: critically ill patient. Cont. abx, SSI, Levemir. Discussed with ANN MARIE Hoang and Dr. Johnson. Asked RN to reach out to eICU if any questions or concerns later. Time spent with patient/coordination of care with other health professionals (mins): 35 Sepsis Event Evaluation Height, Weight, BMI Height: 5'4.00" Weight: 300lbs. oz. 136.225752hg; 50.83 BMI Method:Stated Focused Exam Lactate Level 07/09/22 10:50: Lactic Acid Level 4.20*H 07/09/22 13:01: Lactic Acid Level 4.16*H 07/09/22 15:15: Lactic Acid Level 3.65*H Exam Exam Patient acknowledged, consented, and participated in this virtual visit which was conducted using real time audio/video Vital Signs Date Time Temp Pulse Resp B/P (MAP) Pulse Ox O2 Delivery O2 Flow Rate FiO2 07/10/22 11:33 36.3 100 18 128/57 (80) 97 Nasal Cannula 1.00 07/10/22 09:53 96 Nasal Cannula 1.00 07/10/22 07:37 36.2 94 18 156/76 (102) 99 Nasal Cannula 1.00 07/10/22 07:34 98 Nasal Cannula 1.00 07/10/22 07:00 94 07/10/22 04:20 36.3 103 16 137/78 (97) 98 Nasal Cannula 1.50 07/10/22 04:03 97 Nasal Cannula 1.00 07/10/22 01:00 106 07/09/22 23:45 36.9 105 20 144/62 (89) 97 Nasal Cannula 1.50 07/09/22 22:05 98 Nasal Cannula 1.00 07/09/22 20:23 37.2 119 18 127/63 (84) 94 Nasal Cannula 1.50 07/09/22 20:00 94 Nasal Cannula 1.50 07/09/22 19:00 120 07/09/22 18:53 99 Nasal Cannula 1.00 07/09/22 18:00 115 130/72 (91) 98 Nasal Cannula 2.00 07/09/22 17:00 120 155/95 (115) 98 Nasal Cannula 2.00 07/09/22 16:00 112 131/76 (94) 97 Nasal Cannula 2.00 07/09/22 15:52 36.9 113 136/74 (94) 98 Nasal Cannula 2.00 07/09/22 14:15 99 Nasal Cannula 1.00 07/09/22 14:00 106 137/94 (108) 99 Nasal Cannula 2.00 07/09/22 13:00 107 124/68 (86) 98 Nasal Cannula 2.00 07/09/22 12:48 105 07/09/22 12:40 36.7 106 133/65 (87) 100 Nasal Cannula 2.00 07/09/22 12:00 106 133/65 (87) 100 Nasal Cannula 2.00 I & O 07/10/22 07:00 Intake Total 800 ml Output Total 500 ml Balance 300 ml Height & Weight Height: 5'4.00" Weight: 300lbs. oz. 136.039190pv; 50.83 BMI Method:Stated General Appearance: No Apparent Distress HEENT: PERRL/EOMI, Moist Mucous Membranes; No Scleral Icterus (L), No Scleral Icterus (R) Neck: Normal Inspection, Supple Respiratory: No Accessory Muscle Use, Rhonci, Wheezing Cardiovascular: Regular Rate, Rhythm, No Murmur Gastrointestinal: normal bowel sounds, non tender, soft Neurologic/Psychiatric: Alert, Oriented x3 Results Lab Laboratory Tests 07/09/22 01:30 07/10/22 05:35 Assessment/Plan Assessment/Plan See free text Critical Care: Critically Ill Patient HAM SPRING MD Jul 10, 2022 12:01
[2022-07-10] MEDS: methylPREDNISolone 40 MG/ML (Solu-MEDROL) VIAL IV SCH ×3 (13:02→23:00)
[2022-07-10 15:35] VITALS: BP 130/80
[2022-07-10 20:59] VITALS: BP 138/71
[2022-07-10] MEDS: AMITRIPTYLINE 25 MG (ELAVIL) TAB PO SCH (21:00)
[2022-07-10] MEDS: MELATONIN 3 MG TABLET PO PRN (21:05)
[2022-07-10 23:05] VITALS: BP 115/68
[2022-07-11] MEDS: RT-ALBUTEROL/IPRATROPIUM 3 ML (DUONEB) VIAL IH SCH ×6 (03:07→21:56)
[2022-07-11 03:44] VITALS: BP 159/70
[2022-07-11] MEDS: inSUlin ASPART (NovoLOG) 1 UNIT/0.01 ML (CHARGE PER UNIT) SC SCH ×4 (06:02→21:13)
[2022-07-11] MEDS: methylPREDNISolone 40 MG/ML (Solu-MEDROL) VIAL IV SCH ×3 (06:02→17:06)
[2022-07-11] MEDS: CATHETER FLUSH 10 ML SYR IV SCH ×3 (06:04→21:13)
[2022-07-11 06:14] LABS: HEMATOCRIT 30 % (35-52); MEAN CORPUSCULAR HEMOGLOBIN 26 pg (25-34); MEAN CORPUSCULAR HGB CONC 33 g/dL (32-36); MEAN CORPUSCULAR VOLUME 79 fL (80-99); MEAN PLATELET VOLUME 10.2 fL (9.0-12.2); PLATELET COUNT 326 10^3/uL (130-400); WHITE BLOOD COUNT 11.2 10^3/uL (4.3-11.0)
[2022-07-11 06:39] LABS: CALCIUM 9.3 MG/DL (8.5-10.1); CREATININE SERUM 1.3 MG/DL (0.60-1.30); POTASSIUM 4.5 MMOL/L (3.6-5.0)
[2022-07-11 08:42] VITALS: BP 157/83
--- NOTE | 2022-07-11 08:52 | Physical Therapy Evaluation ---
PT Evaluation-General Medical Diagnosis Admission Date Jul 10, 2022 at 11:17 Medical Diagnosis: acute on chronic respiratory failure Onset Date: Jul 10, 2022 Therapy Diagnosis Therapy Diagnosis: impaired mobility Height/Weight Height (Feet): 5 Height (Inches): 4.00 Weight (Pounds): 300 Precautions Precautions/Isolations: Standard Precautions Weight Bear Status Right Lower Extremity: Right Weight Bearing/Tolerated Patient has a right ankle fx but is WBAT per Dr. Johnson Referral Physician: Alex Reason for Referral: Evaluation/Treatment Medical History Pertinent Medical History: CVA, HTN, Renal Insufficiency Additional Medical History Past Medical History Pneumonia, Pulmonary Embolism Currently Using CPAP: No Currently Using BIPAP: No Deep Vein Thrombosis, High Cholesterol, Hypertension Headaches /Migraines, Stroke Sexually Transmitted Disease: No HIV/AIDS: No Bladder Infection, Renal Failure Gastroesophageal Reflux, Chronic Constipation, Hemorrhoids, Gall Bladder Disease Arthritis, Chronic Back Pain Cataract, Double Vision Loss of Vision: Bilateral Hearing Impairment: Hard of Hearing Sleep Difficulties, Anxiety, Depression Eczema Blood Disorders: No Adverse Reaction/Blood Tranf: No Chronic Pain Pulmonary Embolism x3 CKD Anxiety Depression HTN Reviewed History: Yes Social History Home: [facility] Prior Prior Level of Function SCALE: Activities may be completed with or without assistive devices. 9-Bfyeavqifs-kjqfsdq completes the activity by him/herself with no assistance from a helper. 5-Set-up or Clean-up Assistance-helper sets up or cleans up; patient completes activity. [place] assists only prior to or following the activity. 4-Supervision or Touching Assistance-helper provides verbal cues and/or touching/steadying and/or contact guard assistance as patient completes activity. Assistance may be provided throughout the activity or intermittently. 3-Partial/Moderate Assistance-helper does LESS THAN HALF the effort. [place] lifts, holds or supports trunk or limbs, but provides less than half the effort. 2-Substantial/Maximal Assistance-helper does MORE THAN HALF the effort. [place] lifts or holds trunk or limbs and provides more than half the effort. 8-Kwtctjrmd-cfjaaa does ALL the effort. Patient does none of the effort to com plete the activity. Or, the assistance of 2 or more helpers is required for the patient to complete the activity. If activity was not attempted, code reason: 7-Patient Refused. 9-Not Applicable-not attempted and the patient did not perform the activity before the current illness, exacerbation or injury. 10-Not Attempted due to Environmental Limitations-(lack of equipment, weather restraints, etc.). 88-Not Attempted due to Medical Conditions or Safety Concerns. Bed Mobility: 1 Transfers (B,C,W/C): 1 PT Evaluation-Current Subjective Patient in bed pre tx, agrees to PT, has no complaints of pain at rest. Patient states she doesn't stand or ambulate but does get into a WC at the skilled nursing via ranjit lift. Patient refuses to sit or try to stand, agrees to exercises in bed. Pt/Family Goals "to get stronger" Objective Patient Orientation: Person, Place, Situation Attachments: Oxygen ROM/Strength ROM Lower Extremities limited due to right ankle fx and obesity Strength Lower Extremities grossly 3/5 Integumentary/Posture Integumentary Patient has quite a bit of bruising on her right ankle. Sensory Hearing: Functional Sensation Right Lower Extremit: Intact Sensation Left Lower Extremity: Intact Treatment BLE supine exercise x20 (AP, QS, GS, OLIVO, SAQ, hip abd/add, SLR) Assessment/Needs Patient in bed post tx with nurse call, phone, tray, all needs met. Patient has impaired mobility, uses ranjit for transfers at [place], refuses to sit or try to stand. Rehab Potential: Guarded PT Director Of Financial Aid Goals Director Of Financial Aid Goals PT Fdc Goals Time Frame: Jul 18, 2022 Roll Left & Right (QC): 3 Sit to Lying (QC): 3 Lying-Sitting on Side/Bed(QC): 3 Sit to Stand (QC): 2 Chair/Wjh-db-Cydcf Xfer(QC): 2 PT Plan Problem List Problem List: Activity Tolerance, Functional Strength, Safety, Balance, Gait, Transfer, Bed Mobility, ROM Treatment/Plan Treatment Plan: Continue Plan of Care Treatment Plan: Bed Mobility, Education, Functional Activity Dena, Functional Strength, Gait, Safety, Therapeutic Exercise, Transfers Treatment Duration: Jul 18, 2022 Frequency: 6 times per week Estimated Hrs Per Day: .25 hour per day Patient and/or Family Agrees t: Yes Safety Risks/Education Patient Education: Correct Positioning, Safety Issues Teaching Recipient: Patient Teaching Methods: Demonstration, Discussion Response to Teaching: Reinforcement Needed Discharge Recommendations Plan Patient will perform bed mobility and transfer training, balance and endurance training, functional strengthening, gait training, and education, to improve functional mobility and independence at home. Therapy Discharge Recommendati: Other, See Comments (NH) Time Time In: 825 Time Out: 834 DATE: Jul 11, 2022 Total Billed Treatment Time: 9 Total Billed Treatment 1 visit SERGIO FOUNTAIN PT Jul 11, 2022 08:52
[2022-07-11] MEDS: TOLTERODINE LA 2 MG (DETROL LA) CAP PO SCH (09:09)
[2022-07-11] MEDS: AZITHROMYCIN 500 MG/NS 250 ML IVPB IV SCH ×2 (09:09)
[2022-07-11] MEDS: GABAPENTIN 300 MG (NEURONTIN) CAP PO SCH ×4 (09:09→20:14)
[2022-07-11] MEDS: ALPRAZolam 1 MG (XANAX) TAB PO PRN ×2 (09:09→21:12)
[2022-07-11] MEDS: DOCUSATE SODIUM 100 MG (COLACE) CAP PO SCH ×2 (09:09→20:14)
--- NOTE | 2022-07-11 09:42 | ST Dysphagia Evaluation ---
Speech Evaluation-General Medical Diagnosis Acute on Chronic Respiratory Failure Onset Date: Jul 10, 2022 Therapy Diagnosis Therapy Diagnosis: Intact Oropharyngeal Swallow Precautions Precautions: Fall, Pressure Ulcer, Aspiration Precautions/Isolations: Aspiration, Fall Prevention, Standard Precautions, Pressure Ulcer Referral Referring Physician: Dr. Fang Reason for Referral: Evaluation/Treatment Medical History Pertinent Medical History: CVA, HTN, Renal Insufficiency Current History The patient is a 71-year-old female with a past medical history of diabetes mellitus, HTN, DVT with IVC filter, and recent right lower extremity fracture, who presented [facility] with a cough, severe congestion, and shortness of breath. Chest CTA 07/09/22: 1. No identified pulmonary embolus or other acute cardiopulmonary abnormality. 2. Predominantly linear opacities in the right upper lobe and lower lobes bilaterally most consistent with atelectasis. 3. Small amount of fluid and mild distention of the upper esophagus without CT apparent wall thickening of the esophagus. Reviewed History: Yes Speech PLF/Current-Dysphagia Prior Level of Function The patient was consuming a regular consistency diet with thin liquids prior to admission (per patient report). Subjective The patient was seated upright in her bed, awake and alert, upon entrance to her room by the clinician. The patient greeted the clinician appropriately and was agreeable to participation in the clinical bedside swallowing evaluation. Per patient, she consumes a regular consistency diet with thin liquids. The patient denied s/s of suspected aspiration with thin liquids, however, does report "I sometimes cough after solids." Additionally, the patient stated she has experienced two episodes of globus sensation which she localized to the mid-esophageal region. The patient stated following the episodes she attempted a drink of water and "the water came right up, I vomited everything." Speech pathology was consulted to assess for the presence of aspiration with P.O. intake due to the patient's chronic respiratory infections. Due to the patient's esophageal reports, consideration of a gastroenterology referral may be appropriate to ensure respiratory issues are not being caused by retrograde flow of bolus material with subsequent pneumonitis. Cognitive Status Patient Orientation: Person, Place, Situation Oral Motor Skills Dentition: Edentalous Denture Type: Full- Upper & Lower Current Food Consistancy: Regular, Thin Liquids Ability to Follow Directions: Excellent Oral Expression Ability: No Impairment Voice Voice Phonatory-Based Quality: Harsh Voice Pitch: Normal Voice Loudness: Normal Face Facial Symmetry: Symmetrical Oral-Facial Assessment Oral-Facial Dentition: Normal Labial Seal Description: Normal Smile: Normal Lingual Protrusion: Normal Lingual ROM: Normal Lingual Strength: Normal Volitional Dry Swallow: Yes Voluntary Cough: Yes Can Clear Throat Volitionally: Yes Dysphagia Evaluation Consistencies Presented: Regular, Thin Liquid, Pureed The patient does not display oral impairments to the swallow function. The patient does not display pharyngeal impairments to the swallow function. Overt s/s of suspected aspiration were not appreciated with thin liquids (via teaspoon or straw drink), puree, or solid consistencies. The patient's vocal quality remained clear following each swallow. Dietary Recommendations: Regular Liquid Recommendations: Thin Recommendations: - Regular consistency diet with thin liquids, as tolerated. - Fully upright and alert for P.O. intake. - Small, single bites and sips (only). - Alternate solid and liquid consistencies on a 1:1 ratio. - Complete P.O. intake with a reduced, slow pace. Eliminate P.O. intake during periods of respiratory fatigue. - Additional sauces and gravies to aid in pharyngeal clearance. - Avoid problematic consistencies (dry solids). - Monitor for s/s of suspected aspiration with P.O. intake. If demonstrated, contact speech pathology. - Consider a referral to gastroenterology due to the patient's reports of a globus sensation with retrograde flow of thin liquids following the swallow. The results and recommendations were discussed extensively with the patient. The patient verbalized excellent comprehension of the swallowing strategies and protocols. Additionally, the clinician provided the recommendations to the patient's RN. Dysphagia Evaluation Summary The patient demonstrated an intact oropharyngeal swallow function. Overt s/s of suspected aspiration were not demonstrated with any consistency tested. The patient does report intermittent globus sensations with dry solid consistencies which she localizes to the mid-esophageal region. Additionally, the patient reports two prior episodes of retrograde flow of thin liquids following the globus sensation. As the patient's reported symptoms appear related to the esophageal function, the clinician recommended consideration of referral to gastroenterology. Speech-Plan Treatment Plan Speech Therapy Treatment Plan: Discontinue ST Treatment Duration: Jul 11, 2022 Frequency: 1 time per week Estimated Hrs Per Day: .25 hour per day Rehab Potential: Good Safety Risks/Education Teaching Recipient: Patient Teaching Methods: Discussion Response to Teaching: Verbalize Understanding, Return Demonstration Education Topics Provided: Results, Recommendations, Plan of Care, Swallowing Strategies Time Speech Therapy Time In: 08:39 Speech Therapy Time Out: 09:00 DATE: Jul 11, 2022 Total Billed Time: 21 Billed Treatment Time 1, ADILIA TIDWELL [facility] Jul 11, 2022 09:42
[2022-07-11] MEDS ORDERED: ADVAIR HFA 115/21 MCG INHALER 8 GM IH SCH (12:00)
--- NOTE | 2022-07-11 12:02 | Progress Note - Hospitalist ---
Subjective HPI/CC On Admission Date Seen by Provider: Jul 11, 2022 Patient 71-year-old female past medical history of insulin-dependent diabetes, hypertension, hyperlipidemia, DVT with IVC filter, and recent ankle fracture who presented to the emergency department due to shortness of breath. She denies any history of COPD or asthma but does report recurrent pneumonia around 5 times with multiple admissions. She woke up last night at around 1130 and called her nurse. She was wheezing and very short of breath and was sent to the emergency department for evaluation. She was given DuoNebs and IV steroids with improvement in her breathing. She does not normally wear oxygen but was requiring 2 L to maintain her oxygen saturation. Given her history of VTE a CTA was done and was negative for PE. She was admitted for further management. Subjective/Events-last exam Pt reports doing better. Breathing around 60%. No new complaints. Focused Exam Lactate Level 07/09/22 10:50: Lactic Acid Level 4.20*H 07/09/22 13:01: Lactic Acid Level 4.16*H 07/09/22 15:15: Lactic Acid Level 3.65*H Objective Exam Vital Signs Vital Signs Date Time Temp Pulse Resp B/P (MAP) Pulse Ox O2 Delivery O2 Flow Rate FiO2 07/11/22 10:40 98 Room Air 07/11/22 08:42 36.4 62 18 157/83 (107) 07/10/22 22:17 1.00 07/09/22 08:42 28 Capillary Refill : General Appearance: No Apparent Distress Respiratory: No Accessory Muscle Use, Rhonci (few) Cardiovascular: Regular Rate, Rhythm, No Murmur Neurologic/Psychiatric: Alert, Oriented x3 Results/Procedures Lab Laboratory Tests 07/11/22 05:57 Patient resulted labs reviewed. Imaging: Reviewed Imaging Report Assessment/Plan Assessment and Plan Assess & Plan/Chief Complaint Acute on Chronic respiratory failure No known history of COPD/Asthma but chronic hypoxia from recurrent pneumonias Continue steroids MAT protocol Pulm/TeleICU consult On room air Recent ankle fracture Follows with Ortho at [place] Has appointment with them on 07/12 PT/OT History of DVT Chronic anticoagulation Supratherapeutic INR- hold warfarin CTA negative for PE Trend INR IDDMII Fasting BS 136 on arrival Anticipate higher levels with steroids SSI Home regimen as able HTN HLD Continue home meds as able DVT ppx: Already on warfarin and subtherapeutic Critical Care Critically Ill Patient SCOT ESCOBAR MD Jul 11, 2022 12:02 pm
[2022-07-11 12:21] VITALS: BP 150/80
[2022-07-11 16:00] VITALS: BP 129/77
[2022-07-11] MEDS: warFARin 5 MG (COUMADIN) TAB PO SCH (17:06)
[2022-07-11] MEDS: RT--FLUTICASONE/SALMETEROL 113-14 (AIRDUO RespiCLICK) IH SCH ×2 (18:24→21:58)
[2022-07-11 20:00] VITALS: BP 170/61
[2022-07-11] MEDS: AMITRIPTYLINE 25 MG (ELAVIL) TAB PO SCH (20:14)
[2022-07-11] MEDS: MONTELUKAST 10 MG (SINGULAIR) TAB PO SCH (20:14)
[2022-07-11 23:33] VITALS: BP 136/74
[2022-07-12] MEDS: methylPREDNISolone 40 MG/ML (Solu-MEDROL) VIAL IV SCH ×4 (01:29→17:17)
[2022-07-12] MEDS: RT-ALBUTEROL/IPRATROPIUM 3 ML (DUONEB) VIAL IH SCH ×5 (03:04→20:43)
[2022-07-12 04:00] VITALS: BP 137/66
[2022-07-12 05:55] LABS: HEMATOCRIT 32 % (35-52); HEMOGLOBIN 10.2 g/dL (11.5-16.0); MEAN CORPUSCULAR HEMOGLOBIN 26 pg (25-34); MEAN CORPUSCULAR HGB CONC 32 g/dL (32-36); MEAN CORPUSCULAR VOLUME 79 fL (80-99); MEAN PLATELET VOLUME 9.9 fL (9.0-12.2); PLATELET COUNT 304 10^3/uL (130-400); WHITE BLOOD COUNT 10.1 10^3/uL (4.3-11.0)
[2022-07-12 06:06] LABS: POTASSIUM 4.8 MMOL/L (3.6-5.0)
[2022-07-12 06:07] LABS: CALCIUM 9.4 MG/DL (8.5-10.1)
[2022-07-12 06:11] LABS: CREATININE SERUM 1.53 MG/DL (0.60-1.30)
[2022-07-12] MEDS: CATHETER FLUSH 10 ML SYR IV SCH ×3 (06:24→21:13)
[2022-07-12] MEDS: inSUlin ASPART (NovoLOG) 1 UNIT/0.01 ML (CHARGE PER UNIT) SC SCH ×4 (06:24→21:12)
[2022-07-12 06:42] LABS: INR 6.6 (0.8-1.4); PROTHROMBIN TIME PATIENT 56.9 SEC (12.2-14.7)
[2022-07-12] MEDS: RT--FLUTICASONE/SALMETEROL 113-14 (AIRDUO RespiCLICK) IH SCH ×2 (07:06→20:43)
[2022-07-12 08:09] VITALS: BP 159/90
[2022-07-12] MEDS: AZITHROMYCIN 250 MG TAB (ZITHROMAX) PO SCH (08:51)
[2022-07-12] MEDS: GABAPENTIN 300 MG (NEURONTIN) CAP PO SCH ×4 (08:51→20:15)
[2022-07-12] MEDS: DOCUSATE SODIUM 100 MG (COLACE) CAP PO SCH ×2 (08:52→20:15)
[2022-07-12] MEDS: TOLTERODINE LA 2 MG (DETROL LA) CAP PO SCH (08:52)
--- NOTE | 2022-07-12 09:33 | Physical Therapy Daily Note ---
PT Daily Note-Current Subjective Patient in bed pre tx, agrees to PT, voices no complaints of pain. Patient seems to be very congested, has a significant cough. Pain Section J - Health Conditions 1. Rarely or not at all 2. Occasionally 3. Frequently 4. Almost constantly 8. Unable to answer Pain Effect on Sleep: 2 Pain Interference with Therapy: 2 Pain Interference w/Day-to-Day: 2 Appearance Patient in bed post tx with nurse call, phone, tray, all needs met. Mental Status Patient Orientation: Person, Place, Situation Attachments: Oxygen purewick Transfers SCALE: Activities may be completed with or without assistive devices. 8-Yrbsaaefjs-qxpwkis completes the activity by him/herself with no assistance from a helper. 5-Set-up or Clean-up Assistance-helper sets up or cleans up; patient completes activity. [place] assists only prior to or following the activity. 4-Supervision or Touching Assistance-helper provides verbal cues and/or touching/steadying and/or contact guard assistance as patient completes activity. Assistance may be provided throughout the activity or intermittently. 3-Partial/Moderate Assistance-helper does LESS THAN HALF the effort. [place] lifts, holds or supports trunk or limbs, but provides less than half the effort. 2-Substantial/Maximal Assistance-helper does MORE THAN HALF the effort. [place] lifts or holds trunk or limbs and provides more than half the effort. 3-Pluzcpafa-nrmpnh does ALL the effort. Patient does none of the effort to complete the activity. Or, the assistance of 2 or more helpers is required for the patient to complete the activity. If activity was not attempted, code reason: 7-Patient Refused. 9-Not Applicable-not attempted and the patient did not perform the activity before the current illness, exacerbation or injury. 10-Not Attempted due to Environmental Limitations-(lack of equipment, weather restraints, etc.). 88-Not Attempted due to Medical Conditions or Safety Concerns. Roll Left & Right (QC): 6 Sit to Lying (QC): 3 Lying to Sitting/Side of Bed(Q: 4 Patient sat to the side of the bed with SBA, performed a few LE exercise, refused to try to stand, needed min assist to get back into bed. Patient sat to the side of the bed for about 5 min. Weight Bearing Right Lower Extremity: Right Weight Bearing/Tolerated Patient has a right ankle fx but is WBAT per Dr. Johnson Exercises Seated Therapy Exercises: Ankle pumps, Long arc quads, Hip flexion, Hip abd/add Seated Reps: 20 Treatments supine <-> sit, LE ROM Assessment Current Status: Poor Progress try to attempt to stand tomorrow, use boot PT Shipping Room Helper Goals Chcf Goals PT Chcf Goals Time Frame: Jul 18, 2022 Roll Left & Right (QC): 3 Sit to Lying (QC): 3 Lying-Sitting on Side/Bed(QC): 3 Sit to Stand (QC): 2 Chair/Tay-vt-Ywrgr Xfer(QC): 2 PT Plan Problem List Problem List: Activity Tolerance, Functional Strength, Safety, Balance, Gait, Transfer, Bed Mobility, ROM Treatment/Plan Treatment Plan: Continue Plan of Care Treatment Plan: Bed Mobility, Education, Functional Activity Dena, Functional Strength, Gait, Safety, Therapeutic Exercise, Transfers Treatment Duration: Jul 18, 2022 Frequency: 6 times per week Estimated Hrs Per Day: .25 hour per day Patient and/or Family Agrees t: Yes Safety Risks/Education Patient Education: Correct Positioning, Safety Issues Teaching Recipient: Patient Teaching Methods: Demonstration, Discussion Response to Teaching: Reinforcement Needed Time Time In: 909 Time Out: 920 DATE: Jul 12, 2022 Total Billed Treatment Time: 11 Total Billed Treatment 1 visit FA SERGIO GIVENS PT Jul 12, 2022 09:32
--- NOTE | 2022-07-12 10:19 | Progress Note - Hospitalist ---
Subjective HPI/CC On Admission Date Seen by Provider: Jul 12, 2022 Patient 71-year-old female past medical history of insulin-dependent diabetes, hypertension, hyperlipidemia, DVT with IVC filter, and recent ankle fracture who presented to the emergency department due to shortness of breath. She denies any history of COPD or asthma but does report recurrent pneumonia around 5 times with multiple admissions. She woke up last night at around 1130 and called her nurse. She was wheezing and very short of breath and was sent to the emergency department for evaluation. She was given DuoNebs and IV steroids with improvement in her breathing. She does not normally wear oxygen but was requiring 2 L to maintain her oxygen saturation. Given her history of VTE a CTA was done and was negative for PE. She was admitted for further management. Subjective/Events-last exam Pt reports feeling about the same as yesterday. Had a rough night coughing. Recommended honey but she doesn't like it. Will start other antitussives. Focused Exam Lactate Level 07/09/22 10:50: Lactic Acid Level 4.20*H 07/09/22 13:01: Lactic Acid Level 4.16*H 07/09/22 15:15: Lactic Acid Level 3.65*H Objective Exam Vital Signs Vital Signs Date Time Temp Pulse Resp B/P (MAP) Pulse Ox O2 Delivery O2 Flow Rate FiO2 07/12/22 08:09 36.4 99 18 159/90 (113) 94 Room Air 07/12/22 04:00 1.00 07/09/22 08:42 28 Capillary Refill : General Appearance: No Apparent Distress, Chronically ill, Obese Respiratory: No Accessory Muscle Use, Wheezing (scant expiratory) Cardiovascular: Regular Rate, Rhythm, No Murmur Gastrointestinal: Normal Bowel Sounds, Non Tender, Soft Neurologic/Psychiatric: Alert, Oriented x3 Results/Procedures Lab Laboratory Tests 07/12/22 05:32 Patient resulted labs reviewed. Imaging: Reviewed Imaging Report Assessment/Plan Assessment and Plan Assess & Plan/Chief Complaint Acute on Chronic respiratory failure No known history of COPD/Asthma but chronic hypoxia from recurrent pneumonias Continue solumedrol MAT protocol Pulm/TeleICU consult Wean oxygen as able Continue Advair and Singulair Recent ankle fracture Follows with Ortho at [place] Has appointment with them on 07/12 PT/OT History of DVT Chronic anticoagulation Supratherapeutic INR again today, trend CTA negative for PE IDDMII Fasting BS 136 on arrival Anticipate higher levels with steroids SSI Home regimen as able HTN HLD Continue home meds as able DVT ppx: Already on warfarin and subtherapeutic Critical Care Critically Ill Patient SCOT ESCOBAR MD Jul 12, 2022 10:19 am
[2022-07-12 11:28] VITALS: BP 166/71
[2022-07-12 14:24] VITALS: BP 166/71
[2022-07-12 16:00] VITALS: BP 151/78
[2022-07-12] MEDS: guaiFENesin/DM (ROBITUSSIN DM) 10 ML UDC PO PRN (17:22)
[2022-07-12 20:00] VITALS: BP 167/79
[2022-07-12] MEDS: ALPRAZolam 1 MG (XANAX) TAB PO PRN (20:14)
[2022-07-12] MEDS: AMITRIPTYLINE 25 MG (ELAVIL) TAB PO SCH (20:14)
[2022-07-12] MEDS: MONTELUKAST 10 MG (SINGULAIR) TAB PO SCH (20:14)
[2022-07-12] MEDS: guaiFENesin/CODEINE (ROBITUSSIN AC) 10ML UDC PO PRN (21:12)
[2022-07-13] VITALS (9 sets, daily range): BP systolic 109–179; BP diastolic 67–91
[2022-07-13] MEDS: methylPREDNISolone 40 MG/ML (Solu-MEDROL) VIAL IV SCH ×2 (00:21→05:23)
[2022-07-13] MEDS: RT-ALBUTEROL/IPRATROPIUM 3 ML (DUONEB) VIAL IH SCH ×4 (03:01→19:44)
[2022-07-13] MEDS: CATHETER FLUSH 10 ML SYR IV SCH ×3 (05:23→21:19)
[2022-07-13] MEDS: inSUlin ASPART (NovoLOG) 1 UNIT/0.01 ML (CHARGE PER UNIT) SC SCH ×4 (05:25→21:14)
[2022-07-13 06:04] LABS: HEMATOCRIT 33 % (35-52); HEMOGLOBIN 10.9 g/dL (11.5-16.0); MEAN CORPUSCULAR HEMOGLOBIN 25 pg (25-34); MEAN CORPUSCULAR HGB CONC 33 g/dL (32-36); MEAN CORPUSCULAR VOLUME 77 fL (80-99); MEAN PLATELET VOLUME 9.5 fL (9.0-12.2); PLATELET COUNT 328 10^3/uL (130-400)
[2022-07-13 06:29] LABS: CALCIUM 9.3 MG/DL (8.5-10.1); CREATININE SERUM 1.46 MG/DL (0.60-1.30); POTASSIUM 4.9 MMOL/L (3.6-5.0)
[2022-07-13 06:41] LABS: INR 6.6 (0.8-1.4); PROTHROMBIN TIME PATIENT 56.9 SEC (12.2-14.7)
[2022-07-13] MEDS: RT--FLUTICASONE/SALMETEROL 113-14 (AIRDUO RespiCLICK) IH SCH ×2 (07:46→19:44)
[2022-07-13] MEDS: guaiFENesin/DM (ROBITUSSIN DM) 10 ML UDC PO PRN ×2 (09:03→18:13)
[2022-07-13] MEDS: AZITHROMYCIN 250 MG TAB (ZITHROMAX) PO SCH (09:04)
[2022-07-13] MEDS: TOLTERODINE LA 2 MG (DETROL LA) CAP PO SCH (09:04)
[2022-07-13] MEDS: DOCUSATE SODIUM 100 MG (COLACE) CAP PO SCH ×2 (09:04→21:12)
[2022-07-13] MEDS: GABAPENTIN 300 MG (NEURONTIN) CAP PO SCH ×4 (09:04→21:13)
--- NOTE | 2022-07-13 09:09 | Physical Therapy Daily Note ---
PT Daily Note-Current Subjective Patient in bed pre-tx, reports no pain, agrees to PT. Pain Section J - Health Conditions 1. Rarely or not at all 2. Occasionally 3. Frequently 4. Almost constantly 8. Unable to answer Pain Effect on Sleep: 2 Pain Interference with Therapy: 2 Pain Interference w/Day-to-Day: 2 Appearance Patient in bed post-tx with nurse call, phone, tray, all needs met. Mental Status Patient Orientation: Person, Place, Situation Transfers SCALE: Activities may be completed with or without assistive devices. 7-Cxmydykngx-uoegdbn completes the activity by him/herself with no assistance from a helper. 5-Set-up or Clean-up Assistance-helper sets up or cleans up; patient completes activity. [place] assists only prior to or following the activity. 4-Supervision or Touching Assistance-helper provides verbal cues and/or touching/steadying and/or contact guard assistance as patient completes activity. Assistance may be provided throughout the activity or intermittently. 3-Partial/Moderate Assistance-helper does LESS THAN HALF the effort. [place] lifts, holds or supports trunk or limbs, but provides less than half the effort. 2-Substantial/Maximal Assistance-helper does MORE THAN HALF the effort. [place] lifts or holds trunk or limbs and provides more than half the effort. 4-Lprnqggvq-udoxdi does ALL the effort. Patient does none of the effort to complete the activity. Or, the assistance of 2 or more helpers is required for the patient to complete the activity. If activity was not attempted, code reason: 7-Patient Refused. 9-Not Applicable-not attempted and the patient did not perform the activity before the current illness, exacerbation or injury. 10-Not Attempted due to Environmental Limitations-(lack of equipment, weather restraints, etc.). 88-Not Attempted due to Medical Conditions or Safety Concerns. Roll Left & Right (QC): 4 Sit to Lying (QC): 4 Lying to Sitting/Side of Bed(Q: 4 SBA with bed mobility Weight Bearing Right Lower Extremity: Right Weight Bearing/Tolerated Patient has a right ankle fx but is WBAT per Dr. Johnson Exercises Seated Therapy Exercises: Ankle pumps, Long arc quads, Hip flexion, Glut set Seated Reps: 15 Treatments LE Strengthening Assessment Current Status: Fair Progress Patient able to move around in bed on her own, but gets a little SOB with exercises and begins to cough a little. PT Fdc Goals Pit Operator Goals PT Pit Operator Goals Time Frame: Jul 18, 2022 Roll Left & Right (QC): 3 Sit to Lying (QC): 3 Lying-Sitting on Side/Bed(QC): 3 Sit to Stand (QC): 2 Chair/Qlj-qc-U[place]ar Xfer(QC): 2 PT Plan Problem List Problem List: Activity Tolerance, Functional Strength, Safety, Balance, Gait, Transfer, Bed Mobility, ROM Treatment/Plan Treatment Plan: Continue Plan of Care Treatment Plan: Bed Mobility, Education, Functional Activity Dena, Functional Strength, Gait, Safety, Therapeutic Exercise, Transfers Treatment Duration: Jul 18, 2022 Frequency: 6 times per week Estimated Hrs Per Day: .25 hour per day Patient and/or Family Agrees t: Yes Safety Risks/Education Patient Education: Correct Positioning, Safety Issues Teaching Recipient: Patient Teaching Methods: Demonstration, Discussion Response to Teaching: Reinforcement Needed Time Time In: 0832 Time Out: 0842 DATE: Jul 13, 2022 Total Billed Treatment Time: 10 Total Billed Treatment 1 visit EX SERGIO REYES PT Jul 13, 2022 09:09
--- NOTE | 2022-07-13 16:31 | Progress Note - Hospitalist ---
Subjective HPI/CC On Admission Date Seen by Provider: Jul 13, 2022 Patient 71-year-old female past medical history of insulin-dependent diabetes, hypertension, hyperlipidemia, DVT with IVC filter, and recent ankle fracture who presented to the emergency department due to shortness of breath. She denies any history of COPD or asthma but does report recurrent pneumonia around 5 times with multiple admissions. She woke up last night at around 1130 and called her nurse. She was wheezing and very short of breath and was sent to the emergency department for evaluation. She was given DuoNebs and IV steroids with improvement in her breathing. She does not normally wear oxygen but was requiring 2 L to maintain her oxygen saturation. Given her history of VTE a CTA was done and was negative for PE. She was admitted for further management. Subjective/Events-last exam Pt reports feeling better today. Slept well. Still coughing and short of breath but somewhat better. Objective Exam Vital Signs Vital Signs Date Time Temp Pulse Resp B/P (MAP) Pulse Ox O2 Delivery O2 Flow Rate FiO2 07/13/22 16:07 36.6 110 22 143/67 (92) 95 Room Air 07/13/22 08:00 0.00 07/09/22 08:42 28 Capillary Refill : General Appearance: No Apparent Distress, Chronically ill, Obese Respiratory: Lungs Clear, No Accessory Muscle Use Cardiovascular: Regular Rate, Rhythm, No Murmur Neurologic/Psychiatric: Alert, Oriented x3 Results/Procedures Lab Laboratory Tests 07/13/22 05:20 Patient resulted labs reviewed. Imaging: Reviewed Imaging Report Assessment/Plan Assessment and Plan Assess & Plan/Chief Complaint Acute on Chronic respiratory failure No known history of COPD/Asthma but chronic hypoxia from recurrent pneumonias Switch to oral steroids MAT protocol Pulm/TeleICU consult On room air Continue Advair and Singulair Recent ankle fracture Follows with Ortho at [place] PT/OT History of DVT Chronic anticoagulation Supratherapeutic INR again today, trend hold warfarin CTA negative for PE IDDMII Blood sugars trending up- increase insulin Anticipate higher levels with steroids SSI Home regimen as able HTN HLD Continue home meds as able DVT ppx: Already on warfarin and supratherapeutic Critical Care Critically Ill Patient SCOT ESCOBAR MD Jul 13, 2022 16:31
[2022-07-13] MEDS: ALPRAZolam 1 MG (XANAX) TAB PO PRN (21:12)
[2022-07-13] MEDS: MONTELUKAST 10 MG (SINGULAIR) TAB PO SCH (21:12)
[2022-07-13] MEDS: AMITRIPTYLINE 25 MG (ELAVIL) TAB PO SCH (21:12)
[2022-07-13] MEDS: guaiFENesin/CODEINE (ROBITUSSIN AC) 10ML UDC PO PRN (21:13)
[2022-07-14] VITALS (7 sets, daily range): BP systolic 110–181; BP diastolic 58–87
[2022-07-14] MEDS: inSUlin ASPART (NovoLOG) 1 UNIT/0.01 ML (CHARGE PER UNIT) SC SCH ×4 (06:04→21:05)
[2022-07-14] MEDS: CATHETER FLUSH 10 ML SYR IV SCH ×3 (06:06→21:10)
[2022-07-14] MEDS: predniSONE 20 MG TAB PO SCH (06:06)
[2022-07-14 06:30] LABS: HEMATOCRIT 33 % (35-52); HEMOGLOBIN 10.7 g/dL (11.5-16.0); MEAN CORPUSCULAR HEMOGLOBIN 26 pg (25-34); MEAN CORPUSCULAR HGB CONC 33 g/dL (32-36); MEAN CORPUSCULAR VOLUME 79 fL (80-99); MEAN PLATELET VOLUME 11.2 fL (9.0-12.2); PLATELET COUNT 225 10^3/uL (130-400); WHITE BLOOD COUNT 9.3 10^3/uL (4.3-11.0)
[2022-07-14 06:50] LABS: PROTHROMBIN TIME PATIENT 57.5 SEC (12.2-14.7)
[2022-07-14 06:51] LABS: INR 6.6 (0.8-1.4)
[2022-07-14 06:54] LABS: CREATININE SERUM 1.29 MG/DL (0.60-1.30); POTASSIUM 4.3 MMOL/L (3.6-5.0)
[2022-07-14] MEDS: DOCUSATE SODIUM 100 MG (COLACE) CAP PO SCH ×2 (08:45→21:05)
[2022-07-14] MEDS: TOLTERODINE LA 2 MG (DETROL LA) CAP PO SCH (08:45)
[2022-07-14] MEDS: GABAPENTIN 300 MG (NEURONTIN) CAP PO SCH ×4 (08:45→21:05)
[2022-07-14] MEDS: RT--FLUTICASONE/SALMETEROL 113-14 (AIRDUO RespiCLICK) IH SCH ×2 (10:28→21:55)
[2022-07-14] MEDS: RT-ALBUTEROL/IPRATROPIUM 3 ML (DUONEB) VIAL IH SCH ×3 (10:28→21:55)
--- NOTE | 2022-07-14 11:14 | Progress Note - Hospitalist ---
Subjective HPI/CC On Admission Date Seen by Provider: Jul 14, 2022 Patient 71-year-old female past medical history of insulin-dependent diabetes, hypertension, hyperlipidemia, DVT with IVC filter, and recent ankle fracture who presented to the emergency department due to shortness of breath. She denies any history of COPD or asthma but does report recurrent pneumonia around 5 times with multiple admissions. She woke up last night at around 1130 and called her nurse. She was wheezing and very short of breath and was sent to the emergency department for evaluation. She was given DuoNebs and IV steroids with improvement in her breathing. She does not normally wear oxygen but was requiring 2 L to maintain her oxygen saturation. Given her history of VTE a CTA was done and was negative for PE. She was admitted for further management. Subjective/Events-last exam Pt reports feeling a little better today. Slept well last night. No new complaints but still coughing. Objective Exam Vital Signs Vital Signs Date Time Temp Pulse Resp B/P (MAP) Pulse Ox O2 Delivery O2 Flow Rate FiO2 07/14/22 10:32 Room Air 07/14/22 10:28 96 0.00 07/14/22 08:34 94 126/74 (91) 07/14/22 07:50 36.7 18 07/09/22 08:42 28 Capillary Refill : General Appearance: No Apparent Distress, Chronically ill, Obese Respiratory: No Accessory Muscle Use, No Respiratory Distress, Wheezing Cardiovascular: Regular Rate, Rhythm, No Murmur Gastrointestinal: Normal Bowel Sounds, Non Tender, Soft Neurologic/Psychiatric: Alert, Oriented x3 Results/Procedures Lab Laboratory Tests 07/14/22 05:52 Patient resulted labs reviewed. Imaging: Reviewed Imaging Report Assessment/Plan Assessment and Plan Assess & Plan/Chief Complaint Acute on Chronic respiratory failure No known history of COPD/Asthma but chronic hypoxia from recurrent pneumonias Continue oral steroids MAT protocol Pulm/TeleICU consult On room air Continue Advair and Singulair Recent ankle fracture Follows with Ortho at [place] PT/OT History of DVT Chronic anticoagulation Supratherapeutic INR aof 6.6 still- not bleeding so no indication for reversal at this time, trend hold warfarin CTA negative for PE IDDMII Blood sugars trending up- increased Levemir last night and fasting blood sugar 97 so will go back to 20 units Levemir HS Anticipate higher levels with steroids SSI Home regimen as able HTN HLD Continue home meds as able DVT ppx: Already on warfarin and supratherapeutic Critical Care Critically Ill Patient SCOT ESCOBAR MD Jul 14, 2022 11:14 am
--- NOTE | 2022-07-14 12:46 | Physical Therapy Daily Note ---
PT Daily Note-Current Subjective Pt agreeable to exercise. Pain Section J - Health Conditions 1. Rarely or not at all 2. Occasionally 3. Frequently 4. Almost constantly 8. Unable to answer Pain Effect on Sleep: 2 Pain Interference with Therapy: 2 Pain Interference w/Day-to-Day: 2 Transfers SCALE: Activities may be completed with or without assistive devices. 4-Wksojybvnl-lumamps completes the activity by him/herself with no assistance from a helper. 5-Set-up or Clean-up Assistance-helper sets up or cleans up; patient completes activity. [place] assists only prior to or following the activity. 4-Supervision or Touching Assistance-helper provides verbal cues and/or touching/steadying and/or contact guard assistance as patient completes activity. Assistance may be provided throughout the activity or intermittently. 3-Partial/Moderate Assistance-helper does LESS THAN HALF the effort. [place] lifts, holds or supports trunk or limbs, but provides less than half the effort. 2-Substantial/Maximal Assistance-helper does MORE THAN HALF the effort. [place] lifts or holds trunk or limbs and provides more than half the effort. 8-Mddacebfr-diqswv does ALL the effort. Patient does none of the effort to complete the activity. Or, the assistance of 2 or more helpers is required for the patient to complete the activity. If activity was not attempted, code reason: 7-Patient Refused. 9-Not Applicable-not attempted and the patient did not perform the activity before the current illness, exacerbation or injury. 10-Not Attempted due to Environmental Limitations-(lack of equipment, weather restraints, etc.). 88-Not Attempted due to Medical Conditions or Safety Concerns. Bed Mobility SBA Weight Bearing Right Lower Extremity: Right Weight Bearing/Tolerated Patient has a right ankle fx but is WBAT per Dr. Johnson Exercises Supine Ex: Ankle pumps, Quad Set, Glut sets, Heel Slides, Straight leg raise Supine Reps: 20 PROM to right ankle Assessment Current Status: Fair Progress Pt resistant to out of bed activity and is self limiting progress. She needs continued therapy with motivation to get back on her feet to progress toward (I) function. PT Custodial Goals Machine Cage Maker Goals PT Machine Cage Maker Goals Time Frame: Jul 18, 2022 Roll Left & Right (QC): 3 Sit to Lying (QC): 3 Lying-Sitting on Side/Bed(QC): 3 Sit to Stand (QC): 2 Chair/Kia-tt-Uofsy Xfer(QC): 2 PT Plan Treatment/Plan Treatment Plan: Continue Plan of Care Treatment Plan: Bed Mobility, Education, Functional Activity Dena, Functional Strength, Gait, Safety, Therapeutic Exercise, Transfers Treatment Duration: Jul 18, 2022 Frequency: 6 times per week Estimated Hrs Per Day: .25 hour per day Patient and/or Family Agrees t: Yes Time Time In: 0850 Time Out: 904 DATE: Jul 14, 2022 Total Billed Treatment Time: 15 Total Billed Treatment visit, exercise 15min ELIJAH TOMPKINS PT Jul 14, 2022 12:46
[2022-07-14] MEDS: ALPRAZolam 1 MG (XANAX) TAB PO PRN (19:45)
[2022-07-14] MEDS: AMITRIPTYLINE 25 MG (ELAVIL) TAB PO SCH (21:05)
[2022-07-14] MEDS: MONTELUKAST 10 MG (SINGULAIR) TAB PO SCH (21:05)
[2022-07-14] MEDS: guaiFENesin/CODEINE (ROBITUSSIN AC) 10ML UDC PO PRN (21:06)
[2022-07-15 04:00] VITALS: BP 134/70
[2022-07-15] MEDS: inSUlin ASPART (NovoLOG) 1 UNIT/0.01 ML (CHARGE PER UNIT) SC SCH ×4 (05:17→20:38)
[2022-07-15] MEDS: CATHETER FLUSH 10 ML SYR IV SCH ×3 (05:17→21:07)
[2022-07-15] MEDS: predniSONE 20 MG TAB PO SCH (06:37)
[2022-07-15 06:57] LABS: HEMATOCRIT 34 % (35-52); HEMOGLOBIN 10.8 g/dL (11.5-16.0); MEAN CORPUSCULAR HEMOGLOBIN 25 pg (25-34); MEAN CORPUSCULAR HGB CONC 32 g/dL (32-36); MEAN CORPUSCULAR VOLUME 78 fL (80-99); MEAN PLATELET VOLUME 9.9 fL (9.0-12.2); PLATELET COUNT 296 10^3/uL (130-400); WHITE BLOOD COUNT 10.6 10^3/uL (4.3-11.0)
[2022-07-15 07:06] LABS: PROTHROMBIN TIME PATIENT 22.7 SEC (12.2-14.7)
[2022-07-15 07:21] LABS: CALCIUM 8.8 MG/DL (8.5-10.1); CREATININE SERUM 1.22 MG/DL (0.60-1.30); POTASSIUM 4.4 MMOL/L (3.6-5.0)
[2022-07-15] MEDS: RT--FLUTICASONE/SALMETEROL 113-14 (AIRDUO RespiCLICK) IH SCH ×2 (07:53→22:14)
[2022-07-15] MEDS: RT-ALBUTEROL/IPRATROPIUM 3 ML (DUONEB) VIAL IH SCH ×2 (07:53→22:13)
[2022-07-15 08:18] VITALS: BP 162/79
[2022-07-15] MEDS: TOLTERODINE LA 2 MG (DETROL LA) CAP PO SCH (08:30)
[2022-07-15] MEDS: DOCUSATE SODIUM 100 MG (COLACE) CAP PO SCH ×2 (08:30→21:04)
[2022-07-15] MEDS: GABAPENTIN 300 MG (NEURONTIN) CAP PO SCH ×4 (08:30→21:04)
[2022-07-15] MEDS: ALPRAZolam 1 MG (XANAX) TAB PO PRN ×2 (08:30→21:04)
[2022-07-15 11:26] VITALS: BP 155/75
--- NOTE | 2022-07-15 11:49 | Progress Note - Hospitalist ---
Subjective HPI/CC On Admission Date Seen by Provider: Jul 15, 2022 Patient 71-year-old female past medical history of insulin-dependent diabetes, hypertension, hyperlipidemia, DVT with IVC filter, and recent ankle fracture who presented to the emergency department due to shortness of breath. She denies any history of COPD or asthma but does report recurrent pneumonia around 5 times with multiple admissions. She woke up last night at around 1130 and called her nurse. She was wheezing and very short of breath and was sent to the emergency department for evaluation. She was given DuoNebs and IV steroids with improvement in her breathing. She does not normally wear oxygen but was requiring 2 L to maintain her oxygen saturation. Given her history of VTE a CTA was done and was negative for PE. She was admitted for further management. Subjective/Events-last exam Pt reports feeling better today. Thinks she has turned a corner. [facility]ful [facility]. Objective Exam Vital Signs Vital Signs Date Time Temp Pulse Resp B/P (MAP) Pulse Ox O2 Delivery O2 Flow Rate FiO2 07/15/22 11:26 36.2 86 18 155/75 (101) 99 Room Air 07/15/22 08:00 0.00 07/09/22 08:42 28 Capillary Refill : General Appearance: No Apparent Distress, Chronically ill, Obese Respiratory: Lungs Clear, No Respiratory Distress Cardiovascular: Regular Rate, Rhythm, No Murmur Gastrointestinal: Normal Bowel Sounds, Non Tender, Soft Neurologic/Psychiatric: Alert, Oriented x3, Normal Mood/Affect Results/Procedures Lab Laboratory Tests 07/15/22 05:55 Patient resulted labs reviewed. Imaging: Reviewed Imaging Report Assessment/Plan Assessment and Plan Assess & Plan/Chief Complaint Acute on Chronic respiratory failure No known history of COPD/Asthma but chronic hypoxia from recurrent pneumonias Continue oral steroids- taper upon discharge MAT protocol Pulm/TeleICU consult On room air still Continue Advair and Singulair Hopefully DC back to [facility] tomorrow Recent ankle fracture Follows with Ortho at [place] PT/OT History of DVT Chronic anticoagulation INR abruptly from 6.6 to 2 today Ate a large salad yesterday per patient Resume warfarin CTA negative for PE IDDMII Fasting blood sugar 84 but prandial levels high SSI COntinue current regimen HTN HLD Continue home meds as able DVT ppx: Warfarin Critical Care Critically Ill Patient SCOT ESCOBAR MD Jul 15, 2022 11:49
[2022-07-15 15:29] VITALS: BP 128/71
[2022-07-15] MEDS: warFARin 5 MG (COUMADIN) TAB PO SCH (17:01)
[2022-07-15 19:03] VITALS: BP 131/78
[2022-07-15] MEDS: MONTELUKAST 10 MG (SINGULAIR) TAB PO SCH (21:04)
[2022-07-15] MEDS: AMITRIPTYLINE 25 MG (ELAVIL) TAB PO SCH (21:04)
[2022-07-15] MEDS: guaiFENesin/CODEINE (ROBITUSSIN AC) 10ML UDC PO PRN (21:05)
[2022-07-16] VITALS: BP 126/71
[2022-07-16 03:39] VITALS: BP 132/74
[2022-07-16] MEDS: inSUlin ASPART (NovoLOG) 1 UNIT/0.01 ML (CHARGE PER UNIT) SC SCH ×4 (05:17→21:00)
[2022-07-16] MEDS: CATHETER FLUSH 10 ML SYR IV SCH ×2 (05:17→13:23)
[2022-07-16 06:16] LABS: HEMATOCRIT 32 % (35-52); HEMOGLOBIN 10.6 g/dL (11.5-16.0); MEAN CORPUSCULAR HEMOGLOBIN 26 pg (25-34); MEAN CORPUSCULAR HGB CONC 33 g/dL (32-36); MEAN CORPUSCULAR VOLUME 78 fL (80-99); MEAN PLATELET VOLUME 9.7 fL (9.0-12.2); PLATELET COUNT 333 10^3/uL (130-400); WHITE BLOOD COUNT 13.6 10^3/uL (4.3-11.0)
[2022-07-16] MEDS: predniSONE 20 MG TAB PO SCH (06:20)
[2022-07-16 06:22] LABS: INR 1.5 (0.8-1.4)
[2022-07-16 07:57] LABS: CALCIUM 8.7 MG/DL (8.5-10.1); CREATININE SERUM 1.39 MG/DL (0.60-1.30); POTASSIUM 4.2 MMOL/L (3.6-5.0)
[2022-07-16 08:00] VITALS: BP 133/75
[2022-07-16] MEDS: RT-ALBUTEROL/IPRATROPIUM 3 ML (DUONEB) VIAL IH SCH ×2 (08:46→20:36)
[2022-07-16] MEDS: RT--FLUTICASONE/SALMETEROL 113-14 (AIRDUO RespiCLICK) IH SCH ×2 (08:54→20:39)
[2022-07-16] MEDS: TOLTERODINE LA 2 MG (DETROL LA) CAP PO SCH (10:26)
[2022-07-16] MEDS: DOCUSATE SODIUM 100 MG (COLACE) CAP PO SCH ×2 (10:26→21:00)
[2022-07-16] MEDS: GABAPENTIN 300 MG (NEURONTIN) CAP PO SCH ×3 (10:26→17:13)
[2022-07-16] MEDS: ALPRAZolam 1 MG (XANAX) TAB PO PRN (10:29)
--- NOTE | 2022-07-16 11:24 | Physical Therapy Daily Note ---
PT Daily Note-Current Subjective Patient in bed pre-tx, reports no pain but tightness in R ankle, agrees to PT. Pain Section J - Health Conditions 1. Rarely or not at all 2. Occasionally 3. Frequently 4. Almost constantly 8. Unable to answer Pain Effect on Sleep: 2 Pain Interference with Therapy: 2 Pain Interference w/Day-to-Day: 2 Appearance Patient in bed post-tx with nurse call, phone, tray, all needs met. Mental Status Patient Orientation: Person, Place, Situation purewick Transfers SCALE: Activities may be completed with or without assistive devices. 9-Dnlgubpcsu-ovckbvb completes the activity by him/herself with no assistance from a helper. 5-Set-up or Clean-up Assistance-helper sets up or cleans up; patient completes activity. [place] assists only prior to or following the activity. 4-Supervision or Touching Assistance-helper provides verbal cues and/or touching/steadying and/or contact guard assistance as patient completes activity. Assistance may be provided throughout the activity or intermittently. 3-Partial/Moderate Assistance-helper does LESS THAN HALF the effort. [place] lifts, holds or supports trunk or limbs, but provides less than half the effort. 2-Substantial/Maximal Assistance-helper does MORE THAN HALF the effort. [place] lifts or holds trunk or limbs and provides more than half the effort. 1-Oygdslfba-klsszc does ALL the effort. Patient does none of the effort to complete the activity. Or, the assistance of 2 or more helpers is required for the patient to complete the activity. If activity was not attempted, code reason: 7-Patient Refused. 9-Not Applicable-not attempted and the patient did not perform the activity before the current illness, exacerbation or injury. 10-Not Attempted due to Environmental Limitations-(lack of equipment, weather restraints, etc.). 88-Not Attempted due to Medical Conditions or Safety Concerns. Weight Bearing Right Lower Extremity: Right Weight Bearing/Tolerated Patient has a right ankle fx but is WBAT per Dr. Johnson Exercises Supine Ex: Ankle pumps, Glut sets, Heel Slides, Short Arc Quads, Straight leg raise, Hip abd/add Supine Reps: 40 Treatments LE Strengthening Assessment Current Status: Fair Progress Encouraged patient to sit at EOB to do exercises and try standing at the [facility], but she just outright refused, states she [place] to [place]. Patient's R ankle warm today and patient does well with exercises in bed. PT Fci Goals Fci Goals PT Anesthetist Goals Time Frame: Jul 18, 2022 Roll Left & Right (QC): 3 Sit to Lying (QC): 3 Lying-Sitting on Side/Bed(QC): 3 Sit to Stand (QC): 2 Chair/Ynu-ys-Ksmau Xfer(QC): 2 PT Plan Problem List Problem List: Activity Tolerance, Functional Strength, Safety, Balance, Gait, Transfer, Bed Mobility, ROM Treatment/Plan Treatment Plan: Continue Plan of Care Treatment Plan: Bed Mobility, Education, Functional Activity Dena, Functional Strength, Gait, Safety, Therapeutic Exercise, Transfers Treatment Duration: Jul 18, 2022 Frequency: 6 times per week Estimated Hrs Per Day: .25 hour per day Patient and/or Family Agrees t: Yes Safety Risks/Education Patient Education: Correct Positioning, Safety Issues Teaching Recipient: Patient Teaching Methods: Demonstration, Discussion Response to Teaching: Verbalize Understanding, Reinforcement Needed Time Time In: 1053 Time Out: 1103 DATE: Jul 16, 2022 Total Billed Treatment Time: 10 Total Billed Treatment 1 visit EX SERGIO REYES PT Jul 16, 2022 11:24
[2022-07-16 12:00] VITALS: BP 140/81
--- NOTE | 2022-07-16 15:16 | Progress Note ---
Subjective Subjective/Events-last exam States she is feeling quite well, about 80% of her usual self. Objective Exam Last Set of Vital Signs Vital Signs Date Time Temp Pulse Resp B/P (MAP) Pulse Ox O2 Delivery O2 Flow Rate FiO2 07/16/22 13:52 103 07/16/22 12:00 36.1 20 140/81 (100) 95 Room Air 07/16/22 10:18 0.00 Capillary Refill : I&O Intake and Output 07/16/22 00:00 Intake Total 1415 ml Output Total 2450 ml Balance -1035 ml Intake Oral 1415 ml Output Urine Total 2450 ml # Bowel Movements 1 General: Alert, No Acute Distress Lungs: Other (ronchi throughout) Heart: Regular Rate, No Murmurs Neuro: Normal Speech Psych/Mental Status: Mood NL Results/Procedures Lab Laboratory Tests 07/15/22 15:35: Glucometer 295H 07/15/22 20:13: Glucometer 157H 07/16/22 00:10: Glucometer 93 07/16/22 05:16: Glucometer 90 07/16/22 05:45: White Blood Count 13.6H, Red Blood Count 4.16, Hemoglobin 10.6L, Hematocrit 32L, Mean Corpuscular Volume 78L, Mean Corpuscular Hemoglobin 26, Mean Corpuscular Hemoglobin Concent 33, Red Cell Distribution Width 15.5H, Platelet Count 333, Mean Platelet Volume 9.7, Prothrombin Time 19.0H, INR Comment 1.5H 07/16/22 07:32: Sodium Level 138, Potassium Level 4.2, Chloride Level 102, Carbon Dioxide Level 27, Anion Gap 9, Blood Urea Nitrogen 39H, Creatinine 1.39H, Estimat Glomerular Filtration Rate 41, BUN/Creatinine Ratio 28, Glucose Level 100, Calcium Level 8.7 07/16/22 10:55: Glucometer 289H Microbiology 07/09/22 Throat Culture - Final, Complete No Beta Strep isolated Assessment/Plan Assessment/Plan Assessment & Plan Acute on Chronic respiratory failure No known history of COPD/Asthma but chronic hypoxia from recurrent pneumonias Continue oral steroids- taper upon discharge MAT protocol Pulm/TeleICU consult On room air still Continue Advair and Singulair Per social work will be able to go to [facility] tomorrow Recent ankle fracture Follows with Ortho at [place] PT/OT History of DVT Chronic anticoagulation INR abruptly from 6.6 to 2 today Ate a large salad yesterday per patient Resumed warfarin CTA negative for PE IDDMII Fasting blood sugar 84 but prandial levels high SSI Continue current regimen HTN HLD Continue home meds as able DVT ppx: Warfarin GRIFFIN MARIN MD Jul 16, 2022 15:16
[2022-07-16 15:23] VITALS: BP 116/59
[2022-07-16] MEDS: warFARin 5 MG (COUMADIN) TAB PO SCH (17:14)
[2022-07-16 20:03] VITALS: BP 118/62
[2022-07-17] MEDS: AMITRIPTYLINE 25 MG (ELAVIL) TAB PO SCH (00:31)
[2022-07-17] MEDS: GABAPENTIN 300 MG (NEURONTIN) CAP PO SCH ×3 (00:31→14:29)
[2022-07-17] MEDS: MONTELUKAST 10 MG (SINGULAIR) TAB PO SCH (00:32)
[2022-07-17] MEDS: CATHETER FLUSH 10 ML SYR IV SCH ×2 (00:34→14:28)
[2022-07-17] MEDS: guaiFENesin/CODEINE (ROBITUSSIN AC) 10ML UDC PO PRN (00:34)
[2022-07-17 00:35] VITALS: BP 115/61
[2022-07-17] MEDS: ALPRAZolam 1 MG (XANAX) TAB PO PRN ×3 (00:35→10:22)
[2022-07-17] MEDS: MICONAZOLE 2% POWDER (DESENEX AF) 90 GM TOP SCH ×2 (00:43→10:24)
[2022-07-17] MEDS: MELATONIN 3 MG TABLET PO PRN (03:17)
[2022-07-17 03:57] VITALS: BP 113/65
[2022-07-17 05:39] LABS: HEMATOCRIT 30 % (35-52); HEMOGLOBIN 9.9 g/dL (11.5-16.0); MEAN CORPUSCULAR HEMOGLOBIN 25 pg (25-34); MEAN CORPUSCULAR HGB CONC 33 g/dL (32-36); MEAN CORPUSCULAR VOLUME 77 fL (80-99); MEAN PLATELET VOLUME 9.4 fL (9.0-12.2); PLATELET COUNT 291 10^3/uL (130-400); WHITE BLOOD COUNT 12.4 10^3/uL (4.3-11.0)
[2022-07-17 05:49] LABS: INR 1.5 (0.8-1.4); PROTHROMBIN TIME PATIENT 18.4 SEC (12.2-14.7)
[2022-07-17 05:53] LABS: CALCIUM 8.7 MG/DL (8.5-10.1); CREATININE SERUM 1.29 MG/DL (0.60-1.30); POTASSIUM 4.4 MMOL/L (3.6-5.0)
[2022-07-17] MEDS: RT-ALBUTEROL/IPRATROPIUM 3 ML (DUONEB) VIAL IH SCH (06:45)
[2022-07-17] MEDS: RT--FLUTICASONE/SALMETEROL 113-14 (AIRDUO RespiCLICK) IH SCH (06:46)
[2022-07-17 07:29] VITALS: BP 128/67
[2022-07-17] MEDS ORDERED: PRD10T PO (09:05)
[2022-07-17] MEDS ORDERED: GUAI5SYR PO (09:05)
[2022-07-17] MEDS ORDERED: ALBU8.5H6 IH (09:05)
[2022-07-17] MEDS ORDERED: FLUT1AER4 IH (09:07)
[2022-07-17] MEDS: DOCUSATE SODIUM 100 MG (COLACE) CAP PO SCH (10:22)
[2022-07-17] MEDS: TOLTERODINE LA 2 MG (DETROL LA) CAP PO SCH (10:23)
--- NOTE | 2022-07-17 11:05 | Physical Therapy Daily Note ---
PT Daily Note-Current Subjective Patient in bed pre-tx, reports no pain just very tired, agrees to PT. Pain Section J - Health Conditions 1. Rarely or not at all 2. Occasionally 3. Frequently 4. Almost constantly 8. Unable to answer Pain Effect on Sleep: 2 Pain Interference with Therapy: 2 Pain Interference w/Day-to-Day: 2 Appearance Patient in bed post-tx with nurse call, phone, tray, all needs met. Mental Status Patient Orientation: Person, Place, Situation [place]wick Transfers SCALE: Activities may be completed with or without assistive devices. 6-Rmisamyajb-aelrwsr completes the activity by him/herself with no assistance from a helper. 5-Set-up or Clean-up Assistance-helper sets up or cleans up; patient completes activity. [place] assists only prior to or following the activity. 4-Supervision or Touching Assistance-helper provides verbal cues and/or touching/steadying and/or contact guard assistance as patient completes activity. Assistance may be provided throughout the activity or intermittently. 3-Partial/Moderate Assistance-helper does LESS THAN HALF the effort. [place] lifts, holds or supports trunk or limbs, but provides less than half the effort. 2-Substantial/Maximal Assistance-helper does MORE THAN HALF the effort. [place] lifts or holds trunk or limbs and provides more than half the effort. 3-Dzxrjujjo-xprmkr does ALL the effort. Patient does none of the effort to complete the activity. Or, the assistance of 2 or more helpers is required for the patient to complete the activity. If activity was not attempted, code reason: 7-Patient Refused. 9-Not Applicable-not attempted and the patient did not perform the activity before the current illness, exacerbation or injury. 10-Not Attempted due to Environmental Limitations-(lack of equipment, weather restraints, etc.). 88-Not Attempted due to Medical Conditions or Safety Concerns. Weight Bearing Right Lower Extremity: Right Weight Bearing/Tolerated Patient has a right ankle fx but is WBAT per Dr. Johnson Exercises Supine Ex: Ankle pumps, Quad Set, Glut sets, Heel Slides, Straight leg raise, Hip abd/add Supine Reps: 20 Treatments LE Strengthening Assessment Current Status: Fair Progress Encouraged patient to sit EOB to do exercises and try standing today but refuses. Patient extremely tired today. PT Java Web User Interface Developer Goals Prison Goals PT Prison Goals Time Frame: Jul 18, 2022 Roll Left & Right (QC): 3 Sit to Lying (QC): 3 Lying-Sitting on Side/Bed(QC): 3 Sit to Stand (QC): 2 Chair/Vbo-wd-Gdjxz Xfer(QC): 2 PT Plan Problem List Problem List: Activity Tolerance, Functional Strength, Safety, Balance, Gait, Transfer, Bed Mobility, ROM Treatment/Plan Treatment Plan: Continue Plan of Care Treatment Plan: Bed Mobility, Education, Functional Activity Dena, Functional Strength, Gait, Safety, Therapeutic Exercise, Transfers Treatment Duration: Jul 18, 2022 Frequency: 6 times per week Estimated Hrs Per Day: .25 hour per day Patient and/or Family Agrees t: Yes Safety Risks/Education Patient Education: Correct Positioning, Safety Issues Teaching Recipient: Patient Teaching Methods: Demonstration, Discussion Response to Teaching: Verbalize Understanding, Reinforcement Needed Time Time In: 1050 Time Out: 1059 DATE: Jul 17, 2022 Total Billed Treatment Time: 9 Total Billed Treatment 1 visit EX 9' SERGIO BA PT Jul 17, 2022 11:05
[2022-07-17 11:27] VITALS: BP 108/58
--- NOTE | 2022-07-17 11:45 | Discharge Summary ---
Discharge Summary Hospital Course Hospital Course Date of Admission: Jul 10, 2022 at 11:17 Admission Diagnosis : Acute on chronic respiratory failure Recent ankle fracture History of DVT on chronic anticoagulation Diabetes mellitus HTN HLD Family Physician/Provider: Gilberto Francis MD Date of Discharge: 07/17/22 Discharge Diagnosis: Acute on Chronic respiratory failure No known history of COPD/Asthma but chronic hypoxia from recurrent pneumonias Continue oral steroids- tapered upon discharge On room air at d/c Continue Advair and Singulair discharged back to [facility] Recent ankle fracture Follows with Ortho at [place] PT/OT History of DVT Chronic anticoagulation Resumed warfarin- had high INR and was held, INR below goal at d/c, but warfarin hadn't been restarted for long, check INR daily at [facility] CTA negative for PE IDDMII Fasting blood sugar 84 but prandial levels high SSI used inpatient HTN HLD Continued home meds Hospital Course: See discharge diagnoses. Labs and Pending Lab Test: Laboratory Tests 07/16/22 15:22: Glucometer 253H 07/16/22 21:42: Glucometer 169H 07/17/22 05:27: Prothrombin Time 18.4H, INR Comment 1.5H, Sodium Level 136, Potassium Level 4.4, Chloride Level 102, Carbon Dioxide Level 25, Anion Gap 9, Blood Urea Nitrogen 34H, Creatinine 1.29, Estimat Glomerular Filtration Rate 45, BUN/Creatinine Ratio 26, Glucose Level 124H, Calcium Level 8.7 07/17/22 05:29: Glucometer 115H 07/17/22 05:35: White Blood Count 12.4H, Red Blood Count 3.91, Hemoglobin 9.9L, Hematocrit 30L, Mean Corpuscular Volume 77L, Mean Corpuscular Hemoglobin 25, Mean Corpuscular Hemoglobin Concent 33, Red Cell Distribution Width 15.2H, Platelet Count 291, Mean Platelet Volume 9.4 07/17/22 11:22: Glucometer 184H Microbiology 07/09/22 Throat Culture - Final, Complete No Beta Strep isolated Home Meds Active Fluticasone-Salmeterol 113-14 (Fluticasone/Salmeterol) 113 Mcg-14 Mcg/Actuation Aer.pow.ba 1 Puff IH BID Ventolin Hfa (Albuterol Sulfate) 90 Mcg Hfa.aer.ad 2 Puff IH Q4H PRN 1 PUFF = 90 MCG Guaifenesin Dm Syrup (Guaifenesin/Dextromethorphan) 100 Mg-10 Mg/5 Ml Syrup 5 Ml PO Q4H PRN Prednisone 10 Mg Tab 0 PO UD Take 4 tabs(40mg)daily, decrease by 1 tab(10mg) every other day. Reported Novolog Flexpen (Insulin Aspart) 100 Unit/Ml (3 Ml) Solution 5 Units SC TID Levemir Flextouch (Insulin Detemir) 100 Unit/Ml (3 Ml) Insuln.pen 15 Unit SQ HS Neurontin (Gabapentin) 300 Mg Capsule 300 Mg PO QID Narcan (Naloxone HCl) 4 Mg/Actuation [place] 1 Spr NS UD PRN Tolterodine Tartrate 2 Mg Tablet 2 Mg PO BID Vitamin D2 (Ergocalciferol (Vitamin D2)) 1,250 Mcg (21593 Unit) Capsule 1,250 Mcg PO FRI Tylenol (Acetaminophen) 325 Mg Tablet 650 Mg PO Q6H PRN Milk of Magnesia (Magnesium Hydroxide) 400 Mg/5 Ml Oral.susp 30 Ml PO BID PRN Miralax (Polyethylene Glycol 3350) 17 Gram Powd.pack 17 Gm PO DAILY PRN Melatonin 3 Mg Tablet 3 Mg PO HS PRN Docusate Sodium 100 Mg Capsule 100 Mg PO BID Tums (Calcium Carbonate) 200 Mg Calcium (500 Mg) Tab.chew 200 Mg PO Q4H PRN Warfarin Sodium 7.5 Mg Tablet 7.5 Mg PO WE,SA @1700 Amlodipine Besylate 5 Mg Tablet 5 Mg PO DAILY Oxycodone-Acetaminophen 5-325 (Oxycodone HCl/Acetaminophen) 5 Mg-325 Mg Tablet 1 Ea PO BID PRN Warfarin Sodium 5 Mg Tablet 5 Mg PO NO,MO,TU,TH,FR @1700 Citalopram HBr (Citalopram Hydrobromide) 20 Mg Tablet 20 Mg PO HS Amitriptyline HCl 100 Mg Tablet 100 Mg PO HS Alprazolam 1 Mg Tablet 1 Mg PO Q12H Assessment/Pt DC Instructions Discharged to SNF Discharge Diet: ADA Diet Activity as Tolerated: Yes Discharge Physical Examination Allergies: Coded Allergies: Penicillins (Verified Allergy, Unknown, 01/11/19) General Appearance: No Apparent Distress Respiratory: Other (ronchi, inspiratory wheeze) Cardiovascular: Regular Rate, Rhythm Skin: Normal Color Neurologic/Psychiatric: Alert, Oriented x3, Normal Mood/Affect GRIFFIN MARIN MD Jul 17, 2022 11:45
--- NOTE | 2022-07-17 11:45 | Discharge Inst-Skilled Nursing ---
Discharge Inst-Skilled NF Patient Instructions Patient Problems: Respiratory failure- resolved Wheezing/reactive airway- may need further work up outpatient as no history of diagnosis Ankle fracture s/p repair Diabetes Consult/Follow Up/Orders Skilled NF Admit to: [facility] Certifications SNF I certify that SNF services are required to be given on an inpatient basis because of the above named patient's need for long term care on a continuing basis for the conditions(s) for which he/she was receiving inpatient hospital services prior to his/her transfer to the SNF. Jail Facility Order: Nursing Services, Physical Therapy-Evaluate & Treat Oxygen Delivery Method: Room Air Discharge Diet: ADA Diet Daily Activity as Tolerated: Yes New & Resume Previous Orders New & Resume Previous Orders Please check INR daily. Discharge Medications New Medications: Albuterol Sulfate (Ventolin Hfa) 90 Mcg Hfa.aer.ad 2 PUFF IH Q4H PRN for SHORTNESS OF BREATH, #1 EA 0 Refills 1 PUFF = 90 MCG Fluticasone/Salmeterol (Fluticasone-Salmeterol 113-14) 113 Mcg-14 Mcg/Actuation Aer.pow.ba 1 PUFF IH BID, #1 EACH 0 Refills Guaifenesin/Dextromethorphan (Guaifenesin Dm Syrup) 100 Mg-10 Mg/5 Ml Syrup 5 ML PO Q4H PRN for COUGH, #150 ML 0 Refills Prednisone (Prednisone) 10 Mg Tab 0 PO UD, #20 TAB 0 Refills Take 4 tabs(40mg)daily, decrease by 1 tab(10mg) every other day. Continued Medications: Acetaminophen (Tylenol) 325 Mg Tablet 650 MG PO Q6H PRN for PAIN-MILD (1-4) OR TEMPATURE, TAB Alprazolam (Alprazolam) 1 Mg Tablet 1 MG PO Q12H, TAB Amitriptyline HCl (Amitriptyline HCl) 100 Mg Tablet 100 MG PO HS, TAB Amlodipine Besylate (Amlodipine Besylate) 5 Mg Tablet 5 MG PO DAILY, TAB Calcium Carbonate (Tums) 200 Mg Calcium (500 Mg) Tab.chew 200 MG PO Q4H PRN for HEARTBURN, TAB Citalopram Hydrobromide (Citalopram HBr) 20 Mg Tablet 20 MG PO HS, TAB Docusate Sodium (Docusate Sodium) 100 Mg Capsule 100 MG PO BID, CAP Ergocalciferol (Vitamin D2) (Vitamin D2) 1,250 Mcg (87799 Unit) Capsule 1250 MCG PO FRI, CAP Gabapentin (Neurontin) 300 Mg Capsule 300 MG PO QID, CAP Insulin Aspart (Novolog Flexpen) 100 Unit/Ml (3 Ml) Solution 5 UNITS SC TID, UNITS Insulin Detemir (Levemir Flextouch) 100 Unit/Ml (3 Ml) Insuln.pen 15 UNIT SQ HS, EA Magnesium Hydroxide (Milk of Magnesia) 400 Mg/5 Ml Oral.susp 30 ML PO BID PRN for CONSTIPATION-7TH LINE, ML Melatonin (Melatonin) 3 Mg Tablet 3 MG PO HS PRN for INSOMNIA, TAB Naloxone HCl (Narcan) 4 Mg/Actuation Dexter 1 SPR NS UD PRN for OVERDOSE, SPRAY Oxycodone HCl/Acetaminophen (Oxycodone-Acetaminophen 5-325) 5 Mg-325 Mg Tablet 1 EA PO BID PRN for PAIN-MODERATE (5-7), TAB Polyethylene Glycol 3350 (Miralax) 17 Gram Powd.pack 17 GM PO DAILY PRN for CONSTIPATION-2ND LINE, EACH Tolterodine Tartrate (Tolterodine Tartrate) 2 Mg Tablet 2 MG PO BID, TAB Warfarin Sodium (Warfarin Sodium) 5 Mg Tablet 5 MG PO NO,MO,,,FR @1700, TAB Warfarin Sodium (Warfarin Sodium) 7.5 Mg Tablet 7.5 MG PO WE,SA @1700, TAB Griffin Marin Jul 17, 2022 11:43 GRIFFIN MARIN MD Jul 17, 2022 11:45
[2022-07-17] MEDS: inSUlin ASPART (NovoLOG) 1 UNIT/0.01 ML (CHARGE PER UNIT) SC SCH (11:49)
== END 2022-07-17 15:00 | DRG 189 ==
LOC: ER 00:47 → EDUNIT# 00:47 → ICU 06:00 → UNDOADMOB 06:00 → ICU 08:34 → 4TH 19:45 → ICU 19:45 → OBSVTOIN 07-10 11:17 → INTOOBSV 07-10 11:17 → UNDODISIN 07-17 15:00
PROVIDERS: ADMIT Internal Medicine; ATTEND Family Medicine
DX: J96.21 Acute and chronic respiratory failure with hypoxia (principal); K21.9 Gastro-esophageal reflux disease without esophagitis; N18.9 Chronic kidney disease, unspecified; F41.9 Anxiety disorder, unspecified; F32.A Depression, unspecified; E78.00 Pure hypercholesterolemia, unspecified; M19.90 Unspecified osteoarthritis, unspecified site; G89.29 Other chronic pain; M54.9 Dorsalgia, unspecified; I12.9 Hypertensive chronic kidney disease with stage 1 through stage 4 chronic kidney disease, or unspecified chronic kidney disease; E11.22 Type 2 diabetes mellitus with diabetic chronic kidney disease; G47.00 Insomnia, unspecified; G43.909 Migraine, unspecified, not intractable, without status migrainosus; M79.7 Fibromyalgia; Z20.822 Contact with and (suspected) exposure to COVID-19; Z79.4 Long term (current) use of insulin; Z79.899 Other long term (current) drug therapy; Z86.718 Personal history of other venous thrombosis and embolism; Z79.01 Long term (current) use of anticoagulants; Z86.711 Personal history of pulmonary embolism
CPT/HCPCS: 36415; 71045; 71275; 80048; 80053; 82947; 83605; 83735; 83880; 84145; 84484; 85025; 85027; 85379; 85610; 85730; 87430; 87636; 94640; 94760; 96374; 96375; G0378

== ENCOUNTER 2022-12-10 12:37 | Inpatient (IN) | payer MEDICARE ==
[~2022-12-10] VITALS: Ht 162.6 cm; Wt 144.9 kg
[2022-12-10] VITALS (10 sets, daily range): BP systolic 92–140; BP diastolic 47–86
[~2022-12-10 12:37] MED LIST changes: +ACET325T38 PO; +ALBU8.5H6 IH; -BENZ1TAB6 PO; +BENZ1TAB74 PO; +CALC500T7 PO; +DOCU100C37 PO; +ERGO1250 PO; +FLUT1AER4 IH; +GUAI5SYR PO; +INSU100I14 SC; -INSU100I29 SQ; +INSU100I30 SQ; +MAGN400O7 PO; +MELA3TAB39 PO; +NALO4SPR NS; +POLY17PO6 PO; +PRD10T PO; +TOLT2TAB19 PO; +WARF7.5T3 PO
[2022-12-10] MEDS ORDERED: NS IV 1000 ML 1,000 ML IV STA ×3 (12:42→14:55)
--- NOTE | 2022-12-10 12:48 | ED General ---
General Chief Complaint: General Problems/Pain Stated Complaint: FACIAL DROOP; LETHARGY Source of Information: Patient, EMS History of Present Illness Date Seen by Provider: December 10, 2022 Time Seen by Provider: 12:25 Initial Comments 72 yo female presenting with EMS from home with complaints of lethargy, confusion and general weakness. Patient had been sick for the last 2 to 3 days and did have vomiting yesterday. She had her son who is her DPOA here with her over the weekend and he is on his way to the emergency department today. A family friend is here and reporting information from what the son had told him. She is supposed to be on medicine for diabetes, hx of DVT, hypertension. She lives at home and has caregivers that come for part of the day. She reports being sleepy and having trouble staying awake. She denies having any pain in her chest, abdomen, extremities. She denies any headache or change in vision. She has had nausea with vomiting but denies vomiting today. She denies pain with urination. She also denies diarrhea or change in her bowels. She thinks that she is in [place] and thinks that it is still November. She does know that her birthday was in November. She could not tolerate the day of the week or the year. Timing/Duration: 2-3 Days Severity: Moderate Associated Systoms: No Chest Pain; Cough; No Diaphoresis, No Fever/Chills, No Headaches; Malaise, Nausea/Vomiting; No Rash, No Seizure; Shortness of Air; No Syncope; Weakness Allergies and Home Medications Allergies Coded Allergies: Penicillins (Verified Allergy, Unknown, 01/11/19) Patient Home Medication List Home Medication List Reviewed: Yes Acetaminophen (Tylenol) 325 Mg Tablet, 650 MG PO Q6H PRN for PAIN-MILD (1-4) OR TEMPATURE, (Reported) Entered as Reported by: LACHO CRUZ on 07/09/22 1029 Albuterol Sulfate (Ventolin Hfa) 90 Mcg Hfa.aer.ad, 2 PUFF IH Q4H PRN for SHORTNESS OF BREATH Prescribed by: GRIFFIN MARIN on 07/17/22 0905 Alprazolam (Alprazolam) 1 Mg Tablet, 1 MG PO Q12H, (Reported) Entered as Reported by: SOLANGE MARQUES on 03/06/20 1541 Amitriptyline HCl (Amitriptyline HCl) 100 Mg Tablet, 100 MG PO HS, (Reported) Entered as Reported by: SOLANGE MARQUES on 03/06/20 1549 Amlodipine Besylate (Amlodipine Besylate) 5 Mg Tablet, 5 MG PO DAILY, (Reported) Entered as Reported by: LACHO CRUZ on 12/14/21 0953 Calcium Carbonate (Tums) 200 Mg Calcium (500 Mg) Tab.chew, 200 MG PO Q4H PRN for HEARTBURN, (Reported) Entered as Reported by: LACHO CRUZ on 07/09/22 1029 Citalopram Hydrobromide (Citalopram HBr) 20 Mg Tablet, 20 MG PO HS, (Reported) Entered as Reported by: SOLANGE MARQUES on 03/06/20 1550 Docusate Sodium (Docusate Sodium) 100 Mg Capsule, 100 MG PO BID, (Reported) Entered as Reported by: LACHO CRUZ on 07/09/22 1029 Ergocalciferol (Vitamin D2) (Vitamin D2) 1,250 Mcg (12281 Unit) Capsule, 1,250 MCG PO FRI, (Reported) Entered as Reported by: LACHO CRUZ on 07/09/22 1029 Fluticasone/Salmeterol (Fluticasone-Salmeterol 113-14) 113 Mcg-14 Mcg/Actuation Aer.pow.ba, 1 PUFF IH BID Prescribed by: GRIFFIN MARIN on 07/17/22 0907 Gabapentin (Neurontin) 300 Mg Capsule, 300 MG PO QID, (Reported) Entered as Reported by: LACHO CRUZ on 07/09/22 1029 Guaifenesin/Dextromethorphan (Guaifenesin Dm Syrup) 100 Mg-10 Mg/5 Ml Syrup, 5 ML PO Q4H PRN for COUGH Prescribed by: GRIFFIN MARIN on 07/17/22 0905 Insulin Aspart (Novolog Flexpen) 100 Unit/Ml (3 Ml) Solution, 5 UNITS SC TID, (Reported) Entered as Reported by: LACHO CRUZ on 07/09/22 1029 Insulin Detemir (Levemir Flextouch) 100 Unit/Ml (3 Ml) Insuln.pen, 15 UNIT SQ HS, (Reported) Entered as Reported by: LACHO CRUZ on 07/09/22 1029 Magnesium Hydroxide (Milk of Magnesia) 400 Mg/5 Ml Oral.susp, 30 ML PO BID PRN for CONSTIPATION-7TH LINE, (Reported) Entered as Reported by: LACHO CRUZ on 07/09/22 102 Melatonin (Melatonin) 3 Mg Tablet, 3 MG PO HS PRN for INSOMNIA, (Reported) Entered as Reported by: LACHO CRUZ on 07/09/22 1029 Naloxone HCl (Narcan) 4 Mg/Actuation [place], 1 SPR NS UD PRN for OVERDOSE, (Reported) Entered as Reported by: LACHO CRUZ on 07/09/22 1029 Oxycodone HCl/Acetaminophen (Oxycodone-Acetaminophen 5-325) 5 Mg-325 Mg Tablet, 1 EA PO BID PRN for PAIN-MODERATE (5-7), (Reported) Entered as Reported by: LACHO CRUZ on 12/14/21 0953 Polyethylene Glycol 3350 (Miralax) 17 Gram Powd.pack, 17 GM PO DAILY PRN for CONSTIPATION-2ND LINE, (Reported) Entered as Reported by: LACHO CRUZ on 07/09/22 102 Prednisone (Prednisone) 10 Mg Tab, 0 PO UD Prescribed by: GRIFFIN MARIN on 07/17/22 0905 Tolterodine Tartrate (Tolterodine Tartrate) 2 Mg Tablet, 2 MG PO BID, (Reported) Entered as Reported by: LACHO CRUZ on 07/09/22 1029 Warfarin Sodium (Warfarin Sodium) 5 Mg Tablet, 5 MG PO NO,MO,TU,TH,FR @1700, (Reported) Entered as Reported by: LACHO CRUZ on 12/14/21 0953 Warfarin Sodium (Warfarin Sodium) 7.5 Mg Tablet, 7.5 MG PO WE,SA @1700, (Reported) Entered as Reported by: LACHO CRUZ on 07/09/22 1029 Review of Systems Review of Systems Constitutional: see HPI EENTM: other (dry mouth) Respiratory: cough, short of breath Cardiovascular: edema Gastrointestinal: see HPI Genitourinary: No dysuria Musculoskeletal: no symptoms reported Skin: No rash Psychiatric/Neurological: See HPI Hematologic/Lymphatic: Blood Clots (taking warfarin) Past Zemvjyy-Ytvyzn-Evcupk Hx Immunizations Up To Date First/Initial COVID19 Vaccinat: 2020 Second COVID19 Vaccination Jonas: 2020 Third COVID19 Vaccination Date: Pt has had the first shot of Pfizer vaccine and is due for her second 03/27 Seasonal Allergies Seasonal Allergies: No Past Medical History Surgery/Hospitalization HX: Fibromyalgia, Pulmonary Embolus, Hypertension, Chronic Kidney Disease, Migraines, Hypercholesterolemia, GERD, Anxiety, Depression, Insomnia Surgeries: No Respiratory: Yes Pneumonia, Pulmonary Embolism Currently Using CPAP: No Currently Using BIPAP: No Cardiac: Yes Deep Vein Thrombosis, High Cholesterol, Hypertension Neurological: Yes (fibromyalgia. CHRONIC FATQUE SYNDRONE) Headaches /Migraines, Stroke Sexually Transmitted Disease: No HIV/AIDS: No Genitourinary: Yes Bladder Infection, Renal Failure Gastrointestinal: Yes Gastroesophageal Reflux, Chronic Constipation, Hemorrhoids, Gall Bladder Disease Musculoskeletal: Yes Arthritis, Chronic Back Pain Endocrine: No HEENT: Yes (BOTH EARS HURT INSIDE, COCKEYED FROM ) Cataract, Double Vision Loss of Vision: Bilateral Hearing Impairment: Hard of Hearing Cancer: No Psychosocial: Yes Sleep Difficulties, Anxiety, Depression Integumentary: Yes Eczema Blood Disorders: No Adverse Reaction/Blood Tranf: No Family Medical History Diabetes mellitus 19 MOTHER CAD Under 55 Years Old, Diabetes Physical Exam Vital Signs Vital Signs - First Documented 12/10/22 12:37 Temp 37.3 Pulse 122 Resp 16 B/P (MAP) 143/126 (132) Pulse Ox 95 O2 Delivery Nasal Cannula Capillary Refill : Height, Weight, BMI Height: 5'4.00" Weight: 300lbs. oz. [id number]; 51.85 BMI Method:Stated General Appearance: No Apparent Distress, Chronically ill, Obese, Other (somnolent but awakens to voice and answering questions) HEENT: PERRL/EOMI; No Moist Mucous Membranes (dry mucus membranes) Neck: Full Range of Motion, Normal Inspection, Non Tender, Supple Respiratory: Chest Non Tender, No Accessory Muscle Use, No Respiratory Distress, Decreased Breath Sounds Cardiovascular: Normal Peripheral Pulses, Extra Beats, Tachycardia Gastrointestinal: Normal Bowel Sounds, No Pulsatile Mass, Non Tender, Soft Rectal: Deferred Extremity: Normal Capillary Refill, Pedal Edema (2+ pedal edema BLE) Neurologic/Psychiatric: Other (somnolent, awakens to voice. Oriented to self and date of . Thinks she is in [place] and thinks it is still November but can not tell me a day or year. ) Skin: Warm/Dry Focused Exam Sepsis Stage: Sepsis Possible Source: Genitouriary Lactate Level 12/10/22 12:50: Lactic Acid Level 2.46*H 12/10/22 15:03: Lactic Acid Level 1.82 Time of Focused Exam: 14:00 Respiratory: Chest Non Tender, No Accessory Muscle Use, No Respiratory Distress, Decreased Breath Sounds Cardiovascular: Normal Peripheral Pulses, Extra Beats, Tachycardia Capillary Refill: Less Than 3 Seconds Peripheral Pulses: 2+ Carotid (R), 2+ Carotid (L), 2+ Radial Pulses (R), 2+ Radial Pulses (L) Skin: normal color, warm/dry Lactic Acid Level Laboratory Tests Test 12/10/22 12:50 12/10/22 15:03 Lactic Acid Level 2.46 MMOL/L (0.50-2.00) *H 1.82 MMOL/L (0.50-2.00) Within 3hrs of presentation: Admin fluids, Admin ABX, Blood cultures prior to ABX's, Focus exam, Lactate level Progress/Results/Core Measures Suspected Sepsis SIRS Temperature: Pulse: Respiratory Rate: Laboratory Tests 12/10/22 12:50: White Blood Count 22.3H Blood Pressure / Mean: 12/10/22 12:50: Lactic Acid Level 2.46*H 12/10/22 15:03: Lactic Acid Level 1.82 Laboratory Tests 12/10/22 12:50: Creatinine 1.53H, INR Comment 1.4, Platelet Count 246, Total Bilirubin 0.8 Results/Orders Lab Results Laboratory Tests Test 12/10/22 12:50 12/10/22 12:57 12/10/22 12:58 12/10/22 13:00 Range/Units White Blood Count 22.3 H 4.3-11.0 10^3/uL Red Blood Count 4.73 3.80-5.11 10^6/uL Hemoglobin 11.5 11.5-16.0 g/dL Hematocrit 36 35-52 % Mean Corpuscular Volume 75 L 80-99 fL Mean Corpuscular Hemoglobin 24 L 25-34 pg Mean Corpuscular Hemoglobin Concent 32 32-36 g/dL Red Cell Distribution Width 17.5 H 10.0-14.5 % Platelet Count 246 130-400 10^3/uL Mean Platelet Volume 9.6 9.0-12.2 fL Immature Granulocyte % (Auto) 1 % Neutrophils (%) (Auto) 78 H 42-75 % Lymphocytes (%) (Auto) 14 12-44 % Monocytes (%) (Auto) 7 0-12 % Eosinophils (%) (Auto) 0 0-10 % Basophils (%) (Auto) 0 0-10 % Neutrophils # (Auto) 17.4 H 1.8-7.8 10^3/uL Lymphocytes # (Auto) 3.2 1.0-4.0 10^3/uL Monocytes # (Auto) 1.6 H 0.0-1.0 10^3/uL Eosinophils # (Auto) 0.0 0.0-0.3 10^3/uL Basophils # (Auto) 0.1 0.0-0.1 10^3/uL Immature Granulocyte # (Auto) 0.1 0.0-0.1 10^3/uL Neutrophils % (Manual) 74 % Lymphocytes % (Manual) 21 % Monocytes % (Manual) 5 % Polychromasia SLIGHT Hypochromasia SLIGHT Anisocytosis SLIGHT Microcytosis SLIGHT Prothrombin Time 17.3 H 12.2-14.7 SEC INR Comment 1.4 0.8-1.4 Activated Partial Thromboplast Time 28 24-35 SEC Urine Color YELLOW Urine Clarity SL CLOUDY Urine pH 5.5 5-9 Urine Specific Burden 1.015 L 1.016-1.022 Urine Protein TRACE H NEGATIVE Urine Glucose (UA) NEGATIVE NEGATIVE Urine Ketones NEGATIVE NEGATIVE Urine Nitrite POSITIVE H NEGATIVE Urine Bilirubin NEGATIVE NEGATIVE Urine Urobilinogen 0.2 < = 1.0 MG/DL Urine Leukocyte Esterase 1+ H NEGATIVE Urine RBC (Auto) 1+ H NEGATIVE Urine RBC 0-2 /HPF Urine WBC 25-50 H /HPF Urine Squamous Epithelial Cells 0-2 /HPF Urine Crystals NONE /LPF Urine Bacteria LARGE H /HPF Urine Casts NONE /LPF Urine Mucus NEGATIVE /LPF Urine Culture Indicated YES Sodium Level 138 135-145 MMOL/L Potassium Level 4.6 3.6-5.0 MMOL/L Chloride Level 99 98-107 MMOL/L Carbon Dioxide Level 27 21-32 MMOL/L Anion Gap 12 5-14 MMOL/L Blood Urea Nitrogen 28 H 7-18 MG/DL Creatinine 1.53 H 0.60-1.30 MG/DL Estimat Glomerular Filtration Rate 36 BUN/Creatinine Ratio 18 Glucose Level 221 H 70-105 MG/DL Lactic Acid Level 2.46 *H 0.50-2.00 MMOL/L Calcium Level 9.2 8.5-10.1 MG/DL Corrected Calcium 9.8 8.5-10.1 MG/DL Total Bilirubin 0.8 0.1-1.0 MG/DL Aspartate Amino Transf (AST/SGOT) 28 5-34 U/L Alanine Aminotransferase (ALT/SGPT) 15 0-55 U/L Alkaline Phosphatase 93 40-136 U/L Troponin I < 0.30 <0.30 NG/ML C-Reactive Protein 26.61 H <0.50 MG/DL Pro-B-Type Natriuretic Peptide 1684.0 H <125.0 PG/ML Total Protein 7.6 6.4-8.2 GM/DL Albumin 3.3 3.2-4.5 GM/DL Glucometer 197 H 70-110 MG/DL Influenza Type A (RT-PCR) Not Detected Not Detecte Influenza Type B (RT-PCR) Not Detected Not Detecte SARS-CoV-2 RNA (RT-PCR) Not Detected Not Detecte Blood Gas Puncture Site LEFT WRIST Blood Gas Patient Temperature 37.3 Arterial Blood pH 7.50 H 7.37-7.43 Arterial Blood Partial Pressure CO2 37 35-45 MMHG Arterial Blood Partial Pressure O2 58 L 79-93 MMHG Arterial Blood HCO3 29 H 23-27 MMOL/L Arterial Blood Total CO2 30.0 21.0-31.0 MMOL/L Arterial Blood Oxygen Saturation 92 L 94-100 % Arterial Blood Base Excess 5.5 H -2.5-2.5 MMOL/L Antony Test YES-POS Blood Gas Ventilator Setting NO Blood Gas Inspired Oxygen 2L Test 12/10/22 15:03 Range/Units Lactic Acid Level 1.82 0.50-2.00 MMOL/L My Orders Orders - KAUSHAL VANCE MD Cbc With Automated Diff (12/10/22 12:42) Comprehensive Metabolic Panel (12/10/22 12:42) Blood Culture (12/10/22 12:42) Ua Culture If Indicated (12/10/22 12:42) Chest 1 View Ap/Pa Only (12/10/22 12:42) Ed Iv/Invasive Line Start (12/10/22 12:42) Crp Fs (5/1/23 12:42) Lactic Acid Analyzer (12/10/22 12:42) Covid 19 Inhouse Test (12/10/22 12:42) Matias Cath (12/10/22 12:42) Monitor-Rhythm Ecg Trace Only (12/10/22 12:42) Ekg Tracing (12/10/22 12:42) Troponin I Fs (12/10/22 12:42) Probnp Fs (12/10/22 12:42) Influenza A And B By Pcr (12/10/22 12:42) Isolation Central Supply Req (12/10/22 12:42) Ns Iv 1000 Ml (Sodium Chloride 0.9%) (12/10/22 12:42) Arterial Blood Gas (12/10/22 12:42) Accucheck Stat ONCE (12/10/22 12:42) Ct Head Wo (12/10/22 12:46) Protime With Inr (12/10/22 13:01) Partial Thromboplastin Time (12/10/22 13:01) Manual Differential (12/10/22 12:50) Urine Culture (12/10/22 12:50) Ceftriaxone Iv/Im (Rocephin Iv/Im) (12/10/22 13:21) Ns Iv 1000 Ml (Sodium Chloride 0.9%) (12/10/22 13:21) Ed Admission (Communication) (12/10/22 14:05) Enoxaparin Injection (Lovenox Injection) (12/10/22 14:06) Ns Iv 1000 Ml (Sodium Chloride 0.9%) (12/10/22 14:55) Vital Signs/I&O 12/10/22 12:37 Temp 37.3 Pulse 122 Resp 16 B/P (MAP) 143/126 (132) Pulse Ox 95 O2 Delivery Nasal Cannula Capillary Refill : Progress Note #1: Progress Note Potential diagnosis of sepsis, pneumonia, stroke, electrolyte imbalance, renal failure, hepatic failure, dehydration, gastroenteritis, DKA, urinary tract infection. Placed on cardiac air sampling and monitoring and on my personal interpretation it shows sinus tachycardia with a heart rate in the 120s with frequent PVCs. Obtain electrocardiogram for more formal evaluation of her heart tracing. Send blood for complete blood count, comprehensive metabolic profile, coagulation factors, blood cultures, lactic acid, troponin, proBNP, COVID swab, influenza swab. Obtain chest x-ray and evaluate for potential pneumonia or mass. CT scan of the head to look for signs of acute stroke or intracranial hemorrhage or mass. Place Matias catheter to monitor urine output and have accurate I&O's as well as obtain urinalysis for urine culture. Normal saline 1 L IV fluid bolus for hydration. Check an ABG to look for signs of CO2 retention or acidosis. Accu-Chek to see what her sugar is doing currently. Initially her oxygen saturation was 87 to 88% on room air so placed on 2 L by nasal cannula. Blood pressure 145/34. Heart rate 120s sinus tachycardia with frequent PVCs. Progress Note #2: Time: 13:18 Progress Note Accu-Chek was 197. Complete blood count shows elevated white blood cell count up to 22.3 thousand she has some mild anemia with hemoglobin of 11.5. Platelets are normal at 246. She does have a left shift with 70% neutrophils 14% lymphocytes. ABG showed she was alkalotic with pH of 7.5, pCO2 37, pO2 58. Urinalysis shows specific gravity of 1.015, positive Nitrites, 1+ Leukocyte esterase, 25-50 WBC with Large Bacteria indicating a UTI. Will administer an additional Liter of NS for hydration and order Ceftriaxone 1 gm IV for UTI and possible sepsis. Will check with Dr. Umana, [employer] consultant hospitalist for [facility], about admit for continued IVF hydration and antibiotics. 1333 On my personal interpretation and review of her CXR and CT head without contrast show no acute process on CT head. She has increased pulmonary vascular congestion to right lung vs possible infiltrate. Progress Note #3: Time: 13:38 Progress Note I updated the patient and her son about the findings and plans of 4 of anticipating admission once I have the rest of the test back to be able to talk with Dr. Umana for the [facility] service. The patient and her son (her DPOA) were agreeable with admission. Patient is a little more awake and alert as the fluids are infusing and she is on the supplemental oxygen. Her lactic acid came back at 2.46. She has chronic renal insufficiency with a creatinine of 1.[address] head was read out by radiology as no acute process. Progress Note #4: Progress Note 1609 Repeat Lactic acid came back improved down to 1.82. Patient continues to be hemodynamically stable here and is more awake and alert ECG Initial ECG Impression Date: December 10, 2022 Initial ECG Impression Time: 13:03 Initial ECG Rate: 125 Initial ECG Rhythm: S.Tach Initial ECG Comparisson: Changed (similar to tracing from December 13, 2021 other than now has sinus tachycardia and supraventricular premature complexes.) Comment My interpretation of the electrocardiogram shows sinus tachycardia with frequent PVCs and a heart rate of 125 bpm. TN interval 149 ms. QT interval 360 ms with a QTc interval 434 ms. She has no ST elevation. Overall appears similar to tracing from December 13, 2021 other than she has the sinus tachycardia with frequent supraventricular premature complexes today. Diagnostic Imaging Diagonstic Imaging: Xray Plain Films/CT/US/NM/MRI: chest Comments NAME: KATINA CHAUDHRYYCE Synovex REC#: [id number] PT STATUS: REG ER : 1950 PHYSICIAN: KAUSHAL VANCE MD ADMIT DATE: 12/10/22/ER FS Draft Date of Exam:12/10/22 CHEST 1 VIEW AP/PA ONLY INDICATION: Shortness of breath, weakness. TECHNIQUE: Single view chest, 1:05 p.m. CORRELATION STUDY: 07/09/2022, 03/24/2021. FINDINGS: Heart size and mediastinum are enlarged and prominent. Vasculature is mildly prominent but less severely so from prior. Unchanged elevated right diaphragm. Opacity with abnormal fullness of the right hilum and inferior right heart border overall appears generally stable. There is questionable soft tissue fullness in the right infrahilar region. IMPRESSION: 1. Generally stable portable chest. Exception is vasculature appears slightly increased from prior. Dictated on workstation # [id number] Dict: 12/10/22 1411 Trans: 12/10/22 1414 [id number] Interpreted by: JOHN AMARO DO Electronically signed by: Reviewed: Reviewed by Me (I reviewed radiologist report at 1447) Diagonstic Imaging: CT Plain Films/CT/US/NM/MRI: head Comments NAME: CHAUDHRYKIRSTIE Kaur Synovex REC#: [id number] PT STATUS: REG ER : 1950 PHYSICIAN: KAUSHAL VANCE MD ADMIT DATE: 12/10/22/ER FS Draft Date of Exam:12/10/22 CT HEAD WO PROCEDURE: CT head without contrast. TECHNIQUE: Multiple contiguous axial images were obtained through the brain without the use of intravenous contrast. Auto Exposure Controls were utilized during the CT exam to meet ALARA standards for radiation dose reduction. INDICATION: Lethargy, confusion and generalized weakness. COMPARISON: 12/13/2021 Ventricles and sulci remain diffusely prominent. There is no evidence of hemorrhage. Low-density deep white matter is most pronounced in the frontal lobes without significant change. There is atherosclerotic calcification within distal internal carotid and vertebral arteries. Calvarium is intact and the visualized paranasal sinuses are clear. IMPRESSION: Stable chronic findings without acute intracranial abnormality. Dictated on workstation # [id number] Dict: 12/10/22 1332 Trans: 12/10/22 1336 [id number] [id number] Interpreted by: JUAN HAMPTON MD Electronically signed by: Reviewed: Reviewed by Me Critical Care Note Critical Care Total Time (minutes) 45 minutes Progress I spent at least 45 minutes of critical care time with the patient. Time excludes separately billable procedures. Time was spent obtaining history from patient, EMS, son, electronic medical record, ordering tests and reviewing results, ordering interventions and reviewing response, documentation in the chart, discussion with consultants, discussion with family members. Patient was at risk of cardiovascular compromise with her sepsis and urinary tract infection as well as hypoxia causing decreased mental status. She required my immediate and direct intervention and monitoring and management to help with stabilization and treatment for her conditions. Departure Communication (Admissions) Time/Spoke to Admitting Phy: 14:02 d/w Dr. Umana, [employer] consultant hospitalist for [facility] inpatient service, about presentation of patient and findings supporting UTI with sepsis and dehydration. She has tachycardia with heart rate 125 and initial O2 sat 87-88% on room air but up to 95% with 2 Lpm supplemental oxygen by n.c. Blood pressure 126/54. WBC count up to 22 and Lactic acid of 2.46. Urine with Nit, LE, Bacteria and WBC. No prior urine cultures to compare and help with choosing antibiotic. She accepted patient with inpatient admit for Cardiac stepdown unit. Will give Lovenox 100 mg SC x 1 since she is subtherapeutic for her coagulation with Warfarin. Impression Primary Impression: Acute cystitis without hematuria Additional Impressions: Mental status, decreased Nausea and vomiting in adult Sepsis Qualified Codes: A41.9 - Sepsis, unspecified organism Hypoxia Dehydration Disposition: 30 STILL A PATIENT Condition: Critical Admissions Decision to Admit Reason: Admit from ER (General) Decision to Admit/Date: December 10, 2022 Time/Decision to Admit Time: 14:02 Departure-Patient Inst. Referrals: CELIA SEWELL MD (PCP/Family) Primary Care Physician KAUSHAL VANCE MD December 10, 2022 12:48
[2022-12-10 13:02] LABS: BASOPHILS # (AUTO) 0.1 10^3/uL (0.0-0.1); BASOPHILS % (AUTO) 0 % (0-10); EOSINOPHILS % (AUTO) 0 % (0-10); HEMATOCRIT 36 % (35-52); HEMOGLOBIN 11.5 g/dL (11.5-16.0); LYMPHOCYTES # (AUTO) 3.2 10^3/uL (1.0-4.0); LYMPHOCYTES % (AUTO) 14 % (12-44); MEAN CORPUSCULAR HEMOGLOBIN 24 pg (25-34); MEAN CORPUSCULAR HGB CONC 32 g/dL (32-36); MEAN CORPUSCULAR VOLUME 75 fL (80-99); MEAN PLATELET VOLUME 9.6 fL (9.0-12.2); MONOCYTES # (AUTO) 1.6 10^3/uL (0.0-1.0); MONOCYTES % (AUTO) 7 % (0-12); NEUTROPHILS # (AUTO) 17.4 10^3/uL (1.8-7.8); NEUTROPHILS % (AUTO) 78 % (42-75); PLATELET COUNT 246 10^3/uL (130-400); WHITE BLOOD COUNT 22.3 10^3/uL (4.3-11.0)
[2022-12-10 13:04] LABS: BILIRUBIN,URINE NEGATIVE (NEGATIVE); CLARITY,URINE SL CLOUDY; COLOR,URINE YELLOW; GLUCOSE, URINE (UA) NEGATIVE (NEGATIVE); KETONES,URINE NEGATIVE (NEGATIVE); LEUKOCYTE ESTERASE ,URINE 1+ (NEGATIVE); NITRITE,URINE POSITIVE (NEGATIVE); PH,URINE 5.5 (5-9); PROTEIN,URINE TRACE (NEGATIVE)
[2022-12-10 13:07] LABS: ABG BASE EXCESS 5.5 MMOL/L (-2.5-2.5); ABG PCO2 37 MMHG (35-45); ABG PO2 58 MMHG (79-93)
[2022-12-10 13:08] LABS: ABG OXYGEN SATURATION 92 % (94-100); ALLENS TEST YES-POS; INSPIRED O2 2L; PATIENT TEMP 37.3; VENTILATOR NO
[2022-12-10 13:18] LABS: BACTERIA,URINE LARGE /HPF; RBC,URINE 0-2 /HPF; SQUAMOUS EPITHELIAL CELL,UR 0-2 /HPF; WBC,URINE 25-50 /HPF
[2022-12-10] MEDS ORDERED: cefTRIAXone IV/IM 1,000 MG in NS (IVPB) 50 ML IV STA (13:21)
[2022-12-10 13:25] LABS: INR 1.4 (0.8-1.4); PROTHROMBIN TIME PATIENT 17.3 SEC (12.2-14.7)
[2022-12-10 13:36] LABS: ALBUMIN 3.3 GM/DL (3.2-4.5); BILIRUBIN,TOTAL 0.8 MG/DL (0.1-1.0); CALCIUM 9.2 MG/DL (8.5-10.1); CREATININE SERUM 1.53 MG/DL (0.60-1.30); POTASSIUM 4.6 MMOL/L (3.6-5.0); TOTAL PROTEIN 7.6 GM/DL (6.4-8.2)
--- NOTE | 2022-12-10 13:36 | Diagnostic Imaging Report ---
PROCEDURE: CT head without contrast. TECHNIQUE: Multiple contiguous axial images were obtained through the brain without the use of intravenous contrast. Auto Exposure Controls were utilized during the CT exam to meet ALARA standards for radiation dose reduction. INDICATION: Lethargy, confusion and generalized weakness. COMPARISON: 12/13/2021 Ventricles and sulci remain diffusely prominent. There is no evidence of hemorrhage. Low-density deep white matter is most pronounced in the frontal lobes without significant change. There is atherosclerotic calcification within distal internal carotid and vertebral arteries. Calvarium is intact and the visualized paranasal sinuses are clear. IMPRESSION: Stable chronic findings without acute intracranial abnormality. Dictated by: Dictated on workstation # [id number]
[2022-12-10 13:59] LABS: ANISOCYTOSIS SLIGHT; HYPOCHROMASIA SLIGHT; LYMPHOCYTES % (MANUAL) 21 %; MICROCYTOSIS SLIGHT; MONOCYTES % (MANUAL) 5 %; NEUTROPHILS % (MANUAL) 74 %; POLYCHROMASIA SLIGHT
[2022-12-10] MEDS ORDERED: ENOXAPARIN 100 MG/1 ML (LOVENOX) SYR SC STA (14:06)
--- NOTE | 2022-12-10 14:15 | Diagnostic Imaging Report ---
INDICATION: Shortness of breath, weakness. TECHNIQUE: Single view chest, 1:05 p.m. CORRELATION STUDY: 07/09/2022, 03/24/2021. FINDINGS: Heart size and mediastinum are enlarged and prominent. Vasculature is mildly prominent but less severely so from prior. Unchanged elevated right diaphragm. Opacity with abnormal fullness of the right hilum and inferior right heart border overall appears generally stable. There is questionable soft tissue fullness in the right infrahilar region. IMPRESSION: 1. Generally stable portable chest. Exception is vasculature appears slightly increased from prior. Dictated by: Dictated on workstation # [id number]
[2022-12-10] MEDS ORDERED: polyethylene glycoL POWDER 17 GM (MIRALAX) PACK PO PRN (17:15)
[2022-12-10] MEDS ORDERED: ENOXAPARIN 100 MG/1 ML (LOVENOX) SYR SC SCH (17:15)
[2022-12-10] MEDS ORDERED: BISACODYL 10 MG SUPP (DULCOLAX) PR PRN (17:15)
[2022-12-10] MEDS ORDERED: ANTACID SUSP 30 ML UDC (MYLANTA) PO PRN (17:15)
[2022-12-10] MEDS ORDERED: NS IV 1000 ML 1,000 ML IV SCH (17:15)
[2022-12-10] MEDS ORDERED: diphenhydrAMINE 25 MG TAB (BENADRYL) PO PRN (17:15)
[2022-12-10] MEDS ORDERED: ACETAMINOPHEN 325 MG TABLET PO PRN (17:15)
[2022-12-10] MEDS ORDERED: ONDANSETRON 4 MG/2 ML (SDV) Z0FRAN IV PRN (17:15)
[2022-12-10] MEDS ORDERED: ONDANSETRON 4 MG (ZOFRAN) ORAL DISSOLVE TAB PO PRN (17:15)
[2022-12-10] MEDS ORDERED: cloNIDine 0.1 MG (CATAPRES) TAB PO PRN (17:15)
[2022-12-10] MEDS ORDERED: HYDROmorphone 2 MG/ML VIAL (DILAUDID) IV PRN (17:15)
[2022-12-10] MEDS ORDERED: diphenhydrAMINE 50 MG/ML INJ (BENADRYL) IVP PRN (17:15)
[2022-12-10] MEDS ORDERED: MELATONIN 3 MG TABLET PO PRN (17:15)
[2022-12-10] MEDS ORDERED: cefTRIAXone IV/IM 1,000 MG in NS (IVPB) 50 ML IV SCH (17:15)
[2022-12-10] MEDS ORDERED: ENOXAPARIN INJECTION 30 MG/0.3 ML SYR SC NR (17:30)
[2022-12-10] MEDS ORDERED: RT-ALBUTEROL SULF 2.5 MG/3 ML PRE-MIX VIAL INH PRN (18:30)
--- NOTE | 2022-12-10 18:34 | History & Physical ---
History of Present Illness HPI/Chief Complaint CC: AMS with UTI HPI: This is a 72yoWF clinic patient of [facility] who is known to me since in inpatient rehab months ago requiring VCV prolonged stay who went home in 08/2022 who presented to the [facility] ER with weakness and lethargy and unable to walk. Patient was found to have UTI and subtherapeutic INR and although she was cared for by they have closed in her town and she can't move around adequately to remain at home. Upon assessment she was dyspneic and concerning enough to move her to ICU. Source: patient, RN/MD, old records Exam Limitations: clinical condition Date Seen 12/10/22 Time Seen by a Provider: 18:45 Attending Physician Gilberto Francis MD PCP Admitting Physician: Sigrid Umana DO Attending Physician: Sigrid Umana DO Referring Physician Date of Admission December 10, 2022 at 16:45 Home Medications & Allergies Home Medications Reviewed patient Home Medication Reconciliation performed by pharmacy medication reconciliations sales service technician and/or nursing. Patients Allergies have been reviewed. Allergies Allergies Coded Allergies Penicillins (Verified Allergy, Unknown, 01/11/19) Past Hpfshxt-Akpdbb-Gfgrai Hx Past Med/Social Hx: Reviewed Nursing Past Med/Soc Hx, Reviewed and Corrections made Patient Social History Marrital Status: single Employed/Student: retired Alcohol Use: Denies Use Smoking Status: Never a Smoker 2nd Hand Smoke Exposure: No Recent Hopitalizations: No Recent Infectious Disease Expo: No Immunizations Up To Date Date of Pneumonia Vaccine: May 12, 2018 Seasonal Allergies Seasonal Allergies: No Past Medical History Currently Using CPAP: No Currently Using BIPAP: No Cardiac: Deep Vein Thrombosis, High Cholesterol, Hypertension Neurological: Headaches /Migraines, Stroke Sexually Transmitted Disease: No HIV/AIDS: No Genitourinary: Bladder Infection, Renal Failure Gastrointestinal: Gastroesophageal Reflux, Chronic Constipation, Hemorrhoids, Gall Bladder Disease Musculoskeletal: Arthritis, Chronic Back Pain HEENT: Cataract, Double Vision Loss of Vision: Bilateral Hearing Impairment: Hard of Hearing Psychosocial: Sleep Difficulties, Anxiety, Depression Skin/Integumentary: Eczema History of Blood Disorders: No Adverse Reaction to Blood Waller: No Family History Diabetes mellitus 19 MOTHER CAD Under 55 Years Old, Diabetes Review of Systems Constitutional: see HPI, dizziness, malaise, weakness Respiratory: dyspnea on exertion Genitourinary: no symptoms reported Physical Exam Physical Exam Vital Signs Vital Signs - First Documented 12/10/22 12/10/22 12:37 20:15 Temp 37.3 Pulse 122 Resp 16 B/P (MAP) 143/126 (132) Pulse Ox 95 O2 Delivery Nasal Cannula FiO2 94 Capillary Refill : Less Than 3 Seconds Height, Weight, BMI Height: 5'4.00" Weight: 300lbs. oz. 136.540980iq; 55.44 BMI Method:Stated General Appearance: Anxious, Chronically ill, Moderate Distress, Obese, Other (somnolent but awakens to voice and answering questions) HEENT: PERRL/EOMI; No Moist Mucous Membranes (dry mucus membranes) Neck: Full Range of Motion, Normal Inspection, Non Tender, Supple Respiratory: Chest Non Tender, No Accessory Muscle Use, No Respiratory Distres s, Decreased Breath Sounds Cardiovascular: Normal Peripheral Pulses, Extra Beats, Tachycardia Gastrointestinal: Normal Bowel Sounds, No Pulsatile Mass, Non Tender, Soft Rectal: Deferred Extremity: Normal Capillary Refill, Pedal Edema (2+ pedal edema BLE) Neurologic/Psychiatric: Other (somnolent, awakens to voice. Oriented to self and date of . Thinks she is in [place] and thinks it is still November but can not tell me a day or year. ) Skin: Warm/Dry Results Results/Procedures Labs Laboratory Tests 12/10/22 12:50 12/10/22 19:05 Patient resulted labs reviewed. Assessment/Plan Admission Diagnosis Assessment: Acute respiratory failure hypoxic type UTI Severe debility unable to ambulate and lives alone HTN HLP Prior CVA Subtherapeutic INR h/o DVT Plan: ICU IV abx Monitor closely Admission Status: Inpatient Order (span 2 midnights) Reason for Inpatient Admission: acute resp failure SIGRID UMANA DO December 10, 2022 18:34
[2022-12-10] MEDS ORDERED: NS IV 500 ML 500 ML IV PRN (18:45)
[2022-12-10 19:14] LABS: BASOPHILS # (AUTO) 0.1 10^3/uL (0.0-0.1); BASOPHILS % (AUTO) 0 % (0-10); EOSINOPHILS % (AUTO) 0 % (0-10); HEMATOCRIT 33 % (35-52); HEMOGLOBIN 10.6 g/dL (11.5-16.0); LYMPHOCYTES # (AUTO) 3.3 10^3/uL (1.0-4.0); LYMPHOCYTES % (AUTO) 16 % (12-44); MEAN CORPUSCULAR HEMOGLOBIN 25 pg (25-34); MEAN CORPUSCULAR HGB CONC 32 g/dL (32-36); MEAN CORPUSCULAR VOLUME 76 fL (80-99); MEAN PLATELET VOLUME 9.7 fL (9.0-12.2); MONOCYTES # (AUTO) 1.2 10^3/uL (0.0-1.0); MONOCYTES % (AUTO) 6 % (0-12); NEUTROPHILS # (AUTO) 16.7 10^3/uL (1.8-7.8); NEUTROPHILS % (AUTO) 78 % (42-75); PLATELET COUNT 221 10^3/uL (130-400); WHITE BLOOD COUNT 21.4 10^3/uL (4.3-11.0)
[2022-12-10 19:21] LABS: POTASSIUM 4.2 MMOL/L (3.6-5.0)
[2022-12-10 19:22] LABS: CALCIUM 8.6 MG/DL (8.5-10.1)
[2022-12-10 19:24] LABS: ABG BASE EXCESS 2.3 MMOL/L (-2.5-2.5); ABG OXYGEN SATURATION 97 % (94-100); ABG PCO2 42 MMHG (35-45); ABG PH 7.42 (7.37-7.43); ABG PO2 79 MMHG (79-93); ABG TCO2 27.7 MMOL/L (21.0-31.0)
[2022-12-10 19:25] LABS: BILIRUBIN,TOTAL 0.7 MG/DL (0.1-1.0)
[2022-12-10 19:27] LABS: CREATININE SERUM 1.6 MG/DL (0.60-1.30)
[2022-12-10 19:29] LABS: ALLENS TEST YES-POS; INSPIRED O2 4L; PATIENT TEMP 36.9; VENTILATOR NO
[2022-12-10] MEDS: inSUlin ASPART (NovoLOG) 1 UNIT/0.01 ML (CHARGE PER UNIT) SC SCH (21:13)
[2022-12-10] MEDS: DOCUSATE SODIUM 100 MG (COLACE) CAP PO SCH (21:13)
[2022-12-10] MEDS ORDERED: RT-ALBUTEROL/IPRATROPIUM 3 ML (DUONEB) VIAL INH PRN (21:15)
--- NOTE | 2022-12-10 21:20 | Tele-ICU Progress Note ---
Progress Note 72F with DM, DVT, HTN admitted with sepsis secondary to urinary source. Presented with lethargy, confusion, general weaknes x2-3 days. Had vomiting yesterday. No diarrhea. Did have a sick contact over the weekend, unknown details of that sick contact. In ED, CXR was negative for acute pathology. CT head was also negative. Given 2L IVF and placed on 2L for SpO2 88-89%. She had sinus tach around 120, but BP was stable. UA was positive for nitrits, LE, 25-50 WBC and large bacteria. Given 1G Ceftriaxone. - sepsis: secondary to urinary source. Started on Rocephin in ED, will be continued. Cultures pending. Initial lactic 2.4, improved to 1.8 after hydration. - hypoxia: requiring 4L with good response. CT negative for acute pathology. Possibly related to lethargy and poor respiratory effort. On 4L NC with SpO2 96% on RA. Does have some right sided weezing and coarse upper breath sounds. No prior CHF or COPD diagnosis. Will give PRN nebs for wheezing. Per RN she does have a good cough on her own. Add azithro for possible bronchitis or tracheobronchitis. Of note, 4L requirements have been stable and did not worsen after 2L bolus despite vascular congestion on CXR. I believe the benefits of volume resuscitation outweigh the risk of fluid overload at this time, will not diurese. No reason to suspect PE at this time. - metabolic alkalosis: initial ABG with 7.5/37/58/29. Most likely a contraction alkalosis. After volume resuscitation ABG at 1921 with 7.42/42/79/26. - DM: initial glucose 217. A1C was 7.8 when last checked last year. Insulin sliding scale ordered. Patient assessed via real-time audiovisual communication system. CCT 36 min Focused Exam Lactate Level 12/10/22 12:50: Lactic Acid Level 2.46*H 12/10/22 15:03: Lactic Acid Level 1.82 Height, Weight, BMI Height: 5'4.00" Weight: 300lbs. oz. 136.057195uk; 55.44 BMI Method:Stated Time of Focused Exam: 14:00 RHEA DAVALOS MD December 10, 2022 21:20
[2022-12-10] MEDS: AZITHROMYCIN INJECTION 500 MG in NS (IVPB) 250 ML IV SCH (22:24)
[2022-12-11] VITALS (14 sets, daily range): BP systolic 103–142; BP diastolic 44–98
[2022-12-11 04:39] LABS: BASOPHILS # (AUTO) 0.1 10^3/uL (0.0-0.1); BASOPHILS % (AUTO) 0 % (0-10); EOSINOPHILS # (AUTO) 0.2 10^3/uL (0.0-0.3); EOSINOPHILS % (AUTO) 1 % (0-10); HEMATOCRIT 30 % (35-52); HEMOGLOBIN 9.5 g/dL (11.5-16.0); LYMPHOCYTES # (AUTO) 2.9 10^3/uL (1.0-4.0); LYMPHOCYTES % (AUTO) 15 % (12-44); MEAN CORPUSCULAR HEMOGLOBIN 24 pg (25-34); MEAN CORPUSCULAR HGB CONC 32 g/dL (32-36); MEAN CORPUSCULAR VOLUME 76 fL (80-99); MONOCYTES # (AUTO) 1.1 10^3/uL (0.0-1.0); MONOCYTES % (AUTO) 6 % (0-12); NEUTROPHILS # (AUTO) 14.7 10^3/uL (1.8-7.8); NEUTROPHILS % (AUTO) 77 % (42-75); PLATELET COUNT 206 10^3/uL (130-400); WHITE BLOOD COUNT 19.2 10^3/uL (4.3-11.0)
[2022-12-11] MEDS ORDERED: ENOXAPARIN 300 MG/3 ML (LOVENOX) MULTI-DOSE VIAL SQ SCH (05:00)
[2022-12-11 05:01] LABS: INR 1.5 (0.8-1.4); PROTHROMBIN TIME PATIENT 18.9 SEC (12.2-14.7)
[2022-12-11 05:17] LABS: ALBUMIN 2.7 GM/DL (3.2-4.5); BILIRUBIN,TOTAL 0.6 MG/DL (0.1-1.0); CALCIUM 8.1 MG/DL (8.5-10.1); CREATININE SERUM 1.54 MG/DL (0.60-1.30); MAGNESIUM 1.5 MG/DL (1.6-2.4); PHOSPHORUS 2.7 MG/DL (2.3-4.7); TOTAL PROTEIN 6.3 GM/DL (6.4-8.2)
[2022-12-11] MEDS: KCL 20 MEQ TAB (K-DUR) PO SCH (05:48)
[2022-12-11] MEDS: inSUlin ASPART (NovoLOG) 1 UNIT/0.01 ML (CHARGE PER UNIT) SC SCH ×4 (05:48→21:06)
[2022-12-11] MEDS: POTASSIUM CL 10MEQ/50ML IVPB 50 ML IV SCH (05:48)
[2022-12-11] MEDS: MAGNESIUM 1 GM/100 ML IVPB 100 ML IV SCH ×4 (05:49→09:45)
[2022-12-11 06:27] LABS: ABG BASE EXCESS 3.1 MMOL/L (-2.5-2.5); ABG OXYGEN SATURATION 97 % (94-100); ABG PCO2 48 MMHG (35-45); ABG PH 7.38 (7.37-7.43); ABG PO2 87 MMHG (79-93); ABG TCO2 29.3 MMOL/L (21.0-31.0); ALLENS TEST YES-POS
[2022-12-11 06:28] LABS: INSPIRED O2 2L; PATIENT TEMP 36.7; VENTILATOR NO
[2022-12-11] MEDS: DOCUSATE SODIUM 100 MG (COLACE) CAP PO SCH ×2 (09:00→21:07)
[2022-12-11] MEDS: cefTRIAXone IV/IM 1,000 MG in NS (IVPB) 50 ML IV SCH (13:31)
--- NOTE | 2022-12-11 14:00 | Progress Note ---
AIDAN HAMMOND 12/11/22 1400: Subjective Time Seen by a Provider: 10:00 Subjective/Events-last exam Pt is lying in bed on 1L nc. She endorses OLIVO and pain in ears but notes her throat feels somewhat better. She has UOP and multiple BM's. She denies v/f/c but endorses an episode of nause before lunch. She has been drinking lots of water but has not eaten because she hasn't had an appetite. Focused Exam Lactate Level 12/10/22 12:50: Lactic Acid Level 2.46*H 12/10/22 15:03: Lactic Acid Level 1.82 Time of Focused Exam: 14:00 Objective Exam Last Set of Vital Signs Vital Signs Date Time Temp Pulse Resp B/P (MAP) Pulse Ox O2 Delivery O2 Flow Rate FiO2 12/11/22 04:43 High Flow N/C 2.00 96 12/11/22 03:16 36.8 12/11/22 03:00 105 14 97 Capillary Refill : Less Than 3 Seconds I&O Intake and Output 12/11/22 00:00 Intake Total 1700 ml Output Total 550 ml Balance 1150 ml Intake Oral 450 ml IV Total 1250 ml Output Urine Total 550 ml Daily Weight Change No General: Alert, Oriented X3, Moderate Distress, Other (Chronically ill, obese, anxious) HEENT: PERRLA, EOMI Neck: Other (Full ROM. normal inspection, non tender, supple) Lungs: Other (chest non tender, no accesory muscle use, no respiratory distress, decreased breath sounds) Heart: Other (Tachycardic, satisfactory peripheral pulses) Abdomen: Normal Bowel Sounds, Soft, No Tenderness, No Masses Extremities: Other (Normal cap refill, 2+ edema) Neuro: Normal Speech, Sensation Intact, Cranial Nerves 3-12 NL Results Lab Laboratory Tests 12/10/22 15:03: Lactic Acid Level 1.82 12/10/22 19:05: White Blood Count 21.4H, Red Blood Count 4.32, Hemoglobin 10.6L, Hematocrit 33L, Mean Corpuscular Volume 76L, Mean Corpuscular Hemoglobin 25, Mean Corpuscular Hemoglobin Concent 32, Red Cell Distribution Width 17.2H, Platelet Count 221, Mean Platelet Volume 9.7, Immature Granulocyte % (Auto) 1, Neutrophils (%) (Auto) 78H, Lymphocytes (%) (Auto) 16, Monocytes (%) (Auto) 6, Eosinophils (%) (Auto) 0, Basophils (%) (Auto) 0, Neutrophils # (Auto) 16.7H, Lymphocytes # (Auto) 3.3, Monocytes # (Auto) 1.2H, Eosinophils # (Auto) 0.0, Basophils # (Auto) 0.1, Immature Granulocyte # (Auto) 0.1, Sodium Level 135, Potassium Level 4.2, Chloride Level 100, Carbon Dioxide Level 23, Anion Gap 12, Blood Urea Nitrogen 28H, Creatinine 1.60H, Estimat Glomerular Filtration Rate 34, BUN/Creatinine Ratio 18, Glucose Level 217H, Calcium Level 8.6, Corrected Calcium 9.4, Total Bilirubin 0.7, Aspartate Amino Transf (AST/SGOT) 28, Alanine Aminotransferase (ALT/SGPT) 18, Alkaline Phosphatase 73, Ammonia 16, B-Type Natriuretic Peptide 72.9, Total Protein 7.0, Albumin 3.0L 12/10/22 19:21: Blood Gas Puncture Site R RAD, Blood Gas Patient Temperature 36.9, Arterial Blood pH 7.42, Arterial Blood Partial Pressure CO2 42, Arterial Blood Partial Pressure O2 79, Arterial Blood HCO3 26, Arterial Blood Total CO2 27.7, Arterial Blood Oxygen Saturation 97, Arterial Blood Base Excess 2.3, Antony Test YES-POS, Blood Gas Ventilator Setting NO, Blood Gas Inspired Oxygen 4L 12/10/22 20:27: Glucometer 224H 12/11/22 04:01: White Blood Count 19.2H, Red Blood Count 3.92, Hemoglobin 9.5L, Hematocrit 30L, Mean Corpuscular Volume 76L, Mean Corpuscular Hemoglobin 24L, Mean Corpuscular Hemoglobin Concent 32, Red Cell Distribution Width 17.2H, Platelet Count 206, Mean Platelet Volume 10.0, Immature Granulocyte % (Auto) 1, Neutrophils (%) (Auto) 77H, Lymphocytes (%) (Auto) 15, Monocytes (%) (Auto) 6, Eosinophils (%) (Auto) 1, Basophils (%) (Auto) 0, Neutrophils # (Auto) 14.7H, Lymphocytes # (Auto) 2.9, Monocytes # (Auto) 1.1H, Eosinophils # (Auto) 0.2, Basophils # (Auto) 0.1, Immature Granulocyte # (Auto) 0.2H, Prothrombin Time 18.9H, INR Comment 1.5H, Sodium Level 137, Potassium Level 4.0, Chloride Level 103, Carbon Dioxide Level 24, Anion Gap 10, Blood Urea Nitrogen 31H, Creatinine 1.54H, Estimat Glomerular Filtration Rate 36, BUN/Creatinine Ratio 20, Glucose Level 158H, Calcium Level 8.1L, Corrected Calcium 9.1, Phosphorus Level 2.7, Magnesium Level 1.5L, Total Bilirubin 0.6, Aspartate Amino Transf (AST/SGOT) 24, Alanine Aminotransferase (ALT/SGPT) 14, Alkaline Phosphatase 75, Total Protein 6.3L, Albumin 2.7L 12/11/22 06:16: Blood Gas Puncture Site RR, Blood Gas Patient Temperature 36.7, Arterial Blood pH 7.38, Arterial Blood Partial Pressure CO2 48H, Arterial Blood Partial Pressure O2 87, Arterial Blood HCO3 28H, Arterial Blood Total CO2 29.3, Arterial Blood Oxygen Saturation 97, Arterial Blood Base Excess 3.1H, Antony Test YES-POS, Blood Gas Ventilator Setting NO, Blood Gas Inspired Oxygen 2L 12/11/22 11:14: Glucometer 249H Assessment/Plan Assessment/Plan Assess & Plan/Chief Complaint Sepsis 2/2 UTI - ucx and bcx pending - cont ceftriaxone and azithromycin - Cont maintenance fluids - WBC decreasing, may be dilutional - CTM AHypoxicRF - wheezing in ED, improved with duonebs - Given azithromycin for possible bronchitis - no worsening with fluids (unlikely cardiac) - O2 requirements decreasing, wean as tolerated - cont duonebs scheduled and prn Metabolic Alkalosis (resolved) - s/p IVF - CTM Anemia - s/p IVF - likely dilutional -CTM DM - ISS and accuchecks HTN - chronic, ctm HLD - chronic, ctm Severe Debility - pt unable to live at home alone as unable to ambulate; need to discuss GOC and disposition with family SIGRID GUAMAN DO 12/12/22 0447: Assessment/Plan Assessment/Plan Assess & Plan/Chief Complaint Updated lydia Macdonald in-depth regarding overall goals of care and possible hospice at [place] Supervisory-Addendum Brief Verification & Attestation Participated in pt care: history, MDM, physical Personally performed: exam, history, MDM, supervision of care Care discussed with: Medical Student Procedures: n/a Results interpretation: Verified all documentation Verification and Attestation of Medical Student E/M Service A medical student performed and documented this service in my presence. I reviewed and verified all information documented by the medical student and made modifications to such information, when appropriate. I personally performed the physical exam and medical decision making. Sigrid Guaman, December 12, 2022,04:45 AIDAN HAMMOND December 11, 2022 14:00 SIGRID GUAMAN DO December 12, 2022 04:47
--- NOTE | 2022-12-11 15:16 | Diagnostic Imaging Report ---
Indication: Dyspnea Compared with 12/10/2022 FINDINGS: There is no substantial rotation limits detail as well as a poor inspiratory volume. Perihilar and basilar consolidations in part atelectasis but superimposed pneumonia presumed. Redemonstrated aside from inspiratory lung volume. No other change. Impression: Very poor inspiratory inspiration with rotational limitations. Bilateral zones of atelectasis and pneumonia have least slightly improved with no adverse development. Dictated by: Dictated on workstation # [id number]
[2022-12-11] MEDS ORDERED: MELA5TAB14 PO (15:39)
[2022-12-11] MEDS ORDERED: OXYB5TAB13 PO (15:39)
[2022-12-11] MEDS ORDERED: PRD10T PO (15:39)
[2022-12-11] MEDS ORDERED: WARF-48 PO (15:39)
[2022-12-11] MEDS ORDERED: CHOL20003 PO (15:39)
[2022-12-11] MEDS ORDERED: IPRA3AMP31 IH (15:39)
--- NOTE | 2022-12-11 17:07 | Tele-ICU Progress Note ---
Subjective Date Seen by a Provider: December 11, 2022 Time Seen by a Provider: 17:06 Subjective/Events-last exam (Tele-ICU Physician , Progress Note ) Service provided via interactive audio and video telecommunications [facility] s te to a patient admitted to ICU bed in [facility]. Patient is seen today due to persistent need of ICU care Available chart/ vitals / labs / Images reviewed Video assessment done using teleICU camera, rest of exam as per RN This lady admitted with lethargic, weakness, nausea and vomiting. She is found to have urinary tract infection, bilateral basilar atelectasis with pneumonia. She is currently requiring 2 L of oxygen via nasal cannula. Urine cultures grew E. coli. She also has a acute kidney injury and microcytic anemia. Impression 1. Altered mental status and weakness secondary to urinary tract infection and pneumonia 2. Bilateral basilar atelectasis and pneumonia 3. Chronic microcytic anemia rule out any iron deficiency. Needs to work-up once she is stable. It could be done as an outpatient 4. Hyperglycemia due to underlying diabetes mellitus 5. Acute kidney injury secondary to sepsis. Recommendations 1. 1. Hydration with IV fluids 2. IV antibiotics per primary care physician 3. DVT prophylaxis 4. Bronchodilator therapy. 5. Management of diabetes per primary care physician. 6. Monitor BUN/creatinine Coordination of care with primary care physician and bedside consultants I am remotely monitoring this patient from Tele icu station in [place]. I am unable to do the bedside exam, and history/physical and pertinent information is taken from other notes in the computer and bedside staff. Certain portions of this document may have been dictated utilizing voice recognition technology such as [employer]. Inherent to this technology, typographical and grammatical errors may exist. As much as I am diligent to identify and correct to these mistakes, some errors may remain in the document. Critical care time devoted to this patient today is approximately is-25 minutes- Sepsis Event Evaluation Height, Weight, BMI Height: 5'4.00" Weight: 300lbs. oz. 136.567023lx; 54.69 BMI Method:Stated Focused Exam Lactate Level 12/10/22 12:50: Lactic Acid Level 2.46*H 12/10/22 15:03: Lactic Acid Level 1.82 Time of Focused Exam: 14:00 Exam Exam Patient acknowledged, consented, and participated in this virtual visit which was conducted using real time audio/video Vital Signs Date Time Temp Pulse Resp B/P (MAP) Pulse Ox O2 Delivery O2 Flow Rate FiO2 12/11/22 04:43 High Flow N/C 2.00 96 12/11/22 03:16 36.8 High Flow N/C 2.00 12/11/22 03:00 105 14 142/91 (108) 97 High Flow N/C 3.00 12/11/22 02:00 105 16 138/69 (108) 97 High Flow N/C 3.00 12/11/22 01:00 105 12/11/22 01:00 105 16 135/77 (94) 96 High Flow N/C 3.00 12/11/22 01:00 High Flow N/C 3.00 95 12/11/22 00:23 High Flow N/C 3.00 12/11/22 00:00 109 16 134/61 (83) 96 High Flow N/C 5.00 12/10/22 23:41 36.4 High Flow N/C 5.00 12/10/22 23:00 106 30 135/75 (101) 98 High Flow N/C 5.00 12/10/22 22:46 98 High Flow N/C 5.00 12/10/22 22:05 High Flow N/C 5.00 12/10/22 22:00 109 16 110/70 (76) 96 High Flow N/C 5.00 12/10/22 21:27 Nasal Cannula 4.00 12/10/22 21:00 111 19 114/47 (77) 97 Nasal Cannula 4.00 12/10/22 20:15 High Flow N/C 4.00 94 12/10/22 20:00 112 25 128/79 (99) 98 Nasal Cannula 4.00 12/10/22 20:00 37.8 12/10/22 19:49 Nasal Cannula 4.00 12/10/22 19:46 113 25 113/54 (90) 97 Nasal Cannula 4.00 12/10/22 19:00 112 92/51 (64) 96 Nasal Cannula 4.00 12/10/22 19:00 113 12/10/22 18:12 36.5 105 98 12/10/22 17:50 112 12/10/22 17:30 112 94/67 (76) 97 Nasal Cannula 4.00 12/10/22 17:15 113 106/59 (75) 95 Nasal Cannula 4.00 I & O 12/11/22 07:00 Intake Total 1880 ml Output Total 950 ml Balance 930 ml Height & Weight Height: 5'4.00" Weight: 300lbs. oz. 136.838851zj; 54.69 BMI Method:Stated General Appearance: Anxious, Chronically ill, Moderate Distress, Obese, Other (somnolent but awakens to voice and answering questions) HEENT: PERRL/EOMI; No Moist Mucous Membranes (dry mucus membranes) Neck: Full Range of Motion, Normal Inspection, Non Tender, Supple Respiratory: Chest Non Tender, No Accessory Muscle Use, No Respiratory Distress, Decreased Breath Sounds Cardiovascular: Normal Peripheral Pulses, Extra Beats, Tachycardia Capillary Refill: Less Than 3 Seconds Peripheral Pulses: 2+ Carotid (R), 2+ Carotid (L), 2+ Radial Pulses (R), 2+ Radial Pulses (L) Extremity: Normal Capillary Refill, Pedal Edema (2+ pedal edema BLE) Neurologic/Psychiatric: Other (somnolent, awakens to voice. Oriented to self and date of . Thinks she is in [place] and thinks it is still November but can not tell me a day or year. ) Skin: Warm/Dry Results Lab Laboratory Tests 12/10/22 12:50 12/10/22 19:05 12/11/22 04:01 Assessment/Plan Assessment/Plan as above Critical Care: Critically Ill Patient Time spent with patient (mins): 25 ALLISON BURGOS MD December 11, 2022 17:07
[2022-12-11] MEDS ORDERED: RT-ALBUTEROL/IPRATROPIUM 3 ML (DUONEB) VIAL IH PRN (17:45)
[2022-12-11] MEDS: warFARin 5 MG (COUMADIN) TAB PO SCH (18:49)
[2022-12-11] MEDS: guaiFENesin/DM (ROBITUSSIN DM) 10 ML UDC PO PRN (18:49)
[2022-12-11] MEDS ORDERED: NON-FORMULARY MEDICATION 1 EA EA (Melatonin 5 MG) PO SCH (21:00)
[2022-12-11] MEDS ORDERED: NON-FORMULARY MEDICATION 1 EA EA (Amitriptyline HCl 100 MG) PO SCH (21:00)
[2022-12-11] MEDS ORDERED: NON-FORMULARY MEDICATION 1 EA EA (Insulin Detemir (Levemir Flextouch) 15 UNIT) SQ SCH (21:00)
[2022-12-11] MEDS: ENOXAPARIN 300 MG/3 ML (LOVENOX) MULTI-DOSE VIAL SQ SCH (21:06)
[2022-12-11] MEDS: AZITHROMYCIN INJECTION 500 MG in NS (IVPB) 250 ML IV SCH (21:06)
[2022-12-11] MEDS: GABAPENTIN 300 MG (NEURONTIN) CAP PO SCH (21:07)
[2022-12-11] MEDS: MELATONIN 10 MG TABLET PO SCH (21:07)
[2022-12-11] MEDS: OXYBUTYNIN (DITROPAN) 5 MG TAB PO SCH (21:07)
[2022-12-11] MEDS: BENZONATATE 100 MG (TESSALON) CAPSULE PO SCH (21:08)
[2022-12-11] MEDS: AMITRIPTYLINE 25 MG (ELAVIL) TAB PO SCH (21:08)
[2022-12-12] VITALS (21 sets, daily range): BP systolic 88–167; BP diastolic 42–121
[2022-12-12] MEDS: guaiFENesin/DM (ROBITUSSIN DM) 10 ML UDC PO PRN ×2 (02:33→12:11)
[2022-12-12 05:21] LABS: BASOPHILS % (AUTO) 0 % (0-10); EOSINOPHILS # (AUTO) 0.3 10^3/uL (0.0-0.3); EOSINOPHILS % (AUTO) 3 % (0-10); HEMATOCRIT 30 % (35-52); HEMOGLOBIN 9.6 g/dL (11.5-16.0); LYMPHOCYTES # (AUTO) 2.1 10^3/uL (1.0-4.0); LYMPHOCYTES % (AUTO) 20 % (12-44); MEAN CORPUSCULAR HEMOGLOBIN 25 pg (25-34); MEAN CORPUSCULAR HGB CONC 32 g/dL (32-36); MEAN CORPUSCULAR VOLUME 76 fL (80-99); MEAN PLATELET VOLUME 10.6 fL (9.0-12.2); MONOCYTES # (AUTO) 0.7 10^3/uL (0.0-1.0); MONOCYTES % (AUTO) 7 % (0-12); NEUTROPHILS # (AUTO) 7.1 10^3/uL (1.8-7.8); NEUTROPHILS % (AUTO) 69 % (42-75); PLATELET COUNT 219 10^3/uL (130-400); WHITE BLOOD COUNT 10.3 10^3/uL (4.3-11.0)
[2022-12-12 05:24] LABS: INR 1.4 (0.8-1.4); PROTHROMBIN TIME PATIENT 17.9 SEC (12.2-14.7)
[2022-12-12 05:38] LABS: ALBUMIN 2.7 GM/DL (3.2-4.5); BILIRUBIN,TOTAL 0.2 MG/DL (0.1-1.0); CALCIUM 8.3 MG/DL (8.5-10.1); CREATININE SERUM 1.21 MG/DL (0.60-1.30); MAGNESIUM 2.4 MG/DL (1.6-2.4); PHOSPHORUS 2.6 MG/DL (2.3-4.7); TOTAL PROTEIN 6.5 GM/DL (6.4-8.2)
[2022-12-12] MEDS: inSUlin ASPART (NovoLOG) 1 UNIT/0.01 ML (CHARGE PER UNIT) SC SCH ×4 (05:49→20:27)
[2022-12-12] MEDS: POTASSIUM CL 10MEQ/50ML IVPB 50 ML IV SCH (05:49)
[2022-12-12] MEDS: KCL 20 MEQ TAB (K-DUR) PO SCH (05:49)
[2022-12-12] MEDS: MAGNESIUM 1 GM/100 ML IVPB 100 ML IV SCH (05:49)
[2022-12-12] MEDS: predniSONE 10 MG TAB PO SCH (06:12)
[2022-12-12] MEDS ORDERED: NON-FORMULARY MEDICATION 1 EA EA (Cholecalciferol (Vitamin D3) (Vitamin D3) 50 MCG) PO SCH (09:00)
[2022-12-12] MEDS: GABAPENTIN 300 MG (NEURONTIN) CAP PO SCH ×4 (09:10→20:30)
[2022-12-12] MEDS: VITAMIN D3 25 MCG (1,000 UNITS) TABLET PO SCH (09:10)
[2022-12-12] MEDS: DOCUSATE SODIUM 100 MG (COLACE) CAP PO SCH ×2 (09:10→20:32)
[2022-12-12] MEDS: BENZONATATE 100 MG (TESSALON) CAPSULE PO SCH ×3 (09:10→20:30)
[2022-12-12] MEDS: OXYBUTYNIN (DITROPAN) 5 MG TAB PO SCH ×2 (09:10→20:30)
[2022-12-12] MEDS: ENOXAPARIN 300 MG/3 ML (LOVENOX) MULTI-DOSE VIAL SQ SCH ×2 (09:10→20:27)
--- NOTE | 2022-12-12 10:32 | Diagnostic Imaging Report ---
CHEST 1 VIEW, AP/PA ONLY Indication: Dyspnea Comparison: 12/11/2022 Findings: Stable low lung volumes. No consolidation within the visible lungs. No pleural effusion or pneumothorax. Normal heart size. Impression: 1. No acute cardiopulmonary process by portable radiography. Dictated by: Dictated on workstation # [id number]
[2022-12-12] MEDS: ALPRAZolam 1 MG (XANAX) TAB PO SCH ×2 (12:06→17:26)
--- NOTE | 2022-12-12 13:37 | Progress Note ---
AIDAN HAMMOND 12/12/22 1337: Subjective Date Seen by a Provider: December 12, 2022 Time Seen by a Provider: 10:30 Subjective/Events-last exam Pt doing better this morning. Notes Head, ear, and throat pain subsided. Still somewhat nauseous but able to eat some, drinking well. Still some cough but breathing comfortably on RA with good sats. Pt stable and ready to move to floor and begin working with PT/OT Focused Exam Lactate Level 12/10/22 12:50: Lactic Acid Level 2.46*H 12/10/22 15:03: Lactic Acid Level 1.82 Time of Focused Exam: 14:00 Objective Exam Last Set of Vital Signs Vital Signs Date Time Temp Pulse Resp B/P (MAP) Pulse Ox O2 Delivery O2 Flow Rate FiO2 12/12/22 11:51 36.8 102 16 120/48 (72) 91 Room Air 12/12/22 06:00 2.00 12/12/22 04:17 92 Capillary Refill : Less Than 3 Seconds I&O Intake and Output 12/12/22 00:00 Intake Total 1000 ml Output Total 1400 ml Balance -400 ml Intake Oral 550 ml IV Total 450 ml Output Urine Total 1400 ml General: Alert, Oriented X3, Cooperative, No Acute Distress HEENT: Atraumatic, PERRLA Neck: Supple, No Thyromegaly Lungs: Other (chest non tender, no accesory muscle use, no respiratory distress, decreased breath sounds) Heart: Regular Rate, Normal S1, Normal S2, No Murmurs Abdomen: Normal Bowel Sounds, Soft, No Tenderness, No Hepatosplenomegaly, No Masses Extremities: No Clubbing, No Cyanosis, Normal Pulses, No Tenderness/Swelling Skin: No Rashes, No Breakdown, No Significant Lesion Neuro: Normal Gait, Normal Speech, Strength at 5/5 X4 Ext, Normal Tone Results Lab Laboratory Tests 12/11/22 16:05: Glucometer 157H 12/11/22 20:25: Glucometer 209H 12/12/22 04:10: White Blood Count 10.3, Red Blood Count 3.92, Hemoglobin 9.6L, Hematocrit 30L, Mean Corpuscular Volume 76L, Mean Corpuscular Hemoglobin 25, Mean Corpuscular Hemoglobin Concent 32, Red Cell Distribution Width 17.0H, Platelet Count 219, Mean Platelet Volume 10.6, Immature Granulocyte % (Auto) 1, Neutrophils (%) (Auto) 69, Lymphocytes (%) (Auto) 20, Monocytes (%) (Auto) 7, Eosinophils (%) (Auto) 3, Basophils (%) (Auto) 0, Neutrophils # (Auto) 7.1, Lymphocytes # (Auto) 2.1, Monocytes # (Auto) 0.7, Eosinophils # (Auto) 0.3, Basophils # (Auto) 0.0, Immature Granulocyte # (Auto) 0.1, Prothrombin Time 17.9H, INR Comment 1.4, Sodium Level 136, Potassium Level 4.0, Chloride Level 102, Carbon Dioxide Level 27, Anion Gap 7, Blood Urea Nitrogen 23H, Creatinine 1.21, Estimat Glomerular Filtration Rate 48, BUN/Creatinine Ratio 19, Glucose Level 135H, Calcium Level 8.3L, Corrected Calcium 9.3, Phosphorus Level 2.6, Magnesium Level 2.4, Total Bilirubin 0.2, Aspartate Amino Transf (AST/SGOT) 17, Alanine Aminotransferase (ALT/SGPT) 10, Alkaline Phosphatase 73, Total Protein 6.5, Albumin 2.7L 12/12/22 11:01: Glucometer 211H Microbiology 12/10/22 MRSA Screen - Final, Complete MRSA not isolated 12/10/22 Urine Culture - Preliminary, Resulted Escherichia coli 12/10/22 Blood Culture - Preliminary, Resulted No growth Assessment/Plan Assessment/Plan Assess & Plan/Chief Complaint Sepsis (resolved) 2/2 UTI - ucx and bcx pending - cont ceftriaxone and azithromycin - Cont maintenance fluids - WBC decreasing, may be dilutional - CTM AHypoxicRF (resolved) - wheezing in ED, improved with duonebs - Given azithromycin for possible bronchitis - no worsening with fluids (unlikely cardiac) - Now on RA comfortably - cont duonebs scheduled and prn Metabolic Alkalosis (resolved) - s/p IVF - CTM Anemia - s/p IVF - likely dilutional -CTM DM - ISS and accuchecks HTN - chronic, ctm HLD - chronic, ctm Debility - pt unable to live at home alone as unable to ambulate; need to discuss next steps with family - moving to floor to work more with PT/OT SIGRID GUAMAN DO 12/12/222045: Supervisory-Addendum Brief Verification & Attestation Participated in pt care: history, MDM, physical Personally performed: exam, history, MDM, supervision of care Care discussed with: Medical Student Procedures: n/a Results interpretation: Verified all documentation Verification and Attestation of Medical Student E/M Service A medical student performed and documented this service in my presence. I reviewed and verified all information documented by the medical student and made modifications to such information, when appropriate. I personally performed the physical exam and medical decision making. Sigrid Guaman, December 12, 2022,20:46 AIDAN HAMMOND December 12, 2022 13:37 SIGRID GUAMAN DO December 12, 2022 20:46
--- NOTE | 2022-12-12 14:01 | Physical Therapy Evaluation ---
PT Evaluation-General Medical Diagnosis Admission Date December 10, 2022 at 18:44 Medical Diagnosis: Dyspnea Onset Date: December 11, 2022 Therapy Diagnosis Therapy Diagnosis: Strength deficit, decline in mobility Height/Weight Height (Feet): 5 Height (Inches): 4.00 Precautions Precautions/Isolations: Fall Prevention, Standard Precautions Weight Bear Status Right Lower Extremity: Right Full Weight Bearing Left Lower Extremity: Left Full Weight Bearing Referral Physician: Dr. Umana Reason for Referral: Evaluation/Treatment Medical History Pertinent Medical History: CVA, HTN, Renal Insufficiency Reviewed History: Yes Social History Home: Single Level Current Living Status: Alone Entry Into Home: Level Entry Prior Prior Level of Function SCALE: Activities may be completed with or without assistive devices. 9-Gswrouowgq-aqlolig completes the activity by him/herself with no assistance from a helper. 5-Set-up or Clean-up Assistance-helper sets up or cleans up; patient completes activity. [place] assists only prior to or following the activity. 4-Supervision or Touching Assistance-helper provides verbal cues and/or touching/steadying and/or contact guard assistance as patient completes activity. Assistance may be provided throughout the activity or intermittently. 3-Partial/Moderate Assistance-helper does LESS THAN HALF the effort. [place] lifts, holds or supports trunk or limbs, but provides less than half the effort. 2-Substantial/Maximal Assistance-helper does MORE THAN HALF the effort. [place] lifts or holds trunk or limbs and provides more than half the effort. 3-Nimpwlohw-jfqbpb does ALL the effort. Patient does none of the effort to complete the activity. Or, the assistance of 2 or more helpers is required for the patient to complete the activity. If activity was not attempted, code reason: 7-Patient Refused. 9-Not Applicable-not attempted and the patient did not perform the activity before the current illness, exacerbation or injury. 10-Not Attempted due to Environmental Limitations-(lack of equipment, weather restraints, etc.). 88-Not Attempted due to Medical Conditions or Safety Concerns. Bed Mobility: 3 Transfers (B,C,W/C): 1 Gait: 9 Stairs: 9 Indoor Mobility (Ambulation): Dependent Stairs: Not Applicalbe PT Evaluation-Current Subjective Patient lying supine in bed upon PT arrival, agreeable to treatment. Patient rates pain at 0/10 currently. Patient reports she has a caregiver at home who performs all ADLs. She reports she has a sit to stand device and has not ambulated in >8 months. Objective Patient Orientation: Person, Place, Time, Situation Attachments: Oxygen, Matias Catheter, IV ROM/Strength ROM Lower Extremities Right ankle DF/PF limited to (-10)/35 degrees. All other ROMs WFLs BLEs Strength Lower Extremities 3/5 BLEs all planes Sensory Vision: Wears Glasses Hearing: Functional Sensation Right Lower Extremit: Intact Sensation Left Lower Extremity: Intact Transfers Roll Left to Right (QC): 4 Sit to Lying (QC): 3 Lying to Sitting/Side of Bed(Q: 3 Gait Does the Patient Walk?: No and Walking Goal NOT indicated Mode of Locomotion: Wheelchair Anticipated Mode of Locomotion: Wheelchair Balance Sitting Static: Fair Sitting Dynamic: Fair Assessment/Needs Patient demonstrates fair overall potential to return to PLOF and improve upon current mobility, however gait is not an appropriate goal at this time. Patient performs all bed mobility and transfers with SBA-Min A. Patient performs LE Therapeutic exercise of AP, QS, GS, LAQs, Hamstring curls x 10 each LE. Patient in bed post treatment with all needs met, nursing notified, call light in hand a nd OT in the room. Rehab Potential: Poor PT Residential Goals Golf Course Ranger Goals PT Golf Course Ranger Goals Time Frame: January 05, 2023 Roll Left & Right (QC): 6 Sit to Lying (QC): 6 Lying-Sitting on Side/Bed(QC): 6 PT Plan Problem List Problem List: Activity Tolerance, Functional Strength, Safety, Balance, Transfer, Bed Mobility, ROM Treatment/Plan Treatment Plan: Continue Plan of Care Treatment Plan: Bed Mobility, Education, Functional Activity Dena, Functional Strength, Group Therapy, Safety, Therapeutic Exercise, Transfers Treatment Duration: January 09, 2023 Frequency: 6 times per week Estimated Hrs Per Day: .25 hour per day Patient and/or Family Agrees t: Yes Safety Risks/Education Patient Education: Transfer Techniques Teaching Recipient: Patient Teaching Methods: Demonstration, Discussion Response to Teaching: Verbalize Understanding, Return Demonstration Time Time In: 1328 Time Out: 1347 DATE: December 12, 2022 Total Billed Treatment Time: 19 Total Billed Treatment Visit, ILEANA HERRERA PT December 12, 2022 14:01
--- NOTE | 2022-12-12 14:19 | Occupational Therapy Eval ---
OT Evaluation-General/PLF Medical Diagnosis Admission Date December 10, 2022 at 18:44 Medical Diagnosis: Dyspnea Onset Date: December 11, 2022 Therapy Diagnosis Therapy Diagnosis: decreased ADL status, weakness Height/Weight Height (Feet): 5 Height (Inches): 4.00 Precautions Precautions/Isolations: Fall Prevention, Standard Precautions Referral Physician: Dr. Umana Referral Reason: Evaluation/Treatment Medical History Pertinent Medical History: CVA, HTN, Renal Insufficiency Additional Medical History DVT, HTN, CVA, GERD, gall bladder disease, arthritis, cataract, QUILEUTE, anxiety/d epression Current History ED 12/10/22 with weakness, lethargy, and unable to walk. Pt found to have UTI, subtherapeutic INR. Pt admitted to ICU. Social History Home: Single Level Current Living Status: Alone Entry Into Home: Level Entry ADL-Prior Level of Function SCALE: Activities may be completed with or without assistive devices. 9-Mxabjiibgf-wetbtwf completes the activity by him/herself with no assistance from a helper. 5-Set-up or Clean-up Assistance-helper sets up or cleans up; patient completes activity. [place] assists only prior to or following the activity. 4-Supervision or Touching Assistance-helper provides verbal cues and/or touching/steadying and/or contact guard assistance as patient completes activity. Assistance may be provided throughout the activity or intermittently. 3-Partial/Moderate Assistance-helper does LESS THAN HALF the effort. [place] lifts, holds or supports trunk or limbs, but provides less than half the effort. 2-Substantial/Maximal Assistance-helper does MORE THAN HALF the effort. [place] lifts or holds trunk or limbs and provides more than half the effort. 3-Iwkivjucl-tcgwpw does ALL the effort. Patient does none of the effort to complete the activity. Or, the assistance of 2 or more helpers is required for the patient to complete the activity. If activity was not attempted, code reason: 7-Patient Refused. 9-Not Applicable-not attempted and the patient did not perform the activity before the current illness, exacerbation or injury. 10-Not Attempted due to Environmental Limitations-(lack of equipment, weather restraints, etc.). 88-Not Attempted due to Medical Conditions or Safety Concerns. ADL PLOF Comments Pt reports living at home alone. She has a caregiver who is present multiple times throughout the day (~30 mins in AM, around lunch, dinner 6pm, and again before bed 9pm). Pt spends her days/nights in a lift chair, the only time she leaves the lift chair is with a sit to stand lift machine. Pt indicates her caregiver sets her up for a sponge bath, brings her clothes and meals. Pt is able to dress self at lift chair level, rolling side to side as needed with increased time with tasks. She is unable to stand from chair by herself. For toileting, she uses a purewick throughout the day (caregiver empties container), for a BM, she goes in her depends, then is able to change and cleanse herself afterwards, rolling side to side in chair (this takes ~1 hour for pt to complete). Pt indicates although she uses a purewick, she is wet the majority of the time. Pt has not walked in ~8 months. Pt does not wear pants at home, only depends. Self Care: Needed Some Help Functional Cognition: Independent OT Current Status Subjective Pt in bed, just finishing with PT tx. Pt agreeable to OT evaluation/tx. Mental Status/Objective Patient Orientation: Normal For Age Attachments: Matias Catheter, Oxygen Current Hand Dominance: Right Upper Extremity ROM WFL, BUE shoulder flexion to approx 160 degrees Upper Extremity Coordination WFL Upper Extremity Sensation WFL Upper Extremity Strength grossly 3+/5 ADL-Treatment Eating (QC): 6 Lower Body Dressing (QC): 4 Other Treatments Pt in bed, provided information about PLOF and home set up. Pt demo'd ability to doff/don gripper socks, SBA with VCs for pursed lip breathing throughout task. Pt able to utilize bed rails to pull UB forward in bed, and use figure 4 method to complete footwear in bed. Pt required increased time with R footwear, states this is baseline. IND with feeding. Per PT report, pt able to perform bed mobility and transfers with SBA-min A. Pt educated on UE exercises to increase BUE strength and activity tolerance, pt completed x10 reps each of the following BUE exercises: shoulder flexion, elbow flexion/extension, front punch. Pt instructed to continue exercises throughout the day, she verbalized understanding. Post tx, pt in bed, call light in reach and all needs met. Education OT Patient Education: Correct positioning, Energy conservation, Exercise program, Modified ADL techniques, Progress toward Goal/Update tx plan, Purpose of tx/functional activities, Rehab process Teaching Recipient: Patient Teaching Methods: Discussion Response to Teaching: Verbalize Understanding OT Custodial Goals Research Laboratory Technician Goals Time Frame: January 04, 2023 Eating (QC): 6 Oral Hygiene (QC): 5 Toileting Hygiene (QC): 4 (bed/chair level) Shower/Bathe Self (QC): 3 Upper Body Dressing (QC): 5 Lower Body Dressing (QC): 4 (brief only) On/Off Footwear (QC): 5 Additional Goals: 1-Demonstrate ADL Tasks, 2-Verbalize Understanding, 3-ImproveStrength/Dena 1=Demonstrate adherence to instructed precautions during ADL tasks. 2=Patient will verbalize/demonstrate understanding of assistive devices/modifications for ADL. 3=Patient will improve strength/tolerance for activity to enable patient to perf orm ADL's. OT Education/Plan Problem List/Assessment Assessment: Decreased Activ Tolerance, Decreased UE Strength, Impaired Funct Balance, Impaired I ADL's, Impaired Self-Care Skills Discharge Recommendations Plan/Recommendations: Continue POC Treatment Plan/Plan of Care Patient would benefit from OT for education, treatment and training to promote independence in ADL's, mobility, safety and/or upper extremity function for ADL's. Plan of Care: ADL Retraining, Functional Mobility, UE Funct Exercise/Act Treatment Duration: January 04, 2023 Frequency: 3 times per week (3-5 times per week) Estimated Hrs Per Day: .25 hour per day Rehab Potential: Guarded Time Start Time: 13:45 Stop Time: 14:05 DATE: December 12, 2022 Total Time Billed (hr/min): 20 Billed Treatment Time 1ELIZABETH ADDISON OT December 12, 2022 14:19
[2022-12-12] MEDS: cefTRIAXone IV/IM 1,000 MG in NS (IVPB) 50 ML IV SCH (15:31)
[2022-12-12] MEDS: warFARin 5 MG (COUMADIN) TAB PO SCH (17:26)
[2022-12-12] MEDS: AZITHROMYCIN INJECTION 500 MG in NS (IVPB) 250 ML IV SCH (20:29)
[2022-12-12] MEDS: MELATONIN 10 MG TABLET PO SCH (20:30)
[2022-12-12] MEDS: AMITRIPTYLINE 25 MG (ELAVIL) TAB PO SCH (20:30)
[2022-12-13 03:23] VITALS: BP 137/62
[2022-12-13 05:52] LABS: BASOPHILS % (AUTO) 0 % (0-10); EOSINOPHILS # (AUTO) 0.2 10^3/uL (0.0-0.3); EOSINOPHILS % (AUTO) 3 % (0-10); HEMATOCRIT 30 % (35-52); HEMOGLOBIN 9.5 g/dL (11.5-16.0); LYMPHOCYTES # (AUTO) 2.5 10^3/uL (1.0-4.0); LYMPHOCYTES % (AUTO) 34 % (12-44); MEAN CORPUSCULAR HEMOGLOBIN 24 pg (25-34); MEAN CORPUSCULAR HGB CONC 32 g/dL (32-36); MEAN CORPUSCULAR VOLUME 76 fL (80-99); MEAN PLATELET VOLUME 9.9 fL (9.0-12.2); MONOCYTES # (AUTO) 0.6 10^3/uL (0.0-1.0); MONOCYTES % (AUTO) 8 % (0-12); NEUTROPHILS # (AUTO) 3.9 10^3/uL (1.8-7.8); NEUTROPHILS % (AUTO) 53 % (42-75); PLATELET COUNT 245 10^3/uL (130-400); WHITE BLOOD COUNT 7.2 10^3/uL (4.3-11.0)
[2022-12-13 06:11] LABS: ALBUMIN 2.7 GM/DL (3.2-4.5); POTASSIUM 3.8 MMOL/L (3.6-5.0)
[2022-12-13 06:12] LABS: CALCIUM 8.7 MG/DL (8.5-10.1)
[2022-12-13] MEDS: predniSONE 10 MG TAB PO SCH (06:13)
[2022-12-13 06:14] LABS: TOTAL PROTEIN 6.5 GM/DL (6.4-8.2)
[2022-12-13 06:15] LABS: BILIRUBIN,TOTAL 0.2 MG/DL (0.1-1.0)
[2022-12-13 06:17] LABS: CREATININE SERUM 0.99 MG/DL (0.60-1.30)
[2022-12-13 06:20] LABS: MAGNESIUM 2.1 MG/DL (1.6-2.4)
[2022-12-13] MEDS: inSUlin ASPART (NovoLOG) 1 UNIT/0.01 ML (CHARGE PER UNIT) SC SCH ×4 (06:29→20:44)
[2022-12-13 07:36] VITALS: BP 127/84
[2022-12-13] MEDS: ENOXAPARIN 300 MG/3 ML (LOVENOX) MULTI-DOSE VIAL SQ SCH ×2 (08:29→20:44)
[2022-12-13] MEDS: ALPRAZolam 1 MG (XANAX) TAB PO SCH ×2 (08:29→16:33)
[2022-12-13] MEDS: VITAMIN D3 25 MCG (1,000 UNITS) TABLET PO SCH (08:30)
[2022-12-13] MEDS: GABAPENTIN 300 MG (NEURONTIN) CAP PO SCH ×4 (08:30→20:42)
[2022-12-13] MEDS: BENZONATATE 100 MG (TESSALON) CAPSULE PO SCH ×3 (08:30→20:42)
[2022-12-13] MEDS: OXYBUTYNIN (DITROPAN) 5 MG TAB PO SCH ×2 (08:30→20:40)
[2022-12-13] MEDS: DOCUSATE SODIUM 100 MG (COLACE) CAP PO SCH ×2 (08:30→20:40)
--- NOTE | 2022-12-13 11:34 | Physical Therapy Daily Note ---
PT Daily Note-Current Subjective Patient agrees to PT. Pain Section J - Health Conditions 1. Rarely or not at all 2. Occasionally 3. Frequently 4. Almost constantly 8. Unable to answer Pain Effect on Sleep: 1 Pain Interference with Therapy: 1 Pain Interference w/Day-to-Day: 1 Mental Status Patient Orientation: Normal For Age Attachments: Oxygen, Matias Catheter Transfers SCALE: Activities may be completed with or without assistive devices. 7-Xejizmbihc-uwxfuva completes the activity by him/herself with no assistance from a helper. 5-Set-up or Clean-up Assistance-helper sets up or cleans up; patient completes activity. [place] assists only prior to or following the activity. 4-Supervision or Touching Assistance-helper provides verbal cues and/or touching/steadying and/or contact guard assistance as patient completes activity. Assistance may be provided throughout the activity or intermittently. 3-Partial/Moderate Assistance-helper does LESS THAN HALF the effort. [place] lifts, holds or supports trunk or limbs, but provides less than half the effort. 2-Substantial/Maximal Assistance-helper does MORE THAN HALF the effort. [place] lifts or holds trunk or limbs and provides more than half the effort. 7-Hcytdhtsq-lnjqht does ALL the effort. Patient does none of the effort to complete the activity. Or, the assistance of 2 or more helpers is required for the patient to complete the activity. If activity was not attempted, code reason: 7-Patient Refused. 9-Not Applicable-not attempted and the patient did not perform the activity before the current illness, exacerbation or injury. 10-Not Attempted due to Environmental Limitations-(lack of equipment, weather restraints, etc.). 88-Not Attempted due to Medical Conditions or Safety Concerns. Sit to Lying (QC): 3 Lying to Sitting/Side of Bed(Q: 3 patient sat EOB for several minutes Weight Bearing Right Lower Extremity: Right Full Weight Bearing Left Lower Extremity: Left Full Weight Bearing Exercises Seated Therapy Exercises: Ankle pumps, Long arc quads, Hip flexion, Hip abd/add Seated Reps: 10 (x 2 sets) Assessment Patient fatigues with minimal activity and returned to supine in bed with needs met. Patient has noted SOA with minimal activity as well. PT Shelter Goals Batter Depositor Goals PT Shelter Goals Time Frame: January 05, 2023 Roll Left & Right (QC): 6 Sit to Lying (QC): 6 Lying-Sitting on Side/Bed(QC): 6 PT Plan Treatment/Plan Treatment Plan: Continue Plan of Care Treatment Plan: Bed Mobility, Education, Functional Activity Dena, Functional Strength, Group Therapy, Safety, Therapeutic Exercise, Transfers Treatment Duration: January 09, 2023 Frequency: 6 times per week Estimated Hrs Per Day: .25 hour per day Patient and/or Family Agrees t: Yes Time Time In: 916 Time Out: 931 DATE: December 13, 2022 Total Billed Treatment Time: 15 Total Billed Treatment 1 visit EX 15 min RADHA LOREDO PT December 13, 2022 11:34
[2022-12-13 11:36] VITALS: BP 127/84
--- NOTE | 2022-12-13 11:46 | Occupational Ther Daily Note ---
OT Current Status-Daily Note Subjective RECLINED IN BED, AGREEABLE TO OT Mental Status/Objective Patient Orientation: Situation Attachments: Matias Catheter ADL-Treatment Therapy Code Descriptions/Definitions Functional [place] Measure: 0=Not Assessed/NA 4=Minimal Assistance 1=Total Assistance 5=Supervision or Setup 2=Maximal Assistance 6=Modified [place] 3=Moderate Assistance 7=Complete IndependenceSCALE: Activities may be completed with or without assistive devices. 3-Cbwjrdaohy-wldktrg completes the activity by him/herself with no assistance from a helper. 5-Set-up or Clean-up Assistance-helper sets up or cleans up; patient completes activity. [place] assists only prior to or following the activity. 4-Supervision or Touching Assistance-helper provides verbal cues and/or touching/steadying and/or contact guard assistance as patient completes activity. Assistance may be provided throughout the activity or intermittently. 3-Partial/Moderate Assistance-helper does LESS THAN HALF the effort. [place] lifts, holds or supports trunk or limbs, but provides less than half the effort. 2-Substantial/Maximal Assistance-helper does MORE THAN HALF the effort. [place] lifts or holds trunk or limbs and provides more than half the effort. 3-Ljpjuxxbn-qonhwa does ALL the effort. Patient does none of the effort to complete the activity. Or, the assistance of 2 or more helpers is required for the patient to complete the activity. If activity was not attempted, code reason: 7-Patient Refused. 9-Not Applicable-not attempted and the patient did not perform the activity before the current illness, exacerbation or injury. 10-Not Attempted due to Environmental Limitations-(lack of equipment, weather restraints, etc.). 88-Not Attempted due to Medical Conditions or Safety Concerns. Eating (QC): 6 Oral Hygiene (QC): 5 Shower/Bathe Self (QC): 7 Upper Body Dressing (QC): 4 (GOWN) Lower Body Dressing (QC): 1 On/Off Footwear: 1 Toileting Hygiene (QC): 1 Toilet Transfer (QC): 1 USES SIT STAND MECHANICAL LIFT AT HOME Other Treatment EOB DYNAMIC SITTING W/ FUNCTIONAL REACH TASKS Education OT Patient Education: Exercise program, Progress toward Goal/Update tx plan, Purpose of tx/functional activities, Reviewed precautions, Rehab process, Safety issues Teaching Recipient: Patient Teaching Methods: Demonstration, Discussion Response to Teaching: Reinforcement Needed OT Shelter Goals Shelter Goals Time Frame: January 04, 2023 Eating (QC): 6 Oral Hygiene (QC): 5 Toileting Hygiene (QC): 4 (bed/chair level) Shower/Bathe Self (QC): 3 Upper Body Dressing (QC): 5 Lower Body Dressing (QC): 4 (brief only) On/Off Footwear (QC): 5 Additional Goals: 1-Demonstrate ADL Tasks, 2-Verbalize Understanding, 3-Improve Strength/Dena 1=Demonstrate adherence to instructed precautions during ADL tasks. 2=Patient will verbalize/demonstrate understanding of assistive devices/modifications for ADL. 3=Patient will improve strength/tolerance for activity to enable patient to pe rform ADL's. OT Education/Plan Problem List/Assessment Assessment: Decreased Activ Tolerance Discharge Recommendations Plan/Recommendations: Continue POC Treatment Plan/Plan of Care Patient would benefit from OT for education, treatment and training to promote independence in ADL's, mobility, safety and/or upper extremity function for ADL's. Plan of Care: ADL Retraining, Functional Mobility, UE Funct Exercise/Act Treatment Duration: January 04, 2023 Frequency: 3 times per week (3-5 times per week) Estimated Hrs Per Day: .25 hour per day Rehab Potential: Guarded Time Start Time: 09:16 Stop Time: 09:30 DATE: December 13, 2022 Total Time Billed (hr/min): 14 Billed Treatment Time EX 14 MIN NICOLE SINGH OT December 13, 2022 11:46
[2022-12-13] MEDS ORDERED: CEFD300C3 PO (11:57)
[2022-12-13] MEDS ORDERED: BENZ100C18 PO (11:57)
[2022-12-13] MEDS ORDERED: GUAI5SYR PO (11:57)
[2022-12-13] MEDS ORDERED: WRF5T PO (11:57)
[2022-12-13] MEDS ORDERED: ENOX300V SQ (11:57)
--- NOTE | 2022-12-13 12:00 | D/C HH Face to Face Order ---
D/C Face to Face Orders Reconcile Patient Problems Problems Reviewed?: Yes Instructions for Patient Estefani Patient Instructions/FollowUp: PCP 1 week Physician to follow Patient: Ricardoprice Discharge Diet for Home: ADA Diet Patient Problems: UTI Bronchitis Patient Data-Allergies,Ht & Wt Patient Allergies: Coded Allergies: Penicillins (Verified Allergy, Unknown, 01/11/19) Height (Feet): 5 Height (Inches): 4.00 Home Health Need/Face to Face Date of Face to Face: December 13, 2022 Clinical Findings: Generalized weakness and fatigue, Instability, Muscle weakness I have seen Pt fivi-ex-qhrl: Yes Discharged To: Home Diagnosis/Conditions: UTI Patient is Homebound due to: [place] fall risk due to instabilty, Muscle weakness Homebound Status Due to the above stated illness, injury or surgical procedure (medical condition or diagnosis) and associated clinical findings, the patient is homebound because of his/her inability to leave home except with aid of a supportive device and/or person AND leaving the home requires a considerable and taxing effort or is medically contraindicated. Pt req the following assistanc: Walker, Wheelchair Home Health Nursing Orders Home Health Services Order: Nursing Services, Splitting Machine Operator-Evaluate & Treat, Physical Therapy-Evaluate & Treat Home Health Infusion Therapy Line Start Date: December 12, 2022 Home Health Lab Orders Planned Date for 1st INR: December 17, 2022 Certify Stmt I certify that this patient is under my care and that I, a nurse practitioner or a physician; a entry level administrative assistant working with me, had a face to face encounter that - meets the physician face to face encounter requirements with this patient as dated. PARISH GUAMAN DO December 13, 2022 12:00
--- NOTE | 2022-12-13 12:01 | Discharge Summary ---
Diagnosis/Chief Complaint Date of Admission December 10, 2022 at 18:44 Date of Discharge Discharge Date: December 13, 2022 Discharge Summary Discharge Physical Examination Allergies: Coded Allergies: Penicillins (Verified Allergy, Unknown, 01/11/19) Vitals & I&Os Vital Signs Date Time Temp Pulse Resp B/P (MAP) Pulse Ox O2 Delivery O2 Flow Rate FiO2 12/13/22 19:26 99 1.00 12/13/22 19:11 36.6 99 17 141/66 (91) High Flow N/C 12/13/22 11:36 24 Hospital Course Labs (last 24 hrs) Laboratory Tests 12/10/22 12:50: White Blood Count 22.3H, Red Blood Count 4.73, Hemoglobin 11.5, Hematocrit 36, Mean Corpuscular Volume 75L, Mean Corpuscular Hemoglobin 24L, Mean Corpuscular Hemoglobin Concent 32, Red Cell Distribution Width 17.5H, Platelet Count 246, Mean Platelet Volume 9.6, Immature Granulocyte % (Auto) 1, Neutrophils (%) (Auto) 78H, Lymphocytes (%) (Auto) 14, Monocytes (%) (Auto) 7, Eosinophils (%) (Auto) 0, Basophils (%) (Auto) 0, Neutrophils # (Auto) 17.4H, Lymphocytes # (A uto) 3.2, Monocytes # (Auto) 1.6H, Eosinophils # (Auto) 0.0, Basophils # (Auto) 0.1, Immature Granulocyte # (Auto) 0.1, Neutrophils % (Manual) 74, Lymphocytes % (Manual) 21, Monocytes % (Manual) 5, Polychromasia SLIGHT, Hypochromasia SLIGHT, Anisocytosis SLIGHT, Microcytosis SLIGHT, Prothrombin Time 17.3H, INR Comment 1.4, Activated Partial Thromboplast Time 28, Urine Color YELLOW, Urine Clarity SL CLOUDY, Urine pH 5.5, Urine Specific [place] 1.015L, Urine Protein TRACEH, Urine Glucose (UA) NEGATIVE, Urine Ketones NEGATIVE, Urine Nitrite POSITIVEH, Urine Bilirubin NEGATIVE, Urine Urobilinogen 0.2, Urine Leukocyte Esterase 1+H, Urine RBC (Auto) 1+H, Urine RBC 0-2, Urine WBC 25-50H, Urine Squamous Epithelial Cells 0-2, Urine Crystals NONE, Urine Bacteria LARGEH, Urine Casts NONE, Urine Mucus NEGATIVE, Urine Culture Indicated YES, Sodium Level 138, Potassium Level 4.6, Chloride Level 99, Carbon Dioxide Level 27, Anion Gap 12, Blood Urea Nitr ogen 28H, Creatinine 1.53H, Estimat Glomerular Filtration Rate 36, BUN/Creatinine Ratio 18, Glucose Level 221H, Lactic Acid Level 2.46*H, Calcium Level 9.2, Corrected Calcium 9.8, Total Bilirubin 0.8, Aspartate Amino Transf (AST/SGOT) 28, Alanine Aminotransferase (ALT/SGPT) 15, Alkaline Phosphatase 93, Troponin I < 0.30, C-Reactive Protein 26.61H, Pro-B-Type Natriuretic Peptide 1684.0H, Total Protein 7.6, Albumin 3.3 12/10/22 12:57: Glucometer 197H 12/10/22 12:58: Influenza Type A (RT-PCR) Not Detected, Influenza Type B (RT-PCR) Not Detected, SARS-CoV-2 RNA (RT-PCR) Not Detected 12/10/22 13:00: Blood Gas Puncture Site LEFT WRIST, Blood Gas Patient Temperature 37.3, Arterial Blood pH 7.50H, Arterial Blood Partial Pressure CO2 37, Arterial Blood Partial Pressure O2 58L, Arterial Blood HCO3 29H, Arterial Blood Total CO2 30.0, Arterial Blood Oxygen Saturation 92L, Arterial Blood Base Excess 5.5H, Antnoy Test YES-POS, Blood Gas Ventilator Setting NO, Blood Gas Inspired Oxygen 2L 12/10/22 15:03: Lactic Acid Level 1.82 12/10/22 19:05: White Blood Count 21.4H, Red Blood Count 4.32, Hemoglobin 10.6L, Hematocrit 33L, Mean Corpuscular Volume 76L, Mean Corpuscular Hemoglobin 25, Mean Corpuscular Hemoglobin Concent 32, Red Cell Distribution Width 17.2H, Platelet Count 221, Mean Platelet Volume 9.7, Immature Granulocyte % (Auto) 1, Neutrophils (%) (Auto) 78H, Lymphocytes (%) (Auto) 16, Monocytes (%) (Auto) 6, Eosinophils (%) (Auto) 0, Basophils (%) (Auto) 0, Neutrophils # (Auto) 16.7H, Lymphocytes # (Auto) 3.3, Monocytes # (Auto) 1.2H, Eosinophils # (Auto) 0.0, Basophils # (Auto) 0.1, Immature Granulocyte # (Auto) 0.1, Sodium Level 135, Potassium Level 4.2, Chloride Level 100, Carbon Dioxide Level 23, Anion Gap 12, Blood Urea Nitrogen 28H, Creatinine 1.60H, Estimat Glomerular Filtration Rate 34, BUN/Cr eatinine Ratio 18, Glucose Level 217H, Calcium Level 8.6, Corrected Calcium 9.4, Total Bilirubin 0.7, Aspartate Amino Transf (AST/SGOT) 28, Alanine Aminotransferase (ALT/SGPT) 18, Alkaline Phosphatase 73, Ammonia 16, B-Type Natriuretic Peptide 72.9, Total Protein 7.0, Albumin 3.0L 12/10/22 19:21: Blood Gas Puncture Site R RAD, Blood Gas Patient Temperature 36.9, Arterial Blood pH 7.42, Arterial Blood Partial Pressure CO2 42, Arterial Blood Partial Pressure O2 79, Arterial Blood HCO3 26, Arterial Blood Total CO2 27.7, Arterial Blood Oxygen Saturation 97, Arterial Blood Base Excess 2.3, Antony Test YES-POS, Blood Gas Ventilator Setting NO, Blood Gas Inspired Oxygen 4L 12/10/22 20:27: Glucometer 224H 12/11/22 04:01: White Blood Count 19.2H, Red Blood Count 3.92, Hemoglobin 9.5L, Hematocrit 30L, Mean Corpuscular Volume 76L, Mean Corpuscular Hemoglobin 24L, Mean Corpuscular Hemoglobin Concent 32, Red Cell Distribution Width 17.2H, Platelet Count 206, Mean Platelet Volume 10.0, Immature Granulocyte % (Auto) 1, Neutrophils (%) (Auto) 77H, Lymphocytes (%) (Auto) 15, Monocytes (%) (Auto) 6, Eosinophils (%) (Auto) 1, Basophils (%) (Auto) 0, Neutrophils # (Auto) 14.7H, Lymphocytes # (Auto) 2.9, Monocytes # (Auto) 1.1H, Eosinophils # (Auto) 0.2, Basophils # (Auto) 0.1, Immature Granulocyte # (Auto) 0.2H, Prothrombin Time 18.9H, INR Comment 1.5H, Sodium Level 137, Potassium Level 4.0, Chloride Level 103, Carbon Dioxide Level 24, Anion Gap 10, Blood Urea Nitrogen 31H, Creatinine 1.54H, Estimat Glomerular Filtration Rate 36, BUN/Creatinine Ratio 20, Glucose Level 158H, Calcium Level 8.1L, Corrected Calcium 9.1, Phosphorus Level 2.7, Magnesium Level 1.5L, Total Bilirubin 0.6, Aspartate Amino Transf (AST/SGOT) 24, Alanine Aminotransferase (ALT/SGPT) 14, Alkaline Phosphatase 75, Total Protein 6.3L, Albumin 2.7L 12/11/22 06:16: Blood Gas Puncture Site RR, Blood Gas Patient Temperature 36.7, Arterial Blood pH 7.38, Arterial Blood Partial Pressure CO2 48H, Arterial Blood Partial Pressure O2 87, Arterial Blood HCO3 28H, Arterial Blood Total CO2 29.3, Arterial Blood Oxygen Saturation 97, Arterial Blood Base Excess 3.1H, Antony Test YES-POS, Blood Gas Ventilator Setting NO, Blood Gas Inspired Oxygen 2L 12/11/22 11:14: Glucometer 249H 12/11/22 16:05: Glucometer 157H 12/11/22 20:25: Glucometer 209H 12/12/22 04:10: White Blood Count 10.3, Red Blood Count 3.92, Hemoglobin 9.6L, Hematocrit 30L, Mean Corpuscular Volume 76L, Mean Corpuscular Hemoglobin 25, Mean Corpuscular Hemoglobin Concent 32, Red Cell Distribution Width 17.0H, Platelet Count 219, Mean Platelet Volume 10.6, Immature Granulocyte % (Auto) 1, Neutrophils (%) (Auto) 69, Lymphocytes (%) (Auto) 20, Monocytes (%) (Auto) 7, Eosinophils (%) (Auto) 3, Basophils (%) (Auto) 0, Neutrophils # (Auto) 7.1, Lymphocytes # (Auto) 2.1, Monocytes # (Auto) 0.7, Eosinophils # (Auto) 0.3, Basophils # (Auto) 0.0, Immature Granulocyte # (Auto) 0.1, Prothrombin Time 17.9H, INR Comment 1.4, Sodium Level 136, Potassium Level 4.0, Chloride Level 102, Carbon Dioxide Level 27, Anion Gap 7, Blood Urea Nitrogen 23H, Creatinine 1.21, Estimat Glomerular Filtration Rate 48, BUN/Creatinine Ratio 19, Glucose Level 135H, Calcium Level 8.3L, Corrected Calcium 9.3, Phosphorus Level 2.6, Magnesium Level 2.4, Total Bilirubin 0.2, Aspartate Amino Transf (AST/SGOT) 17, Alanine Aminotransferase (ALT/SGPT) 10, Alkaline Phosphatase 73, Total Protein 6.5, Albumin 2.7L 12/12/22 11:01: Glucometer 211H 12/12/22 16:23: Glucometer 158H 12/12/22 20:09: Glucometer 194H 12/13/22 05:37: White Blood Count 7.2, Red Blood Count 3.89, Hemoglobin 9.5L, Hematocrit 30L, Mean Corpuscular Volume 76L, Mean Corpuscular Hemoglobin 24L, Mean Corpuscular Hemoglobin Concent 32, Red Cell Distribution Width 16.7H, Platelet Count 245, Mean Platelet Volume 9.9, Immature Granulocyte % (Auto) 1, Neutrophils (%) (Auto) 53, Lymphocytes (%) (Auto) 34, Monocytes (%) (Auto) 8, Eosinophils (%) (Auto) 3, Basophils (%) (Auto) 0, Neutrophils # (Auto) 3.9, Lymphocytes # (Auto) 2.5, Monocytes # (Auto) 0.6, Eosinophils # (Auto) 0.2, Basophils # (Auto) 0.0, Immature Granulocyte # (Auto) 0.1, Sodium Level 138, Potassium Level 3.8, Chloride Level 105, Carbon Dioxide Level 23, Anion Gap 10, Blood Urea Nitrogen 19H, Creatinine 0.99, Estimat Glomerular Filtration Rate 61, BUN/Creatinine Ratio 19, Glucose Level 93, Calcium Level 8.7, Corrected Calcium 9.7, Magnesium Level 2.1, Total Bilirubin 0.2, Aspartate Amino Transf (AST/SGOT) 15, Alanine Aminotransferase (ALT/SGPT) 12, Alkaline Phosphatase 64, Total Protein 6.5, Alb umin 2.7L 12/13/22 11:28: Glucometer 201H 12/13/22 16:07: Glucometer 253H 12/13/22 20:04: Glucometer 180H Microbiology 12/10/22 MRSA Screen - Final, Complete MRSA not isolated 12/10/22 Urine Culture - Final, Complete Escherichia coli 12/10/22 Blood Culture - Preliminary, Resulted No growth Pending Labs Microbiology Date/Time Source Procedure Growth Status 12/10/22 18:50 Nasal MRSA Screen - Final MRSA not isolated Complete 12/10/22 12:50 Urine Clean Catch Urine Culture - Final Escherichia coli Complete 12/10/22 12:50 Peripheral Rt Ac Blood Culture - Preliminary No growth Resulted 12/10/22 12:50 Peripheral Left Wrist Blood Culture - Preliminary No growth Resulted Laboratory Tests 12/10/22 12:50: White Blood Count 22.3, Red Blood Count 4.73, Hemoglobin 11.5, Hematocrit 36, Mean Corpuscular Volume 75, Mean Corpuscular Hemoglobin 24, Mean Corpuscular Hemoglobin Concent 32, Red Cell Distribution Width 17.5, Platelet Count 246, Mean Platelet Volume 9.6, Immature Granulocyte % (Auto) 1, Neutrophils (%) (Auto) 78, Lymphocytes (%) (Auto) 14, Monocytes (%) (Auto) 7, Eosinophils (%) (Auto) 0, Basophils (%) (Auto) 0, Neutrophils # (Auto) 17.4, Lymphocytes # (Auto) 3.2, Monocytes # (Auto) 1.6, Eosinophils # (Auto) 0.0, Basophils # (Auto) 0.1, Immature Granulocyte # (Auto) 0.1, Neutrophils % (Manual) 74, Lymphocytes % (Manual) 21, Monocytes % (Manual) 5, Polychromasia SLIGHT, Hypochromasia SLIGHT, Anisocytosis SLIGHT, Microcytosis SLIGHT, Prothrombin Time 17.3, INR Comment 1.4, Activated Partial Thromboplast Time 28, Urine Color YELLOW, Urine Clarity SL CLOUDY, Urine pH 5.5, Urine Specific [place] 1.015, Urine Protein TRACE, Urine Glucose (UA) NEGATIVE, Urine Ketones NEGATIVE, Urine Nitrite POSITIVE, Urine Bilirubin NEGATIVE, Urine Urobilinogen 0.2, Urine Leukocyte Esterase 1+, Urine RBC (Auto) 1+, Urine RBC 0-2, Urine WBC 25-50, Urine Squamous Epithelial Cells 0-2, Urine Crystals NONE, Urine Bacteria LARGE, Urine Casts NONE, Urine Mucus NEGATIVE, Urine Culture Indicated YES, Sodium Level 138, Potassium Level 4.6, Chloride Level 99, Carbon Dioxide Level 27, Anion Gap 12, Blood Urea Nitrogen 28, Creatinine 1.53, Estimat Glomerular Filtration Rate 36, BUN/Creatin ine Ratio 18, Glucose Level 221, Lactic Acid Level 2.46, Calcium Level 9.2, Corrected Calcium 9.8, Total Bilirubin 0.8, Aspartate Amino Transf (AST/SGOT) 28, Alanine Aminotransferase (ALT/SGPT) 15, Alkaline Phosphatase 93, Troponin I < 0.30, C-Reactive Protein 26.61, Pro-B-Type Natriuretic Peptide 1684.0, Total Protein 7.6, Albumin 3.3 12/10/22 12:57: Glucometer 197 12/10/22 12:58: Influenza Type A (RT-PCR) Not Detected, Influenza Type B (RT-PCR) Not Detected, SARS-CoV-2 RNA (RT-PCR) Not Detected 12/10/22 13:00: Blood Gas Puncture Site LEFT WRIST, Blood Gas Patient Temperature 37.3, Arterial Blood pH 7.50, Arterial Blood Partial Pressure CO2 37, Arterial Blood Partial Pressure O2 58, Arterial Blood HCO3 29, Arterial Blood Total CO2 30.0, Arterial Blood Oxygen Saturation 92, Arterial Blood Base Excess 5.5, Antony Test YES-POS, Blood Gas Ventilator Setting NO, Blood Gas Inspired Oxygen 2L 12/10/22 15:03: Lactic Acid Level 1.82 12/10/22 19:05: White Blood Count 21.4, Red Blood Count 4.32, Hemoglobin 10.6, Hematocrit 33, Mean Corpuscular Volume 76, Mean Corpuscular Hemoglobin 25, Mean Corpuscular Hemoglobin Concent 32, Red Cell Distribution Width 17.2, Platelet Count 221, Mean Platelet Volume 9.7, Immature Granulocyte % (Auto) 1, Neutrophils (%) (Auto) 78, Lymphocytes (%) (Auto) 16, Monocytes (%) (Auto) 6, Eosinophils (%) (Auto) 0, Basophils (%) (Auto) 0, Neutrophils # (Auto) 16.7, Lymphocytes # (Auto) 3.3, Monocytes # (Auto) 1.2, Eosinophils # (Auto) 0.0, Basophils # (Auto) 0.1, Immature Granulocyte # (Auto) 0.1, Sodium Level 135, Potassium Level 4.2, Chloride Level 100, Carbon Dioxide Level 23, Anion Gap 12, Blood Urea Nitrogen 28, Creatinine 1.60, Estimat Glomerular Filtration Rate 34, BUN/Creatinine Ratio 18, Glucose Level 217, Calcium Level 8.6, Corrected Calcium 9.4, Total Bilirubin 0.7, Aspartate Amino Transf (AST/SGOT) 28, Alanine Aminotransferase (ALT/SGPT) 18, Alkaline Phosphatase 73, Ammonia 16, B-Type Natriuretic Peptide 72.9, Total Protein 7.0, Albumin 3.0 12/10/22 19:21: Blood Gas Puncture Site R RAD, Blood Gas Patient Temperature 36.9, Arterial Blood pH 7.42, Arterial Blood Partial Pressure CO2 42, Arterial Blood Partial Pressure O2 79, Arterial Blood HCO3 26, Arterial Blood Total CO2 27.7, Arterial Blood Oxygen Saturation 97, Arterial Blood Base Excess 2.3, Antony Test YES-POS, Blood Gas Ventilator Setting NO, Blood Gas Inspired Oxygen 4L 12/10/22 20:27: Glucometer 224 12/11/22 04:01: White Blood Count 19.2, Red Blood Count 3.92, Hemoglobin 9.5, Hematocrit 30, Mean Corpuscular Volume 76, Mean Corpuscular Hemoglobin 24, Mean Corpuscular Hemoglobin Concent 32, Red Cell Distribution Width 17.2, Platelet Count 206, Mean Platelet Volume 10.0, Immature Granulocyte % (Auto) 1, Neutrophils (%) (Auto) 77, Lymphocytes (%) (Auto) 15, Monocytes (%) (Auto) 6, Eosinophils (%) (Auto) 1, Basophils (%) (Auto) 0, Neutrophils # (Auto) 14.7, Lymphocytes # (Auto) 2.9, Monocytes # (Auto) 1.1, Eosinophils # (Auto) 0.2, Basophils # (Auto) 0.1, Immature Granulocyte # (Auto) 0.2, Prothrombin Time 18.9, INR Comment 1.5, Sodium Level 137, Potassium Level 4.0, Chloride Level 103, Carbon Dioxide Level 24, Anion Gap 10, Blood Urea Nitrogen 31, Creatinine 1.54, Estimat Glomerular Filtration Rate 36, BUN/Creatinine Ratio 20, Glucose Level 158, Calcium Level 8.1, Corrected Calcium 9.1, Phosphorus Level 2.7, Magnesium Level 1.5, Total Bilirubin 0.6, Aspartate Amino Transf (AST/SGOT) 24, Alanine Aminotransferase (ALT/SGPT) 14, Alkaline Phosphatase 75, Total Protein 6.3, Albumin 2.7 12/11/22 06:16: Blood Gas Puncture Site RR, Blood Gas Patient Temperature 36.7, Arterial Blood pH 7.38, Arterial Blood Partial Pressure CO2 48, Arterial Blood Partial Pressure O2 87, Arterial Blood HCO3 28, Arterial Blood Total CO2 29.3, Arterial Blood Oxygen Saturation 97, Arterial Blood Base Excess 3.1, Antony Test YES-POS, Blood Gas Ventilator Setting NO, Blood Gas Inspired Oxygen 2L 12/11/22 11:14: Glucometer 249 12/11/22 16:05: Glucometer 157 12/11/22 20:25: Glucometer 209 12/12/22 04:10: White Blood Count 10.3, Red Blood Count 3.92, Hemoglobin 9.6, Hematocrit 30, Me an Corpuscular Volume 76, Mean Corpuscular Hemoglobin 25, Mean Corpuscular Hemoglobin Concent 32, Red Cell Distribution Width 17.0, Platelet Count 219, Mean Platelet Volume 10.6, Immature Granulocyte % (Auto) 1, Neutrophils (%) (Auto) 69, Lymphocytes (%) (Auto) 20, Monocytes (%) (Auto) 7, Eosinophils (%) (Auto) 3, Basophils (%) (Auto) 0, Neutrophils # (Auto) 7.1, Lymphocytes # (Auto) 2.1, Monocytes # (Auto) 0.7, Eosinophils # (Auto) 0.3, Basophils # (Auto) 0.0, Immature Granulocyte # (Auto) 0.1, Prothrombin Time 17.9, INR Comment 1.4, Sodium Level 136, Potassium Level 4.0, Chloride Level 102, Carbon Dioxide Level 27, Anion Gap 7, Blood Urea Nitrogen 23, Creatinine 1.21, Estimat Glomerular Filtration Rate 48, BUN/Creatinine Ratio 19, Glucose Level 135, Calcium Level 8.3, Corrected Calcium 9.3, Phosphorus Level 2.6, Magnesium Level 2.4, Total Bilirubin 0.2, Aspartate Amino Transf (AST/SGOT) 17, Alanine Aminotransferase (ALT/SGPT) 10, Alkaline Phosphatase 73, Total Protein 6.5, Albumin 2.7 12/12/22 11:01: Glucometer 211 12/12/22 16:23: Glucometer 158 12/12/22 20:09: Glucometer 194 12/13/22 05:37: White Blood Count 7.2, Red Blood Count 3.89, Hemoglobin 9.5, Hematocrit 30, Mean Corpuscular Volume 76, Mean Corpuscular Hemoglobin 24, Mean Corpuscular Hemoglobin Concent 32, Red Cell Distribution Width 16.7, Platelet Count 245, Mean Platelet Volume 9.9, Immature Granulocyte % (Auto) 1, Neutrophils (%) (Auto) 53, Lymphocytes (%) (Auto) 34, Monocytes (%) (Auto) 8, Eosinophils (%) (Auto) 3, Basophils (%) (Auto) 0, Neutrophils # (Auto) 3.9, Lymphocytes # (Auto) 2.5, Monocytes # (Auto) 0.6, Eosinophils # (Auto) 0.2, Basophils # (Auto) 0.0, Immature Granulocyte # (Auto) 0.1, Sodium Level 138, Potassium Level 3.8, Chloride Level 105, Carbon Dioxide Level 23, Anion Gap 10, Blood Urea Nitrogen 19, Creatinine 0.99, Estimat Glomerular Filtration Rate 61, BUN/Creatinine Ratio 19, Glucose Level 93, Calcium Level 8.7, Corrected Calcium 9.7, Magnesium Level 2.1, Total Bilirubin 0.2, Aspartate Amino Transf (AST/SGOT) 15, Alanine Aminotransferase (ALT/SGPT) 12, Alkaline Phosphatase 64, Total Protein 6.5, Albumin 2.7 12/13/22 11:28: Glucometer 201 12/13/22 16:07: Glucometer 253 12/13/22 20:04: Glucometer 180 Discharge Home Medications: Active Scripts Active Cefdinir 300 Mg Capsule 300 Mg PO BID Guaifenesin Dm Syrup (Guaifenesin/Dextromethorphan) 100 Mg-10 Mg/5 Ml Syrup 10 Ml PO Q4H PRN Tessalon Perles (Benzonatate) 100 Mg Capsule 200 Mg PO TID Lovenox (Enoxaparin Sodium) 300 Mg/3 Ml Vial 130 Mg SQ Q12H Jantoven (Warfarin Sodium) 5 Mg Tablet 5 Mg PO DAILY@1800 Reported Vitamin D3 (Cholecalciferol (Vitamin D3)) 50 Mcg (2000 Unit) Capsule 50 Mcg PO DAILY Iprat-Albut 0.5-3(2.5) mg/3 ml (Ipratropium/Albuterol Sulfate) 0.5 Mg-3 Mg (2.5 Mg Base)/3 Ml Ampul.neb 3 Ml IH Q6H PRN Prednisone 10 Mg Tab 10 Mg PO DAILY Oxybutynin Chloride 5 Mg Tablet 5 Mg PO BID Warfarin Sodium 5 Mg Tablet 2.5 Mg PO NO,TU,TH,SA @1700 TAKES OF A 5MG Melatonin 5 Mg Tablet 5 Mg PO HS Novolog Flexpen (Insulin Aspart) 100 Unit/Ml (3 Ml) Solution Units SC AC USES SLIDING SCALE Levemir Flextouch (Insulin Detemir) 100 Unit/Ml (3 Ml) Insuln.pen 15 Unit SQ HS Neurontin (Gabapentin) 300 Mg Capsule 300 Mg PO QID Amlodipine Besylate 5 Mg Tablet 5 Mg PO DAILY Warfarin Sodium 5 Mg Tablet 5 Mg PO MO,WE,FR @1700 Citalopram HBr (Citalopram Hydrobromide) 20 Mg Tablet 20 Mg PO HS Amitriptyline HCl 100 Mg Tablet 100 Mg PO HS Alprazolam 1 Mg Tablet 1 Mg PO 0800,1700 Instructions to patient/family Please see electronic discharge instructions given to patient. PARISH GUAMAN DO December 13, 2022 12:01
[2022-12-13 12:07] VITALS: BP 124/92
--- NOTE | 2022-12-13 12:48 | Progress Note ---
AIDAN HAMMOND 12/13/22 1248: Progress Note Lexi Agarwal is a 72 yo F who presented to [facility] with weakness and lethargy and inability to walk. Pt was found to have a UTI and subtherapeutic INR. She was admitted to the ICU 12/10. She was treated for sepsis 2/2 UTI with ceftriaxone, azithromycin, and IVF. She was also in metabolic alkalosis upon a rrival. This and her sepsis resolved with treatment and she continued to improve throughout the week requiring less O2 support and working with PT. She was moved to floor 12/12 and continued to recover. She is still quite debilitated and unable to walk due to sedentary lifestyle and morbid obesity. She is medically stable, though still quite debilitated and unable to ambulate. She refuses all disposition options presented to her and wants to return home, noting that she has someone that comes and helps her each day. SIGRID GUAMAN DO 12/14/22 0525: Supervisory-Addendum Brief Verification & Attestation Participated in pt care: history, MDM, physical Personally performed: exam, history, MDM, supervision of care Care discussed with: Medical Student Procedures: n/a Results interpretation: Verified all documentation Verification and Attestation of Medical Student E/M Service A medical student performed and documented this service in my presence. I reviewed and verified all information documented by the medical student and made modifications to such information, when appropriate. I personally performed the physical exam and medical decision making. Sigrid Guaman December 14, 2022,05:25 AIDAN HAMMODN December 13, 2022 12:48 SIGRID GUAMAN DO December 14, 2022 05:25
[2022-12-13] MEDS ORDERED: RT-ALBUTEROL/IPRATROPIUM 3 ML (DUONEB) VIAL IH PRN (13:00)
[2022-12-13] MEDS: cefTRIAXone IV/IM 1,000 MG in NS (IVPB) 50 ML IV SCH (13:04)
[2022-12-13] MEDS: RT-ALBUTEROL/IPRATROPIUM 3 ML (DUONEB) VIAL INH SCH ×2 (13:54→19:23)
--- NOTE | 2022-12-13 15:15 | Progress Note ---
Subjective Date Seen by a Provider: December 13, 2022 Time Seen by a Provider: 11:00 Subjective/Events-last exam Multiple conversations with the patient and son and she made decision to go home but then changed decision to go to [facility] Bedridden state Matias still in place Lexi Agarwal is a 72 yo F who presented to [facility] with weakness and lethargy and inability to walk. Pt was found to have a UTI and subtherapeutic INR. She was admitted to the ICU 12/10. She was treated for sepsis 2/2 UTI with ceftriaxone, azithromycin, and IVF. She was also in metabolic alkalosis upon arrival. This and her sepsis resolved with treatment and she continued to improve throughout the week requiring less O2 support and working with PT. She was moved to floor 12/12 and continued to recover. She is still quite debilitated and unable to walk due to sedentary lifestyle and morbid obesity. She is medically stable, though still quite debilitated and unable to ambulate. She refuses all disposition options presented to her and wants to return home, noting that she has someone that comes and helps her each day. AIDAN HAMMOND Review of Systems General: Fatigue, Malaise Focused Exam Time of Focused Exam: 14:00 Objective Exam Last Set of Vital Signs Vital Signs Date Time Temp Pulse Resp B/P (MAP) Pulse Ox O2 Delivery O2 Flow Rate FiO2 12/13/22 13:54 95 High Flow N/C 1.00 12/13/22 12:07 35.5 103 16 124/92 (103) 12/13/22 11:36 24 Capillary Refill : Less Than 3 Seconds I&O Intake and Output 12/13/22 00:00 Intake Total 1500 ml Output Total 2300 ml Balance -800 ml Intake Oral 1200 ml IV Total 300 ml Output Urine Total 2300 ml # Bowel Movements 1 General: Alert, Oriented X3, Cooperative, No Acute Distress Lungs: Clear to Auscultation, Normal Air Movement Heart: Regular Rate, Normal S1, Normal S2, No Murmurs Psych/Mental Status: Mental Status NL, Mood NL Results Lab Laboratory Tests 12/12/22 16:23: Glucometer 158H 12/12/22 20:09: Glucometer 194H 12/13/22 05:37: White Blood Count 7.2, Red Blood Count 3.89, Hemoglobin 9.5L, Hematocrit 30L, Mean Corpuscular Volume 76L, Mean Corpuscular Hemoglobin 24L, Mean Corpuscular Hemoglobin Concent 32, Red Cell Distribution Width 16.7H, Platelet Count 245, Mean Platelet Volume 9.9, Immature Granulocyte % (Auto) 1, Neutrophils (%) (Auto) 53, Lymphocytes (%) (Auto) 34, Monocytes (%) (Auto) 8, Eosinophils (%) (Auto) 3, Basophils (%) (Auto) 0, Neutrophils # (Auto) 3.9, Lymphocytes # (Auto) 2.5, Monocytes # (Auto) 0.6, Eosinophils # (Auto) 0.2, Basophils # (Auto) 0.0, Immature Granulocyte # (Auto) 0.1, Sodium Level 138, Potassium Level 3.8, Chloride Level 105, Carbon Dioxide Level 23, Anion Gap 10, Blood Urea Nitrogen 19H, Creatinine 0.99, Estimat Glomerular Filtration Rate 61, BUN/Creatinine Ratio 19, Glucose Level 93, Calcium Level 8.7, Corrected Calcium 9.7, Magnesium Level 2.1, Total Bilirubin 0.2, Aspartate Amino Transf (AST/SGOT) 15, Alanine Aminotransferase (ALT/SGPT) 12, Alkaline Phosphatase 64, Total Protein 6.5, Albumin 2.7L 12/13/22 11:28: Glucometer 201H Microbiology 12/10/22 MRSA Screen - Final, Complete MRSA not isolated 12/10/22 Urine Culture - Final, Complete Escherichia coli 12/10/22 Blood Culture - Preliminary, Resulted No growth Assessment/Plan Assessment/Plan Assess & Plan/Chief Complaint Spoke to patient multiple times along with Torres her son on the phone and she declined NHP but then changed mind and will DC to [place] tomorrow PARISH GUAMAN DO December 13, 2022 15:15
[2022-12-13 16:04] VITALS: BP 137/70
[2022-12-13] MEDS: warFARin 5 MG (COUMADIN) TAB PO SCH (17:26)
[2022-12-13 19:11] VITALS: BP 141/66
[2022-12-13] MEDS: AMITRIPTYLINE 25 MG (ELAVIL) TAB PO SCH (20:41)
[2022-12-13] MEDS: MELATONIN 10 MG TABLET PO SCH (20:41)
[2022-12-13] MEDS ORDERED: AZITHROMYCIN 250 MG TAB (ZITHROMAX) PO SCH (21:00)
[2022-12-14 00:11] VITALS: BP 104/56
[2022-12-14] MEDS: RT-ALBUTEROL/IPRATROPIUM 3 ML (DUONEB) VIAL INH SCH ×2 (02:45→07:28)
[2022-12-14 04:20] VITALS: BP 123/66
[2022-12-14 05:33] LABS: BASOPHILS # (AUTO) 0.1 10^3/uL (0.0-0.1); BASOPHILS % (AUTO) 1 % (0-10); EOSINOPHILS # (AUTO) 0.2 10^3/uL (0.0-0.3); EOSINOPHILS % (AUTO) 3 % (0-10); HEMATOCRIT 32 % (35-52); HEMOGLOBIN 10.1 g/dL (11.5-16.0); LYMPHOCYTES # (AUTO) 2.5 10^3/uL (1.0-4.0); LYMPHOCYTES % (AUTO) 28 % (12-44); MEAN CORPUSCULAR HEMOGLOBIN 25 pg (25-34); MEAN CORPUSCULAR HGB CONC 32 g/dL (32-36); MEAN CORPUSCULAR VOLUME 77 fL (80-99); MEAN PLATELET VOLUME 9.8 fL (9.0-12.2); MONOCYTES # (AUTO) 0.7 10^3/uL (0.0-1.0); MONOCYTES % (AUTO) 8 % (0-12); NEUTROPHILS # (AUTO) 5.4 10^3/uL (1.8-7.8); NEUTROPHILS % (AUTO) 60 % (42-75); PLATELET COUNT 255 10^3/uL (130-400)
[2022-12-14 05:58] LABS: ALBUMIN 2.8 GM/DL (3.2-4.5); POTASSIUM 4.1 MMOL/L (3.6-5.0)
[2022-12-14 05:59] LABS: CALCIUM 8.7 MG/DL (8.5-10.1)
[2022-12-14 06:01] LABS: TOTAL PROTEIN 6.6 GM/DL (6.4-8.2)
[2022-12-14 06:03] LABS: BILIRUBIN,TOTAL 0.1 MG/DL (0.1-1.0)
[2022-12-14 06:04] LABS: CREATININE SERUM 0.98 MG/DL (0.60-1.30)
[2022-12-14 06:07] LABS: MAGNESIUM 2.1 MG/DL (1.6-2.4)
[2022-12-14] MEDS ORDERED: ACET325T49 PO (06:21)
[2022-12-14] MEDS ORDERED: POLY17PO54 PO (06:21)
[2022-12-14] MEDS ORDERED: BENZ100C18 PO (06:21)
[2022-12-14] MEDS ORDERED: INSU100I30 SQ (06:21)
[2022-12-14] MEDS ORDERED: CLN.1T PO (06:21)
[2022-12-14] MEDS ORDERED: CHOL20003 PO (06:21)
[2022-12-14] MEDS ORDERED: ALPR1TAB7 PO (06:21)
[2022-12-14] MEDS ORDERED: OXC5T PO (06:21)
[2022-12-14] MEDS ORDERED: OXYB5TAB13 PO (06:21)
[2022-12-14] MEDS ORDERED: MELA5TAB14 PO (06:21)
[2022-12-14] MEDS ORDERED: GABA300C PO (06:21)
[2022-12-14] MEDS ORDERED: IPRA3AMP31 IH (06:21)
[2022-12-14] MEDS ORDERED: ONDA4TAB11 PO (06:21)
[2022-12-14] MEDS ORDERED: AMIT100T2 PO (06:21)
[2022-12-14] MEDS ORDERED: CITA20TA9 PO (06:21)
[2022-12-14] MEDS ORDERED: AMLO-250 PO (06:21)
[2022-12-14] MEDS ORDERED: WARF-48 PO ×2 (06:21)
[2022-12-14] MEDS ORDERED: INSU100I14 SC (06:21)
[2022-12-14] MEDS ORDERED: ENOX300V SQ (06:21)
[2022-12-14] MEDS ORDERED: PRD10T PO (06:21)
[2022-12-14] MEDS ORDERED: GUAI5SYR PO (06:21)
[2022-12-14] MEDS ORDERED: CEFD300C3 PO (06:21)
--- NOTE | 2022-12-14 06:23 | Discharge Inst-Skilled Nursing ---
Discharge Inst-Skilled NF Reconcile Patient Problems Problems Reviewed?: Yes Chief Complaint CC: AMS with UTI HPI: This is a 72yoWF clinic patient of [facility] who is known to me since in inpati ent rehab months ago requiring VCV prolonged stay who went home in 08/2022 who presented to the [facility] ER with weakness and lethargy and unable to walk. Patient was found to have UTI and subtherapeutic INR and although she was cared for by HH they have closed in her town and she can't move around adequately to remain at home. Upon assessment she was dyspneic and concerning enough to move her to ICU. Patient Instructions Patient Problems: Debility Goal: Return to independence Consult/Follow Up/Orders Follow Up Appt.: NH rounds Skilled NF Admit to: [facility] Certification (SNF) I certify that SNF services are required to be given on an inpatient basis because of the above named patient's need for assisted care on a continuing basis for the conditions(s) for which he/she was receiving inpatient hospital services prior to his/her transfer to the SNF. Prison Facility Order: Nursing Services, S[employer] Operator-Evaluate & Treat, Physical Therapy-Evaluate & Treat Oxygen Delivery Method: Nasal Cannula Discharge Diet: ADA Diet Daily Activity as Tolerated: Yes Resuscitation Status: Do Not Resuscitate New & Resume Previous Orders New Medications: Cefdinir (Cefdinir) 300 Mg Capsule 300 MG PO BID, #10 CAP Acetaminophen (Acetaminophen) 325 Mg Tablet 650 MG PO Q4H PRN for TEMPERATURE, #30 TAB Benzonatate (Tessalon Perles) 100 Mg Capsule 200 MG PO TID, #30 CAP Clonidine HCl (Clonidine HCl) 0.1 Mg Tablet 0.1 MG PO Q4HR PRN for SBP>160, #30 TAB Enoxaparin Sodium (Lovenox) 300 Mg/3 Ml Vial 130 MG SQ Q12H, #14 VIAL Guaifenesin/Dextromethorphan (Guaifenesin Dm Syrup) 100 Mg-10 Mg/5 Ml Syrup 10 ML PO Q4H PRN for COUGH, #120 ML Ondansetron (Ondansetron Odt) 4 Mg Tab.rapdis 4 MG PO Q6H PRN for NAUSEA/VOMITING-1ST LINE, #10 TAB Oxycodone Hcl (Oxyir Tablet) 5 Mg Tab 5 MG PO Q4HR PRN for PAIN-MODERATE TO SEVERE, #10 TAB Polyethylene Glycol 3350 (Polyethylene Glycol 3350) 17 Gram Powd.pack 17 GM PO BID PRN for CONSTIPATION-1ST LINE, #60 EACH Changed Medications: Insulin Aspart (Novolog Flexpen) 100 Unit/Ml (3 Ml) Solution 0 SC AC, #1 EA (Changed from: Removed Units; USES SLIDING SCALE) USES SLIDING SCALE A Warfarin Sodium (Warfarin Sodium) 5 Mg Tablet 2.5 MG PO NO,,TH,SA @1700, #30 TAB (Changed from: Removed Instructions) Continued Medications: Alprazolam (Alprazolam) 1 Mg Tablet 1 MG PO 0800,1700, #60 TAB (This prescription has been renewed) Amitriptyline HCl (Amitriptyline HCl) 100 Mg Tablet 100 MG PO HS, #30 TAB (This prescription has been renewed) Amlodipine Besylate (Amlodipine Besylate) 5 Mg Tablet 5 MG PO DAILY, #30 TAB (This prescription has been renewed) Cholecalciferol (Vitamin D3) (Vitamin D3) 50 Mcg (2000 Unit) Capsule 50 MCG PO DAILY, #30 CAP (This prescription has been renewed) Citalopram Hydrobromide (Citalopram HBr) 20 Mg Tablet 20 MG PO HS, #30 TAB (This prescription has been renewed) Gabapentin (Neurontin) 300 Mg Capsule 300 MG PO QID, #120 CAP (This prescription has been renewed) Insulin Detemir (Levemir Flextouch) 100 Unit/Ml (3 Ml) Insuln.pen 15 UNIT SQ HS, #1 EA (This prescription has been renewed) Ipratropium/Albuterol Sulfate (Iprat-Albut 0.5-3(2.5) mg/3 ml) 0.5 Mg-3 Mg (2.5 Mg Base)/3 Ml Ampul.neb 3 ML IH Q6H PRN for SHORTNESS OF BREATH, #60 EACH (This prescription has been renewed) Melatonin (Melatonin) 5 Mg Tablet 5 MG PO HS, #30 TAB (This prescription has been renewed) Oxybutynin Chloride (Oxybutynin Chloride) 5 Mg Tablet 5 MG PO BID, #60 TAB (This prescription has been renewed) Prednisone (Prednisone) 10 Mg Tab 10 MG PO DAILY, #30 TAB (This prescription has been renewed) Warfarin Sodium (Warfarin Sodium) 5 Mg Tablet 5 MG PO MO,WE,FR @1700, #30 TAB (This prescription has been renewed) Sigrid Umana December 14, 2022 06:22 SIGRID UMANA DO December 14, 2022 06:23
--- NOTE | 2022-12-14 06:24 | Discharge Summary ---
Diagnosis/Chief Complaint Date of Admission December 10, 2022 at 18:44 Date of Discharge Discharge Date: December 14, 2022 Discharge Diagnosis Assess & Plan/Chief Complaint Sepsis 2/2 UTI - ucx and bcx pending - cont ceftriaxone and azithromycin - Cont maintenance fluids - WBC decreasing, may be dilutional - CTM AHypoxicRF - wheezing in ED, improved with duonebs - Given azithromycin for possible bronchitis - no worsening with fluids (unlikely cardiac) - O2 requirements decreasing, wean as tolerated - cont duonebs scheduled and prn Metabolic Alkalosis (resolved) - s/p IVF - CTM Anemia - s/p IVF - likely dilutional -CTM DM - ISS and accuchecks HTN - chronic, ctm HLD - chronic, ctm Severe Debility - pt unable to live at home alone as unable to ambulate; need to discuss GOC and disposition with family Discharge Summary Discharge Physical Examination Allergies: Coded Allergies: Penicillins (Verified Allergy, Unknown, 01/11/19) Vitals & I&Os Vital Signs Date Time Temp Pulse Resp B/P (MAP) Pulse Ox O2 Delivery O2 Flow Rate FiO2 12/14/22 12:39 96 Nasal Cannula 1.00 12/14/22 12:33 36.3 106 20 165/85 (111) 12/13/22 11:36 24 General Appearance: Alert, Oriented X3, Cooperative Respiratory: Clear to Auscultation Cardiovascular: Regular Rate Psych/Mental Status: Mental Status NL Hospital Course Was the Problem List Reviewed?: Yes Lexi Agarwal is a 72 yo F who presented to [facility] with weakness and lethargy and inability to walk. Pt was found to have a UTI and subtherapeutic INR. She was admitted to the ICU 12/10. She was treated for sepsis 2/2 UTI with c eftriaxone, azithromycin, and IVF. She was also in metabolic alkalosis upon arrival. This and her sepsis resolved with treatment and she continued to improve throughout the week requiring less O2 support and working with PT. She was moved to floor 12/12 and continued to recover. She is still quite debilitated and unable to walk due to sedentary lifestyle and morbid obesity. She is me dically stable, though still quite debilitated and unable to ambulate. She refuses all disposition options presented to her and wants to return home, noting that she has someone that comes and helps her each day. Labs (last 24 hrs) Laboratory Tests 12/10/22 12:50: White Blood Count 22.3H, Red Blood Count 4.73, Hemoglobin 11.5, Hematocrit 36, Mean Corpuscular Volume 75L, Mean Corpuscular Hemoglobin 24L, Mean Corpuscular Hemoglobin Concent 32, Red Cell Distribution Width 17.5H, Platelet Count 246, Mean Platelet Volume 9.6, Immature Granulocyte % (Auto) 1, Neutrophils (%) (Auto) 78H, Lymphocytes (%) (Auto) 14, Monocytes (%) (Auto) 7, Eosinophils (%) (Auto) 0, Basophils (%) (Auto) 0, Neutrophils # (Auto) 17.4H, Lymphocytes # (Auto) 3.2, Monocytes # (Auto) 1.6H, Eosinophils # (Auto) 0.0, Basophils # (Auto) 0.1, Immature Granulocyte # (Auto) 0.1, Neutrophils % (Manual) 74, Lymphocytes % (Manual) 21, Monocytes % (Manual) 5, Polychromasia SLIGHT, Hypochromasia SLIGHT, Anisocytosis SLIGHT, Microcytosis SLIGHT, Prothrombin Time 17.3H, INR Comment 1.4, Activated Partial Thromboplast Time 28, Urine Color YEL LOW, Urine Clarity SL CLOUDY, Urine pH 5.5, Urine Specific [place] 1.015L, Urine Protein TRACEH, Urine Glucose (UA) NEGATIVE, Urine Ketones NEGATIVE, Urine Nitrite POSITIVEH, Urine Bilirubin NEGATIVE, Urine Urobilinogen 0.2, Urine Leukocyte Esterase 1+H, Urine RBC (Auto) 1+H, Urine RBC 0-2, Urine WBC 25-50H, Urine Squamous Epithelial Cells 0-2, Urine Crystals NONE, Urine Bacteria LARGEH, Urine Casts NONE, Urine Mucus NEGATIVE, Urine Culture Indicated YES, Sodium Level 138, Potassium Level 4.6, Chloride Level 99, Carbon Dioxide Level 27, Anion Gap 12, Blood Urea Nitrogen 28H, Creatinine 1.53H, Estimat Glomerular Filtration Rate 36, BUN/Creatinine Ratio 18, Glucose Level 221H, Lactic Acid Level 2.46*H, Calcium Level 9.2, Corrected Calcium 9.8, Total Bilirubin 0.8, Aspartate Amino Transf (AST/SGOT) 28, Alanine Aminotransferase (ALT/SGPT) 15, Alkaline Phosphatase 93, Troponin I < 0.30, C-Reactive Protein 26.61H, Pro-B-Type Natriuretic Peptide 1684.0H, Total Protein 7.6, Albumin 3.3 12/10/22 12:57: Glucometer 197H 12/10/22 12:58: Influenza Type A (RT-PCR) Not Detected, Influenza Type B (RT-PCR) Not Detected, SARS-CoV-2 RNA (RT-PCR) Not Detected 12/10/22 13:00: Blood Gas Puncture Site LEFT WRIST, Blood Gas Patient Temperature 37.3, Arterial Blood pH 7.50H, Arterial Blood Partial Pressure CO2 37, Arterial Blood Partial Pressure O2 58L, Arterial Blood HCO3 29H, Arterial Blood Total CO2 30.0, Arterial Blood Oxygen Saturation 92L, Arterial Blood Base Excess 5.5H, Antony Test YES-POS, Blood Gas Ventilator Setting NO, Blood Gas Inspired Oxygen 2L 12/10/22 15:03: Lactic Acid Level 1.82 12/10/22 19:05: White Blood Count 21.4H, Red Blood Count 4.32, Hemoglobin 10.6L, Hematocrit 33L, Mean Corpuscular Volume 76L, Mean Corpuscular Hemoglobin 25, Mean Corpuscular Hemoglobin Concent 32, Red Cell Distribution Width 17.2H, Platelet Count 221, Mean Platelet Volume 9.7, Immature Granulocyte % (Auto) 1, Neutrophils (%) (Auto) 78H, Lymphocytes (%) (Auto) 16, Monocytes (%) (Auto) 6, Eosinophils (%) (Auto) 0, Basophils (%) (Auto) 0, Neutrophils # (Auto) 16.7H, Lymphocytes # (Auto) 3.3, Monocytes # (Auto) 1.2H, Eosinophils # (Auto) 0.0, Basophils # (Auto) 0.1, Immature Granulocyte # (Auto) 0.1, Sodium Level 135, Potassium Level 4.2, Chloride Level 100, Carbon Dioxide Level 23, Anion Gap 12, Blood Urea Nitrogen 28H, Creatinine 1.60H, Estimat Glomerular Filtration Rate 34, BUN/Creatinine Ratio 18, Glucose Level 217H, Calcium Level 8.6, Corrected Calcium 9.4, Total Bilirubin 0.7, Aspartate Amino Transf (AST/SGOT) 28, Alanine Aminotransferase (ALT/SGPT) 18, Alkaline Phosphatase 73, Ammonia 16, B-Type Natriuretic Peptide 72.9, Total Protein 7.0, Albumin 3.0L 12/10/22 19:21: Blood Gas Puncture Site R RAD, Blood Gas Patient Temperature 36.9, Arterial Blood pH 7.42, Arterial Blood Partial Pressure CO2 42, Arterial Blood Partial Pressure O2 79, Arterial Blood HCO3 26, Arterial Blood Total CO2 27.7, Arterial Blood Oxygen Saturation 97, Arterial Blood Base Excess 2.3, Antony Test YES-POS, Blood Gas Ventilator Setting NO, Blood Gas Inspired Oxygen 4L 12/10/22 20:27: Glucometer 224H 12/11/22 04:01: White Blood Count 19.2H, Red Blood Count 3.92, Hemoglobin 9.5L, Hematocrit 30L, Mean Corpuscular Volume 76L, Mean Corpuscular Hemoglobin 24L, Mean Corpuscular Hemoglobin Concent 32, Red Cell Distribution Width 17.2H, Platelet Count 206, Mean Platelet Volume 10.0, Immature Granulocyte % (Auto) 1, Neutrophils (%) (Auto) 77H, Lymphocytes (%) (Auto) 15, Monocytes (%) (Auto) 6, Eosinophils (%) (Auto) 1, Basophils (%) (Auto) 0, Neutrophils # (Auto) 14.7H, Lymphocytes # (Auto) 2.9, Monocytes # (Auto) 1.1H, Eosinophils # (Auto) 0.2, Basophils # (Auto) 0.1, Immature Granulocyte # (Auto) 0.2H, Prothrombin Time 18.9H, INR Comment 1.5H, Sodium Level 137, Potassium Level 4.0, Chloride Level 103, Carbon Dioxide Level 24, Anion Gap 10, Blood Urea Nitrogen 31H, Creatinine 1.54H, Es timat Glomerular Filtration Rate 36, BUN/Creatinine Ratio 20, Glucose Level 158H , Calcium Level 8.1L, Corrected Calcium 9.1, Phosphorus Level 2.7, Magnesium Level 1.5L, Total Bilirubin 0.6, Aspartate Amino Transf (AST/SGOT) 24, Alanine Aminotransferase (ALT/SGPT) 14, Alkaline Phosphatase 75, Total Protein 6.3L, Albumin 2.7L 12/11/22 06:16: Blood Gas Puncture Site RR, Blood Gas Patient Temperature 36.7, Arterial Blood pH 7.38, Arterial Blood Partial Pressure CO2 48H, Arterial Blood Partial Pressure O2 87, Arterial Blood HCO3 28H, Arterial Blood Total CO2 29.3, Arterial Blood Oxygen Saturation 97, Arterial Blood Base Excess 3.1H, Antony Test YES-POS, Blood Gas Ventilator Setting NO, Blood Gas Inspired Oxygen 2L 12/11/22 11:14: Glucometer 249H 12/11/22 16:05: Glucometer 157H 12/11/22 20:25: Glucometer 209H 12/12/22 04:10: White Blood Count 10.3, Red Blood Count 3.92, Hemoglobin 9.6L, Hematocrit 30L, Mean Corpuscular Volume 76L, Mean Corpuscular Hemoglobin 25, Mean Corpuscular Hemoglobin Concent 32, Red Cell Distribution Width 17.0H, Platelet Count 219, Mean Platelet Volume 10.6, Immature Granulocyte % (Auto) 1, Neutrophils (%) (A uto) 69, Lymphocytes (%) (Auto) 20, Monocytes (%) (Auto) 7, Eosinophils (%) (Auto) 3, Basophils (%) (Auto) 0, Neutrophils # (Auto) 7.1, Lymphocytes # (Auto) 2.1, Monocytes # (Auto) 0.7, Eosinophils # (Auto) 0.3, Basophils # (Auto) 0.0, Immature Granulocyte # (Auto) 0.1, Prothrombin Time 17.9H, INR Comment 1.4, Sodium Level 136, Potassium Level 4.0, Chloride Level 102, Carbon Dioxide Level 27, Anion Gap 7, Blood Urea Nitrogen 23H, Creatinine 1.21, Estimat Glomerular Filtration Rate 48, BUN/Creatinine Ratio 19, Glucose Level 135H, Calcium Level 8.3L, Corrected Calcium 9.3, Phosphorus Level 2.6, Magnesium Level 2.4, Total Bilirubin 0.2, Aspartate Amino Transf (AST/SGOT) 17, Alanine Aminotransferase (ALT/SGPT) 10, Alkaline Phosphatase 73, Total Protein 6.5, Albumin 2.7L 12/12/22 11:01: Glucometer 211H 12/12/22 16:23: Glucometer 158H 12/12/22 20:09: Glucometer 194H 12/13/22 05:37: White Blood Count 7.2, Red Blood Count 3.89, Hemoglobin 9.5L, Hematocrit 30L, Mean Corpuscular Volume 76L, Mean Corpuscular Hemoglobin 24L, Mean Corpuscular Hemoglobin Concent 32, Red Cell Distribution Width 16.7H, Platelet Count 245, Mean Platelet Volume 9.9, Immature Granulocyte % (Auto) 1, Neutrophils (%) (Auto) 53, Lymphocytes (%) (Auto) 34, Monocytes (%) (Auto) 8, Eosinophils (%) (Auto) 3, Basophils (%) (Auto) 0, Neutrophils # (Auto) 3.9, Lymphocytes # (Auto) 2.5, Monocytes # (Auto) 0.6, Eosinophils # (Auto) 0.2, Basophils # (Auto) 0.0, Immature Granulocyte # (Auto) 0.1, Sodium Level 138, Potassium Level 3.8, Chloride Level 105, Carbon Dioxide Level 23, Anion Gap 10, Blood Urea Nitrogen 19H, Creatinine 0.99, Estimat Glomerular Filtration Rate 61, BUN/Creatinine Ratio 19, Glucose Level 93, Calcium Level 8.7, Corrected Calcium 9.7, Magnesium Level 2.1, Total Bilirubin 0.2, Aspartate Amino Transf (AST/SGOT) 15, Alanine Aminotransferase (ALT/SGPT) 12, Alkaline Phosphatase 64, Total Protein 6.5, Albumin 2.7L 12/13/22 11:28: Glucometer 201H 12/13/22 16:07: Glucometer 253H 12/13/22 20:04: Glucometer 180H 12/14/22 05:16: White Blood Count 9.0, Red Blood Count 4.10, Hemoglobin 10.1L, Hematocrit 32L, Mean Corpuscular Volume 77L, Mean Corpuscular Hemoglobin 25, Mean Corpuscular Hemoglobin Concent 32, Red Cell Distribution Width 17.2H, Platelet Count 255, Mean Platelet Volume 9.8, Immature Granulocyte % (Auto) 1, Neutrophils (%) (Auto) 60, Lymphocytes (%) (Auto) 28, Monocytes (%) (Auto) 8, Eosinophils (%) (Auto) 3, Basophils (%) (Auto) 1, Neutrophils # (Auto) 5.4, Lymphocytes # (Auto) 2.5, Monocytes # (Auto) 0.7, Eosinophils # (Auto) 0.2, Basophils # (Auto) 0.1, Immature Granulocyte # (Auto) 0.1, Sodium Level 139, Potassium Level 4.1, Chloride Level 106, Carbon Dioxide Level 22, Anion Gap 11, Blood Urea Nitrogen 19H, Creatinine 0.98, Estimat Glomerular Filtration Rate 62, BUN/Creatinine Ratio 19, Glucose Level 95, Calcium Level 8.7, Corrected Calcium 9.7, Magnesium Level 2.1, Total Bilirubin 0.1, Aspartate Amino Transf (AST/SGOT) 14, Alanine Aminotransferase (ALT/SGPT) 12, Alkaline Phosphatase 66, Total Protein 6.6, Albumin 2.8L 12/14/22 06:25: Glucometer 90 12/14/22 08:23: Prothrombin Time 21.1H, INR Comment 1.8H 12/14/22 11:43: Glucometer 241H Microbiology 12/10/22 MRSA Screen - Final, Complete MRSA not isolated 12/10/22 Urine Culture - Final, Complete Escherichia coli 12/10/22 Blood Culture - Preliminary, Resulted No growth Pending Labs Microbiology Date/Time Source Procedure Growth Status 12/10/22 18:50 Nasal MRSA Screen - Final MRSA not isolated Complete 12/10/22 12:50 Urine Clean Catch Urine Culture - Final Escherichia coli Complete 12/10/22 12:50 Peripheral Rt Ac Blood Culture - Preliminary No growth Resulted 12/10/22 12:50 Peripheral Left Wrist Blood Culture - Preliminary No growth Resulted Laboratory Tests 12/10/22 12:50: White Blood Count 22.3, Red Blood Count 4.73, Hemoglobin 11.5, Hematocrit 36, Mean Corpuscular Volume 75, Mean Corpuscular Hemoglobin 24, Mean Corpuscular Hemoglobin Concent 32, Red Cell Distribution Width 17.5, Platelet Count 246, Mean Platelet Volume 9.6, Immature Granulocyte % (Auto) 1, Neutrophils (%) (Auto) 78, Lymphocytes (%) (Auto) 14, Monocytes (%) (Auto) 7, Eosinophils (%) (Auto) 0, Basophils (%) (Auto) 0, Neutrophils # (Auto) 17.4, Lymphocytes # (Auto) 3.2, Monocytes # (Auto) 1.6, Eosinophils # (Auto) 0.0, Basophils # (Auto) 0.1, Immature Granulocyte # (Auto) 0.1, Neutrophils % (Manual) 74, Lymphocytes % (Manual) 21, Monocytes % (Manual) 5, Polychromasia SLIGHT, Hypochromasia SLIGHT, Anisocytosis SLIGHT, Microcytosis SLIGHT, Prothrombin Time 17.3, INR Comment 1.4, Activated Partial Thromboplast Time 28, Urine Color YELLOW, Urine Clarity SL CLOUDY, Urine pH 5.5, Urine Specific [place] 1.015, Urine Protein TRACE, Urine Glucose (UA) NEGATIVE, Urine Ketones NEGATIVE, Urine Nitrite POSITIVE, Urine Bilirubin NEGATIVE, Urine Urobilinogen 0.2, Urine Leukocyte Esterase 1+, Urine RBC (Auto) 1+, Urine RBC 0-2, Urine WBC 25-50, Urine Squamous Epithelial Cells 0-2, Urine Crystals NONE, Urine Bacteria LARGE, Urine Casts NONE, Urine Mucus NEGATIVE, Urine Culture Indicated YES, Sodium Level 138, Potassium Level 4.6, Chloride Level 99, Carbon Dioxide Level 27, Anion Gap 12, Blood Urea Nitrogen 28, Creatinine 1.53, Estimat Glomerular Filtration Rate 36, BUN/Crea tinine Ratio 18, Glucose Level 221, Lactic Acid Level 2.46, Calcium Level 9.2, Corrected Calcium 9.8, Total Bilirubin 0.8, Aspartate Amino Transf (AST/SGOT) 28, Alanine Aminotransferase (ALT/SGPT) 15, Alkaline Phosphatase 93, Troponin I < 0.30, C-Reactive Protein 26.61, Pro-B-Type Natriuretic Peptide 1684.0, Total Protein 7.6, Albumin 3.3 12/10/22 12:57: Glucometer 197 12/10/22 12:58: Influenza Type A (RT-PCR) Not Detected, Influenza Type B (RT-PCR) Not Detected, SARS-CoV-2 RNA (RT-PCR) Not Detected 12/10/22 13:00: Blood Gas Puncture Site LEFT WRIST, Blood Gas Patient Temperature 37.3, Arterial Blood pH 7.50, Arterial Blood Partial Pressure CO2 37, Arterial Blood Partial Pressure O2 58, Arterial Blood HCO3 29, Arterial Blood Total CO2 30.0, Arterial Blood Oxygen Saturation 92, Arterial Blood Base Excess 5.5, Antony Test YES-POS, Blood Gas Ventilator Setting NO, Blood Gas Inspired Oxygen 2L 12/10/22 15:03: Lactic Acid Level 1.82 12/10/22 19:05: White Blood Count 21.4, Red Blood Count 4.32, Hemoglobin 10.6, Hematocrit 33, Mean Corpuscular Volume 76, Mean Corpuscular Hemoglobin 25, Mean Corpuscular Hemoglobin Concent 32, Red Cell Distribution Width 17.2, Platelet Count 221, Mean Platelet Volume 9.7, Immature Granulocyte % (Auto) 1, Neutrophils (%) (Auto) 78, Lymphocytes (%) (Auto) 16, Monocytes (%) (Auto) 6, Eosinophils (%) (Auto) 0, Basophils (%) (Auto) 0, Neutrophils # (Auto) 16.7, Lymphocytes # (Auto) 3.3, Monocytes # (Auto) 1.2, Eosinophils # (Auto) 0.0, Basophils # (Auto) 0.1, Immature Granulocyte # (Auto) 0.1, Sodium Level 135, Potassium Level 4.2, Chloride Level 100, Carbon Dioxide Level 23, Anion Gap 12, Blood Urea Nitrogen 28, Creatinine 1.60, Estimat Glomerular Filtration Rate 34, BUN/Creatinine Ratio 18, Glucose Level 217, Calcium Level 8.6, Corrected Calcium 9.4, Total Bilirubin 0.7, Aspartate Amino Transf (AST/SGOT) 28, Alanine Aminotransferase (ALT/SGPT) 18, Alkaline Phosphatase 73, Ammonia 16, B-Type Natriuretic Peptide 72.9, Total Protein 7.0, Albumin 3.0 12/10/22 19:21: Blood Gas Puncture Site R RAD, Blood Gas Patient Temperature 36.9, Arterial Blood pH 7.42, Arterial Blood Partial Pressure CO2 42, Arterial Blood Partial Pressure O2 79, Arterial Blood HCO3 26, Arterial Blood Total CO2 27.7, Arterial Blood Oxygen Saturation 97, Arterial Blood Base Excess 2.3, Antony Test YES-POS, Blood Gas Ventilator Setting NO, Blood Gas Inspired Oxygen 4L 12/10/22 20:27: Glucometer 224 12/11/22 04:01: White Blood Count 19.2, Red Blood Count 3.92, Hemoglobin 9.5, Hematocrit 30, Mean Corpuscular Volume 76, Mean Corpuscular Hemoglobin 24, Mean Corpuscular Hemoglobin Concent 32, Red Cell Distribution Width 17.2, Platelet Count 206, Mean Platelet Volume 10.0, Immature Granulocyte % (Auto) 1, Neutrophils (%) (Auto) 77, Lymphocytes (%) (Auto) 15, Monocytes (%) (Auto) 6, Eosinophils (%) (Auto) 1, Basophils (%) (Auto) 0, Neutrophils # (Auto) 14.7, Lymphocytes # (Auto) 2.9, Monocytes # (Auto) 1.1, Eosinophils # (Auto) 0.2, Basophils # (Auto) 0.1, Immature Granulocyte # (Auto) 0.2, Prothrombin Time 18.9, INR Comment 1.5, Sodium Level 137, Potassium Level 4.0, Chloride Level 103, Carbon Dioxide Level 24, Anion Gap 10, Blood Urea Nitrogen 31, Creatinine 1.54, Estimat Glomerular Filtration Rate 36, BUN/Creatinine Ratio 20, Glucose Level 158, Calcium Level 8 .1, Corrected Calcium 9.1, Phosphorus Level 2.7, Magnesium Level 1.5, Total Bilirubin 0.6, Aspartate Amino Transf (AST/SGOT) 24, Alanine Aminotransferase (ALT/SGPT) 14, Alkaline Phosphatase 75, Total Protein 6.3, Albumin 2.7 12/11/22 06:16: Blood Gas Puncture Site RR, Blood Gas Patient Temperature 36.7, Arterial Blood pH 7.38, Arterial Blood Partial Pressure CO2 48, Arterial Blood Partial Pressure O2 87, Arterial Blood HCO3 28, Arterial Blood Total CO2 29.3, Arterial Blood Oxygen Saturation 97, Arterial Blood Base Excess 3.1, Antony Test YES-POS, Blood Gas Ventilator Setting NO, Blood Gas Inspired Oxygen 2L 12/11/22 11:14: Glucometer 249 12/11/22 16:05: Glucometer 157 12/11/22 20:25: Glucometer 209 12/12/22 04:10: White Blood Count 10.3, Red Blood Count 3.92, Hemoglobin 9.6, Hematocrit 30, Mean Corpuscular Volume 76, Mean Corpuscular Hemoglobin 25, Mean Corpuscular Hemoglobin Concent 32, Red Cell Distribution Width 17.0, Platelet Count 219, Mean Platelet Volume 10.6, Immature Granulocyte % (Auto) 1, Neutrophils (%) (Auto) 69, Lymphocytes (%) (Auto) 20, Monocytes (%) (Auto) 7, Eosinophils (%) (Auto) 3, Basophils (%) (Auto) 0, Neutrophils # (Auto) 7.1, Lymphocytes # (Auto) 2.1, Monocytes # (Auto) 0.7, Eosinophils # (Auto) 0.3, Basophils # (Auto) 0.0, Immature Granulocyte # (Auto) 0.1, Prothrombin Time 17.9, INR Comment 1.4, Sodium Level 136, Potassium Level 4.0, Chloride Level 102, Carbon Dioxide Level 27, Anion Gap 7, Blood Urea Nitrogen 23, Creatinine 1.21, Estimat Glomerular Filtration Rate 48, BUN/Creatinine Ratio 19, Glucose Level 135, Calcium Level 8.3, Corrected Calcium 9.3, Phosphorus Level 2.6, Magnesium Level 2.4, Total Bilirubin 0.2, Aspartate Amino Transf (AST/SGOT) 17, Alanine Aminotransferase (ALT/SGPT) 10, Alkaline Phosphatase 73, Total Protein 6.5, Albumin 2.7 12/12/22 11:01: Glucometer 211 12/12/22 16:23: Glucometer 158 12/12/22 20:09: Glucometer 194 12/13/22 05:37: White Blood Count 7.2, Red Blood Count 3.89, Hemoglobin 9.5, Hematocrit 30, Mean Corpuscular Volume 76, Mean Corpuscular Hemoglobin 24, Mean Corpuscular Hemoglobin Concent 32, Red Cell Distribution Width 16.7, Platelet Count 245, Mean Platelet Volume 9.9, Immature Granulocyte % (Auto) 1, Neutrophils (%) (Auto) 53, Lymphocytes (%) (Auto) 34, Monocytes (%) (Auto) 8, Eosinophils (%) (Auto) 3, Basophils (%) (Auto) 0, Neutrophils # (Auto) 3.9, Lymphocytes # (Auto) 2.5, Monocytes # (Auto) 0.6, Eosinophils # (Auto) 0.2, Basophils # (Auto) 0.0, Immature Granulocyte # (Auto) 0.1, Sodium Level 138, Potassium Level 3.8, Chloride Level 105, Carbon Dioxide Level 23, Anion Gap 10, Blood Urea Nitrogen 19, Creatinine 0.99, Estimat Glomerular Filtration Rate 61, BUN/Creatinine Ratio 19, Glucose Level 93, Calcium Level 8.7, Corrected Calcium 9.7, Magnesium Level 2.1, Total Bilirubin 0.2, Aspartate Amino Transf (AST/SGOT) 15, Alanine Aminotransferase (ALT/SGPT) 12, Alkaline Phosphatase 64, Total Protein 6.5, Albumin 2.7 12/13/22 11:28: Glucometer 201 12/13/22 16:07: Glucometer 253 12/13/22 20:04: Glucometer 180 12/14/22 05:16: White Blood Count 9.0, Red Blood Count 4.10, Hemoglobin 10.1, Hematocrit 32, Mean Corpuscular Volume 77, Mean Corpuscular Hemoglobin 25, Mean Corpuscular Hemoglobin Concent 32, Red Cell Distribution Width 17.2, Platelet Count 255, Mean Platelet Volume 9.8, Immature Granulocyte % (Auto) 1, Neutrophils (%) (Auto) 60, Lymphocytes (%) (Auto) 28, Monocytes (%) (Auto) 8, Eosinophils (%) (Auto) 3, Basophils (%) (Auto) 1, Neutrophils # (Auto) 5.4, Lymphocytes # (Auto) 2.5, Monocytes # (Auto) 0.7, Eosinophils # (Auto) 0.2, Basophils # (Auto) 0.1, Immature Granulocyte # (Auto) 0.1, Sodium Level 139, Potassium Level 4.1, Chloride Level 106, Carbon Dioxide Level 22, Anion Gap 11, Blood Urea Nitrogen 19, Creatinine 0.98, Estimat Glomerular Filtration Rate 62, BUN/Creatinine Ratio 19, Glucose Level 95, Calcium Level 8.7, Corrected Calcium 9.7, Magnesium Level 2.1, Total Bilirubin 0.1, Aspartate Amino Transf (AST/SGOT) 14, Alanine Sams otransferase (ALT/SGPT) 12, Alkaline Phosphatase 66, Total Protein 6.6, Albumin 2.8 12/14/22 06:25: Glucometer 90 12/14/22 08:23: Prothrombin Time 21.1, INR Comment 1.8 12/14/22 11:43: Glucometer 241 Discharge Home Medications: Active Scripts Active Ondansetron Odt (Ondansetron) 4 Mg Tab.rapdis 4 Mg PO Q6H PRN Polyethylene Glycol 3350 17 Gram Powd.pack 17 Gm PO BID PRN Acetaminophen 325 Mg Tablet 650 Mg PO Q4H PRN Oxyir Tablet (Oxycodone HCl) 5 Mg Tab 5 Mg PO Q4HR PRN Clonidine HCl 0.1 Mg Tablet 0.1 Mg PO Q4HR PRN Cefdinir 300 Mg Capsule 300 Mg PO BID Guaifenesin Dm Syrup (Guaifenesin/Dextromethorphan) 100 Mg-10 Mg/5 Ml Syrup 10 Ml PO Q4H PRN Tessalon Perles (Benzonatate) 100 Mg Capsule 200 Mg PO TID Vitamin D3 (Cholecalciferol (Vitamin D3)) 50 Mcg (2000 Unit) Capsule 50 Mcg PO DAILY Iprat-Albut 0.5-3(2.5) mg/3 ml (Ipratropium/Albuterol Sulfate) 0.5 Mg-3 Mg (2.5 Mg Base)/3 Ml Ampul.neb 3 Ml IH Q6H PRN Prednisone 10 Mg Tab 10 Mg PO DAILY Oxybutynin Chloride 5 Mg Tablet 5 Mg PO BID Warfarin Sodium 5 Mg Tablet 2.5 Mg PO ,,,SA @1700 Melatonin 5 Mg Tablet 5 Mg PO HS Novolog Flexpen (Insulin Aspart) 100 Unit/Ml (3 Ml) Solution 0 SC AC USES SLIDING SCALE A Levemir Flextouch (Insulin Detemir) 100 Unit/Ml (3 Ml) Insuln.pen 15 Unit SQ HS Neurontin (Gabapentin) 300 Mg Capsule 300 Mg PO QID Amlodipine Besylate 5 Mg Tablet 5 Mg PO DAILY Warfarin Sodium 5 Mg Tablet 5 Mg PO MO,WE,FR @1700 Citalopram HBr (Citalopram Hydrobromide) 20 Mg Tablet 20 Mg PO HS Amitriptyline HCl 100 Mg Tablet 100 Mg PO HS Alprazolam 1 Mg Tablet 1 Mg PO 0800,1700 Instructions to patient/family Please see electronic discharge instructions given to patient. PARISH GUAMAN DO December 14, 2022 06:24
[2022-12-14] MEDS: predniSONE 10 MG TAB PO SCH (06:27)
[2022-12-14] MEDS: inSUlin ASPART (NovoLOG) 1 UNIT/0.01 ML (CHARGE PER UNIT) SC SCH ×2 (06:30→12:30)
[2022-12-14 08:00] VITALS: BP 123/70
[2022-12-14 08:49] LABS: INR 1.8 (0.8-1.4); PROTHROMBIN TIME PATIENT 21.1 SEC (12.2-14.7)
[2022-12-14] MEDS: OXYBUTYNIN (DITROPAN) 5 MG TAB PO SCH (09:09)
[2022-12-14] MEDS: BENZONATATE 100 MG (TESSALON) CAPSULE PO SCH ×2 (09:09→12:30)
[2022-12-14] MEDS: ALPRAZolam 1 MG (XANAX) TAB PO SCH (09:09)
[2022-12-14] MEDS: VITAMIN D3 25 MCG (1,000 UNITS) TABLET PO SCH (09:09)
[2022-12-14] MEDS: GABAPENTIN 300 MG (NEURONTIN) CAP PO SCH ×2 (09:09→12:30)
[2022-12-14] MEDS: DOCUSATE SODIUM 100 MG (COLACE) CAP PO SCH (09:15)
[2022-12-14] MEDS: ENOXAPARIN 300 MG/3 ML (LOVENOX) MULTI-DOSE VIAL SQ SCH (09:15)
[2022-12-14] MEDS: cefTRIAXone IV/IM 1,000 MG in NS (IVPB) 50 ML IV SCH (12:30)
[2022-12-14 12:33] VITALS: BP 165/85
== END 2022-12-14 14:10 | DRG 871 ==
LOC: EDUNIT# 12:37 → ER FS 12:37 → CSD 16:45 → INTOOBSV 16:45 → OBSVTOIN 18:44 → ICU 18:51 → 4TH 12-12 14:20
PROVIDERS: ADMIT Internal Medicine; ATTEND Internal Medicine
PROC: 5A0945A Assistance with Respiratory Ventilation, 24-96 Consecutive Hours, High Flow/Velocity Cannula (ICD-10-PCS; principal; 2022-12-10)
DX: A41.9 Sepsis, unspecified organism (principal); J18.9 Pneumonia, unspecified organism; J96.01 Acute respiratory failure with hypoxia; N39.0 Urinary tract infection, site not specified; E87.3 Alkalosis; N17.9 Acute kidney failure, unspecified; Z66 Do not resuscitate; Z86.718 Personal history of other venous thrombosis and embolism; E78.00 Pure hypercholesterolemia, unspecified; G43.909 Migraine, unspecified, not intractable, without status migrainosus; Z86.73 Personal history of transient ischemic attack (TIA), and cerebral infarction without residual deficits; K21.9 Gastro-esophageal reflux disease without esophagitis; M19.90 Unspecified osteoarthritis, unspecified site; G89.29 Other chronic pain; M54.9 Dorsalgia, unspecified; H53.2 Diplopia; F41.9 Anxiety disorder, unspecified; F32.A Depression, unspecified; R53.81 Other malaise; R79.1 Abnormal coagulation profile; Z60.2 Problems related to living alone; D64.9 Anemia, unspecified; E11.65 Type 2 diabetes mellitus with hyperglycemia; Z20.822 Contact with and (suspected) exposure to COVID-19; Z79.4 Long term (current) use of insulin; Z79.01 Long term (current) use of anticoagulants; Z79.899 Other long term (current) drug therapy; N18.9 Chronic kidney disease, unspecified; Z86.711 Personal history of pulmonary embolism; G47.00 Insomnia, unspecified; E11.22 Type 2 diabetes mellitus with diabetic chronic kidney disease; I12.9 Hypertensive chronic kidney disease with stage 1 through stage 4 chronic kidney disease, or unspecified chronic kidney disease; M79.7 Fibromyalgia; G93.32 Myalgic encephalomyelitis/chronic fatigue syndrome; E86.0 Dehydration
CPT/HCPCS: 36415; 36600; 51702; 70450; 71045; 80053; 81000; 82140; 82805; 82947; 83605; 83735; 83880; 84100; 84484; 85007; 85025; 85027; 85610; 85730; 86141; 87040; 87077; 87081; 87088; 87186; 87636; 93005; 93041; 94640; 94760

== ENCOUNTER 2022-12-21 10:30 | Inpatient (IN) | payer MEDICARE, OTHER ==
[~2022-12-21] VITALS: Ht 162.6 cm; Wt 133.1 kg
[~2022-12-21 10:30] MED LIST changes: +ACET325T49 PO; +BENZ100C18 PO; +CEFD300C3 PO; +CHOL20003 PO; +CLN.1T PO; +ENOX300V SQ; +IPRA3AMP31 IH; +ONDA4TAB11 PO; +OXC5T PO; +OXYB5TAB13 PO; +POLY17PO54 PO; +WRF5T PO
[2022-12-21] MEDS ORDERED: predniSONE 20 MG TAB PO ONE (10:45)
[2022-12-21] MEDS ORDERED: RT-ALBUTEROL/IPRATROPIUM 3 ML (DUONEB) VIAL INH ONE (10:45)
[2022-12-21 10:53] LABS: BASOPHILS % (AUTO) 0 % (0-10); EOSINOPHILS # (AUTO) 0.1 10^3/uL (0.0-0.3); EOSINOPHILS % (AUTO) 1 % (0-10); HEMATOCRIT 33 % (35-52); HEMOGLOBIN 10.7 g/dL (11.5-16.0); LYMPHOCYTES # (AUTO) 1.7 10^3/uL (1.0-4.0); LYMPHOCYTES % (AUTO) 20 % (12-44); MEAN CORPUSCULAR HEMOGLOBIN 25 pg (25-34); MEAN CORPUSCULAR HGB CONC 33 g/dL (32-36); MEAN CORPUSCULAR VOLUME 76 fL (80-99); MEAN PLATELET VOLUME 9.1 fL (9.0-12.2); MONOCYTES # (AUTO) 0.8 10^3/uL (0.0-1.0); MONOCYTES % (AUTO) 9 % (0-12); NEUTROPHILS # (AUTO) 6.1 10^3/uL (1.8-7.8); NEUTROPHILS % (AUTO) 70 % (42-75); PLATELET COUNT 409 10^3/uL (130-400); WHITE BLOOD COUNT 8.8 10^3/uL (4.3-11.0)
[2022-12-21 11:05] LABS: ALBUMIN 3.1 GM/DL (3.2-4.5)
[2022-12-21 11:07] LABS: CALCIUM 8.8 MG/DL (8.5-10.1)
[2022-12-21 11:08] LABS: TOTAL PROTEIN 7.5 GM/DL (6.4-8.2)
[2022-12-21 11:10] LABS: BILIRUBIN,TOTAL 0.2 MG/DL (0.1-1.0)
[2022-12-21 11:11] LABS: CREATININE SERUM 1.46 MG/DL (0.60-1.30)
--- NOTE | 2022-12-21 11:19 | ED Respiratory ---
General Chief Complaint: Respiratory Problems Stated Complaint: COUGH Nursing Triage Note: PT ARRIVED PER EMS FROM [facility], PT STATES HAS COUGH STARTED ABOUT 4 DAYS AGO, HAD CXR YESTERDAY. PT SAT AT [facility] 88%. PT HAS COUGH PROD YELLOW COUGH. DENIES FEVERS Source: patient Exam Limitations: no limitations History of Present Illness Date Seen by Provider: December 21, 2022 Time Seen by Provider: 11:02 Initial Comments 72-year-old female presents to the emergency department today from a local nursing facility for shortness of breath, cough. Symptoms started about 4 days ago. Reportedly 2 days ago she had a chest x-ray which was negative. She denies any chest pain. She has no known lung disorders. No chest pain. No fevers. No abdominal pain or changes in bowel or bladder habits. All other systems reviewed and negative except documented per HPI. Voice recognition software was used to help create this chart Allergies and Home Medications Allergies Coded Allergies: Penicillins (Verified Allergy, Unknown, 01/11/19) Patient Home Medication List Home Medication List Reviewed: Yes Acetaminophen (Acetaminophen) 325 Mg Tablet, 650 MG PO Q4H PRN for TEMPERATURE Prescribed by: PARISH GUAMAN on 12/14/22620 Alprazolam (Alprazolam) 1 Mg Tablet, 1 MG PO 0800,1700 Prescribed by: PARISH GUAMAN on 12/14/22621 Amitriptyline HCl (Amitriptyline HCl) 100 Mg Tablet, 100 MG PO HS Prescribed by: PARISH GUAMAN on 12/14/22620 Amlodipine Besylate (Amlodipine Besylate) 5 Mg Tablet, 5 MG PO DAILY Prescribed by: PARISH GUAMAN on 12/14/22620 Benzonatate (Tessalon Perles) 100 Mg Capsule, 200 MG PO TID Prescribed by: PARISH GUAMAN on 12/14/22620 Cefdinir (Cefdinir) 300 Mg Capsule, 300 MG PO BID Prescribed by: PARISH GUAMAN on 12/14/22620 Cholecalciferol (Vitamin D3) (Vitamin D3) 50 Mcg (2000 Unit) Capsule, 50 MCG PO DAILY Prescribed by: PARISH GUAMAN on 12/14/22620 Citalopram Hydrobromide (Citalopram HBr) 20 Mg Tablet, 20 MG PO HS Prescribed by: PARISH GUAMAN on 12/14/22620 Clonidine HCl (Clonidine HCl) 0.1 Mg Tablet, 0.1 MG PO Q4HR PRN for SBP>160 Prescribed by: PARISH GUAMAN on 12/14/22620 Gabapentin (Neurontin) 300 Mg Capsule, 300 MG PO QID Prescribed by: PARISH GUAMAN on 12/14/22620 Guaifenesin/Dextromethorphan (Guaifenesin Dm Syrup) 100 Mg-10 Mg/5 Ml Syrup, 10 ML PO Q4H PRN for COUGH Prescribed by: PARISH GUAMAN on 12/14/22620 Insulin Aspart (Novolog Flexpen) 100 Unit/Ml (3 Ml) Solution, 0 SC AC Prescribed by: PARISH GUAMAN on 12/14/22620 Insulin Detemir (Levemir Flextouch) 100 Unit/Ml (3 Ml) Insuln.pen, 15 UNIT SQ HS Prescribed by: PARISH GUAMAN on 12/14/22620 Ipratropium/Albuterol Sulfate (Iprat-Albut 0.5-3(2.5) mg/3 ml) 0.5 Mg-3 Mg (2.5 Mg Base)/3 Ml Ampul.neb, 3 ML IH Q6H PRN for SHORTNESS OF BREATH Prescribed by: PARISH GUAMAN on 12/14/22620 Melatonin (Melatonin) 5 Mg Tablet, 5 MG PO HS Prescribed by: PARISH GUAMAN on 12/14/22620 Ondansetron (Ondansetron Odt) 4 Mg Tab.rapdis, 4 MG PO Q6H PRN for NAUSEA/VOMITING-1ST LINE Prescribed by: PARISH GUAMAN on 12/14/22620 Oxybutynin Chloride (Oxybutynin Chloride) 5 Mg Tablet, 5 MG PO BID Prescribed by: PARISH GUAMAN on 12/14/22620 Oxycodone Hcl (Oxyir Tablet) 5 Mg Tab, 5 MG PO Q4HR PRN for PAIN-MODERATE TO SEVERE Prescribed by: PARISH GUAMAN on 12/14/22621 Polyethylene Glycol 3350 (Polyethylene Glycol 3350) 17 Gram Powd.pack, 17 GM PO BID PRN for CONSTIPATION-1ST LINE Prescribed by: PARISH GUAMAN on 12/14/22620 Prednisone (Prednisone) 10 Mg Tab, 10 MG PO DAILY Prescribed by: PARISH GUAMAN on 12/14/22620 Warfarin Sodium (Warfarin Sodium) 5 Mg Tablet, 5 MG PO MO,WE,FR @1700 Prescribed by: PARISH GUAMAN on 12/14/22620 Warfarin Sodium (Warfarin Sodium) 5 Mg Tablet, 2.5 MG PO NO,TU,TH,SA @1700 Prescribed by: PARISH GUAMAN on 12/14/22620 Discontinued Medications Enoxaparin Sodium (Lovenox) 300 Mg/3 Ml Vial, 130 MG SQ Q12H Discontinued Reason: Prescription changed Prescribed by: PARISH GUAMAN on 12/13/22 1157 Review of Systems Review of Systems Constitutional: see HPI Past Alzlndq-Dqudli-Fiwwzh Hx Patient Social History Tobacco Use?: No Substance use?: No Alcohol Use?: No Pt feels they are or have been: No Immunizations Up To Date Influenza Vaccine Up-to-Date: Yes; Up-to-Date First/Initial COVID19 Vaccinat: 2020 Second COVID19 Vaccination Jonas: 2020 Third COVID19 Vaccination Date: 2020 Seasonal Allergies Seasonal Allergies: No Past Medical History Surgery/Hospitalization HX: Fibromyalgia, Pulmonary Embolus, Hypertension, Chronic Kidney Disease, Migraines, Hypercholesterolemia, GERD, Anxiety, Depression, Insomnia Surgeries: No Respiratory: Yes Pneumonia, Pulmonary Embolism Currently Using CPAP: No Currently Using BIPAP: No Cardiac: Yes Deep Vein Thrombosis, High Cholesterol, Hypertension Neurological: Yes (fibromyalgia. CHRONIC FATQUE SYNDRONE) Headaches /Migraines, Stroke Sexually Transmitted Disease: No HIV/AIDS: No Genitourinary: Yes Bladder Infection, Renal Failure Gastrointestinal: Yes Gastroesophageal Reflux, Chronic Constipation, Hemorrhoids, Gall Bladder Disease Musculoskeletal: Yes Arthritis, Chronic Back Pain Endocrine: No HEENT: Yes (BOTH EARS HURT INSIDE, COCKEYED FROM ) Cataract, Double Vision Loss of Vision: Bilateral Hearing Impairment: Hard of Hearing Cancer: No Psychosocial: Yes Sleep Difficulties, Anxiety, Depression Integumentary: Yes Eczema Blood Disorders: No Adverse Reaction/Blood Tranf: No Family Medical History Reviewed Nursing Family Hx Diabetes mellitus 19 MOTHER CAD Under 55 Years Old, Diabetes Physical Exam Vital Signs - First Documented 12/21/22 10:35 Temp 37.4 Pulse 121 Resp 24 B/P (MAP) 120/75 (90) Pulse Ox 94 Capillary Refill : Less Than 3 Seconds Height: 5'4.00" Weight: lbs. oz. [id number]; 51.00 BMI Method:Stated General Appearance: WD/WN, no apparent distress HEENT: normal ENT inspection, pharynx normal Neck: non-tender, full range of motion, supple Respiratory: chest non-tender, no respiratory distress, no accessory muscle use, other (Scant expiratory wheezes bilaterally. Rhonchi in left lung field) Cardiovascular: no murmur, tachycardia Gastrointestinal: normal bowel sounds, non tender, soft, no organomegaly Neurologic/Psychiatric: alert, normal mood/affect, oriented x 3 Skin: normal color, warm/dry Focused Exam Lactate Level 12/21/22 10:40: Lactic Acid Level 2.93*H Lactic Acid Level Laboratory Tests Test 12/21/22 10:40 Lactic Acid Level 2.93 MMOL/L (0.50-2.00) *H Progress/Results/Core Measures Suspected Sepsis SIRS Temperature: Pulse: 121 Respiratory Rate: 24 Laboratory Tests 12/21/22 10:40: White Blood Count 8.8 Blood Pressure 120 /75 Mean: 90 12/21/22 10:40: Lactic Acid Level 2.93*H Laboratory Tests 12/21/22 10:40: Creatinine 1.46H, Platelet Count 409H, Total Bilirubin 0.2 Results/Orders Lab Results Laboratory Tests Test 12/21/22 10:40 12/21/22 10:47 Range/Units White Blood Count 8.8 4.3-11.0 10^3/uL Red Blood Count 4.30 3.80-5.11 10^6/uL Hemoglobin 10.7 L 11.5-16.0 g/dL Hematocrit 33 L 35-52 % Mean Corpuscular Volume 76 L 80-99 fL Mean Corpuscular Hemoglobin 25 25-34 pg Mean Corpuscular Hemoglobin Concent 33 32-36 g/dL Red Cell Distribution Width 17.1 H 10.0-14.5 % Platelet Count 409 H 130-400 10^3/uL Mean Platelet Volume 9.1 9.0-12.2 fL Immature Granulocyte % (Auto) 1 % Neutrophils (%) (Auto) 70 42-75 % Lymphocytes (%) (Auto) 20 12-44 % Monocytes (%) (Auto) 9 0-12 % Eosinophils (%) (Auto) 1 0-10 % Basophils (%) (Auto) 0 0-10 % Neutrophils # (Auto) 6.1 1.8-7.8 10^3/uL Lymphocytes # (Auto) 1.7 1.0-4.0 10^3/uL Monocytes # (Auto) 0.8 0.0-1.0 10^3/uL Eosinophils # (Auto) 0.1 0.0-0.3 10^3/uL Basophils # (Auto) 0.0 0.0-0.1 10^3/uL Immature Granulocyte # (Auto) 0.1 0.0-0.1 10^3/uL Sodium Level 135 135-145 MMOL/L Potassium Level 4.0 3.6-5.0 MMOL/L Chloride Level 102 98-107 MMOL/L Carbon Dioxide Level 21 21-32 MMOL/L Anion Gap 12 5-14 MMOL/L Blood Urea Nitrogen 31 H 7-18 MG/DL Creatinine 1.46 H 0.60-1.30 MG/DL Estimat Glomerular Filtration Rate 38 BUN/Creatinine Ratio 21 Glucose Level 244 H 70-105 MG/DL Lactic Acid Level 2.93 *H 0.50-2.00 MMOL/L Calcium Level 8.8 8.5-10.1 MG/DL Corrected Calcium 9.5 8.5-10.1 MG/DL Total Bilirubin 0.2 0.1-1.0 MG/DL Aspartate Amino Transf (AST/SGOT) 21 5-34 U/L Alanine Aminotransferase (ALT/SGPT) 20 0-55 U/L Alkaline Phosphatase 65 40-136 U/L Total Protein 7.5 6.4-8.2 GM/DL Albumin 3.1 L 3.2-4.5 GM/DL SARS-CoV-2 RNA (RT-PCR) Not Detected Not Detecte My Orders Orders - DOMINGO CORREA DO Cbc With Automated Diff (12/21/22 10:38) Comprehensive Metabolic Panel (12/21/22 10:38) Blood Culture (12/21/22 10:38) Chest 1 View, Ap/Pa Only (12/21/22 10:38) Ed Iv/Invasive Line Start (12/21/22 10:38) Vital Signs Adult Sepsis Patie Q15M (12/21/22 10:38) O2 (12/21/22 10:38) Lactic Acid Analyzer (12/21/22 10:38) Covid 19 Inhouse Test (12/21/22 10:38) Albuterol/Ipra Inhalation Soln (Duoneb I (12/21/22 10:45) Prednisone Tablet (Deltasone Tablet) (12/21/22 10:45) Svn Small Volume Nebulizer (12/21/22 10:39) Ns Iv 500 Ml (Sodium Chloride 0.9%) (12/21/22 11:27) Vancomycin Injection (Vancomycin Injecti (12/21/22 11:30) Cefepime Injection (Maxipime Injection) (12/21/22 11:30) Ed Admission (Communication) (12/21/22 11:44) Medications Given in ED Current Medications Medications Dose Ordered Sig/Roosevelt Route Start Time Stop Time Status Last Admin Dose Admin Albuterol/ Ipratropium 3 ml ONCE ONCE INH 12/21/22 10:45 12/21/22 10:46 DC 12/21/22 11:00 3 ML Cefepime HCl 1000 mg/Sodium Chloride 50 ml @ 100 mls/hr ONCE ONCE IV 12/21/22 11:30 12/21/22 11:59 12/21/22 11:43 100 MLS/HR Prednisone 50 mg ONCE ONCE PO 12/21/22 10:45 12/21/22 10:46 DC 12/21/22 10:54 50 MG Vital Signs/I&O 12/21/22 12/21/22 12/21/22 12/21/22 10:35 10:35 10:35 11:02 Temp 37.4 Pulse 121 Resp 24 B/P (MAP) 120/75 (90) Pulse Ox 94 95 O2 Delivery Nasal Cannula Nasal Cannula Nasal Cannula Nasal Cannula O2 Flow Rate 2.00 2.00 2.00 1.50 Capillary Refill : Less Than 3 Seconds Blood Pressure Mean: 90 Departure Communication (Admissions) Patient is initially 87-88% on room air. She is no respiratory distress but does have significant wheezing. She is started on 2 L of oxygen via nasal cannula with she given a DuoNeb and steroids. Chest x-ray shows significant pneumonia in the right perihilar region. Given cefepime vancomycin for he althcare associated pneumonia. No leukocytosis. Spoke with Dr. Crooks who accepts the patient in admission. She will write acute care orders and request [facility] bed inpatient. COVID testing is negative. Impression Primary Impression: Hypoxia Additional Impression: HCAP (healthcare-associated pneumonia) Disposition: ADMITTED INPATIENT Condition: Stable Departure-Patient Inst. Referrals: CELIA SEWELL MD (PCP/Family) Primary Care Physician DOMINGO CORREA DO December 21, 2022 11:19
[2022-12-21] MEDS ORDERED: NS IV 500 ML 500 ML IV STA (11:27)
--- NOTE | 2022-12-21 11:27 | Diagnostic Imaging Report ---
CLINICAL INDICATION: Patient with hypoxia and dyspnea. Patient had cough started four days ago. Patient has productive yellow sputum. EXAM: Portable chest x-ray, upright view. COMPARISON: Chest x-ray dated 12/12/2022. FINDINGS: Cardiac silhouette is within normal limits for portable projection. There is interval slight prominence of the right perihilar region with slight ill-defined appearance. The remainder of the lungs are clear. There is atelectasis overlying the right mid lung field or minimal fluid involving the minor fissure. The remainder of the lungs are clear. There is no pneumothorax. There are degenerative spurs involving the thoracic spine. IMPRESSION: 1: There is interval prominence of the right perihilar region with slight ill-defined appearance which may represent an infectious or inflammatory process. 2: The remainder of this exam is stable with no other interval acute abnormality. Dictated by: Dictated on workstation # [id number]
[2022-12-21] MEDS ORDERED: VANCOMYCIN INJECTION 1,000 MG in NS (IVPB) 250 ML IV ONE (11:30)
[2022-12-21] MEDS ORDERED: CEFEPIME INJECTION 1,000 MG in NS (IVPB) 50 ML IV ONE (11:30)
[2022-12-21] MEDS ORDERED: LACTULOSE SYRUP 10GM/15ML (ENULOSE) 30ML UDC PO PRN (12:45)
[2022-12-21] MEDS ORDERED: inSUlin (REGULAR) HUMAN 1 UNIT/0.01 ML (CHARGE PER UNIT) SC PRN (12:45)
[2022-12-21] MEDS ORDERED: ANTACID SUSP 30 ML UDC (MYLANTA) PO PRN (12:45)
[2022-12-21] MEDS ORDERED: MILK OF MAGNESIA 400 MG/5 ML 30 ML UDC PO PRN (12:45)
[2022-12-21] MEDS ORDERED: ONDANSETRON 4 MG (ZOFRAN) ORAL DISSOLVE TAB PO PRN (12:45)
[2022-12-21] MEDS ORDERED: PHARMACY TO DOSE IV SCH (12:45)
[2022-12-21] MEDS ORDERED: NALOXONE 0.4 MG/ML 1 ML (NARCAN) VIAL IV PRN (12:45)
[2022-12-21] MEDS ORDERED: polyethylene glycoL POWDER 17 GM (MIRALAX) PACK PO PRN ×2 (12:45→17:00)
[2022-12-21] MEDS ORDERED: CALCIUM CARBONATE 500 MG (TUMS) TAB.CHEW PO PRN (12:45)
[2022-12-21] MEDS ORDERED: BISACODYL 10 MG SUPP (DULCOLAX) PR PRN (12:45)
[2022-12-21] MEDS ORDERED: diphenhydrAMINE 50 MG/ML INJ (BENADRYL) IVP PRN (12:45)
[2022-12-21] MEDS ORDERED: MELATONIN 3 MG TABLET PO PRN (12:45)
[2022-12-21] MEDS ORDERED: diphenhydrAMINE 25 MG TAB (BENADRYL) PO PRN (12:45)
--- NOTE | 2022-12-21 12:53 | History & Physical ---
History of Present Illness HPI/Chief Complaint CC: HAP HPI: This is a 72yoF [place] patient of mine who was just DC'ed after UTI and hypoxia episode and ultimately transferred to [facility] where she was until 08/2022 when she moved home but patient became very debilitated since that time and more so since last admit 1 week ago but presented to the ER with hypoxia and found to have HAP so she was placed on broad spectrum abx and IVF. She is prone to overload so IVF will be given judiciously. Wheezing is noted so IV steroids will be given along with O2 and Nebs and anti-tussives. I had mentioned last admit last week that hospice may very well be a valid option for her or at least the [facility]. She remains DNR. Source: patient Exam Limitations: clinical condition Date Seen 12/21/22 Time Seen by a Provider: 13:00 Attending Physician Gilberto Francis MD PCP Admitting Physician: Sigrid Umana DO Attending Physician: Sigrid Umana DO Referring Physician Date of Admission December 21, 2022 at 12:13 Home Medications & Allergies Home Medications Reviewed patient Home Medication Reconciliation performed by pharmacy medication reconciliations analytical lab technician and/or nursing. Patients Allergies have been reviewed. Allergies Allergies Coded Allergies Penicillins (Verified Allergy, Unknown, 01/11/19) Past Gjphfzq-Ndlosn-Awzpcv Hx Past Med/Social Hx: Reviewed Nursing Past Med/Soc Hx, Reviewed and Corrections made Patient Social History Marrital Status: single Employed/Student: retired Alcohol Use: Denies Use Smoking Status: Never a Smoker 2nd Hand Smoke Exposure: No Recent Hopitalizations: No Recent Infectious Disease Expo: No Immunizations Up To Date Date of Pneumonia Vaccine: May 12, 2018 Seasonal Allergies Seasonal Allergies: No Past Medical History Currently Using CPAP: No Currently Using BIPAP: No Cardiac: Deep Vein Thrombosis, High Cholesterol, Hypertension Neurological: Headaches /Migraines, Stroke Sexually Transmitted Disease: No HIV/AIDS: No Genitourinary: Bladder Infection, Renal Failure Gastrointestinal: Gastroesophageal Reflux, Chronic Constipation, Hemorrhoids, Gall Bladder Disease Musculoskeletal: Arthritis, Chronic Back Pain HEENT: Cataract, Double Vision Loss of Vision: Bilateral Hearing Impairment: Hard of Hearing Psychosocial: Sleep Difficulties, Anxiety, Depression Skin/Integumentary: Eczema History of Blood Disorders: No Adverse Reaction to Blood Waller: No Family History Reviewed Nursing Family Hx Diabetes mellitus 19 MOTHER CAD Under 55 Years Old, Diabetes Review of Systems Constitutional: see HPI, dizziness, fever, malaise, weakness EENTM: no symptoms reported Respiratory: cough, dyspnea on exertion, short of breath Cardiovascular: no symptoms reported Gastrointestinal: no symptoms reported Genitourinary: no symptoms reported Musculoskeletal: no symptoms reported Skin: no symptoms reported Psychiatric/Neurological: Anxiety, Depressed All Other Systems Reviewed Negative Unless Noted: Yes Physical Exam Physical Exam Vital Signs Vital Signs - First Documented 12/21/22 12/21/22 10:35 13:29 Temp 37.4 Pulse 121 Resp 24 B/P (MAP) 120/75 (90) Pulse Ox 94 FiO2 28 Capillary Refill : Less Than 3 Seconds Height, Weight, BMI Height: 5'4.00" Weight: lbs. oz. [id number]; 51.00 BMI Method:Stated General Appearance: WD/WN, Anxious, Chronically ill, Mild Distress Eyes: Bilateral Eye Normal Inspection, Bilateral Eye PERRL HEENT: PERRL/EOMI, TMs Normal, Normal ENT Inspection, Pharynx Normal Neck: Full Range of Motion, Normal Inspection, Non Tender, Supple, Carotid Bruit Respiratory: Chest Non Tender, No Respiratory Distress, Accessory Muscle Use, Wheezing Cardiovascular: Regular Rate, Rhythm, No Edema, No Gallop, No JVD, No Murmur, Normal Peripheral Pulses Gastrointestinal: Normal Bowel Sounds, No Organomegaly, No Pulsatile Mass, Non Tender, Soft Back: Normal Inspection, No CVA Tenderness, No Vertebral Tenderness Extremity: Normal Capillary Refill, Normal Inspection, Normal Range of Motion, Non Tender, No Calf Tenderness, No Pedal Edema Neurologic/Psychiatric: Alert, Oriented x3, Normal Mood/Affect, buffet manager II-XII Norm as Tested, Depressed Affect, Motor Weakness Skin: Normal Color, Warm/Dry Lymphatic: No Adenopathy Results Results/Procedures Labs Laboratory Tests 12/21/22 10:40 Patient resulted labs reviewed. Assessment/Plan Admission Diagnosis Assessment: Sepsis Acute hypoxic respiratory failure Presumed JUSTO Acute wheezing HAP DM CAR HTN HLP h/o DVT's on Warfarin Plan: IV abx IV steroids Insulin Home meds Admission Status: Inpatient Order (span 2 midnights) Reason for Inpatient Admission: resp failure SIGRID UMANA DO December 21, 2022 12:53
[2022-12-21] MEDS: NS IV 1000 ML 1,000 ML IV SCH (12:57)
[2022-12-21] MEDS: BENZONATATE 100 MG (TESSALON) CAPSULE PO SCH ×2 (12:57→21:20)
[2022-12-21 13:29] VITALS: BP 98/68
[2022-12-21] MEDS ORDERED: VANCOMYCIN 1 GM/NS 250 ML IVPB IV NR ×2 (13:30)
[2022-12-21 13:41] LABS: INR 1.4 (0.8-1.4); PROTHROMBIN TIME PATIENT 17.3 SEC (12.2-14.7)
[2022-12-21] MEDS ORDERED: RT-ALBUTEROL/IPRATROPIUM 3 ML (DUONEB) VIAL INH PRN (13:45)
[2022-12-21 13:59] VITALS: BP 98/68
[2022-12-21 14:00] VITALS: BP 154/65
[2022-12-21] MEDS ORDERED: LORATADINE (CLARITIN) 10 MG TAB PO NR (14:00)
[2022-12-21] MEDS ORDERED: ALPR1TAB7 PO (14:06)
[2022-12-21] MEDS ORDERED: WRF2.5T PO (14:06)
[2022-12-21] MEDS ORDERED: ONDA4TAB11 SL (14:06)
[2022-12-21] MEDS ORDERED: INSU100I14 SQ (14:06)
[2022-12-21] MEDS ORDERED: CITA20TA9 PO (14:06)
[2022-12-21] MEDS ORDERED: GABA300C PO (14:06)
[2022-12-21] MEDS ORDERED: WARF-48 PO (14:06)
[2022-12-21] MEDS ORDERED: MELA5TAB14 PO (14:06)
[2022-12-21] MEDS ORDERED: ACET325T38 PO (14:06)
[2022-12-21] MEDS ORDERED: AMT10T PO (14:06)
[2022-12-21] MEDS ORDERED: GUAI5SYR PO (14:06)
[2022-12-21] MEDS ORDERED: IPRA3AMP31 IH (14:06)
[2022-12-21] MEDS ORDERED: GUAI600T43 PO (14:06)
[2022-12-21] MEDS ORDERED: CHOL200059 PO (14:06)
[2022-12-21] MEDS ORDERED: OXYC5TAB PO (14:06)
[2022-12-21] MEDS ORDERED: PRD10T PO (14:06)
[2022-12-21] MEDS ORDERED: AMLO-250 PO (14:06)
[2022-12-21] MEDS ORDERED: CLN.1T PO (14:06)
[2022-12-21] MEDS ORDERED: POLY17PO6 PO (14:06)
[2022-12-21] MEDS ORDERED: INSU100I88 SQ (14:06)
[2022-12-21] MEDS ORDERED: BENZ-36 PO (14:06)
[2022-12-21] MEDS ORDERED: OXYB5TAB13 PO (14:10)
[2022-12-21] MEDS: RT-ALBUTEROL/IPRATROPIUM 3 ML (DUONEB) VIAL INH SCH ×3 (14:43→22:02)
[2022-12-21] MEDS: inSUlin ASPART (NovoLOG) 1 UNIT/0.01 ML (CHARGE PER UNIT) SC SCH ×2 (15:42→21:38)
[2022-12-21 16:28] VITALS: BP 139/60
[2022-12-21] MEDS ORDERED: ACETAMINOPHEN 325 MG TABLET PO PRN (17:00)
[2022-12-21] MEDS ORDERED: RT-ALBUTEROL/IPRATROPIUM 3 ML (DUONEB) VIAL IH SCH (17:00)
[2022-12-21] MEDS ORDERED: ONDANSETRON 4 MG (ZOFRAN) ORAL DISSOLVE TAB SL PRN (17:00)
[2022-12-21] MEDS ORDERED: cloNIDine 0.1 MG (CATAPRES) TAB PO PRN (17:00)
[2022-12-21] MEDS ORDERED: ENOXAPARIN 60 MG/0.6 ML (LOVENOX) SYR SC SCH (17:00)
[2022-12-21] MEDS ORDERED: guaiFENesin/DM (ROBITUSSIN DM) 10 ML UDC PO PRN (17:00)
[2022-12-21] MEDS ORDERED: RT-ALBUTEROL/IPRATROPIUM 3 ML (DUONEB) VIAL IH PRN (17:00)
[2022-12-21] MEDS: GABAPENTIN 300 MG (NEURONTIN) CAP PO SCH ×2 (17:33→21:21)
[2022-12-21] MEDS: warFARin 5 MG (COUMADIN) TAB PO SCH (17:33)
[2022-12-21] MEDS: RT--FLUTICASONE/SALMETEROL 113-14 (AIRDUO RespiCLICK) IH SCH (18:40)
[2022-12-21] MEDS: CEFEPIME INJECTION 1,000 MG in NS (IVPB) 50 ML IV SCH (19:37)
[2022-12-21 20:26] VITALS: BP 130/83
[2022-12-21] MEDS ORDERED: BENZONATATE 100 MG (TESSALON) CAPSULE PO SCH (21:00)
[2022-12-21] MEDS: AMITRIPTYLINE 10 MG (ELAVIL) TAB PO SCH (21:20)
[2022-12-21] MEDS: ALPRAZolam 1 MG (XANAX) TAB PO SCH (21:20)
[2022-12-21] MEDS: MONTELUKAST 10 MG (SINGULAIR) TAB PO SCH (21:20)
[2022-12-21] MEDS: guaiFENesin (MUCINEX) 600 MG TAB PO SCH (21:20)
[2022-12-21] MEDS: DOCUSATE SODIUM 100 MG (COLACE) CAP PO SCH (21:21)
[2022-12-21] MEDS: MELATONIN 10 MG TABLET PO SCH (21:21)
[2022-12-21] MEDS: OXYBUTYNIN (DITROPAN) 5 MG TAB PO SCH (21:21)
[2022-12-21] MEDS: SENNOSIDES 8.6 MG (SENOKOT) TAB PO SCH (21:21)
[2022-12-21] MEDS: ACETAMINOPHEN 325 MG TABLET PO PRN (21:36)
[2022-12-21] MEDS: guaiFENesin/CODEINE (ROBITUSSIN AC) 10ML UDC PO PRN (21:37)
[2022-12-21 23:16] VITALS: BP 129/80
[2022-12-22] VITALS (7 sets, daily range): BP systolic 112–162; BP diastolic 64–92
[2022-12-22] MEDS: RT-ALBUTEROL/IPRATROPIUM 3 ML (DUONEB) VIAL INH SCH ×6 (02:42→21:22)
[2022-12-22] MEDS: NS IV 1000 ML 1,000 ML IV SCH (04:29)
[2022-12-22] MEDS: CEFEPIME INJECTION 1,000 MG in NS (IVPB) 50 ML IV SCH ×3 (04:29→20:36)
[2022-12-22] MEDS: ENOXAPARIN 300 MG/3 ML (LOVENOX) MULTI-DOSE VIAL SQ SCH ×2 (04:30→16:11)
[2022-12-22] MEDS: inSUlin ASPART (NovoLOG) 1 UNIT/0.01 ML (CHARGE PER UNIT) SC SCH ×4 (05:42→20:47)
[2022-12-22 05:46] LABS: BASOPHILS % (AUTO) 0 % (0-10); EOSINOPHILS % (AUTO) 0 % (0-10); HEMATOCRIT 31 % (35-52); HEMOGLOBIN 9.7 g/dL (11.5-16.0); LYMPHOCYTES # (AUTO) 1.3 10^3/uL (1.0-4.0); LYMPHOCYTES % (AUTO) 15 % (12-44); MEAN CORPUSCULAR HEMOGLOBIN 24 pg (25-34); MEAN CORPUSCULAR HGB CONC 32 g/dL (32-36); MEAN CORPUSCULAR VOLUME 77 fL (80-99); MONOCYTES # (AUTO) 0.5 10^3/uL (0.0-1.0); MONOCYTES % (AUTO) 5 % (0-12); NEUTROPHILS # (AUTO) 6.6 10^3/uL (1.8-7.8); NEUTROPHILS % (AUTO) 78 % (42-75); PLATELET COUNT 344 10^3/uL (130-400); WHITE BLOOD COUNT 8.5 10^3/uL (4.3-11.0)
[2022-12-22 06:01] LABS: INR 1.7 (0.8-1.4); PROTHROMBIN TIME PATIENT 19.8 SEC (12.2-14.7)
--- NOTE | 2022-12-22 06:02 | Progress Note ---
Subjective Date Seen by a Provider: December 22, 2022 Time Seen by a Provider: 09:00 Subjective/Events-last exam Much improved Cough is still present ICS along with Claritin and Singulair initiated No falls Colace taken Matias in place [place] normal Labs reviewed Review of Systems Pulmonary: Dyspnea, Cough Focused Exam Lactate Level 12/21/22 12:36: Lactic Acid Level 2.49*H 12/21/22 14:37: Lactic Acid Level 2.49*H 12/21/22 16:30: Lactic Acid Level 1.55 Objective Exam Last Set of Vital Signs Vital Signs Date Time Temp Pulse Resp B/P (MAP) Pulse Ox O2 Delivery O2 Flow Rate FiO2 12/22/22 05:46 94 143/76 (98) 12/22/22 04:30 36.2 18 97 Nasal Cannula 1.50 12/21/22 13:29 28 Capillary Refill : Less Than 3 Seconds I&O Intake and Output 12/22/22 00:00 Intake Total 1330 ml Output Total 1300 ml Balance 30 ml Intake Oral 1230 ml IV Total 100 ml Output Urine Total 1300 ml # Voids 1 Daily Weight Change No General: Alert, Oriented X3, Cooperative, No Acute Distress Lungs: Other (wheezing all [place]) Psych/Mental Status: Mental Status NL, Mood NL Results Lab Laboratory Tests 12/21/22 10:40: White Blood Count 8.8, Red Blood Count 4.30, Hemoglobin 10.7L, Hematocrit 33L, Mean Corpuscular Volume 76L, Mean Corpuscular Hemoglobin 25, Mean Corpuscular Hemoglobin Concent 33, Red Cell Distribution Width 17.1H, Platelet Count 409H, Mean Platelet Volume 9.1, Immature Granulocyte % (Auto) 1, Neutrophils (%) (Auto) 70, Lymphocytes (%) (Auto) 20, Monocytes (%) (Auto) 9, Eosinophils (%) (Auto) 1, Basophils (%) (Auto) 0, Neutrophils # (Auto) 6.1, Lymphocytes # (Auto) 1.7, Monocytes # (Auto) 0.8, Eosinophils # (Auto) 0.1, Basophils # (Auto) 0.0, Immature Granulocyte # (Auto) 0.1, Prothrombin Time 17.3H, INR Comment 1.4, Sodium Level 135, Potassium Level 4.0, Chloride Level 102, Carbon Dioxide Level 21, Anion Gap 12, Blood Urea Nitrogen 31H, Creatinine 1.46H, Estimat Glomerular Filtration Rate 38, BUN/Creatinine Ratio 21, Glucose Level 244H, Lactic Acid Level 2.93*H, Calcium Level 8.8, Corrected Calcium 9.5, Total Bilirubin 0.2, Aspartate Amino Transf (AST/SGOT) 21, Alanine Aminotransferase (ALT/SGPT) 20, Alkaline Phosphatase 65, Total Protein 7.5, Albumin 3.1L 12/21/22 10:47: SARS-CoV-2 RNA (RT-PCR) Not Detected 12/21/22 12:36: Lactic Acid Level 2.49*H 12/21/22 14:37: Lactic Acid Level 2.49*H 12/21/22 16:30: Lactic Acid Level 1.55 12/21/22 21:31: Glucometer 353H 12/22/22 05:25: White Blood Count 8.5, Red Blood Count 3.97, Hemoglobin 9.7L, Hematocrit 31L, Mean Corpuscular Volume 77L, Mean Corpuscular Hemoglobin 24L, Mean Corpuscular Hemoglobin Concent 32, Red Cell Distribution Width 17.1H, Platelet Count 344, Mean Platelet Volume 9.0, Immature Granulocyte % (Auto) 1, Neutrophils (%) (Auto) 78H, Lymphocytes (%) (Auto) 15, Monocytes (%) (Auto) 5, Eosinophils (%) (Auto) 0, Basophils (%) (Auto) 0, Neutrophils # (Auto) 6.6, Lymphocytes # (Auto) 1.3, Monocytes # (Auto) 0.5, Eosinophils # (Auto) 0.0, Basophils # (Auto) 0.0, Immature Granulocyte # (Auto) 0.1 12/22/22 05:37: Glucometer 216H Assessment/Plan Assessment/Plan Assess & Plan/Chief Complaint Assessment: Sepsis Acute hypoxic respiratory failure Presumed JUSTO Acute wheezing HAP DM CAR HTN HLP h/o DVT's on Warfarin Plan: IV abx IV steroids Insulin Home meds Lovenox bridge PARISH GUAMAN DO December 22, 2022 06:02
[2022-12-22 06:06] LABS: ALBUMIN 2.9 GM/DL (3.2-4.5); BILIRUBIN,TOTAL 0.1 MG/DL (0.1-1.0); CALCIUM 9.1 MG/DL (8.5-10.1); CREATININE SERUM 1.2 MG/DL (0.60-1.30); POTASSIUM 4.6 MMOL/L (3.6-5.0); TOTAL PROTEIN 6.8 GM/DL (6.4-8.2)
[2022-12-22] MEDS: RT--FLUTICASONE/SALMETEROL 113-14 (AIRDUO RespiCLICK) IH SCH ×2 (06:22→21:22)
[2022-12-22] MEDS: LORATADINE (CLARITIN) 10 MG TAB PO SCH (08:28)
[2022-12-22] MEDS: VITAMIN D3 25 MCG (1,000 UNITS) TABLET PO SCH (08:28)
[2022-12-22] MEDS: amLODIPine 5 MG (NORVASC) TAB PO SCH (08:28)
[2022-12-22] MEDS: OXYBUTYNIN (DITROPAN) 5 MG TAB PO SCH ×2 (08:28→20:40)
[2022-12-22] MEDS: GABAPENTIN 300 MG (NEURONTIN) CAP PO SCH ×4 (08:28→20:41)
[2022-12-22] MEDS: guaiFENesin (MUCINEX) 600 MG TAB PO SCH ×2 (08:28→20:39)
[2022-12-22] MEDS: BENZONATATE 100 MG (TESSALON) CAPSULE PO SCH ×3 (08:29→20:39)
[2022-12-22] MEDS: DOCUSATE SODIUM 100 MG (COLACE) CAP PO SCH ×2 (08:29→20:39)
[2022-12-22] MEDS: SENNOSIDES 8.6 MG (SENOKOT) TAB PO SCH ×2 (08:29→20:39)
[2022-12-22] MEDS: ALPRAZolam 1 MG (XANAX) TAB PO SCH ×2 (08:29→20:39)
[2022-12-22] MEDS: ACETAMINOPHEN 325 MG TABLET PO PRN ×2 (10:42→20:46)
--- NOTE | 2022-12-22 11:18 | Physical Therapy Evaluation ---
PT Evaluation-General Medical Diagnosis Admission Date December 21, 2022 at 12:13 Medical Diagnosis: Hypoxia, HAP Onset Date: December 21, 2022 Therapy Diagnosis Therapy Diagnosis: Gait deficit, strength deficit Height/Weight Height (Feet): 5 Height (Inches): 4.00 Precautions Precautions/Isolations: Fall Prevention, Standard Precautions Weight Bear Status Right Lower Extremity: Right Full Weight Bearing Left Lower Extremity: Left Full Weight Bearing Referral Physician: Dr. Umana Reason for Referral: Evaluation/Treatment Medical History Pertinent Medical History: CVA, HTN, Renal Insufficiency Social History Home: Apartment Current Living Status: Alone Entry Into Home: Level Entry Prior Prior Level of Function SCALE: Activities may be completed with or without assistive devices. 0-Ndosttypjo-vivmqzs completes the activity by him/herself with no assistance from a helper. 5-Set-up or Clean-up Assistance-helper sets up or cleans up; patient completes activity. [place] assists only prior to or following the activity. 4-Supervision or Touching Assistance-helper provides verbal cues and/or touching/steadying and/or contact guard assistance as patient completes activity. Assistance may be provided throughout the activity or intermittently. 3-Partial/Moderate Assistance-helper does LESS THAN HALF the effort. [place] lifts, holds or supports trunk or limbs, but provides less than half the effort. 2-Substantial/Maximal Assistance-helper does MORE THAN HALF the effort. [place] lifts or holds trunk or limbs and provides more than half the effort. 7-Ehwnvogyx-llgtwv does ALL the effort. Patient does none of the effort to complete the activity. Or, the assistance of 2 or more helpers is required for the patient to complete the activity. If activity was not attempted, code reason: 7-Patient Refused. 9-Not Applicable-not attempted and the patient did not perform the activity before the current illness, exacerbation or injury. 10-Not Attempted due to Environmental Limitations-(lack of equipment, weather restraints, etc.). 88-Not Attempted due to Medical Conditions or Safety Concerns. Bed Mobility: 2 Transfers (B,C,W/C): 2 Gait: 9 Stairs: 9 Indoor Mobility (Ambulation): Dependent Prior Devices Use: Manual wheelchair, Walker Prior Device Use: Sit to stand PT Evaluation-Current Subjective Patient lying supine in bed upon PT arrival, agreeable to treatment. Patient rates pain at 8/10 currently in head. Objective Patient Orientation: Person, Place, Time, Situation Attachments: Oxygen, Matias Catheter, IV ROM/Strength ROM Lower Extremities Bilateral ankles limited to lacking 10 degrees from neutral. All other ROMs BLEs appear WFLs to PROM Strength Lower Extremities 3/5 BLEs all planes Sensory Vision: Wears Glasses Hearing: Functional Sensation Right Lower Extremit: Intact Sensation Left Lower Extremity: Intact Transfers Roll Left to Right (QC): 4 Sit to Lying (QC): 4 Lying to Sitting/Side of Bed(Q: 4 Gait Does the Patient Walk?: No and Walking Goal NOT indicated Balance Sitting Static: Good Sitting Dynamic: Fair Assessment/Needs Patient demonstrates fair potential to improve upon current strength and bed mobility, however improvement beyond that in function may be limited as patient reports she doesn't walk at home and has assistance with a sit to stand. Patient performs all bed mobility with SBA. Patient performs LE therapeutic exercise of AP, LAQs, hamstring curls, marching and hip adduction x 10 each LE. Patient in bed post treatment with all needs met, nursing notified, call light in hand. Rehab Potential: Fair PT Fdc Goals Fdc Goals PT Direct Marketing Representative Goals Time Frame: January 09, 2023 Roll Left & Right (QC): 6 Sit to Lying (QC): 6 Lying-Sitting on Side/Bed(QC): 6 PT Plan Problem List Problem List: Activity Tolerance, Functional Strength, Safety, Balance, Transfer, Bed Mobility, ROM Treatment/Plan Treatment Plan: Continue Plan of Care Treatment Plan: Bed Mobility, Education, Functional Activity Dena, Functional Strength, Group Therapy, Safety, Therapeutic Exercise, Transfers Treatment Duration: January 09, 2023 Frequency: 6 times per week Estimated Hrs Per Day: .25 hour per day Patient and/or Family Agrees t: Yes Safety Risks/Education Patient Education: Transfer Techniques Teaching Recipient: Patient Teaching Methods: Demonstration, Discussion Response to Teaching: Verbalize Understanding, Return Demonstration Time Time In: 1035 Time Out: 1100 DATE: December 22, 2022 Total Billed Treatment Time: 25 Total Billed Treatment Visit, JAMES JOHNSON JOHN A PT December 22, 2022 11:18
[2022-12-22] MEDS: VANCOMYCIN 1500MG/300ML PREMIX IV SCH (11:30)
[2022-12-22] MEDS: warFARin 5 MG (COUMADIN) TAB PO SCH (16:12)
[2022-12-22] MEDS: MONTELUKAST 10 MG (SINGULAIR) TAB PO SCH (20:39)
[2022-12-22] MEDS: AMITRIPTYLINE 10 MG (ELAVIL) TAB PO SCH (20:39)
[2022-12-22] MEDS: MELATONIN 10 MG TABLET PO SCH (20:39)
[2022-12-22] MEDS: guaiFENesin/CODEINE (ROBITUSSIN AC) 10ML UDC PO PRN (20:48)
[2022-12-23] MEDS: RT-ALBUTEROL/IPRATROPIUM 3 ML (DUONEB) VIAL INH SCH ×5 (02:31→21:59)
[2022-12-23 04:13] VITALS: BP 118/60
[2022-12-23] MEDS: CEFEPIME INJECTION 1,000 MG in NS (IVPB) 50 ML IV SCH ×3 (04:15→20:32)
[2022-12-23] MEDS: ENOXAPARIN 300 MG/3 ML (LOVENOX) MULTI-DOSE VIAL SQ SCH (04:15)
[2022-12-23] MEDS: guaiFENesin/CODEINE (ROBITUSSIN AC) 10ML UDC PO PRN ×2 (04:22→20:33)
[2022-12-23] MEDS: inSUlin ASPART (NovoLOG) 1 UNIT/0.01 ML (CHARGE PER UNIT) SC SCH ×4 (05:39→20:32)
[2022-12-23 05:55] LABS: BASOPHILS % (AUTO) 0 % (0-10); EOSINOPHILS % (AUTO) 0 % (0-10); HEMATOCRIT 31 % (35-52); HEMOGLOBIN 9.9 g/dL (11.5-16.0); LYMPHOCYTES # (AUTO) 1.4 10^3/uL (1.0-4.0); LYMPHOCYTES % (AUTO) 14 % (12-44); MEAN CORPUSCULAR HEMOGLOBIN 25 pg (25-34); MEAN CORPUSCULAR HGB CONC 32 g/dL (32-36); MEAN CORPUSCULAR VOLUME 78 fL (80-99); MEAN PLATELET VOLUME 9.2 fL (9.0-12.2); MONOCYTES # (AUTO) 0.6 10^3/uL (0.0-1.0); MONOCYTES % (AUTO) 6 % (0-12); NEUTROPHILS # (AUTO) 7.5 10^3/uL (1.8-7.8); NEUTROPHILS % (AUTO) 78 % (42-75); PLATELET COUNT 370 10^3/uL (130-400); WHITE BLOOD COUNT 9.7 10^3/uL (4.3-11.0)
[2022-12-23 06:08] LABS: INR 3.1 (0.8-1.4); PROTHROMBIN TIME PATIENT 31.7 SEC (12.2-14.7)
[2022-12-23 06:15] LABS: ALBUMIN 3.1 GM/DL (3.2-4.5); BILIRUBIN,TOTAL 0.1 MG/DL (0.1-1.0); CALCIUM 9.5 MG/DL (8.5-10.1); CREATININE SERUM 1.31 MG/DL (0.60-1.30); POTASSIUM 4.7 MMOL/L (3.6-5.0); TOTAL PROTEIN 6.9 GM/DL (6.4-8.2)
--- NOTE | 2022-12-23 07:26 | Progress Note ---
Subjective Date Seen by a Provider: December 23, 2022 Time Seen by a Provider: 11:00 Subjective/Events-last exam Improved overall Cough is improved Wheezing is still an issue No pain Overall declined but acute issues are improved Review of Systems General: Fatigue, Malaise Pulmonary: Dyspnea, Cough Focused Exam Lactate Level 12/21/22 12:36: Lactic Acid Level 2.49*H 12/21/22 14:37: Lactic Acid Level 2.49*H 12/21/22 16:30: Lactic Acid Level 1.55 Objective Exam Last Set of Vital Signs Vital Signs Date Time Temp Pulse Resp B/P (MAP) Pulse Ox O2 Delivery O2 Flow Rate FiO2 12/23/22 04:13 36.0 94 18 118/60 (79) 98 Nasal Cannula 1.50 12/21/22 13:29 28 Capillary Refill : Less Than 3 Seconds I&O Intake and Output 12/23/22 00:00 Intake Total 2790 ml Output Total 1950 ml Balance 840 ml Intake Oral 1690 ml IV Total 1100 ml Output Urine Total 1950 ml General: Alert, Oriented X3, Cooperative, No Acute Distress Lungs: Other (wheezing) Heart: Regular Rate Psych/Mental Status: Mental Status NL Results Lab Laboratory Tests 12/22/22 20:42: Glucometer 322H 12/23/22 05:12: Glucometer 249H 12/23/22 05:35: White Blood Count 9.7, Red Blood Count 4.01, Hemoglobin 9.9L, Hematocrit 31L, Mean Corpuscular Volume 78L, Mean Corpuscular Hemoglobin 25, Mean Corpuscular Hemoglobin Concent 32, Red Cell Distribution Width 17.5H, Platelet Count 370, Mean Platelet Volume 9.2, Immature Granulocyte % (Auto) 1, Neutrophils (%) (Auto) 78H, Lymphocytes (%) (Auto) 14, Monocytes (%) (Auto) 6, Eosinophils (%) (Auto) 0, Basophils (%) (Auto) 0, Neutrophils # (Auto) 7.5, Lymphocytes # (Auto) 1.4, Monocytes # (Auto) 0.6, Eosinophils # (Auto) 0.0, Basophils # (Auto) 0.0, Immature Granulocyte # (Auto) 0.1, Prothrombin Time 31.7H, INR Comment 3.1H, Sodium Level 138, Potassium Level 4.7, Chloride Level 108H, Carbon Dioxide Level 22, Anion Gap 8, Blood Urea Nitrogen 31H, Creatinine 1.31H, Estimat Glomerular Filtration Rate 44, BUN/Creatinine Ratio 24, Glucose Level 230H, Calcium Level 9.5, Corrected Calcium 10.2H, Total Bilirubin 0.1, Aspartate Amino Transf (AST/SGOT) 12, Alanine Aminotransferase (ALT/SGPT) 15, Alkaline Phosphatase 66, Total Protein 6.9, Albumin 3.1L Microbiology 12/21/22 Blood Culture - Preliminary, Resulted No growth Assessment/Plan Assessment/Plan Assess & Plan/Chief Complaint Assessment: Sepsis Acute hypoxic respiratory failure Presumed JUSTO Acute wheezing HAP DM CAR HTN HLP h/o DVT's on Warfarin Plan: IV abx IV steroids Insulin Home meds Lovenox bridge PARISH HOLLAND DO December 23, 2022 07:26
[2022-12-23 07:45] VITALS: BP 165/84
[2022-12-23] MEDS: BENZONATATE 100 MG (TESSALON) CAPSULE PO SCH ×3 (08:56→20:33)
[2022-12-23] MEDS: OXYBUTYNIN (DITROPAN) 5 MG TAB PO SCH ×2 (08:56→20:33)
[2022-12-23] MEDS: amLODIPine 5 MG (NORVASC) TAB PO SCH (08:56)
[2022-12-23] MEDS: GABAPENTIN 300 MG (NEURONTIN) CAP PO SCH ×4 (08:56→20:33)
[2022-12-23] MEDS: LORATADINE (CLARITIN) 10 MG TAB PO SCH (08:56)
[2022-12-23] MEDS: VITAMIN D3 25 MCG (1,000 UNITS) TABLET PO SCH (08:56)
[2022-12-23] MEDS: ALPRAZolam 1 MG (XANAX) TAB PO SCH ×2 (08:56→20:33)
[2022-12-23] MEDS: guaiFENesin (MUCINEX) 600 MG TAB PO SCH ×2 (08:57→20:33)
[2022-12-23] MEDS: SENNOSIDES 8.6 MG (SENOKOT) TAB PO SCH ×2 (08:57→20:33)
[2022-12-23] MEDS: DOCUSATE SODIUM 100 MG (COLACE) CAP PO SCH ×2 (08:57→20:33)
[2022-12-23] MEDS: RT--FLUTICASONE/SALMETEROL 113-14 (AIRDUO RespiCLICK) IH SCH ×2 (10:24→18:58)
[2022-12-23] MEDS ORDERED: TROUGH ORDER-PHARMACY XX ONE (11:00)
[2022-12-23 11:24] VITALS: BP 126/61
[2022-12-23] MEDS: VANCOMYCIN 1500MG/300ML PREMIX IV SCH (13:12)
[2022-12-23 15:55] VITALS: BP 134/73
[2022-12-23] MEDS: ACETAMINOPHEN 325 MG TABLET PO PRN (17:48)
[2022-12-23 20:20] VITALS: BP 132/72
[2022-12-23] MEDS: MELATONIN 10 MG TABLET PO SCH (20:33)
[2022-12-23] MEDS: AMITRIPTYLINE 10 MG (ELAVIL) TAB PO SCH (20:33)
[2022-12-23] MEDS: MONTELUKAST 10 MG (SINGULAIR) TAB PO SCH (20:34)
[2022-12-23 23:00] VITALS: BP 146/71
[2022-12-24] MEDS: RT-ALBUTEROL/IPRATROPIUM 3 ML (DUONEB) VIAL INH SCH ×6 (02:33→22:24)
[2022-12-24] MEDS: CEFEPIME INJECTION 1,000 MG in NS (IVPB) 50 ML IV SCH ×3 (04:16→20:09)
--- NOTE | 2022-12-24 05:19 | Progress Note ---
Subjective Date Seen by a Provider: December 24, 2022 Time Seen by a Provider: 10:00 Subjective/Events-last exam No major issues Declines to get OOB in a chair Catheter will be DC today Labs reviewed DC Lovenox bridge Review of Systems General: Fatigue Pulmonary: Dyspnea, Cough Focused Exam Lactate Level 12/21/22 12:36: Lactic Acid Level 2.49*H 12/21/22 14:37: Lactic Acid Level 2.49*H 12/21/22 16:30: Lactic Acid Level 1.55 Objective Exam Last Set of Vital Signs Vital Signs Date Time Temp Pulse Resp B/P (MAP) Pulse Ox O2 Delivery O2 Flow Rate FiO2 12/23/22 23:00 36.1 102 18 146/71 (96) 97 Nasal Cannula 1.50 12/21/22 13:29 28 Capillary Refill : Less Than 3 Seconds I&O Intake and Output 12/24/22 00:00 Intake Total 1510 ml Output Total 1925 ml Balance -415 ml Intake Oral 1410 ml IV Total 100 ml Output Urine Total 1925 ml General: Alert, Oriented X3, Cooperative, No Acute Distress Lungs: Other (wheezing) Heart: Regular Rate Psych/Mental Status: Mental Status NL Results Lab Laboratory Tests 12/23/22 05:35: White Blood Count 9.7, Red Blood Count 4.01, Hemoglobin 9.9L, Hematocrit 31L, Mean Corpuscular Volume 78L, Mean Corpuscular Hemoglobin 25, Mean Corpuscular Hemoglobin Concent 32, Red Cell Distribution Width 17.5H, Platelet Count 370, Mean Platelet Volume 9.2, Immature Granulocyte % (Auto) 1, Neutrophils (%) (Auto) 78H, Lymphocytes (%) (Auto) 14, Monocytes (%) (Auto) 6, Eosinophils (%) (Auto) 0, Basophils (%) (Auto) 0, Neutrophils # (Auto) 7.5, Lymphocytes # (Auto) 1.4, Monocytes # (Auto) 0.6, Eosinophils # (Auto) 0.0, Basophils # (Auto) 0.0, Immature Granulocyte # (Auto) 0.1, Prothrombin Time 31.7H, INR Comment 3.1H, Sodium Level 138, Potassium Level 4.7, Chloride Level 108H, Carbon Dioxide Level 22, Anion Gap 8, Blood Urea Nitrogen 31H, Creatinine 1.31H, Estimat Glomerular Filtration Rate 44, BUN/Creatinine Ratio 24, Glucose Level 230H, Calcium Level 9.5, Corrected Calcium 10.2H, Total Bilirubin 0.1, Aspartate Amino Transf (AST/SGOT) 12, Alanine Aminotransferase (ALT/SGPT) 15, Alkaline Phosphatase 66, Total Protein 6.9, Albumin 3.1L 12/23/22 10:38: Glucometer 245H 12/23/22 11:40: Vancomycin Level Trough 16.0 12/23/22 16:02: Glucometer 265H Microbiology 12/21/22 Blood Culture - Preliminary, Resulted No growth Assessment/Plan Assessment/Plan Assess & Plan/Chief Complaint Assessment: Sepsis Acute hypoxic respiratory failure Presumed JUSTO Acute wheezing HAP DM CAR HTN HLP h/o DVT's on Warfarin Plan: IV abx IV steroids Insulin Home meds Lovenox bridge PARISH HOLLAND DO December 24, 2022 05:19
[2022-12-24 06:01] LABS: BASOPHILS % (AUTO) 0 % (0-10); EOSINOPHILS % (AUTO) 0 % (0-10); HEMATOCRIT 31 % (35-52); HEMOGLOBIN 9.5 g/dL (11.5-16.0); LYMPHOCYTES # (AUTO) 1.8 10^3/uL (1.0-4.0); LYMPHOCYTES % (AUTO) 21 % (12-44); MEAN CORPUSCULAR HEMOGLOBIN 24 pg (25-34); MEAN CORPUSCULAR HGB CONC 31 g/dL (32-36); MEAN CORPUSCULAR VOLUME 78 fL (80-99); MEAN PLATELET VOLUME 9.6 fL (9.0-12.2); MONOCYTES # (AUTO) 0.6 10^3/uL (0.0-1.0); MONOCYTES % (AUTO) 7 % (0-12); NEUTROPHILS # (AUTO) 6.1 10^3/uL (1.8-7.8); NEUTROPHILS % (AUTO) 70 % (42-75); PLATELET COUNT 380 10^3/uL (130-400); WHITE BLOOD COUNT 8.6 10^3/uL (4.3-11.0)
[2022-12-24] MEDS: inSUlin ASPART (NovoLOG) 1 UNIT/0.01 ML (CHARGE PER UNIT) SC SCH ×4 (06:13→20:57)
[2022-12-24 06:17] LABS: POTASSIUM 5.1 MMOL/L (3.6-5.0)
[2022-12-24 06:18] LABS: CALCIUM 8.9 MG/DL (8.5-10.1); INR 2.7 (0.8-1.4); PROTHROMBIN TIME PATIENT 28.6 SEC (12.2-14.7)
[2022-12-24 06:19] LABS: TOTAL PROTEIN 6.8 GM/DL (6.4-8.2)
[2022-12-24 06:21] LABS: BILIRUBIN,TOTAL 0.1 MG/DL (0.1-1.0)
[2022-12-24 06:23] LABS: CREATININE SERUM 1.58 MG/DL (0.60-1.30)
[2022-12-24] MEDS: RT--FLUTICASONE/SALMETEROL 113-14 (AIRDUO RespiCLICK) IH SCH ×2 (06:35→22:23)
[2022-12-24 08:00] VITALS: BP 138/85
[2022-12-24] MEDS: DOCUSATE SODIUM 100 MG (COLACE) CAP PO SCH ×2 (09:17→20:11)
[2022-12-24] MEDS: amLODIPine 5 MG (NORVASC) TAB PO SCH (09:17)
[2022-12-24] MEDS: VITAMIN D3 25 MCG (1,000 UNITS) TABLET PO SCH (09:17)
[2022-12-24] MEDS: LORATADINE (CLARITIN) 10 MG TAB PO SCH (09:17)
[2022-12-24] MEDS: SENNOSIDES 8.6 MG (SENOKOT) TAB PO SCH ×2 (09:17→20:09)
[2022-12-24] MEDS: OXYBUTYNIN (DITROPAN) 5 MG TAB PO SCH ×2 (09:17→20:09)
[2022-12-24] MEDS: ALPRAZolam 1 MG (XANAX) TAB PO SCH ×2 (09:17→20:14)
[2022-12-24] MEDS: guaiFENesin (MUCINEX) 600 MG TAB PO SCH ×2 (09:17→20:09)
[2022-12-24] MEDS: GABAPENTIN 300 MG (NEURONTIN) CAP PO SCH ×4 (09:17→20:09)
[2022-12-24] MEDS: BENZONATATE 100 MG (TESSALON) CAPSULE PO SCH ×3 (09:17→20:09)
--- NOTE | 2022-12-24 10:36 | Physical Therapy Daily Note ---
PT Daily Note-Current Subjective Patient declined OOB activity. Agrees to sitting EOB and bilateral LE exercises. Pain Section J - Health Conditions 1. Rarely or not at all 2. Occasionally 3. Frequently 4. Almost constantly 8. Unable to answer Pain Effect on Sleep: 1 Pain Interference with Therapy: 1 Pain Interference w/Day-to-Day: 1 Mental Status Patient Orientation: Person, Time, Situation Attachments: Oxygen, Matias Catheter Transfers SCALE: Activities may be completed with or without assistive devices. 1-Imitujopsn-iohazmu completes the activity by him/herself with no assistance from a helper. 5-Set-up or Clean-up Assistance-helper sets up or cleans up; patient completes a ctivity. [place] assists only prior to or following the activity. 4-Supervision or Touching Assistance-helper provides verbal cues and/or touching/steadying and/or contact guard assistance as patient completes activity. Assistance may be provided throughout the activity or intermittently. 3-Partial/Moderate Assistance-helper does LESS THAN HALF the effort. [place] lifts, holds or supports trunk or limbs, but provides less than half the effort. 2-Substantial/Maximal Assistance-helper does MORE THAN HALF the effort. [place] lifts or holds trunk or limbs and provides more than half the effort. 4-Qtsmsymjj-tuyyxg does ALL the effort. Patient does none of the effort to complete the activity. Or, the assistance of 2 or more helpers is required for the patient to complete the activity. If activity was not attempted, code reason: 7-Patient Refused. 9-Not Applicable-not attempted and the patient did not perform the activity before the current illness, exacerbation or injury. 10-Not Attempted due to Environmental Limitations-(lack of equipment, weather restraints, etc.). 88-Not Attempted due to Medical Conditions or Safety Concerns. Roll Left & Right (QC): 4 Sit to Lying (QC): 4 Lying to Sitting/Side of Bed(Q: 4 Sit to Stand (QC): 7 Weight Bearing Right Lower Extremity: Right Full Weight Bearing Left Lower Extremity: Left Full Weight Bearing Gait Training Does the Patient Walk?: No and Walking Goal NOT indicated Exercises Supine Ex: Ankle pumps, Quad Set, Heel Slides Supine Reps: 12 Seated Therapy Exercises: Long arc quads Seated Reps: 12 Assessment Patient is extremely out of breath with any activity. She demonstrates SBA with all bed mobility. PT to increase activity as tolerated/allow by patient. PT Room Worker Goals Snf Goals PT Snf Goals Time Frame: January 09, 2023 Roll Left & Right (QC): 6 Sit to Lying (QC): 6 Lying-Sitting on Side/Bed(QC): 6 PT Plan Treatment/Plan Treatment Plan: Continue Plan of Care Treatment Plan: Bed Mobility, Education, Functional Activity Dena, Functional Strength, Group Therapy, Safety, Therapeutic Exercise, Transfers Treatment Duration: January 09, 2023 Frequency: 6 times per week Estimated Hrs Per Day: .25 hour per day Patient and/or Family Agrees t: Yes Time Time In: 935 Time Out: 945 DATE: December 24, 2022 Total Billed Treatment Time: 10 Total Billed Treatment 1 visit EX 10 min RADHA LOREDO PT December 24, 2022 10:36
--- NOTE | 2022-12-24 10:57 | Occupational Therapy Eval ---
OT Evaluation-General/PLF Medical Diagnosis Admission Date December 21, 2022 at 12:13 Medical Diagnosis: Hypoxia, HAP Onset Date: December 21, 2022 Therapy Diagnosis Therapy Diagnosis: weakness Height/Weight Height (Feet): 5 Height (Inches): 4.00 Precautions Precautions/Isolations: Fall Prevention, Standard Precautions Safety Interventions: Bed Exit Alarm Weight Bear Status uses sit/stand mechanical lift does not stand or ambulate Referral Physician: Dr. Umana Referral Reason: Evaluation/Treatment Medical History Pertinent Medical History: CVA, HTN, Renal Insufficiency Additional Medical History Wearing thin white compression hose. Noted poor fitting and rolling down fm calf. RN notified Current History Patient has been transferred [facility] hospital Social History Home: Apartment Current Living Status: Alone Entry Into Home: Level Entry ADL-Prior Level of Function SCALE: Activities may be completed with or without assistive devices. 9-Fhlmbyoyhc-guldfao completes the activity by him/herself with no assistance from a helper. 5-Set-up or Clean-up Assistance-helper sets up or cleans up; patient completes activity. [place] assists only prior to or following the activity. 4-Supervision or Touching Assistance-helper provides verbal cues and/or touching/steadying and/or contact guard assistance as patient completes activity. Assistance may be provided throughout the activity or intermittently. 3-Partial/Moderate Assistance-helper does LESS THAN HALF the effort. [place] lifts, holds or supports trunk or limbs, but provides less than half the effort. 2-Substantial/Maximal Assistance-helper does MORE THAN HALF the effort. [place] lifts or holds trunk or limbs and provides more than half the effort. 9-Vwkcewhem-uwiwpz does ALL the effort. Patient does none of the effort to complete the activity. Or, the assistance of 2 or more helpers is required for the patient to complete the activity. If activity was not attempted, code reason: 7-Patient Refused. 9-Not Applicable-not attempted and the patient did not perform the activity before the current illness, exacerbation or injury. 10-Not Attempted due to Environmental Limitations-(lack of equipment, weather restraints, etc.). 88-Not Attempted due to Medical Conditions or Safety Concerns. Self Care: Needed Some Help Functional Cognition: Needed Some Help Drive Self: No OT Current Status Subjective Agreeable to OT Mental Status/Objective Patient Orientation: Person, Place, Time, Situation Attachments: Matias Catheter, Oxygen Current Glasses/Contacts: Yes Upper Extremity ROM BUE ROM limited by excessive soft tissue Upper Extremity Strength +3/5 BUE ADL-Treatment Eating (QC): 6 Oral Hygiene (QC): 5 Shower/Bathe Self (QC): 7 Upper Body Dressing (QC): 3 Lower Body Dressing (QC): 1 On/Off Footwear (QC): 1 Toileting Hygiene (QC): 1 Education OT Patient Education: Correct positioning, Disease process, Exercise program, Modified ADL techniques, Progress toward Goal/Update tx plan, Purpose of tx/functional activities, Reviewed precautions, Rehab process, Safety issues, Transfer techniques, Use of adapted equipment Teaching Recipient: Patient Teaching Methods: Demonstration, Discussion Response to Teaching: Reinforcement Needed OT Volunteer Firefighter Goals Group Home Goals Eating (QC): 6 Oral Hygiene (QC): 5 Toileting Hygiene (QC): 1 Shower/Bathe Self (QC): 3 Upper Body Dressing (QC): 5 Lower Body Dressing (QC): 1 On/Off Footwear (QC): 3 1=Demonstrate adherence to instructed precautions during ADL tasks. 2=Patient will verbalize/demonstrate understanding of assistive devices/modifications for ADL. 3=Patient will improve strength/tolerance for activity to enable patient to perform ADL's. OT Education/Plan Problem List/Assessment Assessment: Decreased Activ Tolerance, Decreased Safety Aware, Decreased UE Strength, Dependent Transfers, Impaired Coordination, Impaired Funct Balance, Impaired Self-Care Skills, Restricted Funct UE ROM Discharge Recommendations Plan/Recommendations: Continue POC Treatment Plan/Plan of Care Treatment,Training & Education: Yes Patient would benefit from OT for education, treatment and training to promote independence in ADL's, mobility, safety and/or upper extremity function for ADL' s. Plan of Care: ADL Retraining, Concurrent Therapy, Functional Mobility, Group Exercise/Act as Ind, UE Funct Exercise/Act Treatment Duration: December 29, 2022 Frequency: 3 times per week (3-5 times per week) Estimated Hrs Per Day: .25 hour per day Agreement: Yes Rehab Potential: Fair all needs met patient in bed reclined Time Start Time: 09:35 Stop Time: 09:45 DATE: December 24, 2022 Total Time Billed (hr/min): 10 Billed Treatment Time EVM 10 min NICOLE SINGH OT December 24, 2022 10:57
[2022-12-24] MEDS: VANCOMYCIN 1500MG/300ML PREMIX IV SCH (12:34)
[2022-12-24 16:03] VITALS: BP 130/64
[2022-12-24] MEDS ORDERED: warFARin 2.5 MG (COUMADIN) TAB PO SCH (17:00)
[2022-12-24] MEDS: MONTELUKAST 10 MG (SINGULAIR) TAB PO SCH (20:09)
[2022-12-24] MEDS: MELATONIN 10 MG TABLET PO SCH (20:09)
[2022-12-24] MEDS: AMITRIPTYLINE 10 MG (ELAVIL) TAB PO SCH (20:09)
[2022-12-24] MEDS: guaiFENesin/CODEINE (ROBITUSSIN AC) 10ML UDC PO PRN (20:54)
[2022-12-24 23:47] VITALS: BP 117/70
[2022-12-25] MEDS: RT-ALBUTEROL/IPRATROPIUM 3 ML (DUONEB) VIAL INH SCH ×6 (02:17→22:24)
[2022-12-25] MEDS: guaiFENesin/CODEINE (ROBITUSSIN AC) 10ML UDC PO PRN (03:51)
[2022-12-25] MEDS: HYDROmorphone 2 MG/ML VIAL (DILAUDID) IV PRN ×2 (03:52→22:32)
[2022-12-25] MEDS: CEFEPIME INJECTION 1,000 MG in NS (IVPB) 50 ML IV SCH ×4 (03:54→20:41)
[2022-12-25] MEDS: inSUlin ASPART (NovoLOG) 1 UNIT/0.01 ML (CHARGE PER UNIT) SC SCH ×4 (05:14→21:51)
[2022-12-25 05:41] LABS: BASOPHILS % (AUTO) 0 % (0-10); EOSINOPHILS % (AUTO) 0 % (0-10); HEMATOCRIT 32 % (35-52); HEMOGLOBIN 10.4 g/dL (11.5-16.0); LYMPHOCYTES # (AUTO) 2.3 10^3/uL (1.0-4.0); LYMPHOCYTES % (AUTO) 19 % (12-44); MEAN CORPUSCULAR HEMOGLOBIN 25 pg (25-34); MEAN CORPUSCULAR HGB CONC 32 g/dL (32-36); MEAN CORPUSCULAR VOLUME 76 fL (80-99); MEAN PLATELET VOLUME 9.4 fL (9.0-12.2); MONOCYTES # (AUTO) 0.6 10^3/uL (0.0-1.0); MONOCYTES % (AUTO) 5 % (0-12); NEUTROPHILS # (AUTO) 9.1 10^3/uL (1.8-7.8); NEUTROPHILS % (AUTO) 74 % (42-75); PLATELET COUNT 390 10^3/uL (130-400); WHITE BLOOD COUNT 12.2 10^3/uL (4.3-11.0)
[2022-12-25 05:54] LABS: INR 1.7 (0.8-1.4); PROTHROMBIN TIME PATIENT 20.3 SEC (12.2-14.7)
[2022-12-25 06:01] LABS: ALBUMIN 3.3 GM/DL (3.2-4.5); BILIRUBIN,TOTAL 0.2 MG/DL (0.1-1.0); CALCIUM 9.5 MG/DL (8.5-10.1); CREATININE SERUM 1.31 MG/DL (0.60-1.30); POTASSIUM 5.1 MMOL/L (3.6-5.0)
[2022-12-25 07:22] VITALS: BP 144/65
[2022-12-25] MEDS: RT--FLUTICASONE/SALMETEROL 113-14 (AIRDUO RespiCLICK) IH SCH ×2 (07:54→22:24)
[2022-12-25] MEDS: GABAPENTIN 300 MG (NEURONTIN) CAP PO SCH ×4 (08:25→20:45)
[2022-12-25] MEDS: VITAMIN D3 25 MCG (1,000 UNITS) TABLET PO SCH (08:26)
[2022-12-25] MEDS: amLODIPine 5 MG (NORVASC) TAB PO SCH (08:26)
[2022-12-25] MEDS: BENZONATATE 100 MG (TESSALON) CAPSULE PO SCH ×3 (08:26→20:45)
[2022-12-25] MEDS: SENNOSIDES 8.6 MG (SENOKOT) TAB PO SCH ×2 (08:26→20:46)
[2022-12-25] MEDS: ALPRAZolam 1 MG (XANAX) TAB PO SCH ×2 (08:26→20:45)
[2022-12-25] MEDS: guaiFENesin (MUCINEX) 600 MG TAB PO SCH ×2 (08:26→20:45)
[2022-12-25] MEDS: OXYBUTYNIN (DITROPAN) 5 MG TAB PO SCH ×2 (08:26→20:45)
[2022-12-25] MEDS: LORATADINE (CLARITIN) 10 MG TAB PO SCH (08:26)
[2022-12-25] MEDS: DOCUSATE SODIUM 100 MG (COLACE) CAP PO SCH ×2 (08:26→20:45)
--- NOTE | 2022-12-25 09:38 | Progress Note ---
Subjective Date Seen by a Provider: December 25, 2022 Time Seen by a Provider: 09:30 Subjective/Events-last exam Worsened cough Productive sputum of yellow Cough is severe and profound Overall prognosis poor Patient if denial Will check BNP and CT and CXR Monitor closely Review of Systems General: Fatigue, Malaise Pulmonary: Dyspnea, Cough Objective Exam Last Set of Vital Signs Vital Signs Date Time Temp Pulse Resp B/P (MAP) Pulse Ox O2 Delivery O2 Flow Rate FiO2 12/25/22 08:03 93 Room Air 12/25/22 08:00 0.00 12/25/22 07:22 35.4 93 20 144/65 (91) 12/21/22 13:29 28 Capillary Refill : Less Than 3 Seconds I&O Intake and Output 12/25/22 00:00 Intake Total 2430 ml Output Total 1460 ml Balance 970 ml Intake Oral 2380 ml IV Total 50 ml Output Urine Total 1460 ml # Voids 3 General: Alert, Oriented X3, Cooperative, No Acute Distress Lungs: Other (wheezing coarse) Results Lab Laboratory Tests 12/25/22 05:12: Glucometer 203H 12/25/22 05:30: White Blood Count 12.2H, Red Blood Count 4.22, Hemoglobin 10.4L, Hematocrit 32L, Mean Corpuscular Volume 76L, Mean Corpuscular Hemoglobin 25, Mean Corpuscular H emoglobin Concent 32, Red Cell Distribution Width 17.2H, Platelet Count 390, Mean Platelet Volume 9.4, Immature Granulocyte % (Auto) 1, Neutrophils (%) (Auto) 74, Lymphocytes (%) (Auto) 19, Monocytes (%) (Auto) 5, Eosinophils (%) (Auto) 0, Basophils (%) (Auto) 0, Neutrophils # (Auto) 9.1H, Lymphocytes # (Auto) 2.3, Monocytes # (Auto) 0.6, Eosinophils # (Auto) 0.0, Basophils # (Auto) 0.0, Immature Granulocyte # (Auto) 0.2H, Prothrombin Time 20.3H, INR Comment 1.7H, Sodium Level 136, Potassium Level 5.1H, Chloride Level 107, Carbon Dioxide Level 21, Anion Gap 8, Blood Urea Nitrogen 28H, Creatinine 1.31H, Estimat Glomerular Filtration Rate 44, BUN/Creatinine Ratio 21, Glucose Level 202H, Calcium Level 9.5, Corrected Calcium 10.1, Total Bilirubin 0.2, Aspartate Amino Transf (AST/SGOT) 11, Alanine Aminotransferase (ALT/SGPT) 15, Alkaline Phosphatase 70, Total Protein 7.0, Albumin 3.3 Microbiology 12/21/22 Blood Culture - Preliminary, Resulted No growth Assessment/Plan Assessment/Plan Assess & Plan/Chief Complaint Assessment: Sepsis Acute hypoxic respiratory failure Presumed JUSTO Acute wheezing HAP DM CAR HTN HLP h/o DVT's on Warfarin Plan: IV abx IV steroids Insulin Home meds Lovenox bridge restart CT chest BNP Poor prognosis PARISH GUAMAN DO December 25, 2022 09:38
--- NOTE | 2022-12-25 09:50 | Occ Therapy Progress Note ---
Therapy Progress Note PATIENT OUT OF ROOM FOR CT, OT WILL ATTEMPT AT LATER TIME NICOLE SINGH OT December 25, 2022 09:50
--- NOTE | 2022-12-25 09:52 | Diagnostic Imaging Report ---
Indication: Pneumonia Frontal chest obtained at 0933 a.m. Comparison made to 12/21/2022. Heart is normal in size. There is poor inspiration. The lungs appear grossly clear. There is no pneumothorax or pleural fluid. IMPRESSION: Poor inspiration with no overt acute infiltrate or pleural fluid. Dictated by: Dictated on workstation # [id number]
[2022-12-25] MEDS: ENOXAPARIN 300 MG/3 ML (LOVENOX) MULTI-DOSE VIAL SQ SCH ×2 (10:37→20:45)
[2022-12-25 10:54] LABS: ABG BASE EXCESS 0.1 MMOL/L (-2.5-2.5); ABG OXYGEN SATURATION 96 % (94-100); ABG PCO2 45 MMHG (35-45); ABG PH 7.36 (7.37-7.43); ABG PO2 70 MMHG (79-93); ABG TCO2 26.6 MMOL/L (21.0-31.0)
[2022-12-25 10:55] LABS: ALLENS TEST YES-POS; INSPIRED O2 ROOM AIR; VENTILATOR NO
[2022-12-25] MEDS: VANCOMYCIN 1500MG/300ML PREMIX IV SCH (11:16)
--- NOTE | 2022-12-25 12:57 | Diagnostic Imaging Report ---
PROCEDURE: CT chest without contrast. TECHNIQUE: Multiple contiguous axial images were obtained through the chest without the use of intravenous contrast. Auto Exposure Controls were utilized during the CT exam to meet ALARA standards for radiation dose reduction. INDICATION: Wheezing. FINDINGS: The lungs are severely hypoventilated. This is a near expiratory status radiograph with perihilar atelectasis. There is some thickening of the central airways. There are findings of tracheobronchomalacia with incompetence of the weakened posterior wall of the thoracic trachea through which segments of the esophagus protrude and severely narrow the airway, particularly at the level of the nat. No true endobronchial or endotracheal mass itself is found. There are some features of likely mucoid impaction within right greater than left lower lobe segmental and subsegmental bronchi. The left and right mainstem bronchi show some effacement of their posterior wall, more pronounced right than left. There is no pneumothorax or pneumomediastinum. We note that on the comparison of 12/13/2021, the tracheal and bronchial morphology and contour were normal, probably owing to inspiration at that time. No effusion or pneumothorax. There is no pathological mediastinal air. No lung mass or pathological lymph nodes. The aorta is nonaneurysmal although calcified. No pericardial collection. There is a tiny hiatal hernia with the visible upper abdomen nonacute. IMPRESSION: 1. The findings likely reflect severe tracheobronchomalacia with pulmonary hypoventilation, zones of atelectasis, thickening of the airways, and some lower lobe mucoid impaction with nonspecific perihilar infiltrates which may reflect edema or infectious disease. Long segments of the thoracic esophagus efface the posterior wall of the thoracic trachea and bulge into its lumen, most notably near the level of the nat. Pulmonary consultation is recommended if not already performed. 2. No thoracic effusion, pneumothorax, or pneumomediastinum. 3. The report was called to the patient's nurse Caitie by pratibha@12:56 PM. Dictated by: Dictated on workstation # [id number]
[2022-12-25 13:43] VITALS: BP 144/65
--- NOTE | 2022-12-25 14:24 | Physical Therapy Daily Note ---
PT Daily Note-Current Subjective Patient agrees to therapy. Noted deep cough during session. Pain Section J - Health Conditions 1. Rarely or not at all 2. Occasionally 3. Frequently 4. Almost constantly 8. Unable to answer Pain Effect on Sleep: 1 Pain Interference with Therapy: 1 Pain Interference w/Day-to-Day: 1 Transfers SCALE: Activities may be completed with or without assistive devices. 1-Kpgkioocca-bazlohd completes the activity by him/herself with no assistance from a helper. 5-Set-up or Clean-up Assistance-helper sets up or cleans up; patient completes activity. [place] assists only prior to or following the activity. 4-Supervision or Touching Assistance-helper provides verbal cues and/or touching/steadying and/or contact guard assistance as patient completes activity. Assistance may be provided throughout the activity or intermittently. 3-Partial/Moderate Assistance-helper does LESS THAN HALF the effort. [place] lifts, holds or supports trunk or limbs, but provides less than half the effort. 2-Substantial/Maximal Assistance-helper does MORE THAN HALF the effort. [place] lifts or holds trunk or limbs and provides more than half the effort. 8-Amnnjeqba-akymvz does ALL the effort. Patient does none of the effort to c omplete the activity. Or, the assistance of 2 or more helpers is required for the patient to complete the activity. If activity was not attempted, code reason: 7-Patient Refused. 9-Not Applicable-not attempted and the patient did not perform the activity before the current illness, exacerbation or injury. 10-Not Attempted due to Environmental Limitations-(lack of equipment, weather restraints, etc.). 88-Not Attempted due to Medical Conditions or Safety Concerns. Sit to Lying (QC): 4 Lying to Sitting/Side of Bed(Q: 4 performed scooting to end and top bed SBA requiring recovery periods due to increase SOA Weight Bearing Right Lower Extremity: Right Full Weight Bearing Left Lower Extremity: Left Full Weight Bearing Assessment Patient tolerated treatment and returned to supine. Therapy encouraged patient to perform sitting EOB and scooting functional activity. PT Mcfp Goals Bead Supervisor Goals PT Mcfp Goals Time Frame: January 09, 2023 Roll Left & Right (QC): 6 Sit to Lying (QC): 6 Lying-Sitting on Side/Bed(QC): 6 PT Plan Treatment/Plan Treatment Plan: Continue Plan of Care Treatment Plan: Bed Mobility, Education, Functional Activity Dena, Functional Strength, Group Therapy, Safety, Therapeutic Exercise, Transfers Treatment Duration: January 09, 2023 Frequency: 6 times per week Estimated Hrs Per Day: .25 hour per day Patient and/or Family Agrees t: Yes Time Time In: 1330 Time Out: 1345 DATE: December 25, 2022 Total Billed Treatment Time: 15 Total Billed Treatment 1 visit EX 15 min RADHA LOREDO PT December 25, 2022 14:24
--- NOTE | 2022-12-25 14:39 | Occupational Ther Daily Note ---
OT Current Status-Daily Note Subjective Patient agrees to OT session Mental Status/Objective Patient Orientation: Person, Place, Time, Situation Attachments: Matias Catheter (PUR WIK), IV ADL-Treatment Therapy Code Descriptions/Definitions Functional [place] Measure: 0=Not Assessed/NA 4=Minimal Assistance 1=Total Assistance 5=Supervision or Setup 2=Maximal Assistance 6=Modified [place] 3=Moderate Assistance 7=Complete IndependenceSCALE: Activities may be completed with or without assistive devices. 0-Hjjdmtzwhu-xzboazz completes the activity by him/herself with no assistance from a helper. 5-Set-up or Clean-up Assistance-helper sets up or cleans up; patient completes activity. [place] assists only prior to or following the activity. 4-Supervision or Touching Assistance-helper provides verbal cues and/or touching/steadying and/or contact guard assistance as patient completes activity. Assistance may be provided throughout the activity or intermittently. 3-Partial/Moderate Assistance-helper does LESS THAN HALF the effort. [place] lifts, holds or supports trunk or limbs, but provides less than half the effort. 2-Substantial/Maximal Assistance-helper does MORE THAN HALF the effort. [place] lifts or holds trunk or limbs and provides more than half the effort. 5-Xhezkaqaj-lbsdhe does ALL the effort. Patient does none of the effort to complete the activity. Or, the assistance of 2 or more helpers is required for the patient to complete the activity. If activity was not attempted, code reason: 7-Patient Refused. 9-Not Applicable-not attempted and the patient did not perform the activity before the current illness, exacerbation or injury. 10-Not Attempted due to Environmental Limitations-(lack of equipment, weather restraints, etc.). 88-Not Attempted due to Medical Conditions or Safety Concerns. Eating (QC): 6 Oral Hygiene (QC): 6 Shower/Bathe Self (QC): 7 Upper Body Dressing (QC): 4 Lower Body Dressing (QC): 2 (rolling) On/Off Footwear: 1 Toileting Hygiene (QC): 1 Toilet Transfer (QC): 1 Other Treatment Functional ther ex of bed mobility to end of foot of bed and head and supine to sit reps Education OT Patient Education: Correct positioning, Exercise program, Modified ADL techniques, Progress toward Goal/Update tx plan, Purpose of tx/functional activities, Reviewed precautions, Rehab process, Safety issues, Transfer techniq ues Teaching Recipient: Patient Teaching Methods: Demonstration, Discussion Response to Teaching: Reinforcement Needed OT Detention Goals Detention Goals Eating (QC): 6 Oral Hygiene (QC): 5 Toileting Hygiene (QC): 1 Shower/Bathe Self (QC): 3 Upper Body Dressing (QC): 5 Lower Body Dressing (QC): 1 On/Off Footwear (QC): 3 1=Demonstrate adherence to instructed precautions during ADL tasks. 2=Patient will verbalize/demonstrate understanding of assistive devices/modifications for ADL. 3=Patient will improve strength/tolerance for activity to enable patient to perform ADL's. OT Education/Plan Discharge Recommendations Plan/Recommendations: Continue POC Treatment Plan/Plan of Care Patient would benefit from OT for education, treatment and training to promote independence in ADL's, mobility, safety and/or upper extremity function for AD L's. Plan of Care: ADL Retraining, Concurrent Therapy, Functional Mobility, Group Exercise/Act as Ind, UE Funct Exercise/Act Treatment Duration: December 29, 2022 Frequency: 3 times per week (3-5 times per week) Estimated Hrs Per Day: .25 hour per day Agreement: Yes Rehab Potential: Fair Time Start Time: 13:30 Stop Time: 13:45 DATE: December 25, 2022 Total Time Billed (hr/min): 15 Billed Treatment Time EX 15 min NICOLE SINGH OT December 25, 2022 14:39
[2022-12-25 16:03] VITALS: BP 133/63
[2022-12-25] MEDS ORDERED: warFARin 5 MG (COUMADIN) TAB PO SCH (18:00)
[2022-12-25] MEDS: MONTELUKAST 10 MG (SINGULAIR) TAB PO SCH (20:45)
[2022-12-25] MEDS: MELATONIN 10 MG TABLET PO SCH (20:45)
[2022-12-25] MEDS: AMITRIPTYLINE 10 MG (ELAVIL) TAB PO SCH (20:45)
[2022-12-25] MEDS: ONDANSETRON 4 MG/2 ML (SDV) Z0FRAN IV PRN (22:32)
[2022-12-25 23:52] VITALS: BP 100/62
[2022-12-26] MEDS: RT-ALBUTEROL/IPRATROPIUM 3 ML (DUONEB) VIAL INH SCH ×3 (02:04→10:45)
[2022-12-26] MEDS: CEFEPIME INJECTION 1,000 MG in NS (IVPB) 50 ML IV SCH (03:24)
[2022-12-26] MEDS: HYDROmorphone 2 MG/ML VIAL (DILAUDID) IV PRN ×3 (03:24→11:41)
[2022-12-26] MEDS: guaiFENesin/CODEINE (ROBITUSSIN AC) 10ML UDC PO PRN (03:27)
--- NOTE | 2022-12-26 05:14 | Progress Note ---
Subjective Date Seen by a Provider: December 26, 2022 Time Seen by a Provider: 11:00 Subjective/Events-last exam Conferred with [facility] regarding possible transfer for tracheobronchomalacia options but she has rapidly declined and no longer is a candidate for any type of surgery or procedure. Updated Torres her son via phone call and then again at the bedside. Supportive care with end of life maintained Review of Systems Pulmonary: Dyspnea Objective Exam Last Set of Vital Signs Vital Signs Date Time Temp Pulse Resp B/P (MAP) Pulse Ox O2 Delivery O2 Flow Rate FiO2 12/25/22 23:52 36.2 94 20 100/62 (75) 96 Room Air 12/25/22 08:00 0.00 12/21/22 13:29 28 Capillary Refill : Less Than 3 Seconds I&O Intake and Output 12/26/22 00:00 Intake Total 2370 ml Output Total 2600 ml Balance -230 ml Intake Oral 2320 ml IV Total 50 ml Output Urine Total 2600 ml # Urine Diapers 2 General: Other (ashen, howard, alery but lethargic) Lungs: Other (coarse all [place]) Results Lab Laboratory Tests 12/25/22 05:30: White Blood Count 12.2H, Red Blood Count 4.22, Hemoglobin 10.4L, Hematocrit 32L, Mean Corpuscular Volume 76L, Mean Corpuscular Hemoglobin 25, Mean Corpuscular Hemoglobin Concent 32, Red Cell Distribution Width 17.2H, Platelet Count 390, Mean Platelet Volume 9.4, Immature Granulocyte % (Auto) 1, Neutrophils (%) (Auto) 74, Lymphocytes (%) (Auto) 19, Monocytes (%) (Auto) 5, Eosinophils (%) (Auto) 0, Basophils (%) (Auto) 0, Neutrophils # (Auto) 9.1H, Lymphocytes # (Auto) 2.3, Monocytes # (Auto) 0.6, Eosinophils # (Auto) 0.0, Basophils # (Auto) 0.0, Immature Granulocyte # (Auto) 0.2H, Prothrombin Time 20.3H, INR Comment 1.7H, Sodium Level 136, Potassium Level 5.1H, Chloride Level 107, Carbon Dioxide Level 21, Anion Gap 8, Blood Urea Nitrogen 28H, Creatinine 1.31H, Estimat Glomerular Filtration Rate 44, BUN/Creatinine Ratio 21, Glucose Level 202H, Calcium Level 9.5, Corrected Calcium 10.1, Total Bilirubin 0.2, Aspartate Amino Transf (AST/SGOT) 11, Alanine Aminotransferase (ALT/SGPT) 15, Alkaline Phosphatase 70, B-Type Natriuretic Peptide 46.1, Total Protein 7.0, Albumin 3.3 12/25/22 10:48: Blood Gas Puncture Site LEFT RADIAL, Blood Gas Patient Temperature 36.0, Arterial Blood pH 7.36L, Arterial Blood Partial Pressure CO2 45, Arterial Blood Partial Pressure O2 70L, Arterial Blood HCO3 25, Arterial Blood Total CO2 26.6, Arterial Blood Oxygen Saturation 96, Arterial Blood Base Excess 0.1, Antony Test YES-POS, Blood Gas Ventilator Setting NO, Blood Gas Inspired Oxygen ROOM AIR 12/25/22 10:51: Glucometer 190H Microbiology 12/21/22 Blood Culture - Preliminary, Resulted No growth Assessment/Plan Assessment/Plan Assess & Plan/Chief Complaint Assessment: Tracheobronchomalacia with respiratory failure now end of life care Sepsis Acute hypoxic respiratory failure Presumed JUSTO Acute wheezing HAP DM CAR HTN HLP h/o 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
[2022-12-26 05:25] LABS: BASOPHILS # (AUTO) 0.1 10^3/uL (0.0-0.1); BASOPHILS % (AUTO) 0 % (0-10); EOSINOPHILS # (AUTO) 0.1 10^3/uL (0.0-0.3); EOSINOPHILS % (AUTO) 0 % (0-10); HEMATOCRIT 28 % (35-52); HEMOGLOBIN 8.9 g/dL (11.5-16.0); LYMPHOCYTES # (AUTO) 4.4 10^3/uL (1.0-4.0); LYMPHOCYTES % (AUTO) 24 % (12-44); MEAN CORPUSCULAR HEMOGLOBIN 25 pg (25-34); MEAN CORPUSCULAR HGB CONC 32 g/dL (32-36); MEAN CORPUSCULAR VOLUME 78 fL (80-99); MEAN PLATELET VOLUME 9.6 fL (9.0-12.2); MONOCYTES # (AUTO) 1.3 10^3/uL (0.0-1.0); MONOCYTES % (AUTO) 7 % (0-12); NEUTROPHILS # (AUTO) 12.3 10^3/uL (1.8-7.8); NEUTROPHILS % (AUTO) 67 % (42-75); PLATELET COUNT 424 10^3/uL (130-400); WHITE BLOOD COUNT 18.5 10^3/uL (4.3-11.0)
[2022-12-26 05:39] LABS: INR 1.7 (0.8-1.4); PROTHROMBIN TIME PATIENT 19.8 SEC (12.2-14.7)
[2022-12-26 05:40] LABS: POTASSIUM 6.2 MMOL/L (3.6-5.0)
[2022-12-26 05:41] LABS: CALCIUM 8.9 MG/DL (8.5-10.1)
[2022-12-26 05:43] LABS: TOTAL PROTEIN 6.7 GM/DL (6.4-8.2)
[2022-12-26 05:44] LABS: BILIRUBIN,TOTAL 0.3 MG/DL (0.1-1.0)
[2022-12-26 05:46] LABS: CREATININE SERUM 1.94 MG/DL (0.60-1.30)
[2022-12-26] MEDS: inSUlin ASPART (NovoLOG) 1 UNIT/0.01 ML (CHARGE PER UNIT) SC SCH (05:46)
[2022-12-26 06:20] LABS: HYPOCHROMASIA MODERATE; LYMPHOCYTES % (MANUAL) 30 %; MICROCYTOSIS SLIGHT; MONOCYTES % (MANUAL) 5 %; NEUTROPHILS % (MANUAL) 65 %
[2022-12-26 06:21] LABS: POLYCHROMASIA SLIGHT
[2022-12-26] MEDS: RT--FLUTICASONE/SALMETEROL 113-14 (AIRDUO RespiCLICK) IH SCH (06:46)
[2022-12-26 07:10] VITALS: BP 104/57
[2022-12-26] MEDS: ALPRAZolam 1 MG (XANAX) TAB PO SCH (09:40)
[2022-12-26] MEDS: GABAPENTIN 300 MG (NEURONTIN) CAP PO SCH (09:41)
[2022-12-26] MEDS: DOCUSATE SODIUM 100 MG (COLACE) CAP PO SCH (09:41)
[2022-12-26] MEDS: amLODIPine 5 MG (NORVASC) TAB PO SCH (09:41)
[2022-12-26] MEDS: LORATADINE (CLARITIN) 10 MG TAB PO SCH (09:41)
[2022-12-26] MEDS: BENZONATATE 100 MG (TESSALON) CAPSULE PO SCH (09:41)
[2022-12-26] MEDS: SENNOSIDES 8.6 MG (SENOKOT) TAB PO SCH (09:41)
[2022-12-26] MEDS: OXYBUTYNIN (DITROPAN) 5 MG TAB PO SCH (09:41)
[2022-12-26] MEDS: guaiFENesin (MUCINEX) 600 MG TAB PO SCH (09:41)
[2022-12-26] MEDS: VITAMIN D3 25 MCG (1,000 UNITS) TABLET PO SCH (09:41)
[2022-12-26] MEDS: ENOXAPARIN 300 MG/3 ML (LOVENOX) MULTI-DOSE VIAL SQ SCH (09:43)
[2022-12-26] MEDS: ONDANSETRON 4 MG/2 ML (SDV) Z0FRAN IV PRN (09:59)
[2022-12-26 10:47] LABS: ABG BASE EXCESS -7.1 MMOL/L (-2.5-2.5); ABG OXYGEN SATURATION 91 % (94-100); ABG PCO2 44 MMHG (35-45); ABG PO2 64 MMHG (79-93); ABG TCO2 20.4 MMOL/L (21.0-31.0)
--- NOTE | 2022-12-26 10:50 | Occ Therapy Progress Note ---
Therapy Progress Note Patient placed on hold per RN, PT notified. NICOLE SINGH OT December 26, 2022 10:50
[2022-12-26 10:51] LABS: ABG PH 7.25 (7.37-7.43); ALLENS TEST POSITIVE; PATIENT TEMP 35.8; VENTILATOR NO
--- NOTE | 2022-12-26 11:03 | Physical Therapy Progress Note ---
Therapy Progress Note Patient placed on hold per RN. ILEANA BLANCAS PT December 26, 2022 11:03
[2022-12-26] MEDS: morphine INJ 4 MG/ML 1 ML (VIAL/SYRINGE) IVP PRN ×4 (11:12→17:17)
[2022-12-26] MEDS ORDERED: LORazepam INJ 2 MG/ML (ATIVAN) VIAL IVP PRN (11:15)
[2022-12-26] MEDS ORDERED: CEFEPIME INJECTION 1,000 MG in NS (IVPB) 50 ML IV SCH (12:00)
[2022-12-26] MEDS ORDERED: GLYCOPYRROLATE 0.2 MG/ML (ROBINUL) 2 ML VIAL IV PRN (15:00)
--- NOTE | 2022-12-27 04:56 | Discharge Summary ---
Diagnosis/Chief Complaint Date of Admission December 21, 2022 at 12:13 Date of Discharge Discharge Diagnosis Acute on chronic respiratory failure HAP New diagnosis of tracheobronchomalacia Morbid obesity h/o DVT's DM HTN HLP Discharge Summary Discharge Physical Examination Allergies: Coded Allergies: Penicillins (Verified Allergy, Unknown, 01/11/19) Vitals & I&Os Vital Signs Date Time Temp Pulse Resp B/P (MAP) Pulse Ox O2 Delivery O2 Flow Rate FiO2 12/26/22 19:40 Room Air 12/26/22 10:47 2.00 12/26/22 10:45 84 12/26/22 07:10 35.8 107 16 104/57 (73) 12/21/22 13:29 28 Hospital Course Was the Problem List Reviewed?: Yes Lengthy course after admitted for PNA. Broad spectrum abx initiated. Lovenox bridge maintained for subtherapeutic INR. Labs remained stable, CKD noted with baseline creat 1.4. Cough became worse and overall not responding to aggressive treatment so CT chest obtained which revealed a new diagnosis of tracheobronchomalacia which ultimately progressed rapidly and caused severe respiratory failure so quickly the referral to [facility] was discontinued and she with family at bedside. Labs (last 24 hrs) Laboratory Tests 12/21/22 10:40: White Blood Count 8.8, Red Blood Count 4.30, Hemoglobin 10.7L, Hematocrit 33L, Mean Corpuscular Volume 76L, Mean Corpuscular Hemoglobin 25, Mean Corpuscular Hemoglobin Concent 33, Red Cell Distribution Width 17.1H, Platelet Count 409H, Mean Platelet Volume 9.1, Immature Granulocyte % (Auto) 1, Neutrophils (%) (Auto) 70, Lymphocytes (%) (Auto) 20, Monocytes (%) (Auto) 9, Eosinophils (%) (Auto) 1, Basophils (%) (Auto) 0, Neutrophils # (Auto) 6.1, Lymphocytes # (Auto) 1.7, Monocytes # (Auto) 0.8, Eosinophils # (Auto) 0.1, Basophils # (Auto) 0.0, Immature Granulocyte # (Auto) 0.1, Prothrombin Time 17.3H, INR Comment 1.4, Sodium Level 135, Potassium Level 4.0, Chloride Level 102, Carbon Dioxide Level 21, Anion Gap 12, Blood Urea Nitrogen 31H, Creatinine 1.46H, Estimat Glomerular Filtration Rate 38, BUN/Creatinine Ratio 21, Glucose Level 244H, Lactic Acid Level 2.93*H, Calcium Level 8.8, Corrected Calcium 9.5, Total Bilirubin 0.2, Aspartate Amino Transf (AST/SGOT) 21, Alanine Aminotransferase (ALT/SGPT) 20, Alkaline Phosphatase 65, Total Protein 7.5, Albumin 3.1L 12/21/22 10:47: SARS-CoV-2 RNA (RT-PCR) Not Detected 12/21/22 12:36: Lactic Acid Level 2.49*H 12/21/22 14:37: Lactic Acid Level 2.49*H 12/21/22 16:30: Lactic Acid Level 1.55 12/21/22 21:31: Glucometer 353H 12/22/22 05:25: White Blood Count 8.5, Red Blood Count 3.97, Hemoglobin 9.7L, Hematocrit 31L, Mean Corpuscular Volume 77L, Mean Corpuscular Hemoglobin 24L, Mean Corpuscular Hemoglobin Concent 32, Red Cell Distribution Width 17.1H, Platelet Count 344, Mean Platelet Volume 9.0, Immature Granulocyte % (Auto) 1, Neutrophils (%) (Auto) 78H, Lymphocytes (%) (Auto) 15, Monocytes (%) (Auto) 5, Eosinophils (%) (Auto) 0, Basophils (%) (Auto) 0, Neutrophils # (Auto) 6.6, Lymphocytes # (Auto) 1.3, Monocytes # (Auto) 0.5, Eosinophils # (Auto) 0.0, Basophils # (Auto) 0.0, Immature Granulocyte # (Auto) 0.1, Prothrombin Time 19.8H, INR Comment 1.7H, Sodium Level 136, Potassium Level 4.6, Chloride Level 108H, Carbon Dioxide Level 20L, Anion Gap 8, Blood Urea Nitrogen 27H, Creatinine 1.20, Estimat Glomerular Filtration Rate 49, BUN/Creatinine Ratio 23, Glucose Level 240H, Calcium Level 9.1, Corrected Calcium 10.0, Total Bilirubin 0.1, Aspartate Amino Transf (AST/SGOT) 13, Alanine Aminotransferase (ALT/SGPT) 14, Alkaline Phosphatase 58, Total Protein 6.8, Albumin 2.9L 12/22/22 05:37: Glucometer 216H 12/22/22 20:42: Glucometer 322H 12/23/22 05:12: Glucometer 249H 12/23/22 05:35: White Blood Count 9.7, Red Blood Count 4.01, Hemoglobin 9.9L, Hematocrit 31L, Mean Corpuscular Volume 78L, Mean Corpuscular Hemoglobin 25, Mean Corpuscular Hemoglobin Concent 32, Red Cell Distribution Width 17.5H, Platelet Count 370, Mean Platelet Volume 9.2, Immature Granulocyte % (Auto) 1, Neutrophils (%) (Auto) 78H, Lymphocytes (%) (Auto) 14, Monocytes (%) (Auto) 6, Eosinophils (%) (Auto) 0, Basophils (%) (Auto) 0, Neutrophils # (Auto) 7.5, Lymphocytes # (Auto) 1.4, Monocytes # (Auto) 0.6, Eosinophils # (Auto) 0.0, Basophils # (Auto) 0.0, Immature Granulocyte # (Auto) 0.1, Prothrombin Time 31.7H, INR Comment 3.1H, Sodium Level 138, Potassium Level 4.7, Chloride Level 108H, Carbon Dioxide Level 22, Anion Gap 8, Blood Urea Nitrogen 31H, Creatinine 1.31H, Estimat Glomerular Filtration Rate 44, BUN/Creatinine Ratio 24, Glucose Level 230H, Calcium Level 9.5, Corrected Calcium 10.2H, Total Bilirubin 0.1, Aspartate Amino Transf (AST/SGOT) 12, Alanine Aminotransferase (ALT/SGPT) 15, Alkaline Phosphatase 66, Total Protein 6.9, Albumin 3.1L 12/23/22 10:38: Glucometer 245H 12/23/22 11:40: Vancomycin Level Trough 16.0 12/23/22 16:02: Glucometer 265H 12/24/22 05:40: White Blood Count 8.6, Red Blood Count 3.90, Hemoglobin 9.5L, Hematocrit 31L, Mean Corpuscular Volume 78L, Mean Corpuscular Hemoglobin 24L, Mean Corpuscular Hemoglobin Concent 31L, Red Cell Distribution Width 17.6H, Platelet Count 380, Mean Platelet Volume 9.6, Immature Granulocyte % (Auto) 2, Neutrophils (%) (Auto) 70, Lymphocytes (%) (Auto) 21, Monocytes (%) (Auto) 7, Eosinophils (%) (Auto) 0, Basophils (%) (Auto) 0, Neutrophils # (Auto) 6.1, Lymphocytes # (Auto) 1.8, Monocytes # (Auto) 0.6, Eosinophils # (Auto) 0.0, Basophils # (Auto) 0.0, Immature Granulocyte # (Auto) 0.1, Prothrombin Time 28.6H, INR Comment 2.7H, Sodium Level 138, Potassium Level 5.1H, Chloride Level 108H, Carbon Dioxide Level 22, Anion Gap 8, Blood Urea Nitrogen 30H, Creatinine 1.58H, Estimat Lisa merular Filtration Rate 35, BUN/Creatinine Ratio 19, Glucose Level 224H, Calcium Level 8.9, Corrected Calcium 9.7, Total Bilirubin 0.1, Aspartate Amino Transf (AST/SGOT) 13, Alanine Aminotransferase (ALT/SGPT) 17, Alkaline Phosphatase 64, Total Protein 6.8, Albumin 3.0L 12/25/22 05:12: Glucometer 203H 12/25/22 05:30: White Blood Count 12.2H, Red Blood Count 4.22, Hemoglobin 10.4L, Hematocrit 32L, Mean Corpuscular Volume 76L, Mean Corpuscular Hemoglobin 25, Mean Corpuscular Hemoglobin Concent 32, Red Cell Distribution Width 17.2H, Platelet Count 390, Mean Platelet Volume 9.4, Immature Granulocyte % (Auto) 1, Neutrophils (%) (Auto) 74, Lymphocytes (%) (Auto) 19, Monocytes (%) (Auto) 5, Eosinophils (%) (Auto) 0, Basophils (%) (Auto) 0, Neutrophils # (Auto) 9.1H, Lymphocytes # (Auto) 2.3, Monocytes # (Auto) 0.6, Eosinophils # (Auto) 0.0, Basophils # (Auto) 0.0, Immature Granulocyte # (Auto) 0.2H, Prothrombin Time 20.3H, INR Comment 1.7H, Sodium Level 136, Potassium Level 5.1H, Chloride Level 107, Carbon Dioxide Level 21, Anion Gap 8, Blood Urea Nitrogen 28H, Creatinine 1.31H, Estimat Glomerular Filtration Rate 44, BUN/Creatinine Ratio 21, Glucose Level 202H, Calcium Level 9.5, Corrected Calcium 10.1, Total Bilirubin 0.2, Aspartate Amino Transf (AST/SGOT) 11, Alanine Aminotransferase (ALT/SGPT) 15, Alkaline Phosphatase 70, B-Type Natriuretic Peptide 46.1, Total Protein 7.0, Albumin 3.3 12/25/22 10:48: Blood Gas Puncture Site LEFT RADIAL, Blood Gas Patient Temperature 36.0, Arterial Blood pH 7.36L, Arterial Blood Partial Pressure CO2 45, Arterial Blood Partial Pressure O2 70L, Arterial Blood HCO3 25, Arterial Blood Total CO2 26.6, Arterial Blood Oxygen Saturation 96, Arterial Blood Base Excess 0.1, Antony Test YES-POS, Blood Gas Ventilator Setting NO, Blood Gas Inspired Oxygen ROOM AIR 12/25/22 10:51: Glucometer 190H 12/26/22 05:07: White Blood Count 18.5H, Red Blood Count 3.63L, Hemoglobin 8.9L, Hematocrit 28L, Mean Corpuscular Volume 78L, Mean Corpuscular Hemoglobin 25, Mean Corpuscular Hemoglobin Concent 32, Red Cell Distribution Width 17.4H, Platelet Count 424H, Mean Platelet Volume 9.6, Immature Granulocyte % (Auto) 2, Neutrophils (%) (Auto) 67, Lymphocytes (%) (Auto) 24, Monocytes (%) (Auto) 7, Eosinophils (%) (Auto) 0, Basophils (%) (Auto) 0, Neutrophils # (Auto) 12.3H, Lymphocytes # (Auto) 4.4H, Monocytes # (Auto) 1.3H, Eosinophils # (Auto) 0.1, Basophils # (Auto) 0.1, Immature Granulocyte # (Auto) 0.4H, Prothrombin Time 19.8H, INR Comment 1.7H, Sodium Level 135, Potassium Level 6.2H, Chloride Level 106, Carbon Dioxide Level 18L, Anion Gap 11, Blood Urea Nitrogen 40H, Creatinine 1.94H, Estimat Glomerular Filtration Rate 27, BUN/Creatinine Ratio 21, Glucose Level 289H, Calcium Level 8.9, Corrected Calcium 9.7, Total Bilirubin 0.3, Aspartate Amino Transf (AST/SGOT) 14, Alanine Aminotransferase (ALT/SGPT) 17, Alkaline Phosphatase 56, Total Protein 6.7, Albumin 3.0L, Neutrophils % (Manual) 65, Lymphocytes % (Manual) 30, Monocytes % (Manual) 5, Polychromasia SLIGHT, Hypochromasia MODERATE, Microcytosis SLIGHT 12/26/22 10:41: Blood Gas Puncture Site RIGHT RADIAL, Blood Gas Patient Temperature 35.8, Arterial Blood pH 7.25*L, Arterial Blood Partial Pressure CO2 44, Arterial Blood Partial Pressure O2 64L, Arterial Blood HCO3 19L, Arterial Blood Total CO2 20.4L , Arterial Blood Oxygen Saturation 91L, Arterial Blood Base Excess -7.1L, Antony Test POSITIVE, Blood Gas Ventilator Setting NO, Blood Gas Inspired Oxygen N/A Microbiology 12/21/22 Blood Culture - Final, Complete No growth Pending Labs Microbiology Date/Time Source Procedure Growth Status 12/21/22 11:01 Peripheral Rt Hand Blood Culture - Final No growth Complete 12/21/22 10:40 Peripheral Left Wrist Blood Culture - Final No growth Complete Laboratory Tests 12/21/22 10:40: White Blood Count 8.8, Red Blood Count 4.30, Hemoglobin 10.7, Hematocrit 33, Mean Corpuscular Volume 76, Mean Corpuscular Hemoglobin 25, Mean Corpuscular Hemoglobin Concent 33, Red Cell Distribution Width 17.1, Platelet Count 409, Mean Platelet Volume 9.1, Immature Granulocyte % (Auto) 1, Neutrophils (%) (Auto) 70, Lymphocytes (%) (Auto) 20, Monocytes (%) (Auto) 9, Eosinophils (%) (Auto) 1, Basophils (%) (Auto) 0, Neutrophils # (Auto) 6.1, Lymphocytes # (Auto) 1.7, Monocytes # (Auto) 0.8, Eosinophils # (Auto) 0.1, Basophils # (Auto) 0.0, Immature Granulocyte # (Auto) 0.1, Prothrombin Time 17.3, INR Comment 1.4, Sodium Level 135, Potassium Level 4.0, Chloride Level 102, Carbon Dioxide Level 21, Anion Gap 12, Blood Urea Nitrogen 31, Creatinine 1.46, Estimat Glomerular Filtration Rate 38, BUN/Creatinine Ratio 21, Glucose Level 244, Lactic Acid Level 2.93, Calcium Level 8.8, Corrected Calcium 9.5, Total Bilirubin 0.2, Aspartate Amino Transf (AST/SGOT) 21, Alanine Aminotransferase (ALT/SGPT) 20, Alkaline Phosphatase 65, Total Protein 7.5, Albumin 3.1 12/21/22 10:47: SARS-CoV-2 RNA (RT-PCR) Not Detected 12/21/22 12:36: Lactic Acid Level 2.49 12/21/22 14:37: Lactic Acid Level 2.49 12/21/22 16:30: Lactic Acid Level 1.55 12/21/22 21:31: Glucometer 353 12/22/22 05:25: White Blood Count 8.5, Red Blood Count 3.97, Hemoglobin 9.7, Hematocrit 31, Mean Corpuscular Volume 77, Mean Corpuscular Hemoglobin 24, Mean Corpuscular Hemoglobin Concent 32, Red Cell Distribution Width 17.1, Platelet Count 344, Mean Platelet Volume 9.0, Immature Granulocyte % (Auto) 1, Neutrophils (%) (Auto) 78, Lymphocytes (%) (Auto) 15, Monocytes (%) (Auto) 5, Eosinophils (%) (Auto) 0, Basophils (%) (Auto) 0, Neutrophils # (Auto) 6.6, Lymphocytes # (Auto) 1.3, Monocytes # (Auto) 0.5, Eosinophils # (Auto) 0.0, Basophils # (Auto) 0.0, Immature Granulocyte # (Auto) 0.1, Prothrombin Time 19.8, INR Comment 1.7, Sodium Level 136, Potassium Level 4.6, Chloride Level 108, Carbon Dioxide Level 20, Anion Gap 8, Blood Urea Nitrogen 27, Creatinine 1.20, Estimat Glomerular Filtration Rate 49, BUN/Creatinine Ratio 23, Glucose Level 240, Calcium Level 9.1, Corrected Calcium 10.0, Total Bilirubin 0.1, Aspartate Amino Transf (AST/SGOT) 13, Alanine Aminotransferase (ALT/SGPT) 14, Alkaline Phosphatase 58, Total Protein 6.8, Albumin 2.9 12/22/22 05:37: Glucometer 216 12/22/22 20:42: Glucometer 322 12/23/22 05:12: Glucometer 249 12/23/22 05:35: White Blood Count 9.7, Red Blood Count 4.01, Hemoglobin 9.9, Hematocrit 31, Mean Corpuscular Volume 78, Mean Corpuscular Hemoglobin 25, Mean Corpuscular Hemoglobin Concent 32, Red Cell Distribution Width 17.5, Platelet Count 370, Mean Platelet Volume 9.2, Immature Granulocyte % (Auto) 1, Neutrophils (%) (Auto) 78, Lymphocytes (%) (Auto) 14, Monocytes (%) (Auto) 6, Eosinophils (%) (Auto) 0, Basophils (%) (Auto) 0, Neutrophils # (Auto) 7.5, Lymphocytes # (Auto) 1.4, Monocytes # (Auto) 0.6, Eosinophils # (Auto) 0.0, Basophils # (Auto) 0.0, Immature Granulocyte # (Auto) 0.1, Prothrombin Time 31.7, INR Comment 3.1, Sodium Level 138, Potassium Level 4.7, Chloride Level 108, Carbon Dioxide Level 22, Anion Gap 8, Blood Urea Nitrogen 31, Creatinine 1.31, Estimat Glomerular Filtration Rate 44, BUN/Creatinine Ratio 24, Glucose Level 230, Calcium Level 9.5, Corrected Calcium 10.2, Total Bilirubin 0.1, Aspartate Amino Transf (AST/SGOT) 12, Alanine Aminotransferase (ALT/SGPT) 15, Alkaline Phosphatase 66, Total Protein 6.9, Albumin 3.1 12/23/22 10:38: Glucometer 245 12/23/22 11:40: Vancomycin Level Trough 16.0 12/23/22 16:02: Glucometer 265 12/24/22 05:40: White Blood Count 8.6, Red Blood Count 3.90, Hemoglobin 9.5, Hematocrit 31, Mean Corpuscular Volume 78, Mean Corpuscular Hemoglobin 24, Mean Corpuscular Hemoglobin Concent 31, Red Cell Distribution Width 17.6, Platelet Count 380, Mean Platelet Volume 9.6, Immature Granulocyte % (Auto) 2, Neutrophils (%) (Auto) 70, Lymphocytes (%) (Auto) 21, Monocytes (%) (Auto) 7, Eosinophils (%) (Auto) 0, Basophils (%) (Auto) 0, Neutrophils # (Auto) 6.1, Lymphocytes # (Auto) 1.8, Monocytes # (Auto) 0.6, Eosinophils # (Auto) 0.0, Basophils # (Auto) 0.0, Immature Granulocyte # (Auto) 0.1, Prothrombin Time 28.6, INR Comment 2.7, Sodium Level 138, Potassium Level 5.1, Chloride Level 108, Carbon Dioxide Level 22, Anion Gap 8, Blood Urea Nitrogen 30, Creatinine 1.58, Estimat Glomerular Filtration Rate 35, BUN/Creatinine Ratio 19, Glucose Level 224, Calcium Level 8.9, Corrected Calcium 9.7, Total Bilirubin 0.1, Aspartate Amino Transf (AST/SGOT) 13, Alanine Aminotransferase (ALT/SGPT) 17, Alkaline Phosphatase 64, Total Protein 6.8, Albumin 3.0 12/25/22 05:12: Glucometer 203 12/25/22 05:30: White Blood Count 12.2, Red Blood Count 4.22, Hemoglobin 10.4, Hematocrit 32, Mean Corpuscular Volume 76, Mean Corpuscular Hemoglobin 25, Mean Corpuscular Hemoglobin Concent 32, Red Cell Distribution Width 17.2, Platelet Count 390, Mean Platelet Volume 9.4, Immature Granulocyte % (Auto) 1, Neutrophils (%) (Auto) 74, Lymphocytes (%) (Auto) 19, Monocytes (%) (Auto) 5, Eosinophils (%) (Auto) 0, Basophils (%) (Auto) 0, Neutrophils # (Auto) 9.1, Lymphocytes # (Auto) 2.3, Monocytes # (Auto) 0.6, Eosinophils # (Auto) 0.0, Basophils # (Auto) 0.0, Immature Granulocyte # (Auto) 0.2, Prothrombin Time 20.3, INR Comment 1.7, Sodium Level 136, Potassium Level 5.1, Chloride Level 107, Carbon Dioxide Level 21, Anion Gap 8, Blood Urea Nitrogen 28, Creatinine 1.31, Estimat Glomerular Filtration Rate 44, BUN/Creatinine Ratio 21, Glucose Level 202, Calcium Level 9.5, Corrected Calcium 10.1, Total Bilirubin 0.2, Aspartate Amino Transf (AST/SGOT) 11, Alanine Aminotransferase (ALT/SGPT) 15, Alkaline Phosphatase 70, B-Type Natriuretic Peptide 46.1, Total Protein 7.0, Albumin 3.3 12/25/22 10:48: Blood Gas Puncture Site LEFT RADIAL, Blood Gas Patient Temperature 36.0, Arterial Blood pH 7.36, Arterial Blood Partial Pressure CO2 45, Arterial Blood Partial Pressure O2 70, Arterial Blood HCO3 25, Arterial Blood Total CO2 26.6, Arterial Blood Oxygen Saturation 96, Arterial Blood Base Excess 0.1, Antony Test YES-POS, Blood Gas Ventilator Setting NO, Blood Gas Inspired Oxygen ROOM AIR 12/25/22 10:51: Glucometer 190 12/26/22 05:07: White Blood Count 18.5, Red Blood Count 3.63, Hemoglobin 8.9, Hematocrit 28, Mean Corpuscular Volume 78, Mean Corpuscular Hemoglobin 25, Mean Corpuscular Hemoglobin Concent 32, Red Cell Distribution Width 17.4, Platelet Count 424, Mean Platelet Volume 9.6, Immature Granulocyte % (Auto) 2, Neutrophils (%) (Auto) 67, Lymphocytes (%) (Auto) 24, Monocytes (%) (Auto) 7, Eosinophils (%) (Auto) 0, Basophils (%) (Auto) 0, Neutrophils # (Auto) 12.3, Lymphocytes # (Auto) 4.4, Monocytes # (Auto) 1.3, Eosinophils # (Auto) 0.1, Basophils # (Auto) 0.1, Immature Granulocyte # (Auto) 0.4, Prothrombin Time 19.8, INR Comment 1.7, Sodium Level 135, Potassium Level 6.2, Chloride Level 106, Carbon Dioxide Level 18, Anion Gap 11, Blood Urea Nitrogen 40, Creatinine 1.94, Estimat Glomerular Filtration Rate 27, BUN/Creatinine Ratio 21, Glucose Level 289, Calcium Level 8.9, Corrected Calcium 9.7, Total Bilirubin 0.3, Aspartate Amino Transf (AST/SGOT) 14, Alanine Aminotransferase (ALT/SGPT) 17, Alkaline Phosphatase 56, Total Protein 6.7, Albumin 3.0, Neutrophils % (Manual) 65, Lymphocytes % (Manual) 30, Monocytes % (Manual) 5, Polychromasia SLIGHT, Hypochromasia MODERATE, Microcytosis SLIGHT 12/26/22 10:41: Blood Gas Puncture Site RIGHT RADIAL, Blood Gas Patient Temperature 35.8, Arterial Blood pH 7.25, Arterial Blood Partial Pressure CO2 44, Arterial Blood Partial Pressure O2 64, Arterial Blood HCO3 19, Arterial Blood Total CO2 20.4, Arterial Blood Oxygen Saturation 91, Arterial Blood Base Excess -7.1, Antony Test POSITIVE, Blood Gas Ventilator Setting NO, Blood Gas Inspired Oxygen N/A Discharge Home Medications: Active Scripts Active Reported Oxybutynin Chloride 5 Mg Tablet 5 Mg PO Q12H Novolog Flexpen (Insulin Aspart) 100 Unit/Ml (3 Ml) Solution Units SQ AC USING THE FOLLOWING SLIDING SCALE: 0-200=0 UNITS 201-250=3 UNITS 251-300=5 UNITS 301-350=7 UNITS 351-400=9 UNITS CALL PROVIDER IF GREATER 400 Prednisone 10 Mg Tab 10 Mg PO DAILY Melatonin 5 Mg Tablet 5 Mg PO HS Levemir Flexpen (Insulin Detemir) 100 Unit/Ml (3 Ml) Insuln.pen 15 Unit SQ HS Neurontin (Gabapentin) 300 Mg Capsule 300 Mg PO QID Citalopram HBr (Citalopram Hydrobromide) 20 Mg Tablet 20 Mg PO HS Vitamin D3 (Cholecalciferol (Vitamin D3)) 50 Mcg (2000 Unit) Tablet 50 Mcg PO DAILY Amlodipine Besylate 5 Mg Tablet 5 Mg PO DAILY Amitriptyline HCl 10 Mg Tablet 10 Mg PO HS Alprazolam 1 Mg Tablet 1 Mg PO BID Miralax (Polyethylene Glycol 3350) 17 Gram Powd.pack 17 Gm PO BID PRN Oxycodone HCl 5 Mg Tablet 5 Mg PO Q4H PRN Ondansetron Odt (Ondansetron) 4 Mg Tab.rapdis 4 Mg SL Q6H PRN Guaifenesin Dm Syrup (Guaifenesin/Dextromethorphan) 100 Mg-10 Mg/5 Ml Syrup 10 Ml PO Q4H PRN Clonidine HCl 0.1 Mg Tablet 0.1 Mg PO Q4H PRN Benzonatate 100 Mg Capsule 200 Mg PO TID Tylenol (Acetaminophen) 325 Mg Tablet 650 Mg PO Q4H PRN Warfarin Sodium 5 Mg Tablet 5 Mg PO NO,TU,WE,FRI,SA @170 Warfarin Sodium 2.5 Mg Tablet 2.5 Mg PO MO,TH @1700 Mucinex (Guaifenesin) 600 Mg Tab.er.12h 600 Mg PO BID Iprat-Albut 0.5-3(2.5) mg/3 ml (Ipratropium/Albuterol Sulfate) 0.5 Mg-3 Mg (2.5 Mg Base)/3 Ml Ampul.neb 3 Ml IH Q4H Iprat-Albut 0.5-3(2.5) mg/3 ml (Ipratropium/Albuterol Sulfate) 0.5 Mg-3 Mg (2.5 Mg Base)/3 Ml Ampul.neb 3 Ml IH Q4H PRN Instructions to patient/family Please see electronic discharge instructions given to patient. PARISH GUAMAN DO December 27, 2022 04:56
--- NOTE | 2022-12-27 11:26 | Physician Query Clarification ---
Physician Query-General Query to Physician: The medical record reflects the following clinical scenario: History/Risk factors: PNA, Severely debilitated, NH Resident with recent hospitalization for UTI and Hypoxia Clinical Findings: Admission VS/LABS: HR 121, RR 24, BP 120/75, SpO2 94% sat on nasal cannula 2 L, was 87% on room air, T 37.4, WBC 8.8 did increase to 18.5, glucose 244, Lactic acid 2.93, 2.49, 2.49, then decreased to 1.55 Treatment: ER: Albuterol/ipratropium, normal saline 500 mL, vancomycin IV, cefepime IV, Additional 1 L normal saline given on Day 2 Question: Is Sepsis a clinically valid diagnosis? Sepsis was documented in the H and P and Progress notes with no documentation of Sepsis on the Discharge summary. With this statement "Lengthy course after admitted for PNA". If yes, please document in the Progress Notes and Discharge Summary. Yes, clinically valid, condition resolved No, condition ruled out Other, with explanation of clinical findings Undetermined, no explanation for clinical findings In responding to this query, please exercise your independent professional jesse gment. The purpose of this communication is to more accurately reflect the complexity of your patients condition. The fact that a question is asked does not imply that any particular answer is desired or expected. Thank you for your timely response to this clarification. Amanda Harris MSN, RN Clinical Manager [email or web address] PHYSICIAN RESPONSE: Based on the clinical findings in the record, please respond to the query above on this document as an addendum. Physician Response: Physician Response Yes If you have questions please contact: Protective Services Case Worker: Ext: Thank you for your time and cooperation. Clinical Manager Car/Protective Services Case Worker This is a permanent part of the medical record AMANDA HARRIS December 27, 2022 11:26 PARISH GUAMAN DO December 27, 2022 11:36
== END 2022-12-26 21:11 | disposition expired | DRG 871 ==
LOC: EDUNIT# 10:30 → ER 10:31 → 4TH 12:13
PROVIDERS: ADMIT Internal Medicine; ATTEND Internal Medicine
DX: A41.9 Sepsis, unspecified organism (principal); J18.9 Pneumonia, unspecified organism; J96.01 Acute respiratory failure with hypoxia; N17.9 Acute kidney failure, unspecified; Z68.43 Body mass index [BMI] 50.0-59.9, adult; J39.8 Other specified diseases of upper respiratory tract; E66.01 Morbid (severe) obesity due to excess calories; Z66 Do not resuscitate; Z51.5 Encounter for palliative care; Z20.822 Contact with and (suspected) exposure to COVID-19; G47.33 Obstructive sleep apnea (adult) (pediatric); G93.32 Myalgic encephalomyelitis/chronic fatigue syndrome; I12.9 Hypertensive chronic kidney disease with stage 1 through stage 4 chronic kidney disease, or unspecified chronic kidney disease; M79.7 Fibromyalgia; E11.22 Type 2 diabetes mellitus with diabetic chronic kidney disease; N18.9 Chronic kidney disease, unspecified; E78.00 Pure hypercholesterolemia, unspecified; K21.9 Gastro-esophageal reflux disease without esophagitis; F41.9 Anxiety disorder, unspecified; F32.A Depression, unspecified; G47.00 Insomnia, unspecified; H54.3 Unqualified visual loss, both eyes; H91.90 Unspecified hearing loss, unspecified ear; M19.90 Unspecified osteoarthritis, unspecified site; Z79.4 Long term (current) use of insulin; Z86.711 Personal history of pulmonary embolism; Z79.01 Long term (current) use of anticoagulants; Z86.718 Personal history of other venous thrombosis and embolism; Z88.0 Allergy status to penicillin; Z79.899 Other long term (current) drug therapy; Z79.52 Long term (current) use of systemic steroids
CPT/HCPCS: 36415; 36600; 71045; 71250; 80053; 80202; 82805; 82947; 83605; 83880; 85007; 85025; 85027; 85610; 87040; 87636; 94640; 94664; 94760; 94761